=== PATIENT | male | born 1955 | race Caucasian/White ===

== ENCOUNTER 2022-10-07 06:34 | Outpatient (OUT) | payer OTHER, SELFPAY ==
[2022-10-07 07:24] LABS: Alanine Aminotransferase 19 U/L (16-63); Aspartate Amino Transferase 14 U/L (15-37); Chol HDL Ratio 6.6; Cholesterol 159 mg/dL (<=200); HDL Cholesterol 24 mg/dL (40-60); Triglycerides 136 mg/dL (<=150); VLDL CHOLESTEROL 27.2 mg/dL
== END 2022-10-07 06:35 ==
LOC: LAB 06:38
PROVIDERS: PCP Nurse Practitioner; Visit Provider Nurse Practitioner
DX: E78.5 Hyperlipidemia, unspecified (principal)
CPT/HCPCS: 36415; 80061; 84450; 84460

== ENCOUNTER 2022-12-08 09:08 | Outpatient (OUT) | payer OTHER, SELFPAY ==
[2022-12-08 09:55] LABS: Alanine Aminotransferase 11 U/L (16-63); Aspartate Amino Transferase 10 U/L (15-37); Chol HDL Ratio 3.6; Cholesterol 103 mg/dL (<=200); HDL Cholesterol 29 mg/dL (40-60); Triglycerides 65 mg/dL (<=150)
== END 2022-12-08 09:09 | disposition home or self-care (01) ==
LOC: LAB 09:10
PROVIDERS: PCP Nurse Practitioner; Visit Provider Nurse Practitioner
DX: E78.5 Hyperlipidemia, unspecified (principal)
CPT/HCPCS: 36415; 80061; 84450; 84460

== ENCOUNTER 2023-01-25 07:39 | Outpatient (OUT) | payer OTHER, SELFPAY ==
--- NOTE | 2023-01-25 08:01 | CT_ITS ---
[address] [address] Patient Name: CARLOS DUQUE MRN: [id number] date: 1955 Sex: M Assigned Patient Location: CT Current Patient Location: CT Accession/Order Number: [id number] Exam Date: 01/25/2023 07:55 Report Date: 01/25/2023 08:55 At the request of: LAURA FRANKLIN Procedure: CT lung screening low-dose EXAMINATION: CT lung screening low-dose HISTORY: History OF Tobacco Dependence Z87.891 COMPARISON: No relevant comparison available. TECHNIQUE: Axial, Coronal, and Sagittal images were created without the administration of IV contrast material. Dose reduction techniques were achieved by using automated exposure control and/or adjustment of mA and/or kV according to patient size and/or use of iterative reconstruction technique. FINDINGS: LUNGS: 4 mm pleural-based nodule within the posterior superior aspect of the left upper lobe. Trace amount of discoid atelectasis or scarring within right middle lobe. No convincing infiltrates. No significant chronic interstitial changes. PLEURA: No mass, effusion, or pneumothorax. VASCULATURE: No abnormality. ALMAZ: No mass or pathologic adenopathy. MEDIASTINUM: No mass or pathologic adenopathy. CARDIAC: No enlargement, pericardial thickening, or significant calcification. AORTA: No aneurysm or dissection. CHEST WALL: No mass or axillary adenopathy BONES: Old, incompletely ossified posterior right 11th rib fracture. LIMITED ABDOMEN: No suspicious findings. Limited images of the upper abdomen. OTHER: Negative. CT/CT lung screening low-dose IMPRESSION: 1. Lung-RADS 2- Benign Appearance or Behavior. Nodules with a very low likelihood of becoming a clinically active cancer due to size or lack of growth. Follow-up CT Chest in 1 year. Electronically authenticated by: ABRAHAM HEADLEY Date: 01/25/2023 08:55
== END 2023-01-25 07:40 | disposition home or self-care (01) ==
LOC: CT 07:39
PROVIDERS: PCP Nurse Practitioner; Visit Provider Nurse Practitioner
DX: Z87.891 Personal history of nicotine dependence (principal)
CPT/HCPCS: 71271

== ENCOUNTER 2023-02-22 12:35 | Emergency (ER) | payer OTHER, SELFPAY ==
[2023-02-22 12:40] VITALS: BP 139/74; PULSE 70; RESP 16; TEMP 36.9; O2SAT 98; BMI 37.6
[2023-02-22 12:50] LABS: Glucometer 146 mg/dL (74-106)
--- NOTE | 2023-02-22 13:40 | PC.NURSE ---
PT STATES HOT AND COLD FLASHES X 1 DAY. DENIES ANY OTHER SYMPTOMS
--- NOTE | 2023-02-22 13:50 | XR_ITS ---
The [address] [address] Patient Name: CARLOS DUQUE MRN: [id number] date: 1955 Sex: M Assigned Patient Location: ER Current Patient Location: ER Accession/Order Number: [id number] Exam Date: 02/22/2023 13:59 Report Date: 02/22/2023 14:32 At the request of: LOWELL CARTAGENA Procedure: XR chest 1V EXAMINATION: XR chest 1V HISTORY: Fever COMPARISON: No relevant comparison available. FINDINGS: LUNGS: No significant pulmonary parenchymal abnormalities. VASCULATURE: No increased pulmonary vasculature. PLEURA: No pneumothorax, effusion, or pleural thickening. CARDIAC: No cardiomegaly or cardiac silhouette abnormality. MEDIASTINUM: No visible mass or adenopathy. BONES: No fracture or visible bone lesion. OTHER: Negative. XR/XR chest 1V IMPRESSION: 1. No acute cardiopulmonary process. Electronically authenticated by: ABRAHAM HEADLEY Date: 02/22/2023 14:32
--- NOTE | 2023-02-22 13:53 | ED_ITS ---
Documented by User: DEMETRIO Lewis 02/22/23 16:08 HPI - General Adult General Chief complaint: Upper Respiratory Infection Stated complaint: HOT FLASHES/COLD CHILLS Time Seen by Provider: 02/22/23 13:38 Source: patient and family Source information: pt spouse Mode of arrival: Wheelchair Limitations: no limitations History of Present Illness HPI narrative: patient is a 67-year-old male who presents to the emergency department with his for concern of hot and cold chills that began this morning. states her primary concern is that the patient may have Covid. He has had no cough or congestion, although the states she has had a cough. Patient has had no objective fevers, vomiting or diarrhea. He denies chest pain, shortness of breath. He has no focal medical complaints although he states he has had decreased appetite for several days and has pain to the tailbone where he has a known sacral ulcer. He does not currently see wound care for this, he had an appointment with the clinical rehab specialist but missed the appointment because he did not know where to go and did not reschedule. He denies abdominal pain, urinary symptoms. No medications taken prior to arrival. patient's believes that the wound to the tailbone has been getting worse and is draining intermittently Related Data Previous Rx's Medication Instructions Recorded amoxicillin 875 mg-potassium 1 tab PO Q12H #20 tabs 02/22/23 clavulanate 125 mg tablet hydrocodone 5 mg-acetaminophen 325 1 tab PO Q6H PRN pain #12 tabs 02/22/23 mg tablet ondansetron 4 mg disintegrating 4 mg PO Q6H PRN nausea and 02/22/23 tablet vomiting #12 tabs Allergies Allergy/AdvReac Type Severity Reaction Status Date / Time No Known Drug Allergies Allergy Verified 02/22/23 12:49 Review of Systems ROS Constitutional Reports: chills; Denies: fever Ears, nose, mouth, and throat Denies: throat pain Cardiovascular Denies: chest pain Respiratory Denies: shortness of breath or cough Gastrointestinal Denies: nausea or vomiting Genitourinary Denies: painful urination Musculoskeletal Denies: back pain Integumentary/Breast Reports: skin pain; Denies: rash Neurological Denies: headache PFSH PFSH Social History Smoking status: Current every day smoker Exam Narrative Exam Narrative: Gen.: Awake, alert, in no distress Head: Normocephalic, atraumatic ENT: Moist mucous membranes Respiratory: No respiratory distress, lungs clear bilaterally Cardio: Regular rate and rhythm Gastrointestinal: Abdomen is soft, nondistended and nontender to palpation Back: 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 Mild erythema and induration noted around the edges of the wound. Extremities: Moves extremities equally Psych: Normal mood and affect Neuro: No focal neuro deficit Skin: Warm, dry, intact Constitutional Vital Signs, click to edit/add: Last Vital Signs Temp 98.5 F 02/22/23 12:40 Pulse 70 02/22/23 12:40 Resp 16 02/22/23 12:40 BP 139/74 02/22/23 12:40 Pulse Ox 98 02/22/23 12:40 O2 Del Method Room Air 02/22/23 12:40 Course Vital Signs Vital signs: Vital Signs Temperature 98.5 F 02/22/23 12:40 Pulse Rate 70 02/22/23 12:40 Respiratory Rate 16 02/22/23 12:40 Blood Pressure 139/74 02/22/23 12:40 Pulse Oximetry 98 02/22/23 12:40 Oxygen Delivery Method Room Air 02/22/23 12:40 Temperature 98.5 F 02/22/23 12:40 Pulse Rate 70 02/22/23 12:40 Respiratory Rate 16 02/22/23 12:40 Blood Pressure 139/74 02/22/23 12:40 Pulse Oximetry 98 02/22/23 12:40 Oxygen Delivery Method Room Air 02/22/23 12:40 Medical Decision Making MDM Narrative Medical decision making narrative: labs including electrolytes, kidney function, lactic acid are within normal limits. Patient has no leukocytosis or bandemia. He has normal vital signs in the emergency department with no fevers or tachycardia. He was treated with pain medication and IV fluids. Sepsis labs were ordered, blood cultures are pending. Patient with no evidence of significant sepsis or infection at this time. Urine specimen and Covid test are negative, chest x-rays unremarkable. I suspect the source of the patient's hot and cold chills may be wound infection as his sacral ulcer is worsening and draining. We will treat with Augmentin for antibiotic coverage and patient is referred to the wound care clinic. Return to the Emergency Room if symptoms change or worsen. Augmentin and pain medication given for home, follow-up with PCP. Medical Records Medical records reviewed: Yes I reviewed the patient's medical records Lab Data Lab results reviewed: Yes I reviewed the patient's lab results Labs: Lab Results 02/22/23 02/22/23 02/22/23 Range/Units 12:47 14:00 14:04 WBC 7.2 (4.0-11.0) 10^3/uL RBC 5.54 (4.70-6.10) 10^6/uL Hgb 14.4 (14.0-18.0) g/dL Hct 45.8 (42.0-54.0) % MCV 82.7 (80.0-94.0) fL MCH 26.0 (25.9-34.0) pg MCHC 31.4 (29.9-35.2) g/dL RDW 14.1 (11.0-15.0) % Plt Count 153 (150-450) 10^3/uL MPV 11.4 (9.5-13.5) fL Neut % (Auto) 78.2 H (43.0-75.0) % Lymph % (Auto) 14.9 L (20.5-60.0) % Dickinson % (Auto) 4.6 (1.7-12.0) % Eos % (Auto) 1.4 (0.9-7.0) % Baso % (Auto) 0.6 (0.2-2.0) % Neut # (Auto) 5.7 (1.4-6.5) 10^3/uL Lymph # (Auto) 1.1 L (1.2-3.8) 10^3/uL Dickinson # (Auto) 0.3 (0.3-0.8) 10^3/uL Eos # (Auto) 0.1 (0.0-0.7) 10^3/uL Baso # (Auto) 0.0 (0.0-0.1) 10^3/uL Abs Immat Gran (auto) 0.02 (0.00-0.03) 10^3/uL Imm/Tot Granulo (auto) 0.3 (0.0-0.5) % ESR (<=20) mm/hr VBG pH 7.465 H (7.330-7.430) VBG pCO2 41.2 (40.0-52.0) mmHg Sodium 139 (136-145) mmol/L Potassium 4.0 (3.5-5.1) mmol/L Chloride 103 (98-107) mmol/L Carbon Dioxide 28.4 (21.0-32.0) mmol/L Anion Gap 11.6 BUN 12.0 (7.0-18.0) mg/dL Creatinine 0.80 (0.70-1.30) mg/dL Est GFR ( Amer) >60 (>=60) Est GFR (Non-Af Amer) >60 (>=60) BUN/Creatinine Ratio 15.0 Glucose 113 H (74-106) mg/dL Lactate 0.9 (0.4-2.0) mmol/L Calcium 8.8 (8.5-10.1) mg/dL Total Bilirubin 0.4 (0.2-1.0) mg/dL AST 12 L (15-37) U/L ALT 10 L (16-63) U/L Alkaline Phosphatase 87 (46-116) U/L C-Reactive Protein 2.1 H (<=1.0) mg/dL Total Protein 7.4 (6.4-8.2) g/dL Albumin 2.9 L (3.4-5.0) g/dL Globulin 4.5 g/dL Albumin/Globulin Ratio 0.6 Urine Color (YELLOW) Urine Clarity (CLEAR) Urine pH (5.0-9.0) Ur Specific [place] (1.005-1.025) Urine Protein (NEG/TRACE) mg/dL Urine Glucose (UA) (NEGATIVE) mg/dL Urine Ketones (NEGATIVE) mg/dL Urine Occult Blood (NEGATIVE) Urine Nitrite (NEGATIVE) Urine Bilirubin (NEGATIVE) Urine Urobilinogen (0.2-1.0) EU/dL Ur Leukocyte Esterase (NEGATIVE) SARS-CoV-2 (PCR) Negative (NEGATIVE) SARS-CoV-2 RNA (LEONCIO) Not detected (NOT DETECTE) POC Glucose 146 H (74-106) mg/dL 02/22/23 02/22/23 Range/Units 14:16 15:30 WBC (4.0-11.0) 10^3/uL RBC (4.70-6.10) 10^6/uL Hgb (14.0-18.0) g/dL Hct (42.0-54.0) % MCV (80.0-94.0) fL MCH (25.9-34.0) pg MCHC (29.9-35.2) g/dL RDW (11.0-15.0) % Plt Count (150-450) 10^3/uL MPV (9.5-13.5) fL Neut % (Auto) (43.0-75.0) % Lymph % (Auto) (20.5-60.0) % Dickinson % (Auto) (1.7-12.0) % Eos % (Auto) (0.9-7.0) % Baso % (Auto) (0.2-2.0) % Neut # (Auto) (1.4-6.5) 10^3/uL Lymph # (Auto) (1.2-3.8) 10^3/uL Dickinson # (Auto) (0.3-0.8) 10^3/uL Eos # (Auto) (0.0-0.7) 10^3/uL Baso # (Auto) (0.0-0.1) 10^3/uL Abs Immat Gran (auto) (0.00-0.03) 10^3/uL Imm/Tot Granulo (auto) (0.0-0.5) % ESR 80 H (<=20) mm/hr VBG pH (7.330-7.430) VBG pCO2 (40.0-52.0) mmHg Sodium (136-145) mmol/L Potassium (3.5-5.1) mmol/L Chloride (98-107) mmol/L Carbon Dioxide (21.0-32.0) mmol/L Anion Gap BUN (7.0-18.0) mg/dL Creatinine (0.70-1.30) mg/dL Est GFR ( Amer) (>=60) Est GFR (Non-Af Amer) (>=60) BUN/Creatinine Ratio Glucose (74-106) mg/dL Lactate (0.4-2.0) mmol/L Calcium (8.5-10.1) mg/dL Total Bilirubin (0.2-1.0) mg/dL AST (15-37) U/L ALT (16-63) U/L Alkaline Phosphatase (46-116) U/L C-Reactive Protein (<=1.0) mg/dL Total Protein (6.4-8.2) g/dL Albumin (3.4-5.0) g/dL Globulin g/dL Albumin/Globulin Ratio Urine Color Yellow (YELLOW) Urine Clarity Clear (CLEAR) Urine pH 7.0 (5.0-9.0) Ur Specific [place] 1.010 (1.005-1.025) Urine Protein Trace (NEG/TRACE) mg/dL Urine Glucose (UA) Negative (NEGATIVE) mg/dL Urine Ketones Trace A (NEGATIVE) mg/dL Urine Occult Blood Negative (NEGATIVE) Urine Nitrite Negative (NEGATIVE) Urine Bilirubin Negative (NEGATIVE) Urine Urobilinogen 4.0 A (0.2-1.0) EU/dL Ur Leukocyte Esterase Negative (NEGATIVE) SARS-CoV-2 (PCR) (NEGATIVE) SARS-CoV-2 RNA (LEONCIO) (NOT DETECTE) POC Glucose (74-106) mg/dL Imaging Data Chest x-ray: Attestation: I have reviewed the pertinent imaging results. Radiologist's impression: Procedure: XR chest 1V EXAMINATION: XR chest 1V HISTORY: Fever COMPARISON: No relevant comparison available. FINDINGS: LUNGS: No significant pulmonary parenchymal abnormalities. VASCULATURE: No increased pulmonary vasculature. PLEURA: No pneumothorax, effusion, or pleural thickening. CARDIAC: No cardiomegaly or cardiac silhouette abnormality. MEDIASTINUM: No visible mass or adenopathy. BONES: No fracture or visible bone lesion. OTHER: Negative. IMPRESSION: 1. No acute cardiopulmonary process. Electronically authenticated by: ABRAHAM HEADLEY Date: 02/22/2023 14:32 Discharge Plan Discharge Chief Complaint: Upper Respiratory Infection Clinical Impression: Wound infection Patient Disposition: Home, Self-Care Time of Disposition Decision: 16:04 Condition: Good Mode of Transportation: Private Vehicle Prescriptions / Home Meds: New hydrocodone-acetaminophen 5-325 mg tablet 1 tab PO Q6H PRN (Reason: pain) Qty: 12 0RF Rx Instructions: DX: L08.9 amoxicillin-pot clavulanate 875-125 mg tablet 1 tab PO Q12H Qty: 20 0RF ondansetron 4 mg tablet,disintegrating 4 mg PO Q6H PRN (Reason: nausea and vomiting) Qty: 12 0RF Instructions: Wound Infection (ED), How to Prevent Pressure Injuries (ED), Acute Wounds (ED) Additional Instructions: Please follow up with Dr. Siegel at the [facility] [phone] Stand Alone Forms: Portal Instructions Referrals: Irina Mcleod NP [Primary Care Provider] - 1 week Discharge Date/Time: 02/22/23 16:14 Documented by User: Sang Hart MD 02/22/23 16:25 HPI - General Adult General Chief complaint: Upper Respiratory Infection Stated complaint: HOT FLASHES/COLD CHILLS Time Seen by Provider: 02/22/23 13:38 Related Data Previous Rx's Medication Instructions Recorded amoxicillin 875 mg-potassium 1 tab PO Q12H #20 tabs 02/22/23 clavulanate 125 mg tablet hydrocodone 5 mg-acetaminophen 325 1 tab PO Q6H PRN pain #12 tabs 02/22/23 mg tablet ondansetron 4 mg disintegrating 4 mg PO Q6H PRN nausea and 02/22/23 tablet vomiting #12 tabs Allergies Allergy/AdvReac Type Severity Reaction Status Date / Time No Known Drug Allergies Allergy Verified 02/22/23 12:49 PFSH PFSH Social History Smoking status: Current every day smoker Exam Narrative Exam Narrative: Gen.: Awake, alert, in no distress; Patient smells of tobacco/cigarette products, poor hygiene Head: Normocephalic, atraumatic ENT: Moist mucous membranes Respiratory: No respiratory distress, lungs clear bilaterally Cardio: Regular rate and rhythm Gastrointestinal: Abdomen is soft, nondistended and nontender to palpation Back: 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 Mild erythema and induration noted around the edges of the wound. Patient has 2 separate openings of the skin at the top of patient's buttocks, they appear to be possibly tracking together. No active drainage, no active bleeding. No palpable abscess or pilonidal cyst. No other involvement of patient's buttocks, anus. This was examined by Diane ATKINSON and DR HART. Dr Hart and Veronica RN at bedside during the entire repeat evaluation and examination of the patient's buttocks. Extremities: Moves extremities equally. Psych: Normal mood and affect Neuro: No focal neuro deficit Skin: Warm, dry, intact Constitutional Vital Signs, click to edit/add: Last Vital Signs Temp 98.5 F 02/22/23 12:40 Pulse 70 02/22/23 12:40 Resp 16 02/22/23 12:40 BP 139/74 02/22/23 12:40 Pulse Ox 98 02/22/23 12:40 O2 Del Method Room Air 02/22/23 12:40 Course Vital Signs Vital signs: Vital Signs Temperature 98.5 F 02/22/23 12:40 Pulse Rate 70 02/22/23 12:40 Respiratory Rate 16 02/22/23 12:40 Blood Pressure 139/74 02/22/23 12:40 Pulse Oximetry 98 02/22/23 12:40 Oxygen Delivery Method Room Air 02/22/23 12:40 Temperature 98.5 F 02/22/23 12:40 Pulse Rate 70 02/22/23 12:40 Respiratory Rate 16 02/22/23 12:40 Blood Pressure 139/74 02/22/23 12:40 Pulse Oximetry 98 02/22/23 12:40 Oxygen Delivery Method Room Air 02/22/23 12:40 Medical Decision Making MDM Narrative Medical decision making narrative: labs including electrolytes, kidney function, lactic acid are within normal limits. Patient has no leukocytosis or bandemia. He has normal vital signs in the emergency department with no fevers or tachycardia. He was treated with pain medication and IV fluids. Sepsis labs were ordered, blood cultures are pending. Patient with no evidence of significant sepsis or infection at this time. Urine specimen and Covid test are negative, chest x-rays unremarkable. I suspect the source of the patient's hot and cold chills may be wound infection as his sacral ulcer is worsening and draining. We will treat with Augmentin for antibiotic coverage and patient is referred to the wound care clinic. Return to the Emergency Room if symptoms change or worsen. Augmentin and pain medication given for home, follow-up with PCP. I, Dr Hart, have reviewed the above progress note and course of action in the ER; agree with the above. I have personally seen and evaluated this patient, gone over history and physical, and discussed disposition and treatment plan with the patient. Lab Data Lab results reviewed: Yes I reviewed the patient's lab results Labs: Lab Results 02/22/23 02/22/23 02/22/23 Range/Units 12:47 14:00 14:04 WBC 7.2 (4.0-11.0) 10^3/uL RBC 5.54 (4.70-6.10) 10^6/uL Hgb 14.4 (14.0-18.0) g/dL Hct 45.8 (42.0-54.0) % MCV 82.7 (80.0-94.0) fL MCH 26.0 (25.9-34.0) pg MCHC 31.4 (29.9-35.2) g/dL RDW 14.1 (11.0-15.0) % Plt Count 153 (150-450) 10^3/uL MPV 11.4 (9.5-13.5) fL Neut % (Auto) 78.2 H (43.0-75.0) % Lymph % (Auto) 14.9 L (20.5-60.0) % Dickinson % (Auto) 4.6 (1.7-12.0) % Eos % (Auto) 1.4 (0.9-7.0) % Baso % (Auto) 0.6 (0.2-2.0) % Neut # (Auto) 5.7 (1.4-6.5) 10^3/uL Lymph # (Auto) 1.1 L (1.2-3.8) 10^3/uL Dickinson # (Auto) 0.3 (0.3-0.8) 10^3/uL Eos # (Auto) 0.1 (0.0-0.7) 10^3/uL Baso # (Auto) 0.0 (0.0-0.1) 10^3/uL Abs Immat Gran (auto) 0.02 (0.00-0.03) 10^3/uL Imm/Tot Granulo (auto) 0.3 (0.0-0.5) % ESR (<=20) mm/hr VBG pH 7.465 H (7.330-7.430) VBG pCO2 41.2 (40.0-52.0) mmHg Sodium 139 (136-145) mmol/L Potassium 4.0 (3.5-5.1) mmol/L Chloride 103 (98-107) mmol/L Carbon Dioxide 28.4 (21.0-32.0) mmol/L Anion Gap 11.6 BUN 12.0 (7.0-18.0) mg/dL Creatinine 0.80 (0.70-1.30) mg/dL Est GFR ( Amer) >60 (>=60) Est GFR (Non-Af Amer) >60 (>=60) BUN/Creatinine Ratio 15.0 Glucose 113 H (74-106) mg/dL Lactate 0.9 (0.4-2.0) mmol/L Calcium 8.8 (8.5-10.1) mg/dL Total Bilirubin 0.4 (0.2-1.0) mg/dL AST 12 L (15-37) U/L ALT 10 L (16-63) U/L Alkaline Phosphatase 87 (46-116) U/L C-Reactive Protein 2.1 H (<=1.0) mg/dL Total Protein 7.4 (6.4-8.2) g/dL Albumin 2.9 L (3.4-5.0) g/dL Globulin 4.5 g/dL Albumin/Globulin Ratio 0.6 Urine Color (YELLOW) Urine Clarity (CLEAR) Urine pH (5.0-9.0) Ur Specific [place] (1.005-1.025) Urine Protein (NEG/TRACE) mg/dL Urine Glucose (UA) (NEGATIVE) mg/dL Urine Ketones (NEGATIVE) mg/dL Urine Occult Blood (NEGATIVE) Urine Nitrite (NEGATIVE) Urine Bilirubin (NEGATIVE) Urine Urobilinogen (0.2-1.0) EU/dL Ur Leukocyte Esterase (NEGATIVE) SARS-CoV-2 (PCR) Negative (NEGATIVE) SARS-CoV-2 RNA (LEONCIO) Not detected (NOT DETECTE) POC Glucose 146 H (74-106) mg/dL 02/22/23 02/22/23 Range/Units 14:16 15:30 WBC (4.0-11.0) 10^3/uL RBC (4.70-6.10) 10^6/uL Hgb (14.0-18.0) g/dL Hct (42.0-54.0) % MCV (80.0-94.0) fL MCH (25.9-34.0) pg MCHC (29.9-35.2) g/dL RDW (11.0-15.0) % Plt Count (150-450) 10^3/uL MPV (9.5-13.5) fL Neut % (Auto) (43.0-75.0) % Lymph % (Auto) (20.5-60.0) % Dickinson % (Auto) (1.7-12.0) % Eos % (Auto) (0.9-7.0) % Baso % (Auto) (0.2-2.0) % Neut # (Auto) (1.4-6.5) 10^3/uL Lymph # (Auto) (1.2-3.8) 10^3/uL Dickinson # (Auto) (0.3-0.8) 10^3/uL Eos # (Auto) (0.0-0.7) 10^3/uL Baso # (Auto) (0.0-0.1) 10^3/uL Abs Immat Gran (auto) (0.00-0.03) 10^3/uL Imm/Tot Granulo (auto) (0.0-0.5) % ESR 80 H (<=20) mm/hr VBG pH (7.330-7.430) VBG pCO2 (40.0-52.0) mmHg Sodium (136-145) mmol/L Potassium (3.5-5.1) mmol/L Chloride (98-107) mmol/L Carbon Dioxide (21.0-32.0) mmol/L Anion Gap BUN (7.0-18.0) mg/dL Creatinine (0.70-1.30) mg/dL Est GFR ( Amer) (>=60) Est GFR (Non-Af Amer) (>=60) BUN/Creatinine Ratio Glucose (74-106) mg/dL Lactate (0.4-2.0) mmol/L Calcium (8.5-10.1) mg/dL Total Bilirubin (0.2-1.0) mg/dL AST (15-37) U/L ALT (16-63) U/L Alkaline Phosphatase (46-116) U/L C-Reactive Protein (<=1.0) mg/dL Total Protein (6.4-8.2) g/dL Albumin (3.4-5.0) g/dL Globulin g/dL Albumin/Globulin Ratio Urine Color Yellow (YELLOW) Urine Clarity Clear (CLEAR) Urine pH 7.0 (5.0-9.0) Ur Specific [place] 1.010 (1.005-1.025) Urine Protein Trace (NEG/TRACE) mg/dL Urine Glucose (UA) Negative (NEGATIVE) mg/dL Urine Ketones Trace A (NEGATIVE) mg/dL Urine Occult Blood Negative (NEGATIVE) Urine Nitrite Negative (NEGATIVE) Urine Bilirubin Negative (NEGATIVE) Urine Urobilinogen 4.0 A (0.2-1.0) EU/dL Ur Leukocyte Esterase Negative (NEGATIVE) SARS-CoV-2 (PCR) (NEGATIVE) SARS-CoV-2 RNA (LEONCIO) (NOT DETECTE) POC Glucose (74-106) mg/dL Discharge Plan Discharge Chief Complaint: Upper Respiratory Infection Clinical Impression: Wound infection Patient Disposition: Home, Self-Care Time of Disposition Decision: 16:04 Condition: Good Mode of Transportation: Private Vehicle Prescriptions / Home Meds: New hydrocodone-acetaminophen 5-325 mg tablet 1 tab PO Q6H PRN (Reason: pain) Qty: 12 0RF Rx Instructions: DX: L08.9 amoxicillin-pot clavulanate 875-125 mg tablet 1 tab PO Q12H Qty: 20 0RF ondansetron 4 mg tablet,disintegrating 4 mg PO Q6H PRN (Reason: nausea and vomiting) Qty: 12 0RF Instructions: Wound Infection (ED), How to Prevent Pressure Injuries (ED), Acute Wounds (ED) Additional Instructions: Please follow up with Dr. Siegel at the [facility] [phone] Stand Alone Forms: Portal Instructions Referrals: Irina Mcleod NP [Primary Care Provider] - 1 week Discharge Date/Time: 02/22/23 16:14
[2023-02-22] MEDS: OXYCODONE HCL/ACETAMINOPHEN 5MG/325MG 1 TAB PO (14:27)
[2023-02-22] MEDS: 0.9 % SODIUM CHLORIDE 1,000 ML 999 ML IV (14:27)
[2023-02-22 14:28] LABS: PCO2 VBG 41.2 mmHg (40.0-52.0); pH VBG 7.465 (7.330-7.430)
[2023-02-22 14:30] LABS: Basophils Percent Auto 0.6 % (0.2-2.0); Eosinophils Absolute Auto 0.1 10^3/uL (0.0-0.7); Eosinophils Percent Auto 1.4 % (0.9-7.0); Hematocrit 45.8 % (42.0-54.0); Hemoglobin 14.4 g/dL (14.0-18.0); Immature Granulocytes Abs Auto 0.02 10^3/uL (0.00-0.03); Immature Granulocytes Pct Auto 0.3 % (0.0-0.5); Lymphocytes Absolute Auto 1.1 10^3/uL (1.2-3.8); Lymphocytes Percent Auto 14.9 % (20.5-60.0); Mean Corpuscular HGB Conc 31.4 g/dL (29.9-35.2); Mean Corpuscular Volume 82.7 fL (80.0-94.0); Mean Platelet Volume 11.4 fL (9.5-13.5); Monocytes Absolute Auto 0.3 10^3/uL (0.3-0.8); Monocytes Percent Auto 4.6 % (1.7-12.0); Neutrophils Absolute Auto 5.7 10^3/uL (1.4-6.5); Neutrophils Percent Auto 78.2 % (43.0-75.0); Platelet Count 153 10^3/uL (150-450); Red Blood Count 5.54 10^6/uL (4.70-6.10); Red Cell Distribution Width 14.1 % (11.0-15.0); White Blood Count 7.2 10^3/uL (4.0-11.0)
[2023-02-22 14:39] LABS: SARS-CoV-2 Ag NEGATIVE (NEGATIVE)
[2023-02-22 14:43] LABS: Alanine Aminotransferase 10 U/L (16-63); Albumin Globulin Ratio 0.6; Albumin Level 2.9 g/dL (3.4-5.0); Alkaline Phosphatase 87 U/L (46-116); Anion Gap 11.6; Aspartate Amino Transferase 12 U/L (15-37); Bilirubin Total 0.4 mg/dL (0.2-1.0); C Reactive Protein 2.1 mg/dL (<=1.0); Calcium 8.8 mg/dL (8.5-10.1); Carbon Dioxide 28.4 mmol/L (21.0-32.0); Chloride 103 mmol/L (98-107); Estimated GFR (African America >60 (>=60); Estimated GFR (Non-African Ame >60 (>=60); Globulin 4.5 g/dL; Glucose 113 mg/dL (74-106); Sodium 139 mmol/L (136-145); Total Protein 7.4 g/dL (6.4-8.2)
[2023-02-22 14:45] LABS: Lactate/Lactic Acid 0.9 mmol/L (0.4-2.0)
[2023-02-22 14:57] LABS: Erythrocyte Sedimentation Rate 80 mm/hr (<=20)
--- NOTE | 2023-02-22 15:37 | PC.NURSE ---
PT STATES HIS PAIN IS BETTER AT THIS TIME. FLUIDS ARE COMPLETED. URINE SAMPLE COLLECTED.
[2023-02-22 15:52] LABS: Bilirubin Urine NEGATIVE (NEGATIVE); Blood Urine NEGATIVE (NEGATIVE); Clarity Urine CLEAR (CLEAR); Color Urine YELLOW (YELLOW); Glucose Urine UA NEGATIVE (NEGATIVE); Ketones Urine TRACE mg/dL (NEGATIVE); Leukocyte Esterase Urine NEGATIVE (NEGATIVE); Nitrite Urine NEGATIVE (NEGATIVE); Protein Urine TRACE mg/dL (NEG/TRACE)
[2023-02-22 15:53] LABS: Urine Microscopic Indicated NO
[2023-02-22 16:00] LABS: SARS-CoV-2 NAA NOT DETECTED (NOT DETECTE)
== END 2023-02-22 16:14 | disposition home or self-care (01) ==
PROVIDERS: Physician Assistant; Emergency Provider Emergency Medicine; PCP Nurse Practitioner
DX: L89.153 Pressure ulcer of sacral region, stage 3 (principal); L08.9 Local infection of the skin and subcutaneous tissue, unspecified; Z20.822 Contact with and (suspected) exposure to COVID-19; F17.210 Nicotine dependence, cigarettes, uncomplicated
CPT/HCPCS: 36415; 71045; 80053; 81003; 82800; 83605; 85025; 85652; 86140; 87040; 87635; 87811; 99285

== ENCOUNTER 2023-04-07 11:05 | Outpatient (OUT) | payer OTHER, SELFPAY ==
[2023-04-07 11:41] LABS: Estimated Average Glucose 126 mg/dL
== END 2023-04-07 11:06 | disposition home or self-care (01) ==
PROVIDERS: PCP Nurse Practitioner; Visit Provider Nurse Practitioner
DX: E11.42 Type 2 diabetes mellitus with diabetic polyneuropathy (principal)
CPT/HCPCS: 36415; 83036

== ENCOUNTER 2023-06-02 09:55 | Inpatient (IN) | payer OTHER, SELFPAY ==
[2023-06-02] VITALS (43 sets, daily range): BP systolic 65–108; BP diastolic 43–71; PULSE 82–117; RESP 7–27; TEMP 36.2–36.8; O2SAT 90–98; BMI 29.9; BMI 41.3
--- NOTE | 2023-06-02 10:19 | ECG_ITS ---
[facility] Test Date: 2023-06-02 Pat Name: CARLOS DUQUE Department: Room: - Gender: Male [place]: : 1955 Requested By: LAURA FRANKLIN Order Number: [id number] Reading MD: STACEY CHU Measurements Intervals [place] Rate: 105 P: 250 TX: 230 QRS: -68 QRSD: 132 T: 91 QT: 370 QTc: 431 Interpretive Statements Sinus tachycardia 2231 First degree AV block 2450 Right bundle branch block 3631 Inferior myocardial infarction, possibly acute 4564 Twave abnormality, possible lateral ischemia 9150 abnormal ECG Electronically Signed On 06-03-2023 6:42:33 EST by STACEY CHU
[2023-06-02] MEDS: 0.9 % SODIUM CHLORIDE 1,000 ML 999 ML IV (10:30)
--- OUTSIDE RECORDS SUMMARY | 2023-06-02 10:36 | XMS_ITS | CCD ---
Author Name Unknown Address [id number] [place] [address] Organization [facility] Care Team Providers Care Weave Room Supervisor Name Role Phone RIGOBERTO, METAL SPRAY OPERATOR IRINA Admitting Unavailable AICHHOLZ, METAL SPRAY OPERATOR IRINA Primary Care Unavailable AICHHOLZ, METAL SPRAY OPERATOR IRINA Consulting Unavailable AICHHOLZ, METAL SPRAY OPERATOR IRINA Attending Unavailable AICHHOLZ, METAL SPRAY OPERATOR IRINA Admitting Unavailable AICHHOLZ, METAL SPRAY OPERATOR IRINA Primary Care Unavailable AICHHOLZ, METAL SPRAY OPERATOR IRINA Consulting Unavailable AICHHOLZ, METAL SPRAY OPERATOR IRINA Attending Unavailable AICHHOLZ, METAL SPRAY OPERATOR IRINA Admitting Unavailable AICHHOLZ, METAL SPRAY OPERATOR IRINA Primary Care Unavailable AICHHOLZ, METAL SPRAY OPERATOR IRINA Consulting Unavailable AICHHOLZ, METAL SPRAY OPERATOR IRINA Attending Unavailable JOSE ELIAS DAI Admitting Unavailable JOSE ELIAS DAI Consulting Unavailable JOSE ELIAS DAI Attending Unavailable AICHHOLZ, METAL SPRAY OPERATOR IRINA Primary Care Unavailable Arlen Garcia PA-C Attending Brad delvalle Aichholz FULL STACK JAVA DEVELOPER-METAL SPRAY OPERATORIrina Referring Kristineva Too Manriquez MD Attending Unavaila JAYLIN Flynn Attending Unavailable Aichholz FULL STACK JAVA DEVELOPER-METAL SPRAY OPERATORIrina Primary Care Provider AMBER VALDOVINOS Attending Unavailable IRINA MCLEOD Referring Unavailable VINODHHOLDary, IRINA J Primary Care Unavailable VINODHBESS, IRINA Attending Unavailable VINODHBESS, IRINA Attending Unavailable SYBIL TOBIN Attending Unavailable IRINA MCLEOD Referring Unavailable AICADOLPH, IRINA Campa Primary Care Unavailable IRINA MCLEOD Referring Unavailable VINODHBESS, IRINA Campa Primary Care Unavailable AMBER VALDOVINOS Admitting Unavailable AMBER VALDOVINOS Attending Unavailable IRINA MCLEOD Primary Care Unavailable FRANKIE BISHOP Attending Unavailable IRINA MCLEOD Primary Care Unavailable Allergies Allergy Classification Reported Allergen(s) Allergy Type Date of Onset Reaction(s) Facility (1 source) Cephalexin Drug Allergy [facility] Repository (1 source) Clindamycin Drug Allergy [facility] (1 source) levoFLOXacin Drug Allergy [facility]ository (3 sources) Cephalosporins (Antibiotic); Translations: [CEPHALOSPORINS] Propensity to adverse reactions to drug (disorder) 3 Rash [facility] Repository (3 sources) Clindamycin; Translations: [CLINDAMYCIN] Drug Allergy 3 Rash [facility] Repository (3 sources) levoFLOXacin; Translations: [LEVOFLOXACIN] Drug Allergy 3 Rash [facility] Repository Medications Current Medications Medication Drug Class(es) Dates Sig (Normalized) Sig (Original) albuterol 0.83 mg/ml inhalation solution (1 source) beta2-Adrenergic Agonist take 2.5 mg by inhalation every six hours as needed albuterol (PROVENTIL,VENTOL IN) 2.5 mg /3 mL (0.083 %) nebulizer solution Inhale 3 mL (2.5 mg total) by nebulization every 6 (six) hours as needed. 0 Active aspirin 81 mg delayed release oral tablet (2 sources) Platelet Aggregation Inhibitor, Nonsteroidal Anti-inflammatory Drug take 1 tablet by mouth in the morning aspirin 81 mg Take 1 tablet (81 mg total) by mouth in the morning. 0 Active carvedilol 3.125 mg oral tablet (2 sources) alpha-Adrenergic Maria Esther, beta-Adrenergic Maria Esther take 1 tablet by mouth in the morning, then take 1 tablet by mouth at mealtime carvediloL (COREG) 3.125 mg tablet Take 1 tablet (3.125 mg total) by mouth in the morning and 1 tablet (3.125 mg total) in the evening. Take with meals. 0 Active DULoxetine 30 mg delayed release oral capsule (2 sources) Serotonin and Norepinephrine Reuptake Inhibitor take 1 capsule by mouth in the morning DULoxetine (CYMBALTA) 30 mg capsule Take 1 capsule (30 mg total) by mouth in the morning. 0 Active furosemide 20 mg oral tablet (2 sources) Loop Diuretic take 1 tablet by mouth three times daily furosemide (LASIX) 20 mg tablet Take 1 tablet (20 mg total) by mouth 3 (three) times a day. 0 Active gabapentin 300 mg oral capsule (2 sources) Anti-epileptic Agent gabapentin (NEURONTIN) 300 mg capsule 1 capsule (300 mg total) in the morning and 1 capsule (300 mg total) at noon and 1 capsule (300 mg total) in the evening and 1 capsule (300 mg total) before bedtime. 0 Active lisinopril 10 mg oral tablet (2 sources) Angiotensin Converting Enzyme Inhibitor Start: 03-08-2023 take 1 tablet by mouth in the morning lisinopriL (PRINIVIL,ZESTRIL ) 10 mg tablet Take 1 tablet (10 mg total) by mouth in the morning. 0 03/08/2023 Active metFORMIN hydrochloride 500 mg oral tablet (2 sources) Biguanide take 1 tablet by mouth in the morning, then take 1 tablet by mouth at mealtime metFORMIN (GLUCOPHAGE) 500 mg tablet Take 1 tablet (500 mg total) by mouth in the morning and 1 tablet (500 mg total) in the evening. Take with meals. 0 Active omeprazole 20 mg delayed release oral capsule (2 sources) Proton Pump Inhibitor Start: 03-08-2023 take 1 capsule by mouth once daily before breakfast omeprazole (PriLOSEC) 20 mg capsule Take 1 capsule (20 mg total) by mouth every morning before breakfast. 0 03/08/2023 Active rOPINIRole 2 mg oral tablet (4 sources) Nonergot Dopamine Agonist Start: 03-08-2023 take 1 tablet by mouth once daily rOPINIRole (REQUIP) 2 mg tablet Take 1 tablet (2 mg total) by mouth nightly. 0 03/08/2023 Active take 2 tablets by mouth once anthony ly rOPINIRole (REQUIP) 1 mg tablet Take 2 tablets (2 mg total) by mouth nightly. 0 Active rosuvastatin calcium 20 mg oral tablet (2 sources) HMG-CoA Reductase Inhibitor Start: 03-08-2023 take 1 tablet by mouth in the morning rosuvastatin (CRESTOR) 20 mg tablet Take 1 tablet (20 mg total) by mouth in the morning. 0 03/08/2023 Active tamsulosin hydrochloride 0.4 mg oral capsule (2 sources) alpha-Adrenergic Maria Esther take 1 capsule by mouth once daily, then take 2 capsules by mouth once daily tamsulosin (FLOMAX) 0.4 mg capsule Take 1 capsule (0.4 mg total) by mouth nightly. 2 tabs daily 0 Active Problems Problem Classification Problem Date Documented Date Episodic/Chronic Chronic obstructive pulmonary disease and bronchiectasis (1 source) Chronic obstructive pulmonary disease, unspecified; Translations: [COPD UNSPECIFIED] Onset: 3 Chronic Chronic ulcer of skin (2 sources) Pressure ulcer of buttock; Translations: [Pressure ulcer of unspecified buttock, unspecified stage] Onset: 3 03-12-2023 Chronic Coronary atherosclerosis and other heart disease (2 sources) Atherosclerotic heart disease of [place] coronary artery without angina pectoris; Translations: [Atherosclerotic heart disease of [place] coronary artery without angina pectoris] Onset: 3 Chronic Diabetes mellitus with complications (4 sources) Type 2 diabetes mellitus with diabetic polyneuropathy; Translations: [TYPE 2 DM W/DIABETIC POLYNEUROPATHY] Onset: 3 Chronic Disorders of lipid metabolism (3 sources) Pure hypercholesterolemia, unspecified; Translations: [Mixed hyperlipidemia] Onset: 3 Chronic Esophageal disorders (1 source) Gastro-esophageal reflux disease without esophagitis; Translations: [GERD WITHOUT ESOPHAGITIS] Onset: 3 Chronic Essential hypertension (3 sources) Essential (primary) hypertension; Translations: [ESSENTIAL PRIMARY HYPERTENSION] Onset: 3 Chronic Genitourinary symptoms and ill-defined conditions (4 sources) Unspecified abnormal findings in urine; Translations: [UNSPECIFIED ABNORMAL FINDINGS URINE] Onset: 3 Episodic Hyperplasia of prostate (1 source) Benign prostatic hyperplasia without lower urinary tract symptoms; Translations: [BENIGN PROSTATIC HYPRPLASIA WO LUTS] Onset: 3 Chronic Other aftercare (1 source) superintendent container terminal (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) use of aspirin; Translations: [BODY LINER CURRENT USE OF ASPIRIN] Onset: 3 Episodic Other aftercare (1 source) Other termite inspector (current) drug therapy; Translations: [OTH [facility] CURRENT DRUG THERAPY] Onset: 3 Episodic Other aftercare (1 source) half-way (current) use of oral hypoglycemic drugs; Translations: [[facility] USE ORAL HYPOGLYCEMIC DX] Onset: 3 Episodic Other complications of (2 sources) Obesity complicating , second trimester; Translations: [Obesity complicating , second trimester] Onset: 3 Chronic Other ear and sense organ disorders (1 source) Unspecified otitis externa, left ear; Translations: [UNS OTITIS EXTERNA LEFT EAR] Onset: 3 Chronic Other ear and sense organ disorders (3 sources) Otalgia, left ear; Translations: [OTALGIA LEFT EAR] Onset: 3 Episodic Other nutritional; endocrine; and metabolic disorders (2 sources) Morbid (severe) obesity due to excess calories; Translations: [Morbid (severe) obesity due to excess calories] Onset: 3 Chronic Other screening for suspected conditions (not mental disorders or infectious disease) (3 sources) Encounter for screening for malignant neoplasm of prostate; Translations: [Abnormal electrocardiogram [ECG] [EKG]] Onset: 3 Episodic Skin and subcutaneous tissue infections (9 sources) Pilonidal cyst without abscess; Translations: [Pilonidal cyst without mention of abscess] Onset: 3 05-05-2023 Episodic Substance-related disorders (2 sources) Tobacco dependence syndrome; Translations: [Nicotine dependence, unspecified, uncomplicated] Onset: 2 04-02-2023 Chronic Unclassified (1 source) Wound Check Onset: 4 Results Test Name Value Interpretation Reference Range Facility No Panel Informationon 05-05 Applied in clinic today MANUALLY TRANSCRIBED RESULTS No Panel InformationOrdered By: So Angela on 05-05-2023 [facility] Office Visiton 04-13-2023 Follow-up visit [id number] Carlos Persaud 1955 M Date Provider Department Center 04/13/2023 Ashia-JAYLIN CLINE [facility] No family history on file Level of Service:43816 MT OFFICE/OUTPATIENT NEW MODERATE MDM 45-59 MINUTES Normal [facility] UA RANDOM W/MICROSCOPICon BACTERIA NONE SEEN Normal NONE SEEN [facility] Comment on above: Performed By: #### U AMI #### [facility] [address] [place] [address] Dr. Gloria Ayala Bilirubin Ql (U) Negative Normal NEGATIVE [facility] Comment on above: Performed By: #### U AMIC #### [facility] [address] [address] [address] Gloria Ayala CAST NONE SEEN Normal NONE SEEN [facility] Comment on above: Performed By: #### U AMIC #### [facility] [address] [address] [address] Gloria Ayala Clarity (U) CLEAR Normal CLEAR [facility] Comment on above: Performed By: #### U AMIC #### [facility] [address] [address] [address] Gloria Ayala Color (U) YELLOW Normal YELLOW [facility] Comment on above: Performed By: #### U AMIC #### [facility] [address] [place] [address] Dr. Gloria Ayala Crystals LM Nom (Urine sed) NONE SEEN Normal NONE SEEN [facility] Comment on above: Performed By: #### U AMIC #### [facility] [address] [place] [address] Dr. Gloria Ayala Epithelial cells LM Ql (Urine sed) NONE SEEN Normal NONE SEEN /RARE [facility] Comment on above: Performed By: #### U AMIC #### [facility] [address] [place] [address] Dr. Gloria Ayala Glucose Ql (U) Negative Normal NEGATIVE [facility] Comment on above: Performed By: #### U AMIC #### [facility] [address] [address] [address] Gloria Ayala Hemoglobin Ql (U) Negative Normal NEGATIVE [facility] Comment on above: Performed By: #### U AMIC #### [facility] [address] [address] [address] Gloria Ayala Ketones Ql (U) TRACE Abnormal NEGATIVE [facility] Comment on above: Performed By: #### U AMIC #### [facility] [address] [place] [address] Dr. Gloria Ayala LEUKOCYTES Negative Normal NEGATIVE [facility] Comment on above: Performed By: #### U AMIC #### [facility] [address] [address] [address] Gloria Ayala MUCOUS NONE SEEN Normal NONE SEEN [facility] Comment on above: Performed By: #### U AMIC #### [facility] [address] [address] [address] Gloria Ayala Nitrite Ql (U) Negative Normal NEGATIVE [facility] Comment on above: Performed By: #### U AMIC #### [facility] [address] [address] [address] Gloria Ayala pH (U) 5.5 [pH] Normal 5-9 [facility] Comment on above: Performed By: #### U AMIC #### [facility] [address] [place] [address] Dr. Gloria Ayala RBC 0-2 Normal 0-2 [facility] Comment on above: Performed By: #### U AMIC #### [facility] [address] [place] [address] Dr. Gloria Ayala SPEC GRAVITY 1.020 Normal 1.005-<=1.025 [facility] Comment on above: Performed By: #### U AMIC #### [facility] [address] [place] [address] Dr. Gloria Ayala UA PROTEIN Negative Normal NEGATIVE/ TRACE [facility] Comment on above: Performed By: #### U AMIC #### [facility] [address] [place] [address] Dr. Gloria Ayala Urobilinogen Qn (U) 2.0 {Jonathan'U}/dL Abnormal 0.2 - 1. 0 [facility] Comment on above: Performed By: #### U AMIC #### [facility] [address] [place] [address] Dr. Gloria Ayala WBC NONE SEEN Normal NONE SEEN [facility] Comment on above: Performed By: #### U AMIC #### [facility] [address] [place] [address] Dr. Gloria Ayala CBC AUTO DIFFon 07-09-2022 BASO # 0.1 103/ul Normal 0.0-0.1 [facility] Comment on above: Performed By: #### C BC #### [facility] [address] [address] [address] Gloria Ayala Basophils/100 WBC (Bld) 0.6 % Normal 0.2-2.0 [facility] Comment on above: Performed By: #### C BC #### [facility] [address] [address] [address] Gloria Ayala EO # 0.1 103/ul Normal 0.0-0.7 [facility] Comment on above: Performed By: #### C BC #### [facility] [address] [address] [address] Gloria Ayala Eosinophils/100 WBC (Bld) 1.6 % Normal 0.9-7.0 [facility] Comment on above: Performed By: #### C BC #### [facility] [address] [address] [address] Gloria Ayala Erythrocyte distribution width (RBC) [Ratio] 13.6 % Normal 11.0-15.0 [facility] Comment on above: Performed By: #### C BC #### [facility] [address] [address] [address] Gloria Ayala Hematocrit (Bld) [Volume fraction] 49.8 % Normal 42.0-54.0 [facility] Comment on above: Performed By: #### C BC #### [facility] [address] [address] [address] Gloria Ayala Hemoglobin (Bld) [Mass/Vol] 15.7 g/dL Normal 14.0-18.0 [facility] Comment on above: Performed By: #### C BC #### [facility] [address] [address] [address] Gloria Ayala IG # 0.04 10e3/ul Critically high 0.00-0.[address] [facility] Comment on above: Performed By: #### C BC #### [facility] [address] [address] [address] Gloria Ayala IG % 0.5 % Normal 0.0-0.5 [facility] Comment on above: Performed By: #### C BC #### [facility] [address] [address] [address] Gloria Ayala LYMPH # 1.1 103/ul Critically low 1.2-3.8 [facility] Comment on above: Performed By: #### C BC #### [facility] [address] [place] [address] Dr. Gloria Ayala Lymphocytes/100 WBC (Bld) 13.8 % Critically low 20.5-60.0 [facility] Comment on above: Performed By: #### C BC #### [facility] [address] [place] [address] Dr. Gloria Ayala MANUAL DIFF REQ NO Normal [facility] Comment on above: Performed By: #### C BC #### [facility] [address] [place] [address] Dr. Gloria Ayala MCH (RBC) [Entitic mass] 26.6 pg Normal 25.9-34.0 [facility] Comment on above: Performed By: #### C BC #### [facility] [address] [place] [address] Dr. Gloria Ayala MCHC (RBC) [Mass/Vol] 31.5 g/dL Normal 29.9-35.2 [facility] Comment on above: Performed By: #### C BC #### [facility] [address] [place] [address] Dr. Gloira Ayala MCV (RBC) [Entitic vol] 84.4 fL Normal 80.0-94.0 [facility] Comment on above: Performed By: #### C BC #### [facility] [address] [place] [address] Dr. Gloria Ayala MONO # 0.4 103/ul Normal 0.3-0.8 [facility] Comment on above: Performed By: #### C BC #### [facility] [address] [place] [address] Dr. Gloria Ayala Monocytes/100 WBC (Bld) 5.0 % Normal 1.7-12.0 [facility] Comment on above: Performed By: #### C BC #### [facility] [address] [place] [address] Dr. Gloria Ayala NEUT # 6.3 103/ul Normal 1.4-6.5 [facility] Comment on above: Performed By: #### C BC #### [facility] [address] [place] [address] Dr. Gloria Ayala Neutrophils/100 WBC (Bld) 78.5 % Critically high 43.0-75.0 [facility] Comment on above: Performed By: #### C BC #### [facility] [address] [place] [address] Dr. Gloria Ayala Platelet mean volume (Bld) [Entitic vol] 10.5 fL Normal 9.5-13.5 [facility] Comment on above: Performed By: #### C BC #### [facility] [address] [place] [address] Dr. Gloria Ayala PLT 151 103/ul Normal 150-450 [facility] Comment on above: Performed By: #### C BC #### [facility] [address] [place] [address] Dr. Gloria Ayala RBC 5.90 106/ul Normal 4.70-6.10 [facility] Comment on above: Performed By: #### C BC #### [facility] [address] [place] [address] Dr. Gloria Ayala WBC 8.0 103/ul Normal 4.0-11.0 [facility] Comment on above: Performed By: #### C BC #### [facility] [address] [place] [address] Dr. Gloria Ayala GLYCOHEMOGLOBIN A1Con 2022 ADA RECOMMENDATION SEE BELOW Normal [facility] Comment on above: Result Comment: ADA RECOMMENDED LIMIT 4.0 - 6.0 ADA THERAPEUTIC TARGET < 7.0 ACTION SUGGESTED > 7.0 Performed By: #### A 1C #### [facility] [address] [place] [address] Dr. Gloria Ayala Glucose [Mass/Vol] 123 mg/dL Normal [facility] Comment on above: Performed By: #### A 1C #### [facility] [address] [address] [address] Gloria Ayala HbA1c (Bld) [Mass fraction] 5.9 % Normal 4.5-6.2 [facility] Comment on above: Performed By: #### A 1C #### [facility] [address] [address] [address] Gloria Ayala LIPID PROFILEon 07-09-2022 CHOL-HDL RATIO NORM SEE BELOW Normal [facility] Comment on above: Result Comment: 3.3 - 4.4 LOW RISK 4.4 - 7.1 AVERAGE RISK 7.1 - 11.0 MODERATE RISK >11.0 HIGH RISK Performed By: #### L IPID, CMP #### [facility] [address] [place] [address] Dr. Gloria Ayala Cholesterol [Mass/Vol] 182 mg/dL Normal <=200 [facility] Comment on above: Performed By: #### L IPID, CMP #### [facility] [address] [place] [address] Dr. Gloria Ayala Cholesterol in HDL [Mass/Vol] 29 mg/dL Critically low 40-60 [facility] Comment on above: Performed By: #### L IPID, CMP #### [facility] [address] [place] [address] Dr. Gloria Ayala Cholesterol in LDL [Mass/Vol] 136.6 mg/dL Normal [facility] Comment on above: Performed By: #### L IPID, CMP #### [facility] [address] [address] [address] Gloria Ayala Cholesterol.total/[place] sterol in HDL [Mass ratio] 6.3 {ratio} Normal [facility] Comment on above: Performed By: #### L IPID, CMP #### [facility] [address] [place] [address] Dr. Gloria Ayala HDL NORMAL > or = 60 mg/dl - LOW CARDIOVASCULAR RISK <40 mg/dl - HIGH CARDIOVASCULAR RISK Normal [facility] Comment on above: Performed By: #### L IPID, CMP #### [facility] [address] [place] [address] Dr. Gloria Ayala LDL CALC NORMAL SEE BELOW Normal [facility] Comment on above: Result Comment: <100 mg/dl OPTIMAL 100 - 129 mg/dl NEAR OR ABOVE OPTIMAL 130 - 159 mg/dl BORDERLINE HIGH 160 - 189 mg/dl HIGH >190 mg/dl VERY HIGH Performed By: #### L IPID, CMP #### [facility] [address] [place] [address] Dr. Gloria Ayala Triglyceride [Mass/Vol] 82 mg/dL Normal <=150 [facility] Comment on above: Performed By: #### L IPID, CMP #### [facility] [address] [place] [address] Dr. Gloria Ayala VLDL CALC 16.4 mg/dL Normal [facility] Comment on above: Performed By: #### L IPID, CMP #### [facility] [address] [place] [address] Dr. Gloria Ayala MICROALBUMIN, RAND URon 03-0 mALB 1.9 mg/L Normal <=30.0 [facility] Comment on above: Performed By: #### M ALBR #### [facility] [address] [place] [address] Dr. Gloria Ayala PROF 14(COMP METB)on 023 Albumin [Mass/Vol] 3.2 g/dL Critically low 3.4-5.0 [facility] Comment on above: Performed By: #### L IPID, CMP #### [facility] [address] [place] [address] Dr. Gloria Ayala Albumin/Globulin [Mass ratio] 0.8 {ratio} Normal [facility] Comment on above: Performed By: #### L IPID, CMP #### [facility] [address] [place] [address] Dr. Gloria Ayala ALP [Catalytic activity/Vol] 85 U/L Normal 46-116 [facility] Comment on above: Performed By: #### L IPID, CMP #### [facility] [address] [place] [address] Dr. Gloria Ayala ALT [Catalytic activity/Vol] 15 U/L Critically low 16-63 [facility] Comment on above: Performed By: #### L IPID, CMP #### [facility] [address] [place] [address] Dr. Gloria Ayala Anion gap [Moles/Vol] 9.5 mmol/L Normal [facility] Comment on above: Performed By: #### L IPID, CMP #### [facility] [address] [place] [address] Dr. Gloria Ayala AST [Catalytic activity/Vol] 13 U/L Critically low 15-37 [facility] Comment on above: Performed By: #### L IPID, CMP #### [facility] [address] [place] [address] Dr. Gloria Ayala Bilirubin [Mass/Vol] 0.6 mg/dL Normal 0.2-1.0 [facility] Comment on above: Performed By: #### L IPID, CMP #### [facility] [address] [place] [address] Dr. Gloria Ayala Calcium [Mass/Vol] 8.4 mg/dL Critically low 8.5-10.1 [facility] Comment on above: Performed By: #### L IPID, CMP #### [facility] [address] [place] [address] Dr. Gloria Ayala Chloride [Moles/Vol] 102 mmol/L Normal 98-107 [facility] Comment on above: Performed By: #### L IPID, CMP #### [facility] [address] [place] [address] Dr. Gloria Ayala CO2 [Moles/Vol] 34.6 mmol/L Critically high 21.0-32.0 [facility] Comment on above: Performed By: #### L IPID, CMP #### [facility] [address] [place] [address] Dr. Gloria Ayala Creatinine [Mass/Vol] 0.97 mg/dL Normal 0.70-1.30 [facility] Comment on above: Performed By: #### L IPID, CMP #### [facility] [address] [address] [address] Gloria Ayala EGFR-AF BURMESE >60 Normal >=60 [facility] Comment on above: Performed By: #### L IPID, CMP #### [facility] [address] [address] [address] Gloria Ayala EGFR-NON AF BURMESE >60 Normal >=60 [facility] Comment on above: Performed By: #### L IPID, CMP #### [facility] [address] [address] [address] Gloria Ayala Globulin (S) [Mass/Vol] 4.1 g/dL Normal [facility] Comment on above: Performed By: #### L IPID, CMP #### [facility] [address] [place] [address] Dr. Gloria Ayala Glucose [Mass/Vol] 154 mg/dL Critically high 74-106 [facility] Comment on above: Performed By: #### L IPID, CMP #### [facility] [address] [address] [address] Gloria Ayala Potassium [Moles/Vol] 4.1 mmol/L Normal 3.5-5.1 [facility] Comment on above: Performed By: #### L IPID, CMP #### [facility] [address] [place] [address] Dr. Gloria Ayala Protein [Mass/Vol] 7.3 g/dL Normal 6.4-8.2 [facility] Comment on above: Performed By: #### L IPID, CMP #### [facility] [address] [place] [address] Dr. Gloria Ayala Sodium [Moles/Vol] 142 mmol/L Normal 136-145 [facility] Comment on above: Performed By: #### L IPID, CMP #### [facility] [address] [address] [address] Gloria Ayala Urea nitrogen [Mass/Vol] 10.0 mg/dL Normal 7.0-18.0 [facility] Comment on above: Performed By: #### L IPID, CMP #### [facility] [address] [place] [address] Dr. Gloria Ayala Urea nitrogen/Creatinine [Mass ratio] 10.3 mg/mg Normal [facility] Comment on above: Performed By: #### L IPID, CMP #### [facility] [address] [place] [address] Dr. Gloria Ayala UA RANDOM W/MICROSCOPICon BACTERIA NONE SEEN Normal NONE SEEN [facility] Comment on above: Performed By: #### U AMIC #### [facility] [address] [place] [address] Dr. Gloria Ayala Bilirubin Ql (U) Negative Normal NEGATIVE [facility] Comment on above: Performed By: #### U AMIC #### [facility] [address] [place] [address] Dr. Gloria Ayala CAST SEEN Abnormal NONE SEEN [facility] Comment on above: Performed By: #### U AMIC #### [facility] [address] [place] [address] Dr. Gloria Ayala Clarity (U) CLEAR Normal CLEAR [facility] Comment on above: Performed By: #### U AMIC #### [facility] [address] [place] [address] Dr. Gloria Ayala Color (U) YELLOW Normal YELLOW [facility] Comment on above: Performed By: #### U AMIC #### [facility] [address] [place] [address] Dr. Gloria Ayala Crystals LM Nom (Urine sed) NONE SEEN Normal NONE SEEN [facility] Comment on above: Performed By: #### U AMIC #### [facility] [address] [place] [address] Dr. Gloria Ayala Epithelial cells LM Ql (Urine sed) RARE Normal NONE SEEN /RARE [facility] Comment on above: Performed By: #### U AMIC #### [facility] [address] [place] [address] Dr. Gloria Ayala Glucose Ql (U) Negative Normal NEGATIVE [facility] Comment on above: Performed By: #### U AMIC #### [facility] [address] [place] [address] Dr. Gloria Ayala Hemoglobin Ql (U) Negative Normal NEGATIVE [facility] Comment on above: Performed By: #### U AMIC #### [facility] [address] [address] [address] Gloria Ayala HYALINE CAST RARE Normal [facility] Comment on above: Performed By: #### U AMIC #### [facility] [address] [address] [address] Gloria Ayala Ketones Ql (U) Negative Normal NEGATIVE [facility] Comment on above: Performed By: #### U AMIC #### [facility] [address] [address] [address] Gloria Ayala LEUKOCYTES Negative Normal NEGATIVE [facility] Comment on above: Performed By: #### U AMIC #### [facility] [address] [address] [address] Gloria Ayala MUCOUS NONE SEEN Normal NONE SEEN [facility] Comment on above: Performed By: #### U AMIC #### [facility] [address] [address] [address] Gloria Ayala Nitrite Ql (U) Negative Normal NEGATIVE [facility] Comment on above: Performed By: #### U AMIC #### [facility] [address] [address] [address] Gloria Ayala pH (U) 7.0 [pH] Normal 5-9 [facility] Comment on above: Performed By: #### U AMIC #### [facility] [address] [address] [address] Gloria Ayala RBC NONE SEEN Abnormal 0-2 [facility] Comment on above: Performed By: #### U AMIC #### [facility] [address] [address] [address] Gloria Ayala SPEC GRAVITY 1.015 Normal 1.005-<=1.025 [facility] Comment on above: Performed By: #### U AMIC #### [facility] [address] [address] [address] Gloria Ayala UA PROTEIN Negative Normal NEGATIVE/ TRACE [facility] Comment on above: Performed By: #### U AMIC #### [facility] [address] [address] [address] Gloria Ayala Urobilinogen Qn (U) 8 {Jonathan'U}/dL Abnormal 0.2 - 1.0 [facility] Comment on above: Performed By: #### U AMIC #### [facility] [address] [address] [address] Gloria Ayala WBC NONE SEEN Normal NONE SEEN [facility] Comment on above: Performed By: #### U AMIC #### [facility] [address] [address] [address] Gloria Ayala Physician Referralon 022 Physician Referral [phone] [id number]:[id number] [facility] GLYCOHEMOGLOBIN A1Con 2021 ADA RECOMMENDATION SEE BELOW Normal [facility] Comment on above: Result Comment: ADA RECOMMENDED LIMIT 4.0 - 6.0 ADA THERAPEUTIC TARGET < 7.0 ACTION SUGGESTED > 7.0 Performed By: #### A 1C #### [facility] [address] [place] [address] Dr. Gloria Ayala Glucose [Mass/Vol] 128 mg/dL Normal [facility] Comment on above: Performed By: #### A 1C #### [facility] [address] [address] [address] Gloria Ayala HbA1c (Bld) [Mass fraction] 6.1 % Normal 4.5-6.2 [facility] Comment on above: Performed By: #### A 1C #### [facility] [address] [address] [address] Gloria Ayala PROF CHEM 8 (BAS METB)on Anion gap [Moles/Vol] 8.5 mmol/L Normal [facility] Comment on above: Performed By: #### B MP #### [facility] [address] [address] [address] Gloria Ayala Calcium [Mass/Vol] 8.5 mg/dL Normal 8.5-10.1 [facility] Comment on above: Performed By: #### B MP #### [facility] [address] [address] [address] Gloria Ayala Chloride [Moles/Vol] 99 mmol/L Normal 98-107 [facility] Comment on above: Performed By: #### B MP #### [facility] [address] [address] [address] Gloria Ayala CO2 [Moles/Vol] 34.5 mmol/L Critically high 21.0-32.0 [facility] Comment on above: Performed By: #### B MP #### [facility] [address] [address] [address] Gloria Ayala Creatinine [Mass/Vol] 1.02 mg/dL Normal 0.70-1.30 [facility] Comment on above: Performed By: #### B MP #### [facility] [address] [address] [address] Gloria Ayala EGFR-AF BURMESE >60 Normal >=60 [facility] Comment on above: Performed By: #### B MP #### [facility] [address] [address] [address] Gloria Ayala EGFR-NON AF BURMESE >60 Normal >=60 [facility] Comment on above: Performed By: #### B MP #### [facility] [address] [address] [address] Gloria Ayala Glucose [Mass/Vol] 116 mg/dL Critically high 74-106 [facility] Comment on above: Performed By: #### B MP #### [facility] [address] [address] [address] Gloria Ayala Potassium [Moles/Vol] 4.0 mmol/L Normal 3.5-5.1 [facility] Comment on above: Performed By: #### B MP #### [facility] [address] [place] [address] Dr. Gloria Ayala Sodium [Moles/Vol] 138 mmol/L Normal 136-145 [facility] Comment on above: Performed By: #### B MP #### [facility] [address] [address] [address] Gloria Ayala Urea nitrogen [Mass/Vol] 11.0 mg/dL Normal 7.0-18.0 [facility] Comment on above: Performed By: #### B MP #### [facility] [address] [address] [address] Gloria Ayala Urea nitrogen/Creatinine [Mass ratio] 10.8 mg/mg Normal [facility] Comment on above: Performed By: #### B MP #### [facility] [address] [address] [address] Gloria Ayala Vital Signs Date Time Vital Sign Value Performing Clinician Faci lity 05-27-2023 13:23-0500 Body height 176.5 cm Pm 1 [facility] 05-27-2023 13:23-0500 Body mass index (BMI) [Ratio] 45.12 kg/m2 Pm 1 [facility] 05-27-2023 13:23-0500 Body weight 140.[address] 05-05-2023 10:43-0500 Body temperature 97 [degF] Sybil Prabhjot FULL STACK JAVA DEVELOPER-METAL SPRAY OPERATOR Work Phone: [facility] 05-05-2023 10:43-0500 Diastolic blood pressure 66 mm[Hg] Sybil Prabhjot FULL STACK JAVA DEVELOPER-METAL SPRAY OPERATOR Work Phone: [facility] 05-05-2023 10:43-0500 Heart rate 80 /min Sybil Prabhjot COATES-METAL SPRAY OPERATOR Work Phone: [facility] 05-05-2023 10:43-0500 Respiratory rate 16 /min Sybil Prabhjot FULL STACK JAVA DEVELOPER-METAL SPRAY OPERATOR Work Phone: [facility] 05-05-2023 10:43-0500 Systolic blood pressure 116 mm[Hg] Sybil Prabhjot FULL STACK JAVA DEVELOPER-METAL SPRAY OPERATOR Work Phone: [facility] Encounters Encounter Date Encounter Type Care Provider Facility Start: 05-31-2023 End: 05-31-2023 Evaluation and management of inpatient FRANKIE Mark [facility] Start: 05-27-2023 End: 05-27-2023 ambulatory IRINA MCLEOD [facility] Start: 05-27-2023 End: 05-27-2023 ambulatory [facility] Pat Phone Call Provider 1 [facility] Start: 05-19-2023 End: 05-19-2023 ambulatory IRINA RIGOBERTO Not Available Start: 05-11-2023 End: 05-11-2023 ambulatory AMBER Diop JOELLE [facility] Start: 05-05-2023 End: 05-05-2023 ambulatory SYBIL TOBIN [facility] Start: 05-05-2023 End: 05-05-2023 Office outpatient visit 10 minutes Sybil Tobin F[employer] STACK JAVA DEVELOPER-METAL SPRAY OPERATOR Work Phone: [facility] Comment on above: Chronic recurrent pi lonidal cyst (Primary Dx); Abscess of multiple sites of buttock Start: 04-13-2023 End: 04-13-2023 ambulatory [facility] Start: 04-13-2023 End: 04-13-2023 Encounter for preprocedural cardiovascular examination [facility] Start: 04-07-2023 End: 04-07-2023 ambulatory IRINA RIGOBERTO Not Available Start: 10-26-2022 ambulatory Arlen castillo PA-C Facility[facility] Start: 09-21-2022 End: 09-22-2022 ambulatory Irina Mcleod F[employer] ST[employer] JAVA DEVELOPER-METAL SPRAY OPERATOR Facility[facility] Start: 08-04-2022 End: 08-04-2022 ambulatory JOSE ELIAS DAI Facility:[facility] Start: 07-23-2022 End: 07-24-2022 ambulatory METAL SPRAY OPERATOR IRINA AICHHOLZ Facility:[facility] Start: 07-09-2022 End: 07-10-2022 ambulatory METAL SPRAY OPERATOR IRINA AICHHOLZ Facility:[facility] Start: 09-15-2021 End: 09-16-2021 ambulatory METAL SPRAY OPERATOR IRINA AICHHOLZ Facility:[facility] Procedures Date Procedure Procedure Detail Performing Clinician Start: 05-05-2023 NURSING COMMUNICATION M iman Tobin FULL STACK JAVA DEVELOPER-METAL SPRAY OPERATOR Work Phone: Start: 07-09-2022 PSA screening METAL SPRAY OPERATOR IRINA MCLEOD Comment on above: Performed By: #### P [facility] #### [facility] [address] [place] [address] Dr. Gloria Ayala Plan of Treatment Date Care Activity Detail Author Start: 05-28-2024 Tobacco Screening Tobacco Screening [facility] Start: 05-27-2024 Adult BMI Screening Adult BMI Screen ing [facility] Start: 04-19-2024 Adult BMI Screening Adult BMI Screen ing [facility] Start: 04-05-2024 Tobacco Screening Tobacco Screening [facility] Start: 06-15-2023 End: 06-15-2023 Patient encounter procedure 06/15/2023 3:30 PM EST Office Visit [facility] Surgery [address] [place] [phone] Arlen Estrada, FULL STACK JAVA DEVELOPER-[facility] [address] [place], [place] [id number] [facility] Surgery Start: 05-31-2023 End: 05-31-2023 Admission to same day surgery center 05/31/2023 12:15 PM EST - 05/31/2023 1:15 PM EST Surgery [facility] [address] [place] [phone] Amber Valdovinos MD [address] [place] [phone] EXCISION CYST PILONIDAL [70349 (CPT )] [facility] Comment on above: EXCISION CYST PILONI SHAYAN [04929 (CPT )] Start: 05-31-2023 End: 05-31-2023 Anesthesia consultation 05/31/2023 12:15 PM EST Anesthesia Event [facility] [address] [place] [phone] Frankie Bishop MD [address] [place], [place] [id number] [facility] Start: 05-31-2023 End: 05-31-2023 Excision pilonidal cyst/sinus simple EXCISION CYST PILONIDAL pilonidal cyst 05/31/2023 12:15 PM EST [facility] Start: 05-31-2023 Subsequent hospital visit by physician 05/31/2023 12:15 PM EST Hospital Encounter [facility] [address] [place] [phone] Amber Valdovinos MD [address] [place] [phone] [facility] Start: 05-21-2023 End: 05-21-2023 Patient encounter procedure 05/21/2023 11:00 AM EST Office Visit [facility] [address] [place] [phone] Sybil Tobin, FULL STACK JAVA DEVELOPER-METAL SPRAY OPERATOR [address] [place] [address] [facility] Start: 05-11-2023 End: 05-11-2023 Patient encounter procedure 05/11/2023 2:00 PM EST Office Visit [facility] General Surgery [address] [place] [phone] Amber Valdovinos MD [address] [place] [address] [facility] Start: 01-01-2023 COVID-19 Vaccine ( season) COVID-19 Vaccine ( season) [facility] Start: 01-01-2023 Influenza vaccination Influenza Vacc ine [facility] Start: 2022 Fall Risk Screening Fall Risk Screen ing [facility] Start: 2007 Administration of varicella zoster vaccine Zoster (Shingles) Vaccine (1 of 2) [facility] Start: 1976 DTaP,Tdap and Td Vac cines (1 - Tdap) DTaP,Tdap and Td Vaccines (1 - Tdap) [facility] Start: 1975 Adult BMI Follow Up Plan Adult BMI Follow Up Plan [facility] Start: 1969 Depression Screening Depression Scre ening [facility] Start: 1957 Medicare Annual Well ness Visit Medicare Annual Wellness Visit [facility] [employer] Payers Date Payer Category Payer Self-pay 2003 Medicaid [employer] [employer] [id number] 2003-Present [phone] [address] [place] [address] [id number] 1959 Unknown [id number] 1957 Unknown [id number] [id number] 1957 Unknown [id number] [id number] 1957 Unknown [id number] [id number] 1957 Unknown [id number] [id number] 1957 Unknown [id number] [id number] 1957 Unknown [id number] [id number] 1957 Unknown [id number] [id number] 1957 Unknown [id number] [id number] 1957 Unknown [id number] [id number] 1957 Unknown [id number] [id number] 1957 Unknown [id number] [id number] 1957 Unknown [id number] [id number] 1957 Unknown [id number] Social History Date Type Detail Facility Start: 03-30-2023 End: 05-11-2023 Tobacco smoking status NHIS Ex-smoker [facility] End: 05-03-2023 History of tobacco use Current smoker [facility] End: 05-03-2023 History of tobacco use Cigarette Smoker [facility] Start: 05-05-2023 Alcohol intake Lifetime non-d benigno (finding) [facility] Start: 06-13-2020 End: 05-05-2023 History of Social function [facility] Start: 06-13-2020 End: 05-05-2023 Tobacco use panel [facility] Housing Instability Unknown [facility] Start: 1955 Sex Assigned At Not on file P [facility] Start: 05-11-2023 Alcohol intake Ex-drinker (finding) [facility] Note 05-27-2023 Perioperative Nursing Note - Sonia Dowell RN - 05/27/2023 2:10 PM EST Note Date & Type Note Facility 05-27-2023 Miscellaneous Notes Preoperative Education Checklist- General Surgery date: 05/31/23 Surgery time: 1215 Arrival time: 1015 1. Bring a photo ID and your insurance card with you the day of surgery. You will check in at the main lobby of the [facility]- registration desk is straight ahead as soon as you walk in. Tell them you are here for surgery. 2. If you have a Living Will/Durable Power of Licensed Staff Mft for Health Care that is not on file here, please bring a copy the day of surgery. 3. Please shower/bathe the night before surgery with the provided soap or wipes. Do not shower the morning of surgery- you will do use wipes when you arrive here at the hospital before getting into your surgical gown. Do not shave the area of your procedure for 2 days prior to your surgery. 4. NO powder, lotion, perfume/cologne, aftershave, make-up, deodorant, or hair products after you have bathed. 5. NO nail senegalese/acrylic on at least one finger. If you are having a hand, wrist or foot surgery then all nail senegalese and artificial/acrylic nails must be removed from that hand or foot. 6. Avoid ALL Aspirin and non-steroidal anti-inflammatory drugs and certain vitamins (Ibuprofen, Advil, Aleve, Excedrin, Meloxicam, Celebrex, fish/krill oil, etc.) for 7 days prior to surgery as instructed by your surgeon and/or your prescribing doctor. Tylenol IS ALLOWED. If you are on Ticlid, Xarelto, Eliquis, Pradaxa, Plavix or Coumadin, please check with your prescribing doctor for instructions for when to stop them. 7. If you use an inhaler, continue to use it routinely. 8. Nothing to eat or drink (not even water, gum, mints, or hard candy!) AFTER midnight prior to your surgery. 9. Take only medications that you are instructed to on the morning of surgery with a TINY SIP OF WATER. 10. Choose a responsible adult that will be able to drive you home when you are discharged from your hospital stay for your surgery and can stay with you in your home for 24 hours after your procedure. You must NOT drive any vehicle or operate any machinery for 24 hours after surgery. 11. When you dress for your appointment, please wear loose fitting clothing that is appropriate to accommodate your surgical area procedure. BRING WITH YOU ANY DEVICES YOU MAY NEED: MIGUE hose, ice machine, sling/swath, brace or special shoe, oversized zip-up or button up shirt, CPAP machine if staying overnight. 12. Do NOT wear jewelry, watches, or any piercings or metal for surgery- leave these valuables and money at home. 13. Do NOT wear contact lenses for surgery- glasses are okay if needed. 14. The anesthesiologist will talk with you the day of surgery and will ask you to sign a Consent Form. 15. Refrain from smoking or any type of tobacco use for at least 8 hours and marijuana for 24 hours prior to arrival for your surgery. 16. If a GREEN BLOOD band is given to you, please bring it with you for the day of surgery. 17. Notify your surgeon if you develop any illness before your surgery. 18. If you are staying overnight, please DO NOT BRING your home medications with you. 19. If you have any questions prior to surgery, please call the Preadmission Testing office at [phone], Mon.-Fri. 7 a.m.-3 p.m. Leave a voicemail if needed. Pre-Surgery Instructions: Medication Instructions albuterol (PROVENTIL,VENTOLIN) 2.5 mg /3 mL (0.083 %) nebulizer solution Stop taking 0 days prior to procedure aspirin 81 mg Stop taking 1 week prior to procedure carvediloL (COREG) 3.125 mg tablet Take morning of procedure DULoxetine (CYMBALTA) 30 mg capsule Stop taking 0 days prior to procedure furosemide (LASIX) 20 mg tablet Stop taking 0 days prior to procedure gabapentin (NEURONTIN) 300 mg capsule Stop taking 0 days prior to procedure lisinopriL (PRINIVIL,ZESTRIL) 10 mg tablet Take morning of procedure metFORMIN (GLUCOPHAGE) 500 mg tablet Stop taking 0 days prior to procedure omeprazole (PriLOSEC) 20 mg capsule Take morning of procedure rOPINIRole (REQUIP) 1 mg tablet Stop taking 0 days prior to procedure rOPINIRole (REQUIP) 2 mg tablet Stop taking 0 days prior to procedure rosuvastatin (CRESTOR) 20 mg tablet Stop taking 0 days prior to procedure tamsulosin (FLOMAX) 0.4 mg capsule Stop taking 0 days prior to procedure documented in this encounter [facility] Nurse Note 05-27-2023 Perioperative Nursing Note - Sonia Dowell RN - 05/27/2023 2:10 PM EST Note Date & Type Note Facility 05-27-2023 Nurse Note Preoperative Education Checklist- General Surgery date: 05/31/23 Surgery time: 1215 Arrival time: 1015 1. Bring a photo ID and your insurance card with you the day of surgery. You will check in at the main lobby of the [facility]- registration desk is straight ahead as soon as you walk in. Tell them you are here for surgery. 2. If you have a Living Will/Durable Power of Licensed Staff Mft for Health Care that is not on file here, please bring a copy the day of surgery. 3. Please shower/bathe the night before surgery with the provided soap or wipes. Do not shower the morning of surgery- you will do use wipes when you arrive here at the hospital before getting into your surgical gown. Do not shave the area of your procedure for 2 days prior to your surgery. 4. NO powder, lotion, perfume/cologne, aftershave, make-up, deodorant, or hair products after you have bathed. 5. NO nail senegalese/acrylic on at least one finger. If you are having a hand, wrist or foot surgery then all nail senegalese and artificial/acrylic nails must be removed from that hand or foot. 6. Avoid ALL Aspirin and non-steroidal anti-inflammatory drugs and certain vitamins (Ibuprofen, Advil, Aleve, Excedrin, Meloxicam, Celebrex, fish/krill oil, etc.) for 7 days prior to surgery as instructed by your surgeon and/or your prescribing doctor. Tylenol IS ALLOWED. If you are on Ticlid, Xarelto, Eliquis, Pradaxa, Plavix or Coumadin, please check with your prescribing doctor for instructions for when to stop them. 7. If you use an inhaler, continue to use it routinely. 8. Nothing to eat or drink (not even water, gum, mints, or hard candy!) AFTER midnight prior to your surgery. 9. Take only medications that you are instructed to on the morning of surgery with a TINY SIP OF WATER. 10. Choose a responsible adult that will be able to drive you home when you are discharged from your hospital stay for your surgery and can stay with you in your home for 24 hours after your procedure. You must NOT drive any vehicle or operate any machinery for 24 hours after surgery. 11. When you dress for your appointment, please wear loose fitting clothing that is appropriate to accommodate your surgical area procedure. BRING WITH YOU ANY DEVICES YOU MAY NEED: MIGUE hose, ice machine, sling/swath, brace or special shoe, oversized zip-up or button up shirt, CPAP machine if staying overnight. 12. Do NOT wear jewelry, watches, or any piercings or metal for surgery- leave these valuables and money at home. 13. Do NOT wear contact lenses for surgery- glasses are okay if needed. 14. The anesthesiologist will talk with you the day of surgery and will ask you to sign a Consent Form. 15. Refrain from smoking or any type of tobacco use for at least 8 hours and marijuana for 24 hours prior to arrival for your surgery. 16. If a GREEN BLOOD band is given to you, please bring it with you for the day of surgery. 17. Notify your surgeon if you develop any illness before your surgery. 18. If you are staying overnight, please DO NOT BRING your home medications with you. 19. If you have any questions prior to surgery, please call the Preadmission Testing office at [phone], Mon.-Fri. 7 a.m.-3 p.m. Leave a voicemail if needed. Pre-Surgery Instructions: Medication Instructions albuterol (PROVENTIL,VENTOLIN) 2.5 mg /3 mL (0.083 %) nebulizer solution Stop taking 0 days prior to procedure aspirin 81 mg Stop taking 1 week prior to procedure carvediloL (COREG) 3.125 mg tablet Take morning of procedure DULoxetine (CYMBALTA) 30 mg capsule Stop taking 0 days prior to procedure furosemide (LASIX) 20 mg tablet Stop taking 0 days prior to procedure gabapentin (NEURONTIN) 300 mg capsule Stop taking 0 days prior to procedure lisinopriL (PRINIVIL,ZESTRIL) 10 mg tablet Take morning of procedure metFORMIN (GLUCOPHAGE) 500 mg tablet Stop taking 0 days prior to procedure omeprazole (PriLOSEC) 20 mg capsule Take morning of procedure rOPINIRole (REQUIP) 1 mg tablet Stop taking 0 days prior to procedure rOPINIRole (REQUIP) 2 mg tablet Stop taking 0 days prior to procedure rosuvastatin (CRESTOR) 20 mg tablet Stop taking 0 days prior to procedure tamsulosin (FLOMAX) 0.4 mg capsule Stop taking 0 days prior to procedure [facility] History of Present illness Narrative 05-05-2023 Sybil Tobin, FULL STACK JAVA DEVELOPER-METAL SPRAY OPERATOR - 05/05/2023 11:00 AM EST Note Date & Type Note Facility 05-05-2023 History of Present illness Narrative Images from the original note were not included. Wound Care Progress Note Patient: Carlos Persaud Date of : 1955 Chief Compliant: Buttock wounds, pilonidal cyst disease SUBJECTIVE/HPI: Carlos is a 68 y.o. male who presents to [facility] for evaluation of 2 tunneling ulcer(s) on the gluteal folds. The wound was first assessed in wound clinic on 03/12/2023. Current daily wound care includes: pad and protect with ABD. pads. Spouse reports a large amount of drainage requiring frequent dressing changes. Surgery scheduled for 04/19/2023 was canceled. Spouse reports surgery was canceled because of the patient's fear and anxiety in the pre-op holding area. Follow up with Dr. Valdovinos 05/11/2023. Patient states wound has been present for many years . Reports pilonidal cyst surgery many years ago. States surgical wound never completely resolved. States surgery was done outside of [place], unable to recall name of surgeon. Measurable wound changes: increase wound measurements Patient accompanied by: Spouse, patient arrives in wheelchair Nutritional screen shows patient does take in three servings of protein per day. Patient does deny fever, chills, sweats, or other signs of infection. Prescribed antibiotics: none Today's reported Blood Sugar: Does not routinely check blood sugar Tobacco use: cigarette smoking 6 cigarettes per day Contributing comorbid conditions: History of pilonidal cyst, unknown age, type 2 diabetes, hypertension Patient Active Problem List Diagnosis Pressure injury of skin of buttock Abscess of multiple sites of buttock Tobacco dependence syndrome Current Outpatient Medications Medication Sig Dispense Refill aspirin 81 mg Take 1 tablet (81 mg total) by mouth in the morning. carvediloL (COREG) 3.125 mg tablet Take 1 tablet (3.125 mg total) by mouth in the morning and 1 tablet (3.125 mg total) in the evening. Take with meals. DULoxetine (CYMBALTA) 30 mg capsule Take 1 capsule (30 mg total) by mouth in the morning. furosemide (LASIX) 20 mg tablet Take 1 tablet (20 mg total) by mouth 3 (three) times a day. gabapentin (NEURONTIN) 300 mg capsule 1 capsule (300 mg total) in the morning and 1 capsule (300 mg total) at noon and 1 capsule (300 mg total) in the evening and 1 capsule (300 mg total) before bedtime. lisinopriL (PRINIVIL,ZESTRIL) 10 mg tablet Take 1 tablet (10 mg total) by mouth in the morning. metFORMIN (GLUCOPHAGE) 500 mg tablet Take 1 tablet (500 mg total) by mouth in the morning and 1 tablet (500 mg total) in the evening. Take with meals. omeprazole (PriLOSEC) 20 mg capsule Take 1 capsule (20 mg total) by mouth every morning before breakfast. rOPINIRole (REQUIP) 1 mg tablet Take 2 tablets (2 mg total) by mouth nightly. rOPINIRole (REQUIP) 2 mg tablet Take 1 tablet (2 mg total) by mouth nightly. rosuvastatin (CRESTOR) 20 mg tablet Take 1 tablet (20 mg total) by mouth in the morning. tamsulosin (FLOMAX) 0.4 mg capsule Take 1 capsule (0.4 mg total) by mouth nightly. 2 tabs daily No current facility-administered medications for this visit. No Known Allergies The following portions of the patient's history were reviewed and updated as appropriate: allergies, current medications, past family history, past medical history, past social history, past surgical history, problem list, and medication reconciliation was completed including current medication and post discharge medication. Pain Scale: Pain Scale 0/10: 0 Review of Systems Constitutional: Negative. Negative for activity change, appetite change and fever. HENT: Negative. Negative for trouble swallowing. Respiratory: Positive for apnea (INEZ) and shortness of breath. Negative for cough and wheezing. Cardiovascular: Negative. Negative for chest pain, palpitations and leg swelling. Gastrointestinal: Negative. Negative for abdominal distention, nausea and vomiting. Genitourinary: Negative. Negative for dysuria, frequency and urgency. Musculoskeletal: Positive for back pain. Negative for neck stiffness. Skin: Positive for color change and wound. Neurological: Negative. Negative for dizziness, numbness and headaches. Psychiatric/Behavioral: The patient is nervous/anxious. Objective: Vitals: 05/05/23 1043 BP: 116/66 Pulse: 80 Resp: 16 Temp: 36.1 C (97 F) Physical Exam Vitals and nursing note reviewed. Constitutional: Appearance: He is well-developed. HENT: Head: Normocephalic and atraumatic. Cardiovascular: Rate and Rhythm: Normal rate and regular rhythm. Heart sounds: Normal heart sounds. No murmur heard. No gallop. Pulmonary: Effort: Pulmonary effort is normal. Breath sounds: Wheezing present. No rales. Musculoskeletal: General: Normal range of motion. Cervical back: Normal range of motion. Skin: General: Skin is warm and dry. Neurological: Mental Status: He is alert and oriented to person, place, and time. Wound Assessment Wound 03/12/23 1 Coccyx Superior (Active) Wound Image 05/05/23 1044 Site Assessment Red;Delton 05/05/23 1044 Juliet-wound Assessment Blanchable erythema;Delton 05/05/23 1044 Wound Length (cm) 1 cm 05/05/23 1044 Wound Width (cm) 0.5 cm 05/05/23 1044 Wound Surface Area (cm^2) 0.5 cm^2 05/05/23 1044 Wound Depth (cm) 0.4 cm 05/05/23 1044 Wound Volume (cm^3) 0.2 cm^3 05/05/23 1044 Change in Wound Size % -38.89 05/05/23 1044 Drainage Description Serosanguineous;Yellow;Phan;Odor Foul 05/05/23 1044 Drainage Amount Large Copious 05/05/23 1044 Treatments Cleansed with;Wound cleanser 05/05/23 1044 Debridement Performed? N 05/05/23 1044 Wound Bed Granulation (%) 100% 05/05/23 1044 Wound 03/12/23 2 Coccyx Inferior (Active) Site Assessment Red 05/05/23 1044 Juliet-wound Assessment Blanchable erythema;Delton 05/05/23 1044 Wound Length (cm) 1.5 cm 05/05/23 1044 Wound Width (cm) 1 cm 05/05/23 1044 Wound Surface Area (cm^2) 1.5 cm^2 05/05/23 1044 Wound Depth (cm) 0.5 cm 05/05/23 1044 Wound Volume (cm^3) 0.75 cm^3 05/05/23 1044 Change in Wound Size % -167.86 05/05/23 1044 Drainage Description Serosanguineous;Phan;Yellow;Odor Foul 05/05/231043 Drainage Amount Large Copious 05/05/234 Treatments Cleansed with;Wound cleanser;Moisturizing cream 05/05/23 1044 Debridement Performed? N 05/05/234 Wound Bed Granulation (%) 100% 05/05/234 Assessment/Plan/Education: 1. Chronic recurrent pilonidal cyst Instructed patient to keep area clean Patient is to shower after every bowel movement Cover with alginate AG , absorb drainage Cover with ABD, change when soiled TRIAD to juliet wound dermatitis Change dressings daily and PRN 2. Abscess of multiple sites of buttock nstructed patient to keep area clean Patient is to shower after every bowel movement Cover with alginate AG Cover with ABD, change when soiled TRIAD to juliet wound dermatitis Patient instructed in Other: Pilonidal cyst care to coccyx. Short term goal: medical compliance superintendent container terminal goal: wound closure Patient verbalize understanding of treatment regimen and the importance of adherence. Follow up in wound clinic in 2 weeks Instructed to contact wound clinic, PCP or ER should symptoms worsen. The patient was taught to watch for S/S of infection (redness, pus, pain, increased swelling, chills or fever) and to call the PCP or wound care clinic if such occurs. The patient was educated on offloading the area by avoiding direct pressure to the wound bed. Education as well as the pathophysiology of the disease process was provided on infection, edema, necrotic tissue and its relationship to nonhealing wounds. Education was also provided on treatment plan. Patient verbalized understanding. Total time spent was 19 minutes: Preparing to see the patient (e.g., review of tests) Obtaining and/or reviewing separately obtained history Performing a medically appropriate examination and/or evaluation Counseling and educating the patient/family/caregiver Ordering medications, tests, or procedures Referring and communicating with other health transitional care liaison (not separately reported) Documenting clinical information in the electronic or other health record Sybil Tobin APRN, JUDY, CWS, RUFINA [facility]: [phone] KANG Whiting 05/05/23 1133 documented in this encounter [facility] [employer] Instructions 05-05-2023 Patient Instructions Note Date & Type Note Facility 05-05-2023 Instructions So Angela RN - 05/05/2023 11:00 AM EST Wound Management Treatment Plan Wound Location(s): coccyx HOW TO CARE FOR YOUR WOUND The following should be performed Daily and as needed. STEP 1: Cleanse wound with Soap and water, rinse well, and pat dry. STEP 2: Apply Silver alginate to wound bed STEP 3: Apply triad cream to reddened area around wound bed STEP 4: Secure with ABD pad ACTIVITY: Avoid direct pressure to wound(s) at all times NUTRITION: High protein diet SKIN CARE: SWELLING CONTROL: ITEMS TO FOLLOW UP ON: follow up with Dr. Valdovinos as directed for surgery. Follow up here as directed after surgery. Length Width Depth Wound 03/12/23 1 Coccyx Superior-Wound Length (cm): 1 cm Wound 03/12/23 2 Coccyx Inferior-Wound Length (cm): 1.5 cm Wound 03/12/23 1 Coccyx Superior-Wound Width (cm): 0.5 cm Wound 03/12/23 2 Coccyx Inferior-Wound Width (cm): 1 cm Wound 03/12/23 1 Coccyx Superior-Wound Depth (cm): 0.4 cm Wound 03/12/23 2 Coccyx Inferior-Wound Depth (cm): 0.5 cm Wound drainage Type Description large serosang Phan, yellow [facility] 04-13-2023 Note Date & Type Note Facility 04-13-2023 Note [facility] Subjective Carlos Persaud is a 68 y.o. year old male patient being seen to re-establish care. He was last seen in 2019. Ref from Irina Aichholz, METAL SPRAY OPERATOR for abnormal ECG prior to procedure scheduled for 04/19. He denies cardiac symptoms such as chest pain, SOB, palpitations, and lightheadedness. 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 DDD (degenerative disc disease), lumbar Dyslipidemia Extreme obesity with alveolar hypoventilation (CMS/HCC) Edema of extremities GERD without esophagitis Head mass Hyperlipidemia Hypocalcemia Neoplasm of uncertain behavior of skin Morbid obesity with BMI of 45.0-49.9, adult (CMS/HCC) INEZ (obstructive sleep apnea) Other emphysema (CMS/HCC) Palpitations Pilonidal cyst Thrombocytopenia (CMS/HCC) Stasis edema of both lower extremities Rising PSA level Restless legs Primary osteoarthritis of both knees Pressure injury of skin of buttock Pre-operative clearance Tobacco dependence syndrome Tobacco user Type 2 diabetes mellitus without complication, without long-term current use of insulin ([facility]) No family history on file. Social History Tobacco Use Smoking status: Every Day Packs/day: .5 Types: Cigarettes Smokeless tobacco: Never Substance Use Topics Alcohol use: Not Currently HPI Carlos is seen as a new patient. He used to see us in the past last time in 2019. he is planned to undergo pilonidal cyst surgery He is a 68-year-old man with prior medical history of morbid obesity, hypertension, hyperlipidemia, minimal coronary artery disease by cardiac catheterization in 2009 performed in the setting of chest discomfort and abnormal stress test. He is currently maintained on aspirin, statin therapy, carvedilol and lisinopril. In addition he takes furosemide 20 mg 3 times daily. He recently was evaluated in his primary care for provider's office and his ECG was abnormal and he was referred to us for further evaluation. Currently he says that he is doing reasonably well. he denies chest pain, shortness of breath, palpitations, dizziness, syncope. He has mild leg edema. Review of Systems Cardiovascular: Positive for leg swelling. Negative for chest pain, dyspnea on exertion, irregular heartbeat, orthopnea, palpitations and syncope. Respiratory: Negative for cough and shortness of breath. Musculoskeletal: Negative for arthritis, falls and neck pain. Gastrointestinal: Negative for diarrhea and dysphagia. Neurological: Negative for light-headedness and loss of balance. Objective Visit Vitals BP 110/62 (BP Location: Left wrist, Patient Position: Sitting) Pulse 81 Ht 1.778 m (5' 10 ) Wt (!) 137 kg (301 lb) SpO2 96% BMI 43.19 kg/m??? Smoking Status Every Day BSA 2.6 m??? Physical Exam Constitutional: Appearance: He is well-developed. He is obese. He is not ill-appearing. HENT: Head: Normocephalic and atraumatic. Nose: Nose normal. Eyes: General: No scleral icterus. Pupils: Pupils are equal, round, and reactive to light. Neck: Thyroid: No thyromegaly. Vascular: No JVD. Cardiovascular: Rate and Rhythm: Normal rate and regular rhythm. Pulses: Radial pulses are 2+ on the right side and 2+ on the left side. Heart sounds: Normal heart sounds. No murmur heard. No friction rub. No gallop. Pulmonary: Effort: Pulmonary effort is normal. No respiratory distress. Breath sounds: Normal breath sounds. No wheezing or rales. Chest: Chest wall: No tenderness. Abdominal: General: Bowel sounds are normal. There is no distension. Palpations: Abdomen is soft. Tenderness: There is no abdominal tenderness. Musculoskeletal: General: No swelling. Cervical back: Neck supple. Comments: in wheelchair Skin: General: Skin is warm and dry. Neurological: General: No focal deficit present. Mental Status: He is alert and oriented to person, place, and time. Psychiatric: Mood and Affect: Mood normal. Behavior: Behavior is cooperative. Judgment: Judgment normal. Allergies No Known Allergies Medications Current Outpatient Medications: albuterol 90 mcg/actuation inhaler, Inhale 2 puffs every 4 (four) hours if needed., Disp: , Rfl: aspirin 81 mg EC tablet, Take 1 tablet by mouth in the morning., Disp: , Rfl: budesonide-formoteroL (Symbicort) 160-4.5 mcg/actuation inhaler, , Disp: , Rfl: carvedilol (Coreg) 3.125 mg tablet, Take 3.125 mg by mouth in the morning and at bedtime., Disp: , Rfl: DULoxetine (Cymbalta) [address] capsule, Take by mouth in the morning., Disp: , Rfl: furosemide (Lasix) 20 mg tablet, Take 20 mg by mout (more content not included)... [facility] Evaluation note Note Date & Type Note Facility Evaluation note Diagnosis Chronic recurrent pilonidal cyst- Primary Abscess of multiple sites of buttock documented in this encounter [facility] Instructions Note Date & Type Note Facility Instructions Not on filedocumented in this en counter [facility] Summary Purpose Family History No Family History Records FoundNo Family History Records FoundNo Family History Records FoundNo Family History Records FoundNo Family History Records FoundNo Family History Records FoundNo Family History Records Found Advance Directives No Advanced Directives Records FoundNo Advanced Directives Records FoundNo Advanced Directives Records FoundNo Advanced Directives Records FoundNo Advanced Directives Records FoundNo Advanced Directives Records FoundNo Advanced Directives Records Found Reason for Referral Specialty Diagnoses / Procedures Referred By Sushma feliz Referred To Contact Diagnoses Abscess of multiple sites of buttock Procedures Triad Sybil Tobin, FULL STACK JAVA DEVELOPER-METAL SPRAY OPERATOR [address] [place] [address] Referral ID Status Reason Start Date Expiration Date V isits Requested Visits Authorized [id number] Pending Review 05/05/2023 05/04/2024 1 1 Specialty Diagnoses / Procedures Referred By Contac t Referred To Contact Diagnoses Abscess of multiple sites of buttock Procedures Opticell Alginate AG Sybil Tobin, FULL STACK JAVA DEVELOPER-METAL SPRAY OPERATOR [address] [place] [address] Referral ID Status Reason Start Date Expiration Date V isits Requested Visits Authorized [id number] Pending Review 05/05/2023 05/04/2024 1 1 Additional Source Comments (unrecognized sect ion and content) No Status Records FoundNo Status Records FoundNo Status Records FoundNo Status Records FoundNo Status Records FoundNo Status Records FoundNo Status Records Found INFORMATION SOURCE (unrecogn ized section and content) DATE CREATED AUTHOR 12/03/2021 [facility] DATE CREATED AUTHOR AUTHOR'S ORGANIZ ATION 08/07/2022 [facility] DATE CREATED AUTHOR AUTHOR'S ORGANIZ ATION 10/24/2022 [facility] DATE CREATED AUTHOR AUTHOR'S ORGANIZ ATION 04/15/2023 [facility] DATE CREATED AUTHOR AUTHOR'S ORGANIZ ATION 05/16/2023 [facility] DATE CREATED AUTHOR AUTHOR'S ORGANIZ ATION 05/20/2023 [facility] EPIC DATE CREATED AUTHOR AUTHOR'S ORGANIZ ATION 06/02/2023 [facility] Reason for Visit (unrecogniz ed section and content) Reason Comments Wound Check Care Teams (unrecognized sec tion and content) Weave Room Supervisor Relationship Specialty Start Date End Date Irina Mcleod APRN-METAL SPRAY OPERATOR [address] [place] [id number] PCP - General Nurse Practitioner 09/24/16 Weave Room Supervisor Relationship Specialty Start Date End Date Irina Mcleod APRN-METAL SPRAY OPERATOR [address] [place] [phone] PCP - General Nurse Practitioner 09/24/16 FOR RECORDS PERTAINING TO PATIENTS WHO ARE OR HAVE BEEN ENROLLED IN A CHEMICAL DEPENDENCY/SUBSTANCEABUSE PROGRAM, SOME INFORMATION MAY BE OMITTED. This clinical summary was aggregated from multiple sources. Caution should be exercised in using it in the provision of clinical care. This summary normalizes information from multiple sources, and as a consequence, information in this document may materially change the coding, format and clinical context of patient data. In addition, data may be omitted in some cases. CLINICAL DECISIONS SHOULD BE BASED ON THE PRIMARY CLINICAL RECORDS. [facility]. provides no warranty or guarantee of the accuracy or completeness of information in this document.
[2023-06-02 10:39] LABS: Basophils Percent Auto 0.3 % (0.2-2.0); Eosinophils Percent Auto 0.2 % (0.9-7.0); Hematocrit 47.1 % (42.0-54.0); Hemoglobin 15.4 g/dL (14.0-18.0); Immature Granulocytes Abs Auto 0.07 10^3/uL (0.00-0.03); Immature Granulocytes Pct Auto 0.5 % (0.0-0.5); Mean Corpuscular HGB Conc 32.7 g/dL (29.9-35.2); Mean Corpuscular Hemoglobin 26.5 pg (25.9-34.0); Mean Corpuscular Volume 80.9 fL (80.0-94.0); Mean Platelet Volume 12.6 fL (9.5-13.5); Monocytes Percent Auto 6.8 % (1.7-12.0); Neutrophils Absolute Auto 12.2 10^3/uL (1.4-6.5); Neutrophils Percent Auto 85.2 % (43.0-75.0); Platelet Count 149 10^3/uL (150-450); Red Blood Count 5.82 10^6/uL (4.70-6.10); Red Cell Distribution Width 13.9 % (11.0-15.0); White Blood Count 14.4 10^3/uL (4.0-11.0)
[2023-06-02 10:51] LABS: Lactate/Lactic Acid 1.3 mmol/L (0.4-2.0)
[2023-06-02 10:53] LABS: Alanine Aminotransferase 12 U/L (16-63); Albumin Globulin Ratio 0.6; Albumin Level 2.7 g/dL (3.4-5.0); Alkaline Phosphatase 73 U/L (46-116); Anion Gap 15.4; Aspartate Amino Transferase 15 U/L (15-37); Bilirubin Total 1.2 mg/dL (0.2-1.0); Calcium 8.6 mg/dL (8.5-10.1); Carbon Dioxide 27.6 mmol/L (21.0-32.0); Chloride 95 mmol/L (98-107); Estimated GFR (African America 14 (>=60); Estimated GFR (Non-African Ame 11 (>=60); Globulin 4.9 g/dL; Glucose 94 mg/dL (74-106); Sodium 134 mmol/L (136-145); Total Protein 7.6 g/dL (6.4-8.2)
[2023-06-02 10:59] LABS: SARS-CoV-2 Ag NEGATIVE (NEGATIVE)
--- NOTE | 2023-06-02 11:06 | XR_ITS ---
The [address] [address] Patient Name: CARLOS DUQUE MRN: [id number] date: 1955 Sex: M Assigned Patient Location: ER Current Patient Location: ER Accession/Order Number: [id number] Exam Date: 06/02/2023 11:10 Report Date: 06/02/2023 11:28 At the request of: AUDRA BAXTER Procedure: XR chest 1V EXAM: Portable chest REASON FOR EXAM: Weakness with elevated WBC. TECHNIQUE: 2 portable frontal views of the chest was were obtained. COMPARISON: 02/22/2023. FINDINGS: The lungs are well-inflated and clear. The heart and mediastinum are normal. There is no mass or pathologic adenopathy. Osseous structures are normal. XR/XR chest 1V IMPRESSION: No acute cardiopulmonary process. Electronically authenticated by: BAKARI SHEPPARD Date: 06/02/2023 11:28
[2023-06-02] MEDS: 0.9 % SODIUM CHLORIDE 1,000 ML 1000 ML IV (11:31)
[2023-06-02 11:35] LABS: Adenovirus NOT DETECTED (NOT DETECTE); Bordetella parapertussis NOT DETECTED (NOT DETECTE); Coronavirus 229E NOT DETECTED (NOT DETECTE); Coronavirus HKU1 NOT DETECTED (NOT DETECTE); Coronavirus NL63 NOT DETECTED (NOT DETECTE); Coronavirus OC43 NOT DETECTED (NOT DETECTE); Human Metapneumovirus NOT DETECTED (NOT DETECTE); Human Rhinovirus/Enterovirus NOT DETECTED (NOT DETECTE); Influenza A NOT DETECTED (NOT DETECTE); Influenza B NOT DETECTED (NOT DETECTE); Mycoplasma pneumoniae NOT DETECTED (NOT DETECTE); Parainfluenza Virus 1 NOT DETECTED (NOT DETECTE); Parainfluenza Virus 2 NOT DETECTED (NOT DETECTE); Parainfluenza Virus 3 NOT DETECTED (NOT DETECTE); Parainfluenza Virus 4 NOT DETECTED (NOT DETECTE); Respiratory Syncytial Virus NOT DETECTED (NOT DETECTE)
--- NOTE | 2023-06-02 11:44 | ED.GENADUL1 ---
HPI - General Adult General Chief complaint: Weakness Stated complaint: GENERAL WEAKNESS Time Seen by Provider: 06/02/23 10:00 Source: patient Mode of arrival: ambulance Limitations: no limitations History of Present Illness HPI narrative: Patient is weak, not eating or drinking for the last 7 days. His had Covid and she thought he might also have it. He complains of generalized weakness, loss of appetite, nausea without vomiting and occasional cough. No abdominal pain, flank pain, chest pain or shortness of breath. No urinary symptoms. He said food and fluids tastes bad, so he has not been taking anything by mouth. The told me that the patient has a sacral/coccyx abscess that has been monitored by a surgeon in [place]. he was supposed to get surgery on 05/31/23. But when he got to the hospital in [place], his blood pressure was only 60/32 so they cancelled the surgery and told him to go home and drink more. She said he did not get directed to the ED. Related Data Home Medications Medication Instructions Recorded Confirmed aspirin 81 mg tablet,delayed 81 mg PO DAILY 06/02/23 06/02/23 release carvedilol 3.125 mg tablet 3.125 mg PO Q12H 06/02/23 06/02/23 duloxetine 30 mg capsule,delayed 30 mg PO DAILY 06/02/23 06/02/23 release furosemide 20 mg tablet 40 mg PO .COMPLEX 06/02/23 06/02/23 gabapentin 300 mg capsule 300 mg PO .COMPLEX 06/02/23 06/02/23 lisinopril 10 mg tablet 10 mg PO DAILY 06/02/23 06/02/23 metformin 500 mg tablet 500 mg PO BID 06/02/23 06/02/23 omeprazole 20 mg capsule,delayed 20 mg PO DAILY 06/02/23 06/02/23 release ropinirole 2 mg tablet 2 mg PO .qhs 06/02/23 06/02/23 rosuvastatin 20 mg tablet 20 mg PO QDAY 06/02/23 06/02/23 tamsulosin 0.4 mg capsule 0.8 mg PO Q24H 06/02/23 06/02/23 Allergies Allergy/AdvReac Type Severity Reaction Status Date / Time No Known Drug Allergies Allergy Verified 02/22/23 12:49 PFSH PFSH Social History Smoking status: Current every day smoker Exam Narrative Exam Narrative: Nurses notes and vital signs reviewed and patient is not hypoxic. afebrile General: Well-appearing and in no apparent distress. Skin: Warm, dry, no pallor noted. Head: Normocephalic, atraumatic. Neck: Supple, non-tender. No meningismus Eye: Pupils are equal, round and EOMI. No scleral icterus. Ears, Nose, Mouth, and Throat: Oral mucosa is dry. Cardiovascular: Regular Rate and Rhythm without murmur, gallop or rub. Respiratory: No accessory muscle use or respiratory distress. Lungs are clear to auscultation, no wheezing, rales or rhonchi Back: No midline thoracic or lumbar vertebral tenderness. Sacral/coccyx erythema with a marsupialized pouch from prior abscess I&D. No palpable mass or abscess. No purulent drainage. Musculoskeletal: normal ROM, no calf or popliteal tenderness, no lower extremity edema/swelling GI: Abdomen is soft, non-distended. Normal bowel sounds. No masses appreciated. No tenderness to palpation. No rebound, guarding, or rigidity noted. Neurological: A&O x4. No cranial nerve dysfunction observed. No truncal ataxia. Moves all extremities. Sensation intact. Psychiatric: Cooperative and interactive. Normal mood and affect. Constitutional Vital Signs, click to edit/add: Last Vital Signs Temp 98.2 F 06/02/23 09:57 Pulse 99 H 06/02/23 11:45 Resp 16 06/02/23 11:45 BP 105/62 06/02/23 11:45 Pulse Ox 95 06/02/23 11:45 O2 Del Method Room Air 06/02/23 09:57 Course Vital Signs Vital signs: Vital Signs Temperature 98.2 F 06/02/23 09:57 Pulse Rate 104 H 06/02/23 09:57 Respiratory Rate 18 06/02/23 09:57 Blood Pressure 104/71 06/02/23 09:57 Pulse Oximetry 96 06/02/23 09:57 Oxygen Delivery Method Room Air 06/02/23 09:57 Temperature 98.2 F 06/02/23 09:57 Pulse Rate 99 H 06/02/23 11:45 Respiratory Rate 16 06/02/23 11:45 Blood Pressure 105/62 06/02/23 11:45 Pulse Oximetry 95 06/02/23 11:45 Oxygen Delivery Method Room Air 06/02/23 09:57 Medical Decision Making MDM Narrative Medical decision making narrative: Patient was placed on monitoring analyst and EKG obtained. Blood drawn and sent for evaluation, including blood cultures, lactate and procalcitonin per sepsis protocol. WBC 14.4 with left shift. Lactate normal at 1.3. CMP notable for markedly elevated BUN at 51 and Cr at 5.08. Covid negative. respiratory panel pending. He was given IV Clindamycin to cover his sacral cellulitis. He received 2 liters NS IVF. Call placed to Dr Infante to discuss admission on behalf of the patient's PCP, Irina Mcleod. We discussed the case and the patient will be admitteed, inpatient, [facility]. Lab Data Lab results reviewed: Yes I reviewed the patient's lab results Labs: Lab Results 06/02/23 Range/Units 10:10 WBC 14.4 H (4.0-11.0) 10^3/uL RBC 5.82 (4.70-6.10) 10^6/uL Hgb 15.4 (14.0-18.0) g/dL Hct 47.1 (42.0-54.0) % MCV 80.9 (80.0-94.0) fL MCH 26.5 (25.9-34.0) pg MCHC 32.7 (29.9-35.2) g/dL RDW 13.9 (11.0-15.0) % Plt Count 149 L (150-450) 10^3/uL MPV 12.6 (9.5-13.5) fL Neut % (Auto) 85.2 H (43.0-75.0) % Lymph % (Auto) 7.0 L (20.5-60.0) % [place] % (Auto) 6.8 (1.7-12.0) % Eos % (Auto) 0.2 L (0.9-7.0) % Baso % (Auto) 0.3 (0.2-2.0) % Neut # (Auto) 12.2 H (1.4-6.5) 10^3/uL Lymph # (Auto) 1.0 L (1.2-3.8) 10^3/uL [place] # (Auto) 1.0 H (0.3-0.8) 10^3/uL Eos # (Auto) 0.0 (0.0-0.7) 10^3/uL Baso # (Auto) 0.0 (0.0-0.1) 10^3/uL Abs Immat Gran (auto) 0.07 H (0.00-0.03) 10^3/uL Imm/Tot Granulo (auto) 0.5 (0.0-0.5) % Sodium 134 L (136-145) mmol/L Potassium 4.0 (3.5-5.1) mmol/L Chloride 95 L (98-107) mmol/L Carbon Dioxide 27.6 (21.0-32.0) mmol/L Anion Gap 15.4 BUN 51.0 H (7.0-18.0) mg/dL Creatinine 5.08 H* (0.70-1.30) mg/dL Est GFR ( Amer) 14 L (>=60) Est GFR (Non-Af Amer) 11 L (>=60) BUN/Creatinine Ratio 10.0 Glucose 94 (74-106) mg/dL Lactate 1.3 (0.4-2.0) mmol/L Calcium 8.6 (8.5-10.1) mg/dL Total Bilirubin 1.2 H (0.2-1.0) mg/dL AST 15 (15-37) U/L ALT 12 L (16-63) U/L Alkaline Phosphatase 73 (46-116) U/L Total Protein 7.6 (6.4-8.2) g/dL Albumin 2.7 L (3.4-5.0) g/dL Globulin 4.9 g/dL Albumin/Globulin Ratio 0.6 Procalcitonin 0.22 (0.00-0.50) ng/mL SARS-CoV-2 Ag (CV2AG) Negative (NEGATIVE) ECG Data Attestation: I personally reviewed and interpreted this ECG as follows: Interpretation: EKG interpretation: Emergency Department physician interpretation. Sinus tachycardia at 105bpm. First-degree AV block, right bundle branch block, inferior, lateral and septal T wave inversion. Discharge Plan Discharge Chief Complaint: Weakness Clinical Impression: Cellulitis of sacral region, Acute kidney failure, Acute viral syndrome, Dehydration Patient Disposition: Admitted As Inpatient Time of Disposition Decision: 12:01
[2023-06-02 11:45] LABS: PROCALCITONIN 0.22 ng/mL (0.00-0.50)
[2023-06-02] MEDS: CLINDAMYCIN PHOSPHATE/D5W 600 MG/50 ML PIGGYBACK 100 MG IV (11:55)
[2023-06-02 12:19] LABS: Bilirubin Direct 0.5 mg/dL (0.0-0.2)
[2023-06-02] MEDS: HYDROMORPHONE HCL 0.5 MG/0.5 ML SYRINGE IV (12:57)
[2023-06-02 13:19] LABS: SARS-CoV-2 DETECTED (NOT DETECTE)
--- OUTSIDE RECORDS SUMMARY | 2023-06-02 13:38 | XMS_ITS | CCD ---
Author Name Unknown Address [address] [place] [address] Organization [facility] Care Team Providers Care Chaperone Name Role Phone RIGOBERTO, ORE CRUSHER IRINA Admitting Unavailable AICHHOLZ, ORE CRUSHER IRINA Primary Care Unavailable AICHHOLZ, ORE CRUSHER IRINA Consulting Unavailable AICHHOLZ, ORE CRUSHER IRINA Attending Unavailable AICHHOLZ, ORE CRUSHER IRINA Admitting Unavailable AICHHOLZ, ORE CRUSHER IRINA Primary Care Unavailable AICHHOLZ, ORE CRUSHER IRINA Consulting Unavailable AICHHOLZ, ORE CRUSHER IRINA Attending Unavailable AICHHOLZ, ORE CRUSHER IRINA Admitting Unavailable AICHHOLZ, ORE CRUSHER IRINA Primary Care Unavailable AICHHOLZ, ORE CRUSHER IRINA Consulting Unavailable AICHHOLZ, ORE CRUSHER IRINA Attending Unavailable JOSE ELIAS DAI Admitting Unavailable JOSE ELIAS DAI Consulting Unavailable JOSE ELIAS DAI Attending Unavailable AICHHOLZ, ORE CRUSHER IRINA Primary Care Unavailable Arlen Garcia PA-C Attending Brad delvalle Aichholz SLASHER TENDER-ORE CRUSHERIrina Referring Kristineva Too Manriquez MD Attending Unavaila JAYLIN Flynn Attending Unavailable Aichholz SLASHER TENDER-ORE CRUSHERIrina Primary Care Provider AMBER VALDOVINOS Attending Unavailable IRINA MCLEOD Referring Unavailable VINODHHOLDary, IRINA J Primary Care Unavailable VINODHBESS, IRINA Attending Unavailable VINODHBESS, IRINA Attending Unavailable SYBIL TOBIN Attending Unavailable IRINA MCLEOD Referring Unavailable AICADOLPH, IRINA Campa Primary Care Unavailable IRINA MCLEOD Referring Unavailable VINODHBESS, IIRNA Campa Primary Care Unavailable AMBER VALDOVINOS Admitting Unavailable AMBER VALDOVINOS Attending Unavailable IRINA MCLEOD Primary Care Unavailable FRANKIE BISHOP Attending Unavailable IRINA MCLEOD Primary Care Unavailable Allergies Allergy Classification Reported Allergen(s) Allergy Type Date of Onset Reaction(s) Facility (1 source) Cephalexin Drug Allergy [facility] Repository (1 source) Clindamycin Drug Allergy [facility] (1 source) levoFLOXacin Drug Allergy [facility] Repository (3 sources) Cephalosporins (Antibiotic); Translations: [...] disease (2 sources) Atherosclerotic heart disease of [place] coronary artery without angina pectoris; Translations: [Atherosclerotic heart disease of [place] coronary artery without angina pectoris] Onset: 3 [...] Onset: 3 Chronic Other aftercare (1 source) intermission coordinator (current) use of aspirin; Translations: [USER SUPPORT ANALYST CURRENT USE OF ASPIRIN] Onset: 3 Episodic Other aftercare (1 source) Other long term care pharmacist (current) drug therapy; Translations: [OTH RETIREMENT CURRENT DRUG THERAPY] Onset: 3 Episodic Other aftercare (1 source) senior living (current) use of oral hypoglycemic drugs; Translations: [RETIREMENT USE ORAL HYPOGLYCEMIC DX] Onset: 3 Episodic [...] InformationOrdered By: So Angela on 05-05-2023 [facility] Office Visiton 04-13-2023 Follow-up visit [id number] Carlos Persaud 1955 M Date Provider Department Center 04/13/2023 Ashia-JAYLIN CLINE [facility] No family history on file Level of Service:62593 [place] OFFICE/OUTPATIENT NEW MODERATE MDM 45-59 MINUTES Normal [facility] UA RANDOM W/MICROSCOPICon BACTERIA NONE SEEN Normal NONE SEEN [facility] Comment on above: Performed By: #### U AMI #### [facility] [address] [place] [address] Dr. Gloria Ayala Bilirubin Ql (U) Negative Normal NEGATIVE [facility] Comment on above: Performed By: #### U AMIC #### [facility] [address] [address] [address] Gloria Ayala CAST NONE SEEN Normal NONE SEEN [facility] Comment on above: Performed By: #### U AMIC #### [facility] [address] [address] [address] Gloria Ayala Clarity (U) CLEAR Normal CLEAR [facility] Comment on above: Performed By: #### U AMIC #### [facility] [address] [address] [address] Gloria Ayala Color (U) YELLOW Normal YELLOW [facility] Comment on above: Performed By: #### U AMIC #### [facility] [address] [place] [address] Dr. Gloria Ayala Crystals LM Nom (Urine sed) NONE SEEN Normal NONE SEEN [facility] Comment on above: Performed By: #### U AMIC #### [facility] [address] [place] [address] Dr. Gloria Ayala Epithelial cells LM Ql (Urine sed) NONE SEEN Normal NONE SEEN /RARE [facility] Comment on above: Performed By: #### U AMIC #### [facility] [address] [place] [address] Dr. Gloria Ayala Glucose Ql (U) Negative Normal NEGATIVE [facility] Comment on above: Performed By: #### U AMIC #### [facility] [address] [address] [address] Gloria Ayala Hemoglobin Ql (U) Negative Normal NEGATIVE [facility] Comment on above: Performed By: #### U AMIC #### [facility] [address] [address] [address] Gloria Ayala Ketones Ql (U) TRACE Abnormal NEGATIVE [facility] Comment on above: Performed By: #### U AMIC #### [facility] [address] [place] [address] Dr. Gloria Ayala LEUKOCYTES Negative Normal NEGATIVE [facility] Comment on above: Performed By: #### U AMIC #### [facility] [address] [address] [address] Gloria Ayala MUCOUS NONE SEEN Normal NONE SEEN [facility] Comment on above: Performed By: #### U AMIC #### [facility] [address] [address] [address] Gloria Ayala Nitrite Ql (U) Negative Normal NEGATIVE [facility] Comment on above: Performed By: #### U AMIC #### [facility] [address] [address] [address] Gloria Ayala pH (U) 5.5 [pH] Normal 5-9 [facility] Comment on above: Performed By: #### U AMIC #### [facility] [address] [place] [address] Dr. Gloria Ayala RBC 0-2 Normal 0-2 [facility] Comment on above: Performed By: #### U AMIC #### [facility] [address] [place] [address] Dr. Gloria Ayala SPEC GRAVITY 1.020 Normal 1.005-<=1.025 [facility] Comment on above: Performed By: #### U AMIC #### [facility] [address] [place] [address] Dr. Gloria Ayala UA PROTEIN Negative Normal NEGATIVE/ TRACE [facility] Comment on above: Performed By: #### U AMIC #### [facility] [address] [place] [address] Dr. Gloria Ayala Urobilinogen Qn (U) 2.0 {Jonathan'U}/dL Abnormal 0.2 - 1. 0 [facility] Comment on above: Performed By: #### U AMIC #### [facility] [address] [place] [address] Dr. Gloria Ayala WBC NONE SEEN Normal NONE SEEN [facility] Comment on above: Performed By: #### U AMIC #### [facility] [address] [place] [address] Dr. Gloria Ayala CBC AUTO DIFFon 07-09-2022 BASO # 0.1 103/ul Normal 0.0-0.1 [facility] Comment on above: Performed By: #### C BC #### [facility] [address] [address] [address] Gloria Ayala Basophils/100 WBC (Bld) 0.6 % Normal 0.2-2.0 [facility] Comment on above: Performed By: #### C BC #### [facility] [address] [address] [address] Gloria Ayala EO # 0.1 103/ul Normal 0.0-0.7 [facility] Comment on above: Performed By: #### C BC #### [facility] [address] [address] [address] Gloria Ayala Eosinophils/100 WBC (Bld) 1.6 % Normal 0.9-7.0 [facility] Comment on above: Performed By: #### C BC #### [facility] [address] [address] [address] Gloria Ayala Erythrocyte distribution width (RBC) [Ratio] 13.6 % Normal 11.0-15.0 [facility] Comment on above: Performed By: #### C BC #### [facility] [address] [address] [address] Gloria Ayala Hematocrit (Bld) [Volume fraction] 49.8 % Normal 42.0-54.0 [facility] Comment on above: Performed By: #### C BC #### [facility] [address] [address] [address] Gloria Ayala Hemoglobin (Bld) [Mass/Vol] 15.7 g/dL Normal 14.0-18.0 [facility] Comment on above: Performed By: #### C BC #### [facility] [address] [address] [address] Gloria Ayala IG # 0.04 10e3/ul Critically high 0.00-0.03 [facility] Comment on above: Performed By: #### C BC #### [facility] [address] [address] [address] Gloria Ayala IG % 0.5 % Normal 0.0-0.5 [facility] Comment on above: Performed By: #### C BC #### [facility] [address] [address] [address] Gloria Ayala LYMPH # 1.1 103/ul Critically low 1.2-3.8 [facility] Comment on above: Performed By: #### C BC #### [facility] [address] [place] [address] Dr. Gloria Ayala Lymphocytes/100 WBC (Bld) 13.8 % Critically low 20.5-60.0 [facility] Comment on above: Performed By: #### C BC #### [facility] [address] [place] [address] Dr. Gloria Ayala MANUAL DIFF REQ NO Normal [facility] Comment on above: Performed By: #### C BC #### [facility] [address] [place] [address] Dr. Gloria Ayala MCH (RBC) [Entitic mass] 26.6 pg Normal 25.9-34.0 [facility] Comment on above: Performed By: #### C BC #### [facility] [address] [place] [address] Dr. Gloria Ayala MCHC (RBC) [Mass/Vol] 31.5 g/dL Normal 29.9-35.2 [facility] Comment on above: Performed By: #### C BC #### [facility] [address] [place] [address] Dr. Gloria Ayala MCV (RBC) [Entitic vol] 84.4 fL Normal 80.0-94.0 [facility] Comment on above: Performed By: #### C BC #### [facility] [address] [place] [address] Dr. Gloria Ayala MONO # 0.4 103/ul Normal 0.3-0.8 [facility] Comment on above: Performed By: #### C BC #### [facility] [address] [place] [address] Dr. Gloria Ayala Monocytes/100 WBC (Bld) 5.0 % Normal 1.7-12.0 [facility] Comment on above: Performed By: #### C BC #### [facility] [address] [place] [address] Dr. Gloria Ayala NEUT # 6.3 103/ul Normal 1.4-6.5 [facility] Comment on above: Performed By: #### C BC #### [facility] [address] [place] [address] Dr. Gloria Ayala Neutrophils/100 WBC (Bld) 78.5 % Critically high 43.0-75.0 [facility] Comment on above: Performed By: #### C BC #### [facility] [address] [place] [address] Dr. Gloria Ayala Platelet mean volume (Bld) [Entitic vol] 10.5 fL Normal 9.5-13.5 [facility] Comment on above: Performed By: #### C BC #### [facility] [address] [place] [address] Dr. Gloria Ayala PLT 151 103/ul Normal 150-450 [facility] Comment on above: Performed By: #### C BC #### [facility] [address] [place] [address] Dr. Gloria Ayala RBC 5.90 106/ul Normal 4.70-6.10 [facility] Comment on above: Performed By: #### C BC #### [facility] [address] [place] [address] Dr. Gloria Ayala WBC 8.0 103/ul Normal 4.0-11.0 [facility] Comment on above: Performed By: #### C BC #### [facility] [address] [place] [address] Dr. Gloria Ayala GLYCOHEMOGLOBIN A1Con 2022 ADA RECOMMENDATION SEE BELOW Normal [facility] Comment on above: Result Comment: ADA RECOMMENDED LIMIT 4.0 - 6.0 ADA THERAPEUTIC TARGET < 7.0 ACTION SUGGESTED > 7.0 Performed By: #### A 1C #### [facility] [address] [place] [address] Dr. Gloria Ayala Glucose [Mass/Vol] 123 mg/dL Normal [facility] Comment on above: Performed By: #### A 1C #### [facility] [address] [address] [address] Gloria Ayala HbA1c (Bld) [Mass fraction] 5.9 % Normal 4.5-6.2 [facility] Comment on above: Performed By: #### A 1C #### [facility] [address] [address] [address] Gloria Ayala LIPID PROFILEon 07-09-2022 CHOL-HDL RATIO NORM SEE BELOW Normal [facility] Comment on above: Result Comment: 3.3 - 4.4 LOW RISK 4.4 - 7.1 AVERAGE RISK 7.1 - 11.0 MODERATE RISK >11.0 HIGH RISK Performed By: #### L IPID, CMP #### [facility] [address] [place] [address] Dr. Gloria Ayala Cholesterol [Mass/Vol] 182 mg/dL Normal <=200 [facility] Comment on above: Performed By: #### L IPID, CMP #### [facility] [address] [place] [address] Dr. Gloria Ayala Cholesterol in HDL [Mass/Vol] 29 mg/dL Critically low 40-60 [facility] Comment on above: Performed By: #### L IPID, CMP #### [facility] [address] [place] [address] Dr. Gloria Ayala Cholesterol in LDL [Mass/Vol] 136.6 mg/dL Normal [facility] Comment on above: Performed By: #### L IPID, CMP #### [facility] [address] [address] [address] Gloria Ayala Cholesterol.total/Mamta sterol in HDL [Mass ratio] 6.3 {ratio} Normal [facility] Comment on above: Performed By: #### L IPID, CMP #### [facility] [address] [place] [address] Dr. Gloria Ayala HDL NORMAL > or = 60 mg/dl - LOW CARDIOVASCULAR RISK <40 mg/dl - HIGH CARDIOVASCULAR RISK Normal [facility] Comment on above: Performed By: #### L IPID, CMP #### [facility] [address] [place] [address] Dr. Gloria Ayala LDL CALC NORMAL SEE BELOW Normal [facility] Comment on above: Result Comment: <100 mg/dl OPTIMAL 100 - 129 mg/dl NEAR OR ABOVE OPTIMAL 130 - 159 mg/dl BORDERLINE HIGH 160 - 189 mg/dl HIGH >190 mg/dl VERY HIGH Performed By: #### L IPID, CMP #### [facility] [address] [place] [address] Dr. Gloria Ayala Triglyceride [Mass/Vol] 82 mg/dL Normal <=150 [facility] Comment on above: Performed By: #### L IPID, CMP #### [facility] [address] [place] [address] Dr. Gloria Ayala VLDL CALC 16.4 mg/dL Normal [facility] Comment on above: Performed By: #### L IPID, CMP #### [facility] [address] [place] [address] Dr. Gloria Ayala MICROALBUMIN, RAND URon 03-0 mALB 1.9 mg/L Normal <=30.0 [facility] Comment on above: Performed By: #### M ALBR #### [facility] [address] [place] [address] Dr. Gloria Ayala PROF 14(COMP METB)on 023 Albumin [Mass/Vol] 3.2 g/dL Critically low 3.4-5.0 [facility] Comment on above: Performed By: #### L IPID, CMP #### [facility] [address] [place] [address] Dr. Gloria Ayala Albumin/Globulin [Mass ratio] 0.8 {ratio} Normal [facility] Comment on above: Performed By: #### L IPID, CMP #### [facility] [address] [place] [address] Dr. Gloria Ayala ALP [Catalytic activity/Vol] 85 U/L Normal 46-116 [facility] Comment on above: Performed By: #### L IPID, CMP #### [facility] [address] [place] [address] Dr. Gloria Ayala ALT [Catalytic activity/Vol] 15 U/L Critically low 16-63 [facility] Comment on above: Performed By: #### L IPID, CMP #### [facility] [address] [place] [address] Dr. Gloria Ayala Anion gap [Moles/Vol] 9.5 mmol/L Normal [facility] Comment on above: Performed By: #### L IPID, CMP #### [facility] [address] [place] [address] Dr. Gloria Ayala AST [Catalytic activity/Vol] 13 U/L Critically low 15-37 [facility] Comment on above: Performed By: #### L IPID, CMP #### [facility] [address] [place] [address] Dr. Gloria Ayala Bilirubin [Mass/Vol] 0.6 mg/dL Normal 0.2-1.0 [facility] Comment on above: Performed By: #### L IPID, CMP #### [facility] [address] [place] [address] Dr. Gloria Ayala Calcium [Mass/Vol] 8.4 mg/dL Critically low 8.5-10.1 Th e [facility] Comment on above: Performed By: #### L IPID, CMP #### [facility] [address] [place] [address] Dr. Gloria Ayala Chloride [Moles/Vol] 102 mmol/L Normal 98-107 [facility] Comment on above: Performed By: #### L IPID, CMP #### [facility] [address] [place] [address] Dr. Gloria Ayala CO2 [Moles/Vol] 34.6 mmol/L Critically high 21.0-32.0 [facility] Comment on above: Performed By: #### L IPID, CMP #### [facility] [address] [place] [address] Dr. Gloria Ayala Creatinine [Mass/Vol] 0.97 mg/dL Normal 0.70-1.30 [facility] Comment on above: Performed By: #### L IPID, CMP #### [facility] [address] [address] [address] Gloria Ayala EGFR-AF IRAQI >60 Normal >=60 [facility] Comment on above: Performed By: #### L IPID, CMP #### [facility] [address] [address] [address] Gloria Ayala EGFR-NON AF IRAQI >60 Normal >=60 [facility] Comment on above: Performed By: #### L IPID, CMP #### [facility] [address] [address] [address] Gloria Ayala Globulin (S) [Mass/Vol] 4.1 g/dL Normal [facility] Comment on above: Performed By: #### L IPID, CMP #### [facility] [address] [place] [address] Dr. Gloria Ayala Glucose [Mass/Vol] 154 mg/dL Critically high 74-106 [facility] Comment on above: Performed By: #### L IPID, CMP #### [facility] [address] [address] [address] Gloria Ayala Potassium [Moles/Vol] 4.1 mmol/L Normal 3.5-5.1 [facility] Comment on above: Performed By: #### L IPID, CMP #### [facility] [address] [place] [address] Dr. Gloria Ayala Protein [Mass/Vol] 7.3 g/dL Normal 6.4-8.2 [facility] Comment on above: Performed By: #### L IPID, CMP #### [facility] [address] [place] [address] Dr. Gloria Ayala Sodium [Moles/Vol] 142 mmol/L Normal 136-145 [facility] Comment on above: Performed By: #### L IPID, CMP #### [facility] [address] [address] [address] Gloria Ayala Urea nitrogen [Mass/Vol] 10.0 mg/dL Normal 7.0-18.0 [facility] Comment on above: Performed By: #### L IPID, CMP #### [facility] [address] [place] [address] Dr. Gloria Ayala Urea nitrogen/Creatinine [Mass ratio] 10.3 mg/mg Normal [facility] Comment on above: Performed By: #### L IPID, CMP #### [facility] [address] [place] [address] Dr. Gloria Ayala UA RANDOM W/MICROSCOPICon BACTERIA NONE SEEN Normal NONE SEEN [facility] Comment on above: Performed By: #### U AMIC #### [facility] [address] [place] [address] Dr. Gloria Ayala Bilirubin Ql (U) Negative Normal NEGATIVE [facility] Comment on above: Performed By: #### U AMIC #### [facility] [address] [place] [address] Dr. Gloria Ayala CAST SEEN Abnormal NONE SEEN [facility] Comment on above: Performed By: #### U AMIC #### [facility] [address] [place] [address] Dr. Gloria Ayala Clarity (U) CLEAR Normal CLEAR [facility] Comment on above: Performed By: #### U AMIC #### [facility] [address] [place] [address] Dr. Gloria Ayala Color (U) YELLOW Normal YELLOW [facility] Comment on above: Performed By: #### U AMIC #### [facility] [address] [place] [address] Dr. Gloria Ayala Crystals LM Nom (Urine sed) NONE SEEN Normal NONE SEEN [facility] Comment on above: Performed By: #### U AMIC #### [facility] [address] [place] [address] Dr. Gloria Ayala Epithelial cells LM Ql (Urine sed) RARE Normal NONE SEEN /RARE [facility] Comment on above: Performed By: #### U AMIC #### [facility] [address] [place] [address] Dr. Gloria Ayala Glucose Ql (U) Negative Normal NEGATIVE [facility] Comment on above: Performed By: #### U AMIC #### [facility] [address] [place] [address] Dr. Gloria Ayala Hemoglobin Ql (U) Negative Normal NEGATIVE [facility] Comment on above: Performed By: #### U AMIC #### [facility] [address] [address] [address] Gloria Ayala HYALINE CAST RARE Normal [facility] Comment on above: Performed By: #### U AMIC #### [facility] [address] [address] [address] Gloria Ayala Ketones Ql (U) Negative Normal NEGATIVE [facility] Comment on above: Performed By: #### U AMIC #### [facility] [address] [address] [address] Gloria Ayala LEUKOCYTES Negative Normal NEGATIVE [facility] Comment on above: Performed By: #### U AMIC #### [facility] [address] [address] [address] Golria Ayala MUCOUS NONE SEEN Normal NONE SEEN [facility] Comment on above: Performed By: #### U AMIC #### [facility] [address] [address] [address] Gloria Ayala Nitrite Ql (U) Negative Normal NEGATIVE [facility] Comment on above: Performed By: #### U AMIC #### [facility] [address] [address] [address] Gloria Ayala pH (U) 7.0 [pH] Normal 5-9 [facility] Comment on above: Performed By: #### U AMIC #### [facility] [address] [address] [address] Gloria Ayala RBC NONE SEEN Abnormal 0-2 [facility] Comment on above: Performed By: #### U AMIC #### [facility] [address] [address] [address] Gloria Ayala SPEC GRAVITY 1.015 Normal 1.005-<=1.025 [facility] Comment on above: Performed By: #### U AMIC #### [facility] [address] [address] [address] Gloria Ayala UA PROTEIN Negative Normal NEGATIVE/ TRACE [facility] Comment on above: Performed By: #### U AMIC #### [facility] [address] [address] [address] Gloria Ayala Urobilinogen Qn (U) 8 {Jonathan'U}/dL Abnormal 0.2 - 1.0 [facility] Comment on above: Performed By: #### U AMIC #### [facility] [address] [address] [address] Gloria Ayala WBC NONE SEEN Normal NONE SEEN [facility] Comment on above: Performed By: #### U AMIC #### [facility] [address] [address] [address] Gloria Ayala Physician Referralon 022 Physician Referral [phone] [id number]:[id number] Normal [facility] GLYCOHEMOGLOBIN A1Con 2021 ADA RECOMMENDATION SEE BELOW Normal [facility] Comment on above: Result Comment: ADA RECOMMENDED LIMIT 4.0 - 6.0 ADA THERAPEUTIC TARGET < 7.0 ACTION SUGGESTED > 7.0 Performed By: #### A 1C #### [facility] [address] [place] [address] Dr. Gloria Ayala Glucose [Mass/Vol] 128 mg/dL Normal [facility] Comment on above: Performed By: #### A 1C #### [facility] [address] [address] [address] Gloria Ayala HbA1c (Bld) [Mass fraction] 6.1 % Normal 4.5-6.2 [facility] Comment on above: Performed By: #### A 1C #### [facility] [address] [address] [address] Gloria Ayala PROF CHEM 8 (BAS METB)on Anion gap [Moles/Vol] 8.5 mmol/L Normal [facility] Comment on above: Performed By: #### B MP #### [facility] [address] [address] [address] Gloria Ayala Calcium [Mass/Vol] 8.5 mg/dL Normal 8.5-10.1 [facility] Comment on above: Performed By: #### B MP #### [facility] [address] [address] [address] Gloria Ayala Chloride [Moles/Vol] 99 mmol/L Normal 98-107 [facility] Comment on above: Performed By: #### B MP #### [facility] [address] [address] [address] Gloria Ayala CO2 [Moles/Vol] 34.5 mmol/L Critically high 21.0-32.0 [facility] Comment on above: Performed By: #### B MP #### [facility] [address] [address] [address] Gloria Ayala Creatinine [Mass/Vol] 1.02 mg/dL Normal 0.70-1.30 [facility] Comment on above: Performed By: #### B MP #### [facility] [address] [address] [address] Gloria Ayala EGFR-AF IRAQI >60 Normal >=60 [facility] Comment on above: Performed By: #### B MP #### [facility] [address] [address] [address] Gloria Ayala EGFR-NON AF IRAQI >60 Normal >=60 [facility] Comment on above: Performed By: #### B MP #### [facility] [address] [address] [address] Gloria Ayala Glucose [Mass/Vol] 116 mg/dL Critically high 74-106 [facility] Comment on above: Performed By: #### B MP #### [facility] [address] [address] [address] Gloria Ayala Potassium [Moles/Vol] 4.0 mmol/L Normal 3.5-5.1 [facility] Comment on above: Performed By: #### B MP #### [facility] [address] [place] [address] Dr. Gloria Ayala Sodium [Moles/Vol] 138 mmol/L Normal 136-145 [facility] Comment on above: Performed By: #### B MP #### [facility] [address] [address] [address] Gloria Ayala Urea nitrogen [Mass/Vol] 11.0 mg/dL Normal 7.0-18.0 [facility] Comment on above: Performed By: #### B MP #### [facility] [address] [address] [address] Gloria Ayala Urea nitrogen/Creatinine [Mass ratio] 10.8 mg/mg Normal [facility] Comment on above: Performed By: #### B MP #### [facility] [address] [address] [address] Gloria Ayala Vital Signs Date Time Vital Sign Value Performing Clinician Faci lity 05-27-2023 13:23-0500 Body height 176.5 cm Pm [address] [facility] 05-27-2023 13:23-0500 Body mass index (BMI) [Ratio] 45.12 kg/m2 Pm [address] [facility] 05-27-2023 13:23-0500 Body weight 140.[address] 05-05-2023 10:43-0500 Body temperature 97 [degF] Sybil Prabhjot SLASHER TENDER-ORE CRUSHER Work Phone: [facility] 05-05-2023 10:43-0500 Diastolic blood pressure 66 mm[Hg] Sybil Prabhjot SLASHER TENDER-ORE CRUSHER Work Phone: [facility] 05-05-2023 10:43-0500 Heart rate 80 /min Sybil Prabhjot COATES-ORE CRUSHER Work Phone: [facility] 05-05-2023 10:43-0500 Respiratory rate 16 /min Sybil Prabhjot SLASHER TENDER-ORE CRUSHER Work Phone: [facility] 05-05-2023 10:43-0500 Systolic blood pressure 116 mm[Hg] Sybil Prabhjot SLASHER TENDER-ORE CRUSHER Work Phone: [facility] Encounters Encounter Date Encounter Type Care Provider Facility Start: 05-31-2023 End: 05-31-2023 Evaluation and management of inpatient FRANKIE Mark [facility] Start: 05-27-2023 End: 05-27-2023 ambulatory IRINA MCLEOD [facility] Start: 05-27-2023 End: 05-27-2023 ambulatory [facility] Pat Phone Call Provider 1 [facility] - Pre Admit Start: 05-19-2023 End: 05-19-2023 ambulatory IRINA RIGOBERTO Not Available Start: 05-11-2023 End: 05-11-2023 ambulatory AMBER Diop JOELLE [facility] Start: 05-05-2023 End: 05-05-2023 ambulatory SYBIL TOBIN [facility] Start: 05-05-2023 End: 05-05-2023 Office outpatient visit 10 minutes Sybil Tobin SLASHER TENDER-ORE CRUSHER Work Phone: [facility] Comment on above: Chronic recurrent pi lonidal cyst (Primary Dx); Abscess of multiple sites of buttock Start: 04-13-2023 End: 04-13-2023 ambulatory [facility] Start: 04-13-2023 End: 04-13-2023 Encounter for preprocedural cardiovascular examination [facility] Start: 04-07-2023 End: 04-07-2023 ambulatory IRINA RIGOBERTO Not Available Start: 10-26-2022 ambulatory Arlen castillo PA-C Facility[facility] Start: 09-21-2022 End: 09-22-2022 ambulatory Irina Mcleod SLASHER TENDER-ORE CRUSHER Facility:[facility] Start: 08-04-2022 End: 08-04-2022 ambulatory JOSE ELIAS DAI Facility:[facility] Start: 07-23-2022 End: 07-24-2022 ambulatory ORE CRUSHER IRINA AICHHOLZ Facility:[facility] Start: 07-09-2022 End: 07-10-2022 ambulatory ORE CRUSHER IRINA AICHHOLZ Facility:[facility] Start: 09-15-2021 End: 09-16-2021 ambulatory ORE CRUSHER IRINA AICHHOLZ Facility:[facility] Procedures Date Procedure Procedure Detail Performing Clinician Start: 05-05-2023 NURSING COMMUNICATION M iman Tobin SLASHER TENDER-ORE CRUSHER Work Phone: Start: 07-09-2022 PSA screening ORE CRUSHER IRINA MCLEOD Comment on above: Performed By: #### P [facility] #### [facility] [address] [place] [address] Dr. Gloria Ayala Plan of Treatment Date Care Activity Detail Author Start: 05-28-2024 Tobacco Screening Tobacco Screening [facility] Start: 05-27-2024 Adult BMI Screening Adult BMI Screen ing [facility] Start: 04-19-2024 Adult BMI Screening Adult BMI Screen ing [facility] Start: 04-05-2024 Tobacco Screening Tobacco Screening [facility] Start: 06-15-2023 End: 06-15-2023 Patient encounter procedure 06/15/2023 3:30 PM EST Office Visit [facility] [address] [place] [phone] Arlen Estrada, SLASHER TENDER-[facility] [address] [place], [place] [id number] [facility] Start: 05-31-2023 End: 05-31-2023 Admission to same day surgery center 05/31/2023 12:15 PM EST - 05/31/2023 1:15 PM EST Surgery [facility] [address] [place] [phone] Amber Valdovinos MD [address] [place] [phone] EXCISION CYST PILONIDAL [08983 (CPT )] [facility] Comment on above: EXCISION CYST PILONI SHAYAN [42377 (CPT )] Start: 05-31-2023 End: 05-31-2023 Anesthesia consultation 05/31/2023 12:15 PM EST Anesthesia Event [facility] [address] [place] [phone] Frankie Bishop MD [address] [place], [place] [id number] [facility] Start: 05-31-2023 End: 05-31-2023 Excision pilonidal cyst/sinus simple EXCISION CYST PILONIDAL pilonidal cyst 05/31/2023 12:15 PM EST [facility] Start: 05-31-2023 Subsequent hospital visit by physician 05/31/2023 12:15 PM EST Hospital Encounter [facility] [address] [place] [address] Amber Valdovinos MD [address] [place] [phone] [facility] Start: 05-21-2023 End: 05-21-2023 Patient encounter procedure 05/21/2023 11:00 AM EST Office Visit [facility] [address] [place] [phone] Sybil Tobin, SLASHER TENDER-ORE CRUSHER [address] [place] [address] [facility] Start: 05-11-2023 End: 05-11-2023 Patient encounter procedure 05/11/2023 2:00 PM EST Office Visit [facility] [address] [place] [address] Amber Valdovinos MD [address] [place] [address] [facility] Start: 01-01-2023 COVID-19 Vaccine ( season) COVID-19 Vaccine ( season) [facility] Start: 01-01-2023 Influenza vaccination Influenza Vacc ine [facility] Start: 2022 Fall Risk Screening Fall Risk Screen ing [facility] Start: 2007 Administration of varicella zoster vaccine Zoster (Shingles) Vaccine (1 of 2) [facility] Start: 1976 DTaP,Tdap and Td Vac cines (1 - Tdap) DTaP,Tdap and Td Vaccines (1 - Tdap) [facility] Start: 1975 Adult BMI Follow Up Plan Adult BMI Follow Up Plan [facility] Start: 1969 Depression Screening Depression Scre ening [facility] Start: 1957 Medicare Annual Well ness Visit Medicare Annual Wellness Visit [facility] Payers Date Payer Category Payer Self-pay 2003 Medicaid [place] [employer] [place] [employer] [id number] 2003-Present [phone] [address] [place] [address] [id number] 1959 Unknown [id number] 1957 Unknown [id number] [id number] 1957 Unknown [id number] [id number] 1957 Unknown [id number] 2.16.840.1.100513.3.579.2.593 1957 Unknown [id number] 2.16.840.1.770127.3.579.2.593 1957 Unknown [id number] 2.16.840.1.135219.3.579.2.196 1957 Unknown [id number] 2.16.840.1.343767.3.579.2.1286 1957 Unknown [id number] 2.16.840.1.458297.3.579.2.1259 1957 Unknown [id number] 2.16.840.1.639257.3.579.2.1259 1957 Unknown [id number] 2.16.840.1.243553.3.579.2.1286 1957 Unknown [id number] 2.16.840.1.625055.3.579.2.1286 1957 Unknown [id number] 2.16.840.1.395104.3.579.2.1286 1957 Unknown [id number] 2.16.840.1.172932.3.579.2.1286 1957 Unknown [id number] [id number] Social History Date Type Detail Facility Start: 03-30-2023 End: 05-11-2023 Tobacco smoking status NHIS Ex-smoker [facility] End: 05-03-2023 History of tobacco use Current smoker [facility] End: 05-03-2023 History of tobacco use Cigarette Smoker [facility] Start: 05-05-2023 Alcohol intake Lifetime non-d benigno (finding) [facility] Start: 06-13-2020 End: 05-05-2023 History of Social function [facility] Start: 06-13-2020 End: 05-05-2023 Tobacco use panel [facility] Housing Instability Unknown [facility] Start: 1955 Sex Assigned At Not on file [facility] Start: 05-11-2023 Alcohol intake Ex-drinker (finding) [facility] Note 05-27-2023 Perioperative Nursing Note - Sonia Dowell RN - 05/27/2023 2:10 PM EST Note Date & Type Note Facility 05-27-2023 Miscellaneous Notes Preoperative Education Checklist- General Surgery date: 05/31/23 Surgery time: 1215 Arrival time: 1015 1. Bring a photo ID and your insurance card with you the day of surgery. You will check in at the main lobby of the [facility]- registration desk is straight ahead as soon as you walk in. Tell them you are here for surgery. 2. If you have a Living Will/Durable Power of Dietary Internship for Health Care that is not on [...] after you have bathed. 5. NO nail costa rican/acrylic on at least one finger. If you are having a hand, wrist or foot surgery then all nail costa rican and artificial/acrylic nails must be removed from [...] please call the Preadmission Testing office at [phone], Mon.-Fri. 7 a.m.-3 p.m. Leave a voicemail [...] prior to procedure documented in this encounter [facility] Nurse Note 05-27-2023 Perioperative Nursing Note - Sonia Dowell RN - 05/27/2023 2:10 PM EST Note Date & Type Note Facility 05-27-2023 Nurse Note Preoperative Education Checklist- General Surgery date: 05/31/23 Surgery time: 1215 Arrival time: 1015 1. Bring a photo ID and your insurance card with you the day of surgery. You will check in at the main lobby of the [facility]- registration desk is straight ahead as soon as you walk in. Tell them you are here for surgery. 2. If you have a Living Will/Durable Power of Dietary Internship for Health Care that is not on [...] after you have bathed. 5. NO nail costa rican/acrylic on at least one finger. If you are having a hand, wrist or foot surgery then all nail costa rican and artificial/acrylic nails must be removed from [...] please call the Preadmission Testing office at [phone], Mon.-Fri. 7 a.m.-3 p.m. Leave a voicemail [...] taking 0 days prior to procedure [facility] History of Present illness Narrative 05-05-2023 Sybil Tobin, SLASHER TENDER-ORE CRUSHER - 05/05/2023 11:00 AM EST Note Date & Type Note Facility 05-05-2023 History of Present illness Narrative Images from the original note were not included. Wound Care Progress Note Patient: Carlos Persaud Date of : 1955 Chief Compliant: Buttock wounds, pilonidal cyst disease SUBJECTIVE/HPI: Carlos is a 68 y.o. male who presents to [facility] for evaluation of 2 tunneling [...] resolved. States surgery was done outside of [place], unable to recall name of surgeon. Measurable [...] (Active) Wound Image 05/05/23 1044 Site Assessment Red;[place] 05/05/23 1044 [place]-wound Assessment Blanchable erythema;[place] 05/05/23 1044 Wound Length (cm) 1 cm [...] Assessment Red 05/05/23 1044 [place]-wound Assessment Blanchable erythema;[place] 05/05/23 1044 Wound Length (cm) 1.5 cm [...] to coccyx. Short term goal: medical compliance intermission coordinator goal: wound closure Patient verbalize understanding of [...] procedures Referring and communicating with other health skin care therapist (not separately reported) Documenting clinical information in the electronic or other health record Sybil Tobin APRN, JUDY, CWS, RUFINA [facility]: [phone] KANG Whiting 05/05/23 1133 documented in this encounter [facility] Instructions 05-05-2023 Patient Instructions Note Date [...] serosang Phan, yellow [facility] 04-13-2023 Note Date & Type Note Facility 04-13-2023 Note [facility] Subjective Carlos Persaud is a 68 y.o. year old male patient being seen to re-establish care. He was last seen in 2019. Ref from Irina Aichholz, ORE CRUSHER for abnormal ECG prior to procedure scheduled [...] complication, without long-term current use of insulin ([facility]) No family history on file. Social History [...] mg by mout (more content not included)... [facility] Evaluation note Note Date & Type Note [...] sites of buttock Procedures [facility] Sybil Tobin, SLASHER TENDER-ORE CRUSHER [address] [place] [address] Referral ID Status Reason Start Date Expiration Date V isits Requested Visits Authorized [id number] Pending Review 05/05/2023 05/04/2024 1 1 Specialty Diagnoses / Procedures Referred By Contac t Referred To Contact Diagnoses Abscess of multiple sites of buttock Procedures [facility] [facility] Sybil Tobin, SLASHER TENDER-ORE CRUSHER [address] [place] [address] Referral ID Status Reason Start Date Expiration Date V isits Requested Visits Authorized [id number] Pending Review 05/05/2023 05/04/2024 1 1 Additional Source Comments (unrecognized sect ion and content) No Status Records FoundNo Status Records FoundNo Status Records FoundNo Status Records FoundNo Status Records FoundNo Status Records FoundNo Status Records Found INFORMATION SOURCE (unrecogn ized section and content) DATE CREATED AUTHOR 12/03/2021 [facility] DATE CREATED AUTHOR AUTHOR'S ORGANIZ ATION 08/07/2022 [facility] DATE CREATED AUTHOR AUTHOR'S ORGANIZ ATION 10/24/2022 [facility] DATE CREATED AUTHOR AUTHOR'S ORGANIZ ATION 04/15/2023 [facility] DATE CREATED AUTHOR AUTHOR'S ORGANIZ ATION 05/16/2023 [facility] DATE CREATED AUTHOR AUTHOR'S ORGANIZ ATION 05/20/2023 [facility] EPIC DATE CREATED AUTHOR AUTHOR'S ORGANIZ ATION 06/02/2023 [facility] Reason for Visit (unrecogniz ed section and content) Reason Comments Wound Check Care Teams (unrecognized sec tion and content) Chaperone Relationship Specialty Start Date End Date Irina Mcleod APRN-ORE CRUSHER [address] [place] [phone] PCP - General Nurse Practitioner 09/24/16 Chaperone Relationship Specialty Start Date End Date Irina Mcleod APRN-ORE CRUSHER [address] [place] [phone] PCP - General Nurse Practitioner 09/24/16 FOR [...] BE BASED ON THE PRIMARY CLINICAL RECORDS. [facility] [employer] [facility]. provides no warranty or guarantee of the accuracy or completeness of information in this document.
[2023-06-02 13:51] LABS: Phosphorus 5.3 mg/dL (2.6-4.7)
--- NOTE | 2023-06-02 14:28 | PM.HP ---
H&P: HPI History of Present Illness Chief complaint: GENERAL WEAKNESS Narrative: patient is a 68-year-old male with past medical history of hypertension, type 2 diabetes [id number], peripheral neuropathy, hyperlipidemia Who over the last few months has been battling a sacral abscess/pilonidal cyst. He was supposed to have surgery as past Wednesday at [facility], surgery was canceled due to patient's hypotension. recently had COVID and was hospitalized. He has not had an appetite for 1-2 weeks, but this worsened on Wednesday. He continues to take his medications and was unaware of his blood pressure being low. He denies any elevated blood sugars and still has been taking his metformin. He also has been taking his daily Lasix. Patient had normal kidney function back in the summer and he had labs drawn here. In the emergency department patient was found to be positive for COVID. He has been having cough, dry, no shortness of breath or chest pain, but lack of appetite and just feels weak and tired. He denies any nausea vomiting or diarrhea. Also his creatinine was elevated at 5.08 creatinine and BUN 51. Cr. Was 0.8 a few months ago. Lactate normal. Procalcitonin normal. Low albumin 2.7. Patient was admitted for weakness/dehydration/ and acute renal failure. Review of Systems ROS Narrative ROS: a complete review of systems were reviewed with patient and are positive as below or listed in History of Chief Complaint. General: no fever, chills, night sweats Head: no headache, trauma, visual changes, nausea or vomiting Skin: sacral abscess Eyes: no blurriness of vision Ears: no reported hearing loss, vertigo, earache, or tinnitus Throat: no sore throat, hoarseness, swelling of neck, or tongue pain Heart: no chest pain Lungs: no shortness of breath, slight cough GI: no diarrhea or vomiting/nausea Urinary: no urinary urgency, frequency or pain Neuro: no numbness or tingling HEM: no bleeding issues or bruising ENDO: no thyroid problems Psych: no anxiety or depression [facility] Medical History (Updated 06/02/23 @ 16:34 by Arlen Infante DO) Diabetic neuropathy ?E11.40 - Type 2 diabetes mellitus with diabetic neuropathy, unspecified (ICD-10) Dyslipidemia ?E78.5 - Hyperlipidemia, unspecified (ICD-10) Non-insulin dependent diabetes mellitus Hypertension ?I10 - Essential (primary) hypertension (ICD-10) Family History Sister Family history of diabetes mellitus Social History Within the past year, how often did you have a drink containing alcohol: never Score interpretation: A score less than 4 is consistent with normal alcohol consumption. Smoking status: Former smoker Non-prescribed substance use: denies use Highest level of school completed/degree received: high school graduate Gender Identity: male Meds Home Medications and Allergies Home Medications Medication Instructions Recorded Confirmed Type aspirin 81 mg tablet,delayed 81 mg PO DAILY 06/02/23 06/02/23 History release carvedilol 3.125 mg tablet 3.125 mg PO Q12H 06/02/23 06/02/23 History duloxetine 30 mg capsule,delayed 30 mg PO DAILY 06/02/23 06/02/23 History release furosemide 20 mg tablet (Lasix) 60 mg PO DAILY 06/02/23 06/02/23 History gabapentin 300 mg capsule 300 mg PO .COMPLEX 06/02/23 06/02/23 History lisinopril 10 mg tablet 10 mg PO DAILY 06/02/23 06/02/23 History metformin 500 mg tablet 500 mg PO BID 06/02/23 06/02/23 History omeprazole 20 mg capsule,delayed 20 mg PO DAILY 06/02/23 06/02/23 History release ropinirole 2 mg tablet 2 mg PO .qhs 06/02/23 06/02/23 History rosuvastatin 20 mg tablet 20 mg PO QDAY 06/02/23 06/02/23 History tamsulosin 0.4 mg capsule 0.8 mg PO Q24H 06/02/23 06/02/23 History Allergies Allergy/AdvReac Type Severity Reaction Status Date / Time No Known Drug Allergies Allergy Verified 02/22/23 12:49 Exam Narrative Exam Narrative: General: Patient is alert, and oriented to person, place and time with normal affect, pallor and mild cachexia; uncomfortable sitting on his bottom Skin: large, coin shaped abscess at the rectal apex, draining with excoriation Head: atraumatic, acephalic Eyes: PERRLA, no nystagmus present, conjunctiva clear, no scleral icterus Ears: normal gross auditory acuity Heart: Normal rate and rhythm, no murmurs/rubs/gallops Lungs: no audible wheezes, crackles and normal breath sounds all lung tsang Abdomen: Normal audible bowel sounds, no distension, No palpable masses, no organomegaly, no rebound/guarding/ or rigidity Musculoskeletal: no swelling bilateral lower extremities Neuro: CN II-X grossly intact Constitutional Vital Signs, click to edit/add: Last Vital Signs Temp 98.2 F 06/02/23 09:57 Pulse 91 H 06/02/23 14:00 Resp 19 06/02/23 14:00 BP 96/55 06/02/23 12:45 Pulse Ox 95 06/02/23 13:10 O2 Del Method Room Air 06/02/23 13:10 Results Labs Labs: Short CBC 06/02/23 Range/Units 10:10 WBC 14.4 H (4.0-11.0) 10^3/uL Hgb 15.4 (14.0-18.0) g/dL Hct 47.1 (42.0-54.0) % Plt Count 149 L (150-450) 10^3/uL BMP 06/02/23 10:10 Sodium 134 L Potassium 4.0 Chloride 95 L Carbon Dioxide 27.6 BUN 51.0 H Creatinine 5.08 H* Glucose 94 Calcium 8.6 Liver Function 06/02/23 Range/Units 10:10 Total Bilirubin 1.2 H (0.2-1.0) mg/dL Direct Bilirubin 0.5 H (0.0-0.2) mg/dL AST 15 (15-37) U/L ALT 12 L (16-63) U/L Alkaline Phosphatase 73 (46-116) U/L Albumin 2.7 L (3.4-5.0) g/dL Assessment and Plan Assessment and Plan (1) Acute kidney failure: Assessment and Plan: creatinine was 5.08, BUNs fifty-one, magnesium level normal with elevated phosphorus, will continue gentle fluid hydration but received quite a bit of fluid in the emergency department and trying not to fluid overload patient. Will also check a renal ultrasound/bladder ultrasound given the elevation of both. Check urine osmolarity, urine sodium and urine creatinine. Will place a Aguilera to monitor Urine output. UA was negative in ER for acute infection. likely pre-renal from acute dehydration and poor intake. Will also consult nephrology when available. If Creatinine does not improve, recommend transfer to higher level facility that has in house nephrology and dialysis capabilities. Qualifiers: Acute renal failure type: unspecified Qualified Code(s): N17.9 - Acute kidney failure, unspecified (2) Dehydration: Assessment and Plan: continue with IVF with LR @ 50cc/hr, hold diuretics (3) Acute viral syndrome: Assessment and Plan: on telemetry, monitor respiratory status, not requiring oxygen therapy. (4) COVID-19: Assessment and Plan: placed on Remdesivir 200mg once, then 100mg daily x 4 days (5) Abscess of sacrum: Assessment and Plan: wound nurse consult, this seems like ongoing issue and is draining, appreciate input from wound; normal wbc's and lactate; I don't think need for antibiotics now. (6) Hypertension: Assessment and Plan: hold Gary for renal function, continue coreg Qualifiers: Hypertension type: secondary to endocrine disorders Qualified Code(s): I15.2 - Hypertension secondary to endocrine disorders (7) Non-insulin dependent diabetes mellitus: Assessment and Plan: hold metformin due to renal function, SSI (8) Dyslipidemia: Assessment and Plan: hold statin (9) Diabetic neuropathy: Assessment and Plan: continue gabapentin and cymbalta Qualifiers: Diabetes mellitus type: type 2 Diabetes mellitus complication detail: diabetic polyneuropathy Qualified Code(s): E11.42 - Type 2 diabetes mellitus with diabetic polyneuropathy Plan patient is a full code Heparin for DVT prophylaxis Patient is inpatient status and is expected to cross 2 midnights for hospital treatment required and acuity
[2023-06-02] MEDS: LACTATED RINGER'S SOLUTION 1,000 ML 125 ML IV (14:45)
--- NOTE | 2023-06-02 15:37 | W.PM.WC_ITS ---
Wound Consult Note Assessment and Plan (1) Cellulitis of sacral region: Reason for Consult: Sacral ulcer Assessment and Plan: Consult received for evaluation and treatment of sacral ulcer. Per bedside RN, patient was to have surgical debridement at [facility]. Surgery got canceled due to patient's low BP. Patient was able to turn independently on his left side for assessment of sacral ulcer. Patient with red, inflammed, swollen tissue to his coccyx/sacral area, buttocks, and inner thighs/scrotal area. His skin has noticeable pitting with drainage. This is a very classic sign of hidradenitis suppurativa (HS). Patient and state they have never heard that term before, but they describe symptoms of HS including locations on the buttocks, groin, scrotum, axilla, and thighs. Patient reports areas become inflammed and begin to drain and they are painful and also state that they were told that the wounds were tunnels . These all describe HS symptoms. states patient has been to a subway conductor in the past but stopped going due to the office no longer accepting their insurance. Patient's bilateral upper anterior thighs have scarred skin. Abdominal fold with pitting areas and drainage noted. Posterior thighs also with scarred tissue as well as some draining areas. Patient's sacral area has the largest open area noted currently. Edges and wound bed does have yellow slough noted. Periwound whitlock s erythema and is inflammed, and weepy. Patient does state it is tender to touch. Open area measures 5.5cmx1.5cmx0.9cm. This area is positional due to being in skin fold. Photos taken by bedside RN. Patient's groin currently dusted with body powder. Patient also has redness to his face which could be related to his HS symptom flare up. Patient does not complain of itching to face at this time. does mention that patient itches at his groin alot. Reminded patient to try to refrain from itching as this can spread infection. Plan Due to slough in wound bed and edges of sacral ulcer and periwound erythema and inflammation, I would recommend santyl ointment be used to this area and covered daily. Triad wound paste, thin layer, to surrounding periwound/weeping skin as needed Continue powder and pillowcases/soft cloth to skin folds/groin, change as needed Seat cushion mattress overlay Please call [phone] with any questions or concerns.
[2023-06-02] MEDS: ACETAMINOPHEN 325 MG TABLET 650 MG PO (16:24)
[2023-06-02 16:38] LABS: Glucometer 92 mg/dL (74-106)
--- NOTE | 2023-06-02 16:38 | US_ITS ---
[address] [address] Patient Name: CARLOS DUQUE MRN: [id number] date: 1955 Sex: M Assigned Patient Location: [place] Current Patient Location: [place] Accession/Order Number: [id number] Exam Date: 06/02/2023 16:40 Report Date: 06/02/2023 18:09 At the request of: GIOVANNI RUELAS Procedure: US renal BI EXAM: US renal BI; [id number] HISTORY: acute renal failure. TECHNIQUE: Real-time sonography through the kidneys and bladder was performed. Color and spectral Doppler images of the kidneys were obtained. COMPARISON: None. FINDINGS: RIGHT KIDNEY: Size: 12.2 x 7.1 x 7.5 cm. Volume 341 cc. Normal in size and echogenicity. No collecting system dilatation. No echogenic calculi. No solid mass on provided views. Doppler signal is within normal limits. LEFT KIDNEY: Size: 13.8 x 6.3 x 6.4 cm. Volume 294 cc. Normal in size and echogenicity. No collecting system dilatation. No echogenic calculi. No solid mass on provided views. Doppler signal is within normal limits. BLADDER: Completely decompressed with a Aguilera catheter. US/US renal BI IMPRESSION: Negative exam. No structural etiology for acute renal failure demonstrated. Electronically authenticated by: KRISH BERUMEN Date: 06/02/2023 18:09
[2023-06-02] MEDS: REMDESIVIR 200 MG in 0.9 % SODIUM CHLORIDE 250 ML 250 MG IV (17:36)
[2023-06-02] MEDS: HEPARIN SODIUM (PORCINE) 5,000 UNIT/ML VIAL 5000 UNIT SUBQ (17:36)
[2023-06-02] MEDS: ONDANSETRON PF 4 MG/2 ML VIAL IV (18:36)
--- NOTE | 2023-06-02 19:59 | RESP.RT ---
No PRN breathing tx given. Pt denies need. No respiratory distress noted.
[2023-06-02] MEDS: GABAPENTIN 300 MG CAPSULE 600 MG PO (21:23)
[2023-06-02] MEDS: HYDROCODONE/ACET 5-325 MG TABLET 1 TAB PO (21:24)
[2023-06-02 21:31] LABS: Bilirubin Urine SMALL (NEGATIVE); Blood Urine SMALL (NEGATIVE); Clarity Urine CLEAR (CLEAR); Color Urine DK. YELLOW (YELLOW); Glucose Urine UA NEGATIVE (NEGATIVE); Ketones Urine NEGATIVE (NEGATIVE); Leukocyte Esterase Urine NEGATIVE (NEGATIVE); Nitrite Urine NEGATIVE (NEGATIVE); Protein Urine 30 mg/dL (NEG/TRACE); Specific Gravity Urine >=1.030 (1.005-1.025)
[2023-06-02 21:34] LABS: Urine Microscopic Indicated YES
[2023-06-02 21:45] LABS: Creatinine Urine Random 184.26 mg/dL (20.00-300.00); Sodium Urine Random 26 mmol/L (30-90)
[2023-06-02 21:46] LABS: Bacteria Urine MODERATE #/HPF (NONE SEEN); Crystals Seen? Seen #/HPF (None Seen); Mucus Urine LARGE (NONE SEEN); RBC Urine 0-2 #/HPF (0-2); Squamous Epithelial Cell Urine FEW #/LPF (NONE/RARE)
[2023-06-02 21:47] LABS: Amorphous Sediment Urine MODERATE; Cast Seen? SEEN #/LPF (NONE SEEN); Coarse Granular Casts Urine MANY; Hyaline Casts Urine MANY
[2023-06-02 21:48] LABS: Urine Culture Indicated YES
[2023-06-03] VITALS (16 sets, daily range): BP systolic 87–104; BP diastolic 53–58; PULSE 53–98; RESP 12–18; TEMP 36.4–36.6; O2SAT 95–99
[2023-06-03] MEDS: LACTATED RINGER'S SOLUTION 1,000 ML 75 ML IV (04:56)
[2023-06-03] MEDS: HEPARIN SODIUM (PORCINE) 5,000 UNIT/ML VIAL 5000 UNIT SUBQ ×2 (04:56→16:40)
[2023-06-03 05:45] LABS: Basophils Percent Auto 0.4 % (0.2-2.0); Eosinophils Absolute Auto 0.1 10^3/uL (0.0-0.7); Eosinophils Percent Auto 0.5 % (0.9-7.0); Hematocrit 44.3 % (42.0-54.0); Hemoglobin 14.1 g/dL (14.0-18.0); Immature Granulocytes Abs Auto 0.04 10^3/uL (0.00-0.03); Immature Granulocytes Pct Auto 0.4 % (0.0-0.5); Lymphocytes Absolute Auto 1.2 10^3/uL (1.2-3.8); Lymphocytes Percent Auto 12.5 % (20.5-60.0); Mean Corpuscular HGB Conc 31.8 g/dL (29.9-35.2); Mean Corpuscular Hemoglobin 26.2 pg (25.9-34.0); Mean Corpuscular Volume 82.3 fL (80.0-94.0); Monocytes Absolute Auto 0.7 10^3/uL (0.3-0.8); Monocytes Percent Auto 7.8 % (1.7-12.0); Neutrophils Absolute Auto 7.3 10^3/uL (1.4-6.5); Neutrophils Percent Auto 78.4 % (43.0-75.0); Platelet Count 124 10^3/uL (150-450); Red Blood Count 5.38 10^6/uL (4.70-6.10); Red Cell Distribution Width 13.9 % (11.0-15.0); White Blood Count 9.3 10^3/uL (4.0-11.0)
[2023-06-03 06:06] LABS: Estimated Average Glucose 117 mg/dL; Glycohemoglobin A1C 5.7 % (4.5-6.2)
[2023-06-03 06:12] LABS: Alanine Aminotransferase 8 U/L (16-63); Albumin Globulin Ratio 0.5; Albumin Level 2.2 g/dL (3.4-5.0); Alkaline Phosphatase 63 U/L (46-116); Anion Gap 12.2; Aspartate Amino Transferase 13 U/L (15-37); BUN Creatinine Ratio 12.2; Bilirubin Total 0.8 mg/dL (0.2-1.0); Calcium 8.1 mg/dL (8.5-10.1); Carbon Dioxide 27.1 mmol/L (21.0-32.0); Chloride 98 mmol/L (98-107); Estimated GFR (African America 18 (>=60); Estimated GFR (Non-African Ame 15 (>=60); Globulin 4.3 g/dL; Glucose 91 mg/dL (74-106); Magnesium 1.8 mg/dL (1.8-2.4); Phosphorus 4.9 mg/dL (2.6-4.7); Potassium 3.3 mmol/L (3.5-5.1); Sodium 134 mmol/L (136-145); Total Protein 6.5 g/dL (6.4-8.2)
[2023-06-03] MEDS: OMEPRAZOLE 20 MG CAPSULE.DR PO (06:22)
--- NOTE | 2023-06-03 09:20 | P.PN_ITS ---
Progress Note: Subjective Subjective Interval history: patient alert this morning, sitting in recliner. Pain is controlled. Urine out in rasmussen bag. No fevers overnight, appetite still poor. Will get nutrition consult. Did have nephrology consult today. No other concerns or issues. Exam Narrative Exam Narrative: General: Patient is alert, and oriented to person, place and time with normal affect, pallor and mild cachexia Head: atraumatic, acephalic Eyes: PERRLA, no nystagmus present, conjunctiva clear, no scleral icterus Ears: normal gross auditory acuity Heart: Normal rate and rhythm, no murmurs/rubs/gallops Lungs: no audible wheezes, crackles and normal breath sounds all lung tsang Abdomen: Normal audible bowel sounds, no distension, No palpable masses, no organomegaly, no rebound/guarding/ or rigidity Musculoskeletal: no swelling bilateral lower extremities Neuro: CN II-X grossly intact Constitutional Vital Signs, click to edit/add: Last Vital Signs Temp 97.8 F 06/03/23 04:57 Pulse 73 06/03/23 07:57 Resp 18 06/03/23 04:57 BP 96/58 06/03/23 04:57 Pulse Ox 98 06/03/23 04:57 O2 Del Method Room Air 06/03/23 04:57 Progress Note: Objective Labs Labs: Short CBC 06/02/23 06/03/23 Range/Units 10:10 05:28 WBC 14.4 H 9.3 (4.0-11.0) 10^3/uL Hgb 15.4 14.1 (14.0-18.0) g/dL Hct 47.1 44.3 (42.0-54.0) % Plt Count 149 L 124 L (150-450) 10^3/uL BMP 06/02/23 06/03/23 10:10 05:28 Sodium 134 L 134 L Potassium 4.0 3.3 L Chloride 95 L 98 Carbon Dioxide 27.6 27.1 BUN 51.0 H 50.0 H Creatinine 5.08 H* 4.11 H Glucose 94 91 Calcium 8.6 8.1 L Liver Function 06/02/23 06/03/23 Range/Units 10:10 05:28 Total Bilirubin 1.2 H 0.8 (0.2-1.0) mg/dL Direct Bilirubin 0.5 H (0.0-0.2) mg/dL AST 15 13 L (15-37) U/L ALT 12 L 8 L (16-63) U/L Alkaline Phosphatase 73 63 (46-116) U/L Albumin 2.7 L 2.2 L (3.4-5.0) g/dL Urine 06/02/23 Range/Units 20:45 Urine Color Dk. yellow (YELLOW) Urine Clarity Clear (CLEAR) Urine pH 5.0 (5.0-9.0) Ur Specific [place] >=1.030 A (1.005-1.025) Urine Protein 30 A (NEG/TRACE) mg/dL Urine Glucose (UA) Negative (NEGATIVE) mg/dL Progress Note: A&P Assessment and Plan (1) Acute kidney failure: Assessment and Plan: creatinine was 5.08 down to 4.11, BUNs fifty-one now 50, magnesium level normal with elevated phosphorus, all improving with gentle fluid hydration. renal ultrasound/bladder ultrasound normal, no obstructive uropathy. Check urine osmolarity, urine sodium and urine creatinine FENA 0.7% pre-renal . Continue Rasmussen to monitor Urine output. UA was negative in ER for acute infection, recheck showed otherwise, started Rocephin. likely pre-renal from acute dehydration and poor intake, CHF/diuretics. Reviewed nephrology consult appreciate input. Qualifiers: Acute renal failure type: unspecified Qualified Code(s): N17.9 - Acute kidney failure, unspecified (2) Dehydration: Assessment and Plan: continue with IVF with LR @ 100cc/hr, hold diuretics (3) Acute viral syndrome: Assessment and Plan: on telemetry, monitor respiratory status, not requiring oxygen therapy. secondary to COVID (4) COVID-19: Assessment and Plan: laced on Remdesivir 200mg once, then 100mg daily x 4 days (5) Abscess of sacrum: Assessment and Plan: wound nurse consult, this seems like ongoing issue and is draining, appreciate input from wound; normal wbc's and lactate; I don't think need for antibiotics now. (6) Hypertension: Assessment and Plan: hold Gary for renal function, hold coreg Qualifiers: Hypertension type: secondary to endocrine disorders Qualified Code(s): I15.2 - Hypertension secondary to endocrine disorders (7) Non-insulin dependent diabetes mellitus: Assessment and Plan: hold metformin due to renal function, SSI (8) Dyslipidemia: Assessment and Plan: hold statin (9) Diabetic neuropathy: Assessment and Plan: continue gabapentin and cymbalta Qualifiers: Diabetes mellitus complication detail: diabetic polyneuropathy Diabetes mellitus type: type 2 Qualified Code(s): E11.42 - Type 2 diabetes mellitus with diabetic polyneuropathy Plan patient is a full code Heparin for DVT prophylaxis Urinary Catheter Management Urinary Catheter Management Urethral: Cath placed during this visit: yes Urethral indwelling: Yes Reason for continuing: acute urinary retention Insertion date: 06/02/23 Insertion time: 15:00
--- NOTE | 2023-06-03 09:28 | W.PM.WC ---
Wound Consult Note Assessment and Plan (1) Acute kidney failure: Qualifiers: Acute renal failure type: unspecified Qualified Code(s): N17.9 - Acute kidney failure, unspecified (2) Dehydration: (3) Acute viral syndrome: (4) COVID-19: (5) Abscess of sacrum: (6) Hypertension: Qualifiers: Hypertension type: secondary to endocrine disorders Qualified Code(s): I15.2 - Hypertension secondary to endocrine disorders (7) Non-insulin dependent diabetes mellitus: (8) Dyslipidemia: (9) Diabetic neuropathy: Qualifiers: Diabetes mellitus type: type 2 Diabetes mellitus complication detail: diabetic polyneuropathy Qualified Code(s): E11.42 - Type 2 diabetes mellitus with diabetic polyneuropathy Plan Spoke with Dr. Infante regarding treatments. She is agreeable to adding nystop powder to skin folds and sacral periwound to assist with red/inflammed and moist skin topically twice daily. Order placed in chart.
[2023-06-03] MEDS: CEFTRIAXONE 1,000 MG in 0.9 % SODIUM CHLORIDE 50 ML 100 MG IV (09:31)
[2023-06-03] MEDS: DULOXETINE HCL 30 MG CAPSULE.DR PO (09:32)
[2023-06-03] MEDS: ASPIRIN 81 MG TABLET.DR PO (09:32)
[2023-06-03] MEDS: COLLAGENASE CLOSTRIDIUM HIST. 250 UNITS/GM 30 GRAM TUBE 1 APPLIC TOPICAL (09:42)
--- NOTE | 2023-06-03 10:52 | PM.NEPCN ---
History of Present Illness Reason for Consult Consult date: 06/03/23 Reason for consult: acute renal failure Requesting physician: Arlen Infante Chief Complaint Chief complaint: GENERAL WEAKNESS History of Present Illness Narrative: 68 year old man with history of DM, HTN, BPH, HLD, presented to the hospital with weakness. He has a pilonidal sinus/sacral abscess and was planned for surgery at [facility] on 05/31/2023 but was sent home after initial assessment there for low BP at 60/32 mm Hg. His , Michela at bedside reports that he has been sick for over a week and has had very poor appetite and oral intake. No fever, chills, no nausea, vomiting, diarrhea, no chest pain or palpitations. Urination has been low with dark urine. Rasmussen placed on arrival at [place] showed cola coloured urine. Pt rarely takes ibuprofen for pain, and took 2 OTC ibuprofen on 05/30/2023. Has baseline normal Cr is 0.8 mg/dl on labs available in the chart on 02/22/2023. Renal US nl with normal appearing kidneys around 12-13 cm with normal echogenicity, rasmussen in bladder. No hydronephrosis. Review of Systems ROS Narrative all other systems reviewed and negative, except as mentioned in HPI. PFSH [facility] Medical History (Updated 06/02/23 @ 18:16 by Manjula Hernandez RN) Restless leg syndrome ?G25.81 - Restless legs syndrome (ICD-10) Diabetic neuropathy ?E11.40 - Type 2 diabetes mellitus with diabetic neuropathy, unspecified (ICD-10) Dyslipidemia ?E78.5 - Hyperlipidemia, unspecified (ICD-10) Non-insulin dependent diabetes mellitus Hypertension ?I10 - Essential (primary) hypertension (ICD-10) Family History Sister Family history of diabetes mellitus Social History Within the past year, how often did you have a drink containing alcohol: never Score interpretation: A score less than 4 is consistent with normal alcohol consumption. Smoking status: Former smoker Non-prescribed substance use: denies use Highest level of school completed/degree received: high school graduate Gender Identity: male Meds Home Medications and Allergies Home Medications Medication Instructions Recorded Confirmed Type aspirin 81 mg tablet,delayed 81 mg PO DAILY 06/02/23 06/02/23 History release carvedilol 3.125 mg tablet 3.125 mg PO Q12H 06/02/23 06/02/23 History duloxetine 30 mg capsule,delayed 30 mg PO DAILY 06/02/23 06/02/23 History release furosemide 20 mg tablet (Lasix) 60 mg PO DAILY 06/02/23 06/02/23 History gabapentin 300 mg capsule 300 mg PO .COMPLEX 06/02/23 06/02/23 History lisinopril 10 mg tablet 10 mg PO DAILY 06/02/23 06/02/23 History metformin 500 mg tablet 500 mg PO BID 06/02/23 06/02/23 History omeprazole 20 mg capsule,delayed 20 mg PO DAILY 06/02/23 06/02/23 History release ropinirole 2 mg tablet 2 mg PO .qhs 06/02/23 06/02/23 History rosuvastatin 20 mg tablet 20 mg PO QDAY 06/02/23 06/02/23 History tamsulosin 0.4 mg capsule 0.8 mg PO Q24H 06/02/23 06/02/23 History Allergies Allergy/AdvReac Type Severity Reaction Status Date / Time No Known Drug Allergies Allergy Verified 02/22/23 12:49 Exam Narrative: Exam Narrative: General appearance: appears stated age, Not in distress HEENT: head atraumatic and normocephalic, no icterus, pallor Chest:Air entry equal, no rales/wheezing Heart: S1S2 nl, no murmurs, normal rate, regular Extremities: no edema Abd: soft, non distended Neuro: AAO X 3 no focal deficits Skin: no visible rash, abscess in lower back Constitutional: Vital Signs, click to edit/add: Last Vital Signs Temp 97.8 F 06/03/23 04:57 Pulse 86 06/03/23 10:00 Resp 18 06/03/23 04:57 BP 96/58 06/03/23 04:57 Pulse Ox 98 06/03/23 04:57 O2 Del Method Room Air 06/03/23 04:57 Results Lab Results Lab results: Most recent lab results Calcium 8.1 mg/dL (8.5-10.1) L 06/03/23 05:28 Phosphorus 4.9 mg/dL (2.6-4.7) H 06/03/23 05:28 Magnesium 1.8 mg/dL (1.8-2.4) 06/03/23 05:28 Assessment and Plan Assessment and Plan (1) Acute kidney failure: Qualifiers: Acute renal failure type: unspecified Qualified Code(s): N17.9 - Acute kidney failure, unspecified (2) Dehydration: (3) Acute viral syndrome: (4) COVID-19: (5) Abscess of sacrum: (6) Hypertension: Qualifiers: Hypertension type: secondary to endocrine disorders Qualified Code(s): I15.2 - Hypertension secondary to endocrine disorders (7) Non-insulin dependent diabetes mellitus: (8) Dyslipidemia: (9) Diabetic neuropathy: Qualifiers: Diabetes mellitus type: type 2 Diabetes mellitus complication detail: diabetic polyneuropathy Qualified Code(s): E11.42 - Type 2 diabetes mellitus with diabetic polyneuropathy Plan ROSSY likely severe prerenal ROSSY with progression to ATN. Less likely infection related GN Renal US nl U/a with 0/2- RBC and 30 protein, SG >1.030 Covid 19, pilonidal sinus, hypotension associated with meds and infection Hyperphoshatemia related to ROSSY -Agree with current plan of care, continue RL @ 100 ml/hr -Continue to hold amlodipine, lisinopril, coreg, flomax, lasix -ok to resume RDV given improving renal function -Will check urine microalbumin-cr ratio to quantify proteinuria. -Phos improving with improving ROSSY -Avoid NSAIDS and metformin for now, pt rarely takes ibuprofen, says he took 2 on 05/30 and nothing before or after -on rocephin. Televisit done after pt consent and with assistance of RNHelen. Pt located at [place], [place] and provider at [place], [place]. Total time 25 minutes, 12 minutes on the video.
--- NOTE | 2023-06-03 12:10 | CM.NOTE ---
Rounds made with Dr. Infante, nephrology also consulted on pt this AM. Dr. Infante will follow for recommendations. No discharge today.
[2023-06-03 14:31] LABS: Creatinine Urine Random 139.89 mg/dL (20.00-300.00); Microalbum Creatinine Ratio Ur 32.1 mg/g (0.0-29.9); Microalbumin Urine Random 4.5 mg/dL (<=30.0)
--- NOTE | 2023-06-03 14:48 | SWNOTE1 ---
SW to assess pt, as of now SNF recommended, unless pt improves.
--- NOTE | 2023-06-03 15:14 | SWNOTE1 ---
SW spoke with pt and in room. SW let pt and know that therapy recommended skilled rehab at facility. Pt does use a wheelchair at home to get to the bathroom and then he pushes the wheelchair and uses as a walker as well. Pt was falling asleep as SW talking. Pt's answered questions. At this time pt's feels she will take pt home as he will do better at home. At this time they are refusing SNF. Pt's stated they used to have [facility] coming in and she would like to use them again. She voiced she really liked there services. SW to send referral which includes physician notes and therapy notes. SW to re-assess tomorrow.
[2023-06-03] MEDS: LACTATED RINGER'S SOLUTION 1,000 ML 100 ML IV (16:41)
[2023-06-03] MEDS: REMDESIVIR 100 MG in 0.9 % SODIUM CHLORIDE 100 ML 200 MG IV (16:41)
[2023-06-03] MEDS: GABAPENTIN 300 MG CAPSULE 600 MG PO (22:15)
[2023-06-03] MEDS: NYSTATIN 15 GM POWDER 1 APPLIC TOPICAL (22:26)
[2023-06-04] VITALS (18 sets, daily range): BP systolic 88–109; BP diastolic 60–61; PULSE 74–95; RESP 12–18; TEMP 36.2–36.5; O2SAT 94–96; BMI 41.3
[2023-06-04] MEDS: LACTATED RINGER'S SOLUTION 1,000 ML 100 ML IV ×3 (02:38→23:16)
[2023-06-04] MEDS: HEPARIN SODIUM (PORCINE) 5,000 UNIT/ML VIAL 5000 UNIT SUBQ ×2 (05:14→16:38)
[2023-06-04 05:24] LABS: Basophils Percent Auto 0.4 % (0.2-2.0); Eosinophils Absolute Auto 0.1 10^3/uL (0.0-0.7); Eosinophils Percent Auto 0.7 % (0.9-7.0); Hematocrit 39.9 % (42.0-54.0); Hemoglobin 12.8 g/dL (14.0-18.0); Immature Granulocytes Abs Auto 0.03 10^3/uL (0.00-0.03); Immature Granulocytes Pct Auto 0.4 % (0.0-0.5); Lymphocytes Percent Auto 11.3 % (20.5-60.0); Mean Corpuscular HGB Conc 32.1 g/dL (29.9-35.2); Mean Corpuscular Volume 81.1 fL (80.0-94.0); Mean Platelet Volume 11.2 fL (9.5-13.5); Monocytes Absolute Auto 0.7 10^3/uL (0.3-0.8); Monocytes Percent Auto 7.7 % (1.7-12.0); Neutrophils Absolute Auto 6.7 10^3/uL (1.4-6.5); Neutrophils Percent Auto 79.5 % (43.0-75.0); Platelet Count 118 10^3/uL (150-450); Red Blood Count 4.92 10^6/uL (4.70-6.10); Red Cell Distribution Width 13.8 % (11.0-15.0); White Blood Count 8.4 10^3/uL (4.0-11.0)
[2023-06-04] MEDS: OMEPRAZOLE 20 MG CAPSULE.DR PO (05:39)
[2023-06-04 05:41] LABS: Alanine Aminotransferase 8 U/L (16-63); Albumin Globulin Ratio 0.5; Albumin Level 1.8 g/dL (3.4-5.0); Alkaline Phosphatase 50 U/L (46-116); Anion Gap 8.7; Aspartate Amino Transferase 17 U/L (15-37); BUN Creatinine Ratio 16.4; Bilirubin Total 0.4 mg/dL (0.2-1.0); Calcium 7.8 mg/dL (8.5-10.1); Carbon Dioxide 28.6 mmol/L (21.0-32.0); Chloride 102 mmol/L (98-107); Estimated GFR (African America 29 (>=60); Estimated GFR (Non-African Ame 24 (>=60); Globulin 3.6 g/dL; Glucose 94 mg/dL (74-106); Magnesium 1.6 mg/dL (1.8-2.4); Phosphorus 3.5 mg/dL (2.6-4.7); Potassium 3.3 mmol/L (3.5-5.1); Sodium 136 mmol/L (136-145); Total Protein 5.4 g/dL (6.4-8.2)
--- NOTE | 2023-06-04 07:30 | P.NEPPN_ITS ---
Progress Note: A&P Assessment and Plan (1) Acute kidney failure: Assessment and Plan: -improving Creat > 2.68 -IVF LR -protein to diet goal Albumin >/= 3.7 -strict I n O -avoid nephrotoxic drugs -renal dose meds Qualifiers: Acute renal failure type: unspecified Qualified Code(s): N17.9 - Acute kidney failure, unspecified (2) Dehydration: Assessment and Plan: IVF as above for I =O + balance (3) Acute viral syndrome: Assessment and Plan: per PCP (4) COVID-19: Assessment and Plan: per PCP (5) Abscess of sacrum: (6) Hypertension: Assessment and Plan: goa BP </= 130/80 mmHg Qualifiers: Hypertension type: secondary to endocrine disorders Qualified Code(s): I15.2 - Hypertension secondary to endocrine disorders (7) Non-insulin dependent diabetes mellitus: Assessment and Plan: regular ADA meals, managemwent per PCP (8) Dyslipidemia: (9) Diabetic neuropathy: Qualifiers: Diabetes mellitus complication detail: diabetic polyneuropathy Diabetes mellitus type: type 2 Qualified Code(s): E11.42 - Type 2 diabetes mellitus with diabetic polyneuropathy Plan Hypopkalemia -supplement K-dur 40 mEq po x two doses 4 hours apart Hypomagnesemia -one gram Magsulfate added to one liter IVF -goal Mag >/= 2 Telemedicine note including IA AVTC ~ 30 minutes Subjective Subjective Principal diagnosis: ROSSY Interval history: Telemedicine Nephrology follow up note patient without objection nurse on bedside, patient alert this morning, sitting in recliner. Pain is controlled. Urine out in rasmussen bag. No fevers overnight, appetite still poor. Will get nutrition consult. No other concerns or issues. Pateint had a good night, no Cp no SOB, however has a poor appetite as food is bland, will change diet to regular for now as well as Boost or Ensure wiht protein Exam 2 Narrative: Exam Narrative: Limited as seen via AVTC, no labored breathing, alert awake and oriented, no asterixis no tremors. no distress, comfortable, obese Constitutional: Vital Signs, click to edit/add: Last Vital Signs Temp 97.1 F L 06/04/23 05:27 Pulse 83 06/04/23 06:00 Resp 12 06/04/23 05:27 BP 88/61 L 06/04/23 05:27 Pulse Ox 95 06/04/23 05:27 O2 Del Method Room Air 06/04/23 05:27 Urinary Catheter Management Urinary Catheter Management Urethral: Cath placed during this visit: yes Urethral indwelling: Yes Reason for continuing: other continuation reason Insertion date: 06/02/23 Insertion time: 15:00
--- NOTE | 2023-06-04 09:16 | P.PN_ITS ---
Progress Note: Subjective Subjective Interval history: Patient is doing well today, pain controlled, good urine output. Slight cough still and feels difficult to get mucus out. No fevers, appetite improving, no n/v/d. No other issues or concerns. Exam Narrative Exam Narrative: General: Patient is alert, and oriented to person, place and time with normal affect, pallor and mild cachexia Head: atraumatic, acephalic Eyes: PERRLA, no nystagmus present, conjunctiva clear, no scleral icterus Ears: normal gross auditory acuity Heart: Normal rate and rhythm, no murmurs/rubs/gallops Lungs: no audible wheezes, crackles and normal breath sounds all lung tsang Abdomen: Normal audible bowel sounds, no distension, No palpable masses, no organomegaly, no rebound/guarding/ or rigidity Musculoskeletal: no swelling bilateral lower extremities Neuro: CN II-X grossly intact Constitutional Vital Signs, click to edit/add: Last Vital Signs Temp 97.1 F L 06/04/23 05:27 Pulse 95 H 06/04/23 08:11 Resp 12 06/04/23 05:27 BP 88/61 L 06/04/23 05:27 Pulse Ox 95 06/04/23 05:27 O2 Del Method Room Air 06/04/23 05:27 Progress Note: Objective Labs Labs: Short CBC 06/04/23 Range/Units 05:08 WBC 8.4 (4.0-11.0) 10^3/uL Hgb 12.8 L (14.0-18.0) g/dL Hct 39.9 L (42.0-54.0) % Plt Count 118 L (150-450) 10^3/uL BMP 06/04/23 05:08 Sodium 136 Potassium 3.3 L Chloride 102 Carbon Dioxide 28.6 BUN 44.0 H Creatinine 2.68 H Glucose 94 Calcium 7.8 L Liver Function 06/04/23 Range/Units 05:08 Total Bilirubin 0.4 (0.2-1.0) mg/dL AST 17 (15-37) U/L ALT 8 L (16-63) U/L Alkaline Phosphatase 50 (46-116) U/L Albumin 1.8 L (3.4-5.0) g/dL Progress Note: A&P Assessment and Plan (1) Acute kidney failure: Assessment and Plan: creatinine was 5.08 down to 2.68, BUNs 44, magnesium low today, plan to replace with 2grams IV, normal phosphorus, all improving with gentle fluid hydration. renal ultrasound/bladder ultrasound normal, no obstructive uropathy. FENA 0.7% pre-renal . Continue Aguilera catheter to monitor Urine output. UA was negative in ER for acute infection, recheck showed otherwise, started Rocephin. likely pre- renal from acute dehydration and poor intake, CHF/diuretics. Reviewed nephrology consult appreciate input. replacing electrolytes today. Qualifiers: Acute renal failure type: unspecified Qualified Code(s): N17.9 - Acute kidney failure, unspecified (2) Dehydration: Assessment and Plan: continue with IVF with LR @ 100cc/hr, hold diuretics (3) Acute viral syndrome: Assessment and Plan: on telemetry, monitor respiratory status, not requiring oxygen therapy. secondary to COVID (4) COVID-19: Assessment and Plan: Remdesivir 200mg once, then 100mg daily x 4 days (5) Hypokalemia: Assessment and Plan: check daily, Klorcon 40meq BID today recheck tomorrow (6) Hypomagnesemia: Assessment and Plan: replace with 2gram IV x 1 (7) Abscess of sacrum: Assessment and Plan: wound nurse consult, this seems like ongoing issue and is draining, appreciate input from wound; normal wbc's and lactate; I don't think need for antibiotics now. Added Ensure shakes for additional protein (8) Hypertension: Assessment and Plan: hold Gary for renal function, hold coreg Qualifiers: Hypertension type: secondary to endocrine disorders Qualified Code(s): I15.2 - Hypertension secondary to endocrine disorders (9) Non-insulin dependent diabetes mellitus: Assessment and Plan: hold metformin due to renal function, SSI (10) Dyslipidemia: Assessment and Plan: hold statin (11) Diabetic neuropathy: Assessment and Plan: continue gabapentin and cymbalta Qualifiers: Diabetes mellitus complication detail: diabetic polyneuropathy Diabetes mellitus type: type 2 Qualified Code(s): E11.42 - Type 2 diabetes mellitus with diabetic polyneuropathy Plan patient is a full code Heparin for DVT prophylaxis Urinary Catheter Management Urinary Catheter Management Urethral: Cath placed during this visit: yes Urethral indwelling: Yes Reason for continuing: measure accurate output Insertion date: 06/02/23 Insertion time: 15:00
[2023-06-04] MEDS: DULOXETINE HCL 30 MG CAPSULE.DR PO (09:19)
[2023-06-04] MEDS: ENSURE HP 237 ML LIQUID PO ×3 (09:19→16:40)
[2023-06-04] MEDS: ASPIRIN 81 MG TABLET.DR PO (09:19)
[2023-06-04] MEDS: CEFTRIAXONE 1,000 MG in 0.9 % SODIUM CHLORIDE 50 ML 100 MG IV (09:19)
[2023-06-04] MEDS: COLLAGENASE CLOSTRIDIUM HIST. 250 UNITS/GM 30 GRAM TUBE 1 APPLIC TOPICAL (09:20)
[2023-06-04] MEDS: NYSTATIN 15 GM POWDER 1 APPLIC TOPICAL ×2 (09:20→21:55)
--- NOTE | 2023-06-04 09:27 | SWNOTE1 ---
SW called [facility] and left message, waiting to see if they can accept.
[2023-06-04] MEDS: POTASSIUM CHLORIDE 10 MEQ ER TABLET 40 MEQ PO (10:21)
[2023-06-04] MEDS: MAGNESIUM SULFATE IN WATER 2 GM/50 ML PREMIX IV (10:21)
--- NOTE | 2023-06-04 10:27 | SWNOTE1 ---
[facility] is not able to accept due to meeting there quota for this insurance. SW called [facility], [facility] so far and none of those companies accept his insurance.
--- NOTE | 2023-06-04 10:35 | SWNOTE1 ---
[facility], and [facility] can not accept. SW spoke to [facility] and they do accept insurance, need to review referral. SW sent over physician notes and therapy notes.
--- NOTE | 2023-06-04 11:57 | CM.NOTE ---
Rounds made with Dr. Infante. States his appetite has improved. Dr. Infante reviewed labs with Cori and verbalizes understanding.
--- NOTE | 2023-06-04 13:49 | SWNOTE1 ---
SW called [facility] and they are trying to get staffing in this area for start of care possibly Wednesday or Wednesday, if they can't, they can't accept. They will call back BY 4:30
--- NOTE | 2023-06-04 14:37 | SWNOTE1 ---
SW spoke with pt and in room. Pt was awake and alert. SW explained to pt and that SW is having trouble finding HH due to insurance. SW waiting for call back from one HH company. SW again offered option of going to rehab at shelter facility, as SW is unsure if HH is an option. Pt and both refused at this time, they would prefer to take him home/go home. SW advised pt to ask therapy for any exercises he can do at home next time they are in to work with him. Pt and both voiced understanding. Pt did voice he is feeling better. Pt's again explained he uses a wheelchair at home and has walker. SW continuing to work on home health.
--- NOTE | 2023-06-04 14:48 | PT.DAILY ---
Physical Therapy Daily Note PT Daily Note/Assess Start: 06/04/23 14:33 Freq: Status: Active Protocol: Document 06/04/23 14:34 [id number] (Rec: 06/04/23 14:46 [id number]) Physical Therapy Daily Note/Assessment Time In/Time Out Time In 13:45 Time Out 14:00 Pain In Pain Level 0 Pain Out Pain Level 0 Subjective Subjective Patient reports he is doing okay. present during treatment. Is hoping to possibly go home tomorrow. Therapeutic Exercise Time Therapeutic Exercise Minutes (minutes) 6 Therapeutic Exercise Units 1 Therapeutic Exercise Treatment Therapeutic Exercise Treatment Patient performed supine bed ther ex to MIGUEL ÁNGEL LE for AROM to increase strength. Therapeutic Activity Time Therapeutic Activity Minutes (minutes) 9 Therapeutic Activity Units 1 Therapeutic Activity Treatment Bed Mobility Ability Moderate Assist,1 Person Assist Therapeutic Activity Comments Patient performed bed mobility with log rolling to R with Mod A +1 for LE management. Verbal cues to use L UE to reach for bed rail to assist. Patient is able to sit EOB with SBA +1. 1 time verbal cues to lean forward secondary to posterior lean. Sit to stand transfer to RW MOD A +1 with verbal cues to engage muscles at knees for safety and stability. Patient stood while nursing applied drsg to buttock region. Patient was able to side step x 6 small steps to R towards HOB with RW . Patient is able to control stand to sit on EOB. Patient transferred from sit to supine with MIN A of LE onto bed. Call marino placed beside patient. Total Physical Therapy Time Total Therapy Minutes 15 Total Physical Therapy Units 2 Summary Daily Note Summary Patient with functional weakness. Improved LE management when returning to supine position in bed. Patient fatigued after treatment. Patient hoping to return home with tomorrow .
--- NOTE | 2023-06-04 16:21 | SWNOTE1 ---
CESILIA called [facility] and had to [facility]. At this time pt will be discharged without HH due to his insurance. CESILIA to let pt and nursing know.
--- NOTE | 2023-06-04 16:30 | SWNOTE1 ---
CESILIA recevied a call before leaving and [facility] can accept. CESILIA updated nursing and pt. CESILIA left dc information on floor.
[2023-06-04] MEDS: REMDESIVIR 100 MG in 0.9 % SODIUM CHLORIDE 100 ML 200 MG IV (16:41)
[2023-06-04] MEDS: GABAPENTIN 300 MG CAPSULE 600 MG PO (21:55)
[2023-06-05] VITALS (8 sets, daily range): BP systolic 94; BP diastolic 58; PULSE 69–83; RESP 18; TEMP 36.9; O2SAT 95
[2023-06-05] MEDS: HEPARIN SODIUM (PORCINE) 5,000 UNIT/ML VIAL 5000 UNIT SUBQ (04:21)
[2023-06-05] MEDS: OMEPRAZOLE 20 MG CAPSULE.DR PO (05:43)
[2023-06-05 06:06] LABS: Basophils Percent Auto 0.5 % (0.2-2.0); Eosinophils Absolute Auto 0.1 10^3/uL (0.0-0.7); Eosinophils Percent Auto 1.4 % (0.9-7.0); Hematocrit 38.3 % (42.0-54.0); Hemoglobin 12.3 g/dL (14.0-18.0); Immature Granulocytes Abs Auto 0.04 10^3/uL (0.00-0.03); Immature Granulocytes Pct Auto 0.5 % (0.0-0.5); Lymphocytes Absolute Auto 1.1 10^3/uL (1.2-3.8); Lymphocytes Percent Auto 15.3 % (20.5-60.0); Mean Corpuscular HGB Conc 32.1 g/dL (29.9-35.2); Mean Corpuscular Hemoglobin 26.1 pg (25.9-34.0); Mean Corpuscular Volume 81.1 fL (80.0-94.0); Mean Platelet Volume 11.8 fL (9.5-13.5); Monocytes Absolute Auto 0.5 10^3/uL (0.3-0.8); Monocytes Percent Auto 7.4 % (1.7-12.0); Neutrophils Absolute Auto 5.5 10^3/uL (1.4-6.5); Neutrophils Percent Auto 74.9 % (43.0-75.0); Platelet Count 119 10^3/uL (150-450); Red Blood Count 4.72 10^6/uL (4.70-6.10); Red Cell Distribution Width 13.6 % (11.0-15.0); White Blood Count 7.3 10^3/uL (4.0-11.0)
[2023-06-05 06:12] LABS: Osmolality, Urine 340 mOsmol/kg (.)
[2023-06-05 06:27] LABS: Alanine Aminotransferase 12 U/L (16-63); Albumin Globulin Ratio 0.5; Albumin Level 1.7 g/dL (3.4-5.0); Alkaline Phosphatase 45 U/L (46-116); Aspartate Amino Transferase 15 U/L (15-37); BUN Creatinine Ratio 18.4; Bilirubin Total 0.3 mg/dL (0.2-1.0); Calcium 7.8 mg/dL (8.5-10.1); Carbon Dioxide 28.8 mmol/L (21.0-32.0); Chloride 105 mmol/L (98-107); Estimated GFR (African America 45 (>=60); Estimated GFR (Non-African Ame 37 (>=60); Globulin 3.6 g/dL; Glucose 85 mg/dL (74-106); Magnesium 1.9 mg/dL (1.8-2.4); Phosphorus 2.9 mg/dL (2.6-4.7); Potassium 3.8 mmol/L (3.5-5.1); Sodium 138 mmol/L (136-145); Total Protein 5.3 g/dL (6.4-8.2)
[2023-06-05] MEDS: COLLAGENASE CLOSTRIDIUM HIST. 250 UNITS/GM 30 GRAM TUBE 1 APPLIC TOPICAL (09:14)
[2023-06-05] MEDS: NYSTATIN 15 GM POWDER 1 APPLIC TOPICAL (09:15)
[2023-06-05] MEDS: ASPIRIN 81 MG TABLET.DR PO (09:18)
[2023-06-05] MEDS: ENSURE HP 237 ML LIQUID PO (09:18)
[2023-06-05] MEDS: DULOXETINE HCL 30 MG CAPSULE.DR PO (09:18)
--- NOTE | 2023-06-05 09:32 | P.DS_ITS ---
DS: Providers Provider Date of admission: 06/02/23 13:20 Primary care physician: Irina Mcleod NP Consults: 06/02/23 13:12 Occupational Therapy Eval and Treat Routine Reason for consultation: weakness Has provider been notified: No Physical Therapy Eval and Treat Routine Reason for consultation: weakness Has provider been notified: No 06/02/23 13:16 Consult to Telenephrology Routine Reason for consultation: acute renal failure Has provider been notified: No 06/02/23 13:17 Consult to Wound Care Routine Consulting Provider: Kieran Marquez Reason for consultation: sacral wound Has provider been notified: No 06/03/23 04:05 Consult to Dietitian Routine Reason For Exam: poor oral intake; ROSSY Reason for consultation: poor oral intake w/elevated Cr Has provider been notified: No DS: Diagnosis Discharge Diagnosis (1) Acute kidney failure: Qualifiers: Acute renal failure type: unspecified Qualified Code(s): N17.9 - Acute kidney failure, unspecified (2) Dehydration: (3) Acute viral syndrome: (4) COVID-19: (5) Hypokalemia: (6) Hypomagnesemia: (7) Abscess of sacrum: (8) Hypertension: Qualifiers: Hypertension type: secondary to endocrine disorders Qualified Code(s): I15.2 - Hypertension secondary to endocrine disorders (9) Non-insulin dependent diabetes mellitus: (10) Dyslipidemia: (11) Diabetic neuropathy: Qualifiers: Diabetes mellitus complication detail: diabetic polyneuropathy Diabetes mellitus type: type 2 Qualified Code(s): E11.42 - Type 2 diabetes mellitus with diabetic polyneuropathy DS: Summary Hospital Course Hospital Course: Patient presented to the emergency room with increasing weakness.. Found to have acute renal failure. Creatinine over 2 times baseline. Was given gentle hydration and adjustment in medications. His creatinine is improved but not back to baseline yet. Also significant hypothyroidism and thrombocytopenia. This can be followed up as an outpatient. Patient feels much improved. Encouraged patient needs to eat and drink. Medications were adjusted. At this point family would try to try at home and promises to return if the weakness persist and is unable to tolerate eating. The patient will be discharged home in improving condition. Medications see list. Follow-up with PCP next week. Time Spent with Patient Time attestation: Total time spent providing and/or coordinating discharge services: Exam Narrative Exam Narrative: General: Patient is alert, and oriented to person, place and time with normal affect, pallor and mild cachexia Head: atraumatic, acephalic Eyes: PERRLA, no nystagmus present, conjunctiva clear, no scleral icterus Ears: normal gross auditory acuity Heart: Normal rate and rhythm, no murmurs/rubs/gallops Lungs: no audible wheezes, crackles and normal breath sounds all lung tsang Abdomen: Normal audible bowel sounds, no distension, No palpable masses, no organomegaly, no rebound/guarding/ or rigidity Musculoskeletal: no swelling bilateral lower extremities Neuro: CN II-X grossly intact Constitutional Vital Signs, click to edit/add: Last Vital Signs Temp 98.5 F 06/05/23 04:38 Pulse 70 06/05/23 08:00 Resp 18 06/05/23 07:51 BP 94/58 06/05/23 04:38 Pulse Ox 95 06/05/23 04:38 O2 Del Method Room Air 06/05/23 04:38 DS: Data Data Completed and Pending Labs on day of discharge: Labs from last 24 hours 06/05/23 06/02/23 05:09 20:45 WBC 7.3 RBC 4.72 Hgb 12.3 L Hct 38.3 L MCV 81.1 MCH 26.1 MCHC 32.1 RDW 13.6 Plt Count 119 L MPV 11.8 Neut % (Auto) 74.9 Lymph % (Auto) 15.3 L Crowley % (Auto) 7.4 Eos % (Auto) 1.4 Baso % (Auto) 0.5 Neut # (Auto) 5.5 Lymph # (Auto) 1.1 L Crowley # (Auto) 0.5 Eos # (Auto) 0.1 Baso # (Auto) 0.0 Abs Immat Gran (auto) 0.04 H Imm/Tot Granulo (auto) 0.5 Sodium 138 Potassium 3.8 Chloride 105 Carbon Dioxide 28.8 Anion Gap 8.0 BUN 34.0 H Creatinine 1.85 H Est GFR ( Amer) 45 L Est GFR (Non-Af Amer) 37 L BUN/Creatinine Ratio 18.4 Glucose 85 Calcium 7.8 L Phosphorus 2.9 Magnesium 1.9 Total Bilirubin 0.3 AST 15 ALT 12 L Alkaline Phosphatase 45 L Total Protein 5.3 L Albumin 1.7 L Globulin 3.6 Albumin/Globulin Ratio 0.5 Urine Osmolality 340 Preliminary micro results at discharge 06/02/23 10:58 - Preliminary Blood NO GROWTH AT 36-48 HOURS. FINAL TO FOLLOW. 06/02/23 10:53 Blood Culture Result 1 - Preliminary Blood NO GROWTH AT 36-48 HOURS. FINAL TO FOLLOW. Discharge Plan Discharge Disposition: Home, Self-Care Discharge Medications: New benzonatate 100 mg Capsule 200 mg PO Q8H PRN (Reason: Cough) Qty: 20 0RF azithromycin 500 mg tablet 500 mg PO DAILY 3 Days Qty: 3 0RF prednisone 10 mg tablet 40 mg PO DAILY Qty: 32 0RF Rx Instructions: 4/day for 3 days, 3/day for 3 days, 2/day for 3 days, 1/day for 3 days, 1/2 /day for 4 days Continued aspirin 81 mg tablet,delayed release (DR/EC) 81 mg PO DAILY carvedilol 3.125 mg tablet 3.125 mg PO Q12H duloxetine 30 mg capsule,delayed release(DR/EC) 30 mg PO DAILY gabapentin 300 mg capsule 300 mg PO .COMPLEX Rx Instructions: 300 mg orally 1 tablet in the morning and 2 tablets before bed; lisinopril 10 mg tablet 10 mg PO DAILY metformin 500 mg tablet 500 mg PO BID omeprazole 20 mg capsule,delayed release(DR/EC) 20 mg PO DAILY ropinirole 2 mg tablet 2 mg PO .qhs rosuvastatin 20 mg tablet 20 mg PO QDAY tamsulosin 0.4 mg capsule 0.8 mg PO Q24H Discontinued furosemide [Lasix] 20 mg tablet 60 mg PO DAILY Activity: increase activity as tolerated Diet: advance to your usual diet Patient Instructions: Benzonatate (By mouth), Prednisone (By mouth), Acute Wounds (ED) 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 Follow up with PCP within 7 days Forms: Portal Instructions Discharge Date/Time: 06/05/23 10:12
--- NOTE | 2023-06-05 10:11 | PT.DAILY ---
Physical Therapy Daily Note PT Daily Note/Assess Start: 06/04/23 14:33 Freq: Status: Active Protocol: Document 06/05/23 09:56 [id number] (Rec: 06/05/23 10:11 [id number]) Physical Therapy Daily Note/Assessment Time In/Time Out Time In 08:50 Time Out 09:14 Pain In Pain Level 0 Pain Out Pain Level 0 Subjective Subjective Patient states he is going home today with HH. present during treatment. Bed alarm engaged, disengaged for treatment. Therapeutic Exercise Time Therapeutic Exercise Minutes (minutes) 10 Therapeutic Exercise Units 1 Therapeutic Exercise Treatment Therapeutic Exercise Treatment Patient performed supine and seated ther ex for MIGUEL ÁNGEL LE AROM and isometrics x 10 reps to increase functional mobility. Patient verbalizes MIGUEL ÁNGEL knee discomfort with quad sets and LAQ's. Therapeutic Activity Time Therapeutic Activity Minutes (minutes) 14 Therapeutic Activity Units 1 Therapeutic Activity Treatment Bed Mobility Ability Minimum Assist,Moderate Assist Chair Transfer Ability Minimum Assist Therapeutic Activity Comments Patient sit to stand to RW MIN A +1 with verbal cues to engage MIGUEL ÁNGEL quads for safety and stability and to stand upright vs anterior leaning over RW. Patient able to self right into upright posture with use of MIGUEL ÁNGEL hands on RW to push up. Patient ambulated ~3 feet to chair at bedside, verbal cues to use MIGUEL ÁNGEL UE to control descent to chair for safety. Patient required therapeutic rest break and then transferred into standing with MIGUEL ÁNGEL UE pushing up on arm rests to RW. Patient ambulated ~3 feet to bed, L turn/pivot with RW and completed side stepping for ~5 small steps. Verbal cueing to use MIGUEL ÁNGEL UE to reach for bed to control descent to bed for safety. Patient positioned on L side lying in bed, does require MOD A +1 to help lift MIGUEL ÁNGEL LE up into the bed. Bed alarm engaged. Total Physical Therapy Time Total Therapy Minutes 24 Total Physical Therapy Units 2 Summary Daily Note Summary Patient demonstrates improved bed mobility with decreased assistance required this date. Patient requires verbal cues for safe hand placement during transfers. Improved ambulation distance this date. However, patient tends to posture in flexed posture at knees and hips with anterior trunk flexed. Per patient he is going home today with HH. Patient would benefit from HHPT to regain functional strength and mobility.
--- NOTE | 2023-06-14 16:01 | CM.DCFOLLOWU ---
1st attempt discharge follow up call made on 06/14/23, no answer
== END 2023-06-05 10:12 | disposition home or self-care (01) | DRG 469 ==
LOC: ER 12:02 → MS 13:26
PROVIDERS: Family Medicine; Admitting Provider Family Medicine; Emergency Provider Emergency Medicine; PCP Nurse Practitioner; Visit Provider Family Medicine
DX: N17.9 Acute kidney failure, unspecified (principal); U07.1 COVID-19; M46.28 Osteomyelitis of vertebra, sacral and sacrococcygeal region; E86.0 Dehydration; I15.2 Hypertension secondary to endocrine disorders; E78.5 Hyperlipidemia, unspecified; E11.42 Type 2 diabetes mellitus with diabetic polyneuropathy; E87.6 Hypokalemia; E83.42 Hypomagnesemia; E03.9 Hypothyroidism, unspecified; D69.6 Thrombocytopenia, unspecified; Z87.891 Personal history of nicotine dependence; Z79.84 Long term (current) use of oral hypoglycemic drugs; Z79.82 Long term (current) use of aspirin; Z79.899 Other long term (current) drug therapy; Z83.3 Family history of diabetes mellitus
CPT/HCPCS: 0202U; 36415; 51702; 51798; 71045; 76775; 80053; 81001; 82043; 82248; 82570; 82948; 83036; 83605; 83735; 83935; 84100; 84145; 84300; 85025; 87040; 87086; 87811; 93005; 94761; 96361; 96366; 96367; 96368; 96372; 96375; 97110; 97161; 97165; 97530; 97535; 99285; J0248; J0696; J1170; J2405; J3475; Q3014

== ENCOUNTER 2023-07-05 08:33 | Outpatient (OUT) | payer OTHER, SELFPAY ==
--- OUTSIDE RECORDS SUMMARY | 2023-07-05 08:38 | XMS_ITS | CCD ---
Author Name Unknown Address [address] [place] [address] Organization [facility] Care Team Providers Care Manager Operating Name Role Phone VINODHLANI, REGULATOR OPERATOR IRINA Admitting Unavailable AICHHOLZ, REGULATOR OPERATOR IRINA Primary Care Unavailable AICHHOLZ, REGULATOR OPERATOR IRINA Consulting Unavailable AICHHOLZ, REGULATOR OPERATOR IRINA Attending Unavailable AICHHOLZ, REGULATOR OPERATOR IRINA Admitting Unavailable AICHHOLZ, REGULATOR OPERATOR IRINA Primary Care Unavailable AICHHOLZ, REGULATOR OPERATOR IRINA Consulting Unavailable AICHHOLZ, REGULATOR OPERATOR IRINA Attending Unavailable AICHHOLZ, REGULATOR OPERATOR IRINA Admitting Unavailable AICHHOLZ, REGULATOR OPERATOR IRINA Primary Care Unavailable AICHHOLZ, REGULATOR OPERATOR IRINA Consulting Unavailable AICHHOLZ, REGULATOR OPERATOR IRINA Attending Unavailable JOSE ELIAS DAI Admitting Unavailable JOSE ELIAS DAI Consulting Unavailable JOSE ELIAS DAI Attending Unavailable AICHHOLZ, REGULATOR OPERATOR IRINA Primary Care Unavailable Arlen Garcia PA-C Attending Unavageorgia hooksle Aichholz REFUSE COLLECTOR-REGULATOR OPERATOR, Irina Zulay Referring Unava Too Manriquez MD Attending Unavaila JAYLIN Flynn Attending Unavailable Aichholz REFUSE COLLECTOR-REGULATOR OPERATOR, Irina J Primary Care Provider AMBER VALDOVINOS Attending Unavailable AICHHOLIRINA Foote J Referring Unavailable AICHHOLZ, IRINA J Primary Care Unavailable Aichholz BAD WORK GATHERER, Irina Unavailable Zachary Melton MD Primary Care Provider SYBIL TOBIN Attending Unavailable AICHHOLZ IRINA J Referring Unavailable AICHHOLZ, IRINA J Primary Care Unavailable AICHHOLZ, IRINA J Referring Unavailable AICHHOLZ, IRINA J Primary Care Unavailable AMBER VALDOVINOS Admitting Unavailable AMBER VALDOVINOS Attending Unavailable IRINA MCLEOD Primary Care Unavailable FRANKIE BISHOP Attending Unavailable IRINA MCLEOD Primary Care Unavailable SYBIL TOBIN Attending Unavailable IRINA MCLEOD Referring Unavailable IRINA MCLEOD Primary Care Unavailable Zachary Melton MD Primary Care Provider IRINA MCLEOD Attending Unavailable IRINA MCLEOD Attending Unavailable IRINA MCLEOD Attending Unavailable Allergies Allergy Classification Reported Allergen(s) Allergy Type Date of Onset Reaction(s) Facility (1 source) Cephalexin Drug Allergy [facility] (1 source) Clindamycin Drug Allergy [facility] (1 source) levoFLOXacin Drug Allergy [facility] (10 sources) Cephalosporins (Antibiotic); Translations: [CEPHALOSPORINS] Propensity to adverse reactions to drug (disorder) 04-06-20 Rash, Unknown [facility] Repository (10 sources) Clindamycin; Translations: [CLINDAMYCIN] Drug Allergy 04-06-20 Rash, Unknown [facility] (10 sources) levoFLOXacin; Translations: [LEVOFLOXACIN] Drug Allergy 04-06-20 Rash, Unknown [facility] Repository Medications Current Medications Medication Drug Class(es) Dates Sig (Normalized) Sig (Original) [id number] 200 actuat albuterol 0.09 mg/actuat metered dose inhaler (14 sources) beta2-Adrenergic Agonist Start: 05-11-2023 End: 06-10-2023 take 2 puff(s) by inhalation every six hours for wheezing albuterol HFA 90 mcg/act inhaler Indications: Other emphysema ([facility]) Inhale 2 puffs every 6 (six) hours if needed for wheezing 18 g 1 05/11/2023 Active take 2.5 mg by inhal ation every six hours as needed albuterol (PROVENTIL,VENTOLIN) 2.5 mg /3 mL (0.083 %) nebulizer solution Inhale 3 mL (2.5 mg total) by nebulization every 6 (six) hours as needed. 0 Active allopurinol 100 mg oral tablet (6 sources) Xanthine Oxidase Inhibitor take 1 tablet by mouth in the morning allopurinol (Zyloprim) 100 MG tablet Take 1 tablet by mouth in the morning. 0 Active aspirin 81 mg delayed release oral tablet (9 sources) Platelet Aggregation Inhibitor, Nonsteroidal Anti-inflammatory Drug take 1 tablet by mouth in the morning aspirin 81 mg Take 1 tablet (81 mg total) by mouth in the morning. 0 Active carvedilol 3.125 mg oral tablet (9 sources) alpha-Adrenergic Maria Esther, beta-Adrenergic Maria Esther take 1 tablet by mouth in the morning, then take 1 tablet by mouth at mealtime carvediloL (COREG) 3.125 mg tablet Take 1 tablet (3.125 mg total) by mouth in the morning and 1 tablet (3.125 mg total) in the evening. Take with meals. 0 Active DULoxetine 30 mg delayed release oral capsule (9 sources) Serotonin and Norepinephrine Reuptake Inhibitor take 1 capsule by mouth in the morning DULoxetine (CYMBALTA) 30 mg capsule Take 1 capsule (30 mg total) by mouth in the morning. 0 Active 30 actuat fluticasone furoate 0.1 mg/actuat / umeclidinium 0.0625 mg/actuat / vilanterol 0.025 mg/actuat dry powder inhaler (6 sources) Anticholinergic, Corticosteroid, beta2-Adrenergic Agonist Start: 06-10-19 take 1 dose by mouth in the morning Fluticasone-Umeclid in-Vilant (Trelegy Ellipta) 100-62.5-25 MCG/ACT aerosol powder Inhale 1 Dose in the morning. Rinse mouth after use.. 0 06/10/2022 Active furosemide 20 mg oral tablet (9 sources) Loop Diuretic take 1 tablet by mouth three times daily furosemide (LASIX) 20 mg tablet Take 1 tablet (20 mg total) by mouth 3 (three) times a day. 0 Active take 3 tablets by mouth in the m orning furosemide (Lasix) 20 MG tablet Take 3 tablets by mouth in the morning. 0 Active gabapentin 300 mg oral capsu le (9 sources) Anti-epileptic Agent gabapentin (NEURONTIN) 300 mg capsule 1 capsule (300 mg total) in the morning and 1 capsule (300 mg total) at noon and 1 capsule (300 mg total) in the evening and 1 capsule (300 mg total) before bedtime. 0 Active take 2 capsules by mouth at bedt kenneth gabapentin (Neurontin) 300 MG capsule Take 300 mg by mouth in the morning and 300 mg before bedtime. 1 in AM 2 @ HS. 0 Active lisinopril 10 mg oral tablet (9 sources) Angiotensin Converting Enzyme Inhibitor Start: 03-08-2023 End: 06-10-2023 take 1 tablet by mouth in the morning lisinopriL (PRINIVIL,ZESTRIL) 10 mg tablet Take 1 tablet (10 mg total) by mouth in the morning. 0 03/08/2023 Active metFORMIN hydrochloride 500 mg oral tablet (9 sources) Biguanide take 1 tablet by mouth in the morning, then take 1 tablet by mouth at mealtime metFORMIN (GLUCOPHAGE) 500 mg tablet Take 1 tablet (500 mg total) by mouth in the morning and 1 tablet (500 mg total) in the evening. Take with meals. 0 Active nystatin [id number] unt/ml topical cream (6 sources) Polyene Antifungal nystatin (Mycostatin ) cream Apply 1 application topically if needed 0 Active omeprazole 20 mg delayed release oral capsule (9 sources) Proton Pump Inhibitor Start: 03-08-2023 take 1 capsule by mouth once daily before breakfast omeprazole (PriLOSEC) 20 mg capsule Take 1 capsule (20 mg total) by mouth every morning before breakfast. 0 03/08/2023 Active rOPINIRole 2 mg oral tablet (13 sources) Nonergot Dopamine Agonist Start: 03-08-2023 End: 07-09-2023 take 1 tablet by mouth once daily rOPINIRole (REQUIP) 2 mg tablet Take 1 tablet (2 mg total) by mouth nightly. 0 03/08/2023 Active take 2 tablets by mouth once anthony ly rOPINIRole (REQUIP) 1 mg tablet Take 2 tablets (2 mg total) by mouth nightly. 0 Active rosuvastatin calcium 20 mg oral tablet (10 sources) HMG-CoA Reductase Inhibitor Start: 03-08-2023 End: 07-10-2023 take 1 tablet by mouth in the morning rosuvastatin (CRESTOR) 20 mg tablet Take 1 tablet (20 mg total) by mouth in the morning. 0 03/08/2023 Active tamsulosin hydrochloride 0.4 mg oral capsule (9 sources) alpha-Adrenergic Maria Esther take 1 capsule by mouth once daily, then take 2 capsules by mouth once daily tamsulosin (FLOMAX) 0.4 mg capsule Take 1 capsule (0.4 mg total) by mouth nightly. 2 tabs daily 0 Active take 1 capsule by mo uth every twenty-four hours in the morning tamsulosin (Flomax) 0.4 MG 24 hr capsule Take 1 capsule by mouth in the morning. 0 Active Problems Active Problems Problem Classification Problem Date Documented Date Episodic/Chronic Acute and unspecified renal failure (4 sources) Acute injury of kidney; Translations: [Acute kidney failure, unspecified] Onset: 4 06-14-2023 Episodic Chronic obstructive pulmonary disease and bronchiectasis (11 sources) Chronic obstructive pulmonary disease, unspecified; Translations: [Pulmonary emphysema] Onset: 3 Resolved: 3 04-07-2023 Chronic Chronic ulcer of skin (3 sources) Pressure ulcer of buttock; Translations: [Pressure ulcer of unspecified buttock, unspecified stage] Onset: 3 03-12-2023 Chronic Coagulation and hemorrhagic disorders (6 sources) Thrombocytopenic disorder; Translations: [Thrombocytopenia, unspecified] Onset: 3 04-07-2023 Chronic Coronary atherosclerosis and other heart disease (2 sources) Atherosclerotic heart disease of [place] coronary artery without angina pectoris; Translations: [Atherosclerotic heart disease of [place] coronary artery without angina pectoris] Onset: 3 Chronic Diabetes mellitus with complications (4 sources) Type 2 diabetes mellitus with diabetic polyneuropathy; Translations: [TYPE 2 DM W/DIABETIC POLYNEUROPATHY] Onset: 3 Chronic Diabetes mellitus without complication (6 sources) Type 2 diabetes mellitus; Translations: [Type 2 diabetes mellitus without complications] Onset: 3 04-13-2023 Chronic Disorders of lipid metabolism (10 sources) Pure hypercholesterolemia, unspecified; Translations: [Mixed hyperlipidemia] Onset: 3 Chronic Esophageal disorders (7 sources) Gastro-esophageal reflux disease without esophagitis; Translations: [Gastroesophageal reflux disease without esophagitis] Onset: 3 04-07-2023 Chronic Essential hypertension (11 sources) Essential (primary) hypertension; Translations: [Benign essential hypertension] Onset: 3 Chronic Genitourinary symptoms and ill-defined conditions (8 sources) Unspecified abnormal findings in urine; Translations: [Abnormal urinalysis] Onset: 3 Episodic Hyperplasia of prostate (7 sources) Benign prostatic hyperplasia without lower urinary tract symptoms; Translations: [Nocturia due to benign prostatic hypertrophy] Onset: 3 04-07-2023 Chronic Neoplasms of unspecified nature or uncertain behavior (6 sources) Neoplasm of uncertain behavior of skin; Translations: [Neoplasm of uncertain behavior of skin] Onset: 3 04-07-2023 Episodic Osteoarthritis (8 sources) Primary gonarthrosis, bilateral; Translations: [Bilateral primary osteoarthritis of knee] Onset: 3 04-07-2023 Chronic Other aftercare (1 source) detention (current) use of aspirin; Translations: [PULPER TENDER CURRENT USE OF ASPIRIN] Onset: 3 Episodic Other aftercare (1 source) Other intermediate teacher (current) drug therapy; Translations: [OTH SNF CURRENT DRUG THERAPY] Onset: 3 Episodic Other aftercare (1 source) 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 hypoglycemic drugs; Translations: [PULPER TENDER USE ORAL HYPOGLYCEMIC DX] Onset: 3 Episodic Other complications of (2 sources) Obesity complicating , second trimester; Translations: [Obesity complicating , second trimester] Onset: 3 Chronic Other connective tissue disease (6 sources) Chronic musculoskeletal pain; Translations: [Myalgia, other site] Onset: 3 04-07-2023 Episodic Other diseases of veins and lymphatics (6 sources) Bilateral lower limb edema; Translations: [Chronic venous hypertension (idiopathic) without complications of bilateral lower extremity] Onset: 3 04-07-2023 Chronic Other diseases of veins and lymphatics (6 sources) Stasis dermatitis; Translations: [Venous insufficiency (chronic) (peripheral)] Onset: 3 04-07-2023 Episodic Other ear and sense organ disorders (1 source) Unspecified otitis externa, left ear; Translations: [UNS OTITIS EXTERNA LEFT EAR] Onset: 3 Chronic Other ear and sense organ disorders (3 sources) Otalgia, left ear; Translations: [OTALGIA LEFT EAR] Onset: 3 Episodic Other hereditary and degenerative nervous system conditions (7 sources) Restless legs; Translations: [Restless legs syndrome] Onset: 3 04-07-2023 Chronic Other injuries and conditions due to external causes (6 sources) At high risk for fall; Translations: [History of falling] Onset: 3 04-07-2023 Episodic Other nutritional; endocrine; and metabolic disorders (2 sources) Morbid (severe) obesity due to excess calories; Translations: [Morbid (severe) obesity due to excess calories] Onset: 3 Chronic Other nutritional; endocrine; and metabolic disorders (6 sources) Hypocalcemia; Translations: [Hypocalcemia] Onset: 3 04-07-2023 Chronic Other nutritional; endocrine; and metabolic disorders (6 sources) Body mass index 40+ - severely obese; Translations: [Morbid (severe) obesity due to excess calories] Onset: 3 04-07-2023 Chronic Other screening for suspected conditions (not mental disorders or infectious disease) (15 sources) Encounter for screening for malignant neoplasm of prostate; Translations: [Abnormal electrocardiogram [ECG] [EKG]] Onset: 3 Episodic Other skin disorders (6 sources) Mass of head; Translations: [Localized swelling, mass and lump, head] Onset: 3 04-07-2023 Episodic Residual codes; unclassified (6 sources) Obstructive sleep apnea syndrome; Translations: [Obstructive sleep apnea (adult) (pediatric)] Onset: 3 04-07-2023 Chronic Residual codes; unclassified (8 sources) Edema of extremity; Translations: [Localized edema] Onset: 3 04-07-2023 Episodic Residual codes; unclassified (6 sources) Insomnia; Translations: [Insomnia, unspecified] Onset: 3 04-07-2023 Episodic Residual codes; unclassified (6 sources) Tobacco user; Translations: [Tobacco use] Onset: 3 04-07-2023 Episodic Skin and subcutaneous tissue infections (20 sources) Pilonidal cyst without abscess; Translations: [Pilonidal cyst without mention of abscess] Onset: 3 05-05-2023 Episodic Spondylosis; intervertebral disc disorders; other back problems (6 sources) Degeneration of lumbar intervertebral disc; Translations: [Other intervertebral disc degeneration, lumbar region] Onset: 3 04-07-2023 Chronic Spondylosis; intervertebral disc disorders; other back problems (6 sources) Chronic low back pain; Translations: [Lumbago with sciatica, unspecified side] Onset: 3 04-07-2023 Episodic Substance-related disorders (3 sources) Tobacco dependence syndrome; Translations: [Nicotine dependence, unspecified, uncomplicated] Onset: 2 04-02-2023 Chronic Unclassified (1 source) Wound Check Onset: 4 Viral infection (4 sources) Disease caused by 2019-nCoV; Translations: [COVID-19] Onset: 4 06-14-2023 Episodic Past or Other Problems Problem Classification Problem Date Documented Da te Episodic/Chronic Other ear and sense organ disorders (6 sources) Otitis externa of left ear; Translations: [Unspecified otitis externa, left ear] Onset: 04-07-2023 Resolved: 04-07-2023 04-07-2023 Chronic Results Test Name Value Interpretation Reference Range Facility No Panel Informationon 05-05 Applied in clinic today MANUALLY TRANSCRIBED RESULTS No Panel InformationOrdered By: So Angela on 05-05-2023 [facility] Office Visiton 04-13-2023 Follow-up visit [id number] Carlos Persaud Louise 1955 M Date Provider Department Center 04/13/2023 JAYLIN HUGHES [facility] No family history on file Level of Service:41259 [place] OFFICE/OUTPATIENT NEW MODERATE MDM 45-59 MINUTES Normal [facility] UA RANDOM W/MICROSCOPICon BACTERIA NONE SEEN Normal NONE SEEN [facility] Comment on above: Performed By: #### U AMIC #### [facility] [address] [place] [address] Dr. Gloria Ayala Bilirubin Ql (U) Negative Normal NEGATIVE [facility] Comment on above: Performed By: #### U AMIC #### [facility] [address] [id number] Gloria Ayala CAST NONE SEEN Normal NONE SEEN [facility] Comment on above: Performed By: #### U AMIC #### [facility] [address] [address] [address] Gloria Ayala Clarity (U) CLEAR Normal CLEAR [facility] Comment on above: Performed By: #### U AMIC #### [facility] [address] [address] [address] Gloria Ayala Color (U) YELLOW Normal YELLOW [facility] Comment on above: Performed By: #### U AMIC #### [facility] [address] [address] [address] Gloria Ayala Crystals LM Nom (Urine sed) NONE SEEN Normal NONE SEEN [facility] Comment on above: Performed By: #### U AMIC #### [facility] [address] [place] [address] Dr. Gloria Ayala Epithelial cells LM Ql (Urine sed) NONE SEEN Normal NONE SEEN /RARE [facility] Comment on above: Performed By: #### U AMIC #### [facility] [address] [address] [address] Gloria Ayala Glucose Ql (U) Negative Normal NEGATIVE [facility] Comment on above: Performed By: #### U AMIC #### [facility] [address] [address] [address] Gloria Ayala Hemoglobin Ql (U) Negative Normal NEGATIVE [facility] Comment on above: Performed By: #### U AMIC #### [facility] [address] [address] [address] Gloria Ayala Ketones Ql (U) TRACE Abnormal NEGATIVE [facility] Comment on above: Performed By: #### U AMIC #### [facility] [address] [address] [address] Gloria Ayala LEUKOCYTES Negative Normal NEGATIVE [facility] Comment on above: Performed By: #### U AMIC #### [facility] [address] [place] [address] Dr. Gloria Ayala MUCOUS NONE SEEN Normal NONE SEEN [facility] Comment on above: Performed By: #### U AMIC #### [facility] [address] [place] [address] Dr. Gloria Ayala Nitrite Ql (U) Negative Normal NEGATIVE [facility] Comment on above: Performed By: #### U AMIC #### [facility] [address] [place] [address] Dr. Gloria Ayala pH (U) 5.5 [pH] Normal 5-9 [facility] Comment on above: Performed By: #### U AMIC #### [facility] [address] [place] [address] Dr. Gloria Ayala RBC 0-2 Normal 0-2 [facility] Comment on above: Performed By: #### U AMIC #### [facility] [address] [place] [address] Dr. Gloria Ayala SPEC GRAVITY 1.020 Normal 1.005-<=1.025 [facility] Comment on above: Performed By: #### U AMIC #### [facility] [address] [place] [address] Dr. Gloria Ayala UA PROTEIN Negative Normal NEGATIVE/ TRACE [facility] Comment on above: Performed By: #### U AMIC #### [facility] [address] [place] [address] Dr. Gloria Ayala Urobilinogen Qn (U) 2.0 {Jonathan'U}/dL Abnormal 0.2 - 1. 0 [facility] Comment on above: Performed By: #### U AMIC #### [facility] [address] [place] [address] Dr. Gloria Ayala WBC NONE SEEN Normal NONE SEEN [facility] Comment on above: Performed By: #### U AMIC #### [facility] [address] [place] [address] Dr. Gloria Ayala CBC AUTO DIFFon 07-09-2022 BASO # 0.1 103/ul Normal 0.0-0.1 [facility] Comment on above: Performed By: #### C BC #### [facility] [address] [place] [address] Dr. Gloria Ayala Basophils/100 WBC (Bld) 0.6 % Normal 0.2-2.0 [facility] Comment on above: Performed By: #### C BC #### [facility] [address] [address] [address] Gloria Ayala EO # 0.1 103/ul Normal 0.0-0.7 [facility] Comment on above: Performed By: #### C BC #### [facility] [address] [address] [address] Gloria Ayala Eosinophils/100 WBC (Bld) 1.6 % Normal 0.9-7.0 [facility] Comment on above: Performed By: #### C BC #### [facility] [address] [address] [address] Gloria Ayala Erythrocyte distribution width (RBC) [Ratio] 13.6 % Normal 11.0-15.0 [facility] Comment on above: Performed By: #### C BC #### [facility] [address] [place] [address] Dr. Gloria Ayala Hematocrit (Bld) [Volume fraction] 49.8 % Normal 42.0-54.0 [facility] Comment on above: Performed By: #### C BC #### [facility] [address] [place] [address] Dr. Gloria Ayala Hemoglobin (Bld) [Mass/Vol] 15.7 g/dL Normal 14.0-18.0 [facility] Comment on above: Performed By: #### C BC #### [facility] [address] [place] [address] Dr. Gloria Ayala IG # 0.04 10e3/ul Critically high 0.00-0.03 [facility] Comment on above: Performed By: #### C BC #### [facility] [address] [address] [address] Gloria Ayala IG % 0.5 % Normal 0.0-0.5 [facility] Comment on above: Performed By: #### C BC #### [facility] [address] [place] [address] Dr. Gloria Ayala LYMPH # 1.1 103/ul Critically low 1.2-3.8 [facility] Comment on above: Performed By: #### C BC #### [facility] [address] [address] [address] Gloria Ayala Lymphocytes/100 WBC (Bld) 13.8 % Critically low 20.5-60.0 [facility] Comment on above: Performed By: #### C BC #### [facility] [address] [place] [address] Dr. Gloria Ayala MANUAL DIFF REQ NO Normal [facility] Comment on above: Performed By: #### C BC #### [facility] [address] [address] [address] Gloria Ayala MCH (RBC) [Entitic mass] 26.6 pg Normal 25.9-34.0 [facility] Comment on above: Performed By: #### C BC #### [facility] [address] [place] [address] Dr. Gloria Ayala MCHC (RBC) [Mass/Vol] 31.5 g/dL Normal 29.9-35.2 [facility] Comment on above: Performed By: #### C BC #### [facility] [address] [place] [address] Dr. Gloria Ayala MCV (RBC) [Entitic vol] 84.4 fL Normal 80.0-94.0 [facility] Comment on above: Performed By: #### C BC #### [facility] [address] [place] [address] Dr. Gloria Ayala MONO # 0.4 103/ul Normal 0.3-0.8 [facility] Comment on above: Performed By: #### C BC #### [facility] [address] [place] [address] Dr. Gloria Ayala Monocytes/100 WBC (Bld) 5.0 % Normal 1.7-12.0 [facility] Comment on above: Performed By: #### C BC #### [facility] [address] [place] [address] Dr. Gloria Ayala NEUT # 6.3 103/ul Normal 1.4-6.5 [facility] Comment on above: Performed By: #### C BC #### [facility] [address] [address] [address] Gloria Ayala Neutrophils/100 WBC (Bld) 78.5 % Critically high 43.0-75.0 [facility] Comment on above: Performed By: #### C BC #### [facility] [address] [address] [address] Gloria Ayala Platelet mean volume (Bld) [Entitic vol] 10.5 fL Normal 9.5-13.5 [facility] Comment on above: Performed By: #### C BC #### [facility] [address] [address] [address] Gloria Ayala PLT 151 103/ul Normal 150-450 [facility] Comment on above: Performed By: #### C BC #### [facility] [address] [place] [address] Dr. Gloria Ayala RBC 5.90 106/ul Normal 4.70-6.10 [facility] Comment on above: Performed By: #### C BC #### [facility] [address] [place] [address] Dr. Gloria Aayla WBC 8.0 103/ul Normal 4.0-11.0 [facility] Comment on above: Performed By: #### C BC #### [facility] [address] [place] [address] Dr. Gloria Ayala GLYCOHEMOGLOBIN A1Con 2022 ADA RECOMMENDATION SEE BELOW Normal [place] [facility] Comment on above: Result Comment: ADA RECOMMENDED LIMIT 4.0 - 6.0 ADA THERAPEUTIC TARGET < 7.0 ACTION SUGGESTED > 7.0 Performed By: #### A 1C #### [facility] [address] [place] [address] Dr. Gloria Ayala Glucose [Mass/Vol] 123 mg/dL Normal [facility] Comment on above: Performed By: #### A 1C #### [facility] [address] [place] [address] Dr. Gloria Ayala HbA1c (Bld) [Mass fraction] 5.9 % Normal 4.5-6.2 [facility] Comment on above: Performed By: #### A 1C #### [facility] [address] [address] [address] Gloria Ayala LIPID PROFILEon 07-09-2022 CHOL-HDL RATIO NORM SEE BELOW Normal [facility] Comment on above: Result Comment: 3.3 - 4.4 LOW RISK 4.4 - 7.1 AVERAGE RISK 7.1 - 11.0 MODERATE RISK >11.0 HIGH RISK Performed By: #### L IPID, CMP #### [facility] [address] [address] [address] Gloria Ayala Cholesterol [Mass/Vol] 182 mg/dL Normal <=200 [facility] Comment on above: Performed By: #### L IPID, CMP #### [facility] [address] [address] [address] Gloria Ayala Cholesterol in HDL [Mass/Vol] 29 mg/dL Critically low 40-60 [facility] Comment on above: Performed By: #### L IPID, CMP #### [facility] [address] [address] [address] Gloria Ayala Cholesterol in LDL [Mass/Vol] 136.6 mg/dL Normal [facility] Comment on above: Performed By: #### L IPID, CMP #### [facility] [address] [address] [address] Gloria Ayala Cholesterol.total/Mamta sterol in HDL [Mass ratio] 6.3 {ratio} Normal [facility] Comment on above: Performed By: #### L IPID, CMP #### [facility] [address] [address] [address] Gloria Ayala HDL NORMAL > or = 60 mg/dl - LOW CARDIOVASCULAR RISK <40 mg/dl - HIGH CARDIOVASCULAR RISK Normal [facility] Comment on above: Performed By: #### L IPID, CMP #### [facility] [address] [address] [address] Gloria Ayala LDL CALC NORMAL SEE BELOW Normal [facility] Comment on above: Result Comment: <100 mg/dl OPTIMAL 100 - 129 mg/dl NEAR OR ABOVE OPTIMAL 130 - 159 mg/dl BORDERLINE HIGH 160 - 189 mg/dl HIGH >190 mg/dl VERY HIGH Performed By: #### L IPID, CMP #### [facility] [address] [place] [address] Dr. Gloria Ayala Triglyceride [Mass/Vol] 82 mg/dL Normal <=150 T [facility] Comment on above: Performed By: #### L IPID, CMP #### [facility] [address] [place] [address] Dr. Gloria Ayala VLDL CALC 16.4 mg/dL Normal [facility] Comment on above: Performed By: #### L IPID, CMP #### [facility] [address] [place] [address] Dr. Gloria Ayala MICROALBUMIN, RAND URon mALB 1.9 mg/L Normal <=30.0 [facility] Comment on above: Performed By: #### M ALBR #### [facility] [address] [place] [address] Dr. Gloria Ayala PROF 14(COMP METB)on 023 Albumin [Mass/Vol] 3.2 g/dL Critically low 3.4-5.0 [facility] Comment on above: Performed By: #### L IPID, CMP #### [facility] [address] [place] [address] Dr. Gloria Ayala Albumin/Globulin [Mass ratio] 0.8 {ratio} Normal [facility] Comment on above: Performed By: #### L IPID, CMP #### [facility] [address] [place] [address] Dr. Gloria Ayala ALP [Catalytic activity/Vol] 85 U/L Normal 46-116 [facility] Comment on above: Performed By: #### L IPID, CMP #### [facility] [address] [place] [address] Dr. Gloria Ayala ALT [Catalytic activity/Vol] 15 U/L Critically low 16-63 [facility] Comment on above: Performed By: #### L IPID, CMP #### [facility] [address] [place] [address] Dr. Gloria Ayala Anion gap [Moles/Vol] 9.5 mmol/L Normal [facility] Comment on above: Performed By: #### L IPID, CMP #### [facility] [address] [place] [address] Dr. Gloria Ayala AST [Catalytic activity/Vol] 13 U/L Critically low 15-37 [facility] Comment on above: Performed By: #### L IPID, CMP #### [facility] [address] [place] [address] Dr. Gloria Ayala Bilirubin [Mass/Vol] 0.6 mg/dL Normal 0.2-1.0 [facility] Comment on above: Performed By: #### L IPID, CMP #### [facility] [address] [place] [address] Dr. Gloria Ayala Calcium [Mass/Vol] 8.4 mg/dL Critically low 8.5-10.1 [facility] Comment on above: Performed By: #### L IPID, CMP #### [facility] [address] [place] [address] Dr. Gloria Ayala Chloride [Moles/Vol] 102 mmol/L Normal 98-107 [facility] Comment on above: Performed By: #### L IPID, CMP #### [facility] [address] [place] [address] Dr. Gloria Ayala CO2 [Moles/Vol] 34.6 mmol/L Critically high 21.0-32.0 [facility] Comment on above: Performed By: #### L IPID, CMP #### [facility] [address] [place] [address] Dr. Gloria Ayala Creatinine [Mass/Vol] 0.97 mg/dL Normal 0.70-1.30 [facility] Comment on above: Performed By: #### L IPID, CMP #### [facility] [address] [place] [address] Dr. Gloria Ayala EGFR-AF MALAYSIAN >60 Normal >=60 [facility] Comment on above: Performed By: #### L IPID, CMP #### [facility] [address] [place] [address] Dr. Gloria Ayala EGFR-NON AF MALAYSIAN >60 Normal >=60 [facility] Comment on above: Performed By: #### L IPID, CMP #### [facility] [address] [address] [address] Gloria Ayala Globulin (S) [Mass/Vol] 4.1 g/dL Normal [facility] Comment on above: Performed By: #### L IPID, CMP #### [facility] [address] [address] [address] Gloria Ayala Glucose [Mass/Vol] 154 mg/dL Critically high 74-106 [facility] Comment on above: Performed By: #### L IPID, CMP #### [facility] [address] [place] [address] Dr. Gloria Ayala Potassium [Moles/Vol] 4.1 mmol/L Normal 3.5-5.1 [facility] Comment on above: Performed By: #### L IPID, CMP #### [facility] [address] [place] [address] Dr. Gloria Ayala Protein [Mass/Vol] 7.3 g/dL Normal 6.4-8.2 [facility] Comment on above: Performed By: #### L IPID, CMP #### [facility] [address] [place] [address] Dr. Gloria Ayala Sodium [Moles/Vol] 142 mmol/L Normal 136-145 [facility] Comment on above: Performed By: #### L IPID, CMP #### [facility] [address] [place] [address] Dr. Gloria Ayala Urea nitrogen [Mass/Vol] 10.0 mg/dL Normal 7.0-18.0 [facility] Comment on above: Performed By: #### L IPID, CMP #### [facility] [address] [place] [address] Dr. Gloria Ayala Urea nitrogen/Creatinine [Mass ratio] 10.3 mg/mg Normal [facility] Comment on above: Performed By: #### L IPID, CMP #### [facility] [address] [address] [address] Gloria Ayala UA RANDOM W/MICROSCOPICon BACTERIA NONE SEEN Normal NONE SEEN [facility] Comment on above: Performed By: #### U AMIC #### [facility] [address] [place] [address] Dr. Gloria Ayala Bilirubin Ql (U) Negative Normal NEGATIVE The [facility] Comment on above: Performed By: #### U AMIC #### [facility] [address] [address] [address] Gloria Ayala CAST SEEN Abnormal NONE SEEN [facility] Comment on above: Performed By: #### U AMIC #### [facility] [address] [place] [address] Dr. Gloria Ayala Clarity (U) CLEAR Normal CLEAR [facility] Comment on above: Performed By: #### U AMIC #### [facility] [address] [place] [address] Dr. Gloria Ayala Color (U) YELLOW Normal YELLOW [facility] Comment on above: Performed By: #### U AMIC #### [facility] [address] [place] [address] Dr. Gloria Ayala Crystals LM Nom (Urine sed) NONE SEEN Normal NONE SEEN [facility] Comment on above: Performed By: #### U AMIC #### [facility] [address] [place] [address] Dr. Gloria Ayala Epithelial cells LM Ql (Urine sed) RARE Normal NONE SEEN /RARE [facility] Comment on above: Performed By: #### U AMIC #### [facility] [address] [place] [address] Dr. Gloria Ayala Glucose Ql (U) Negative Normal NEGATIVE [facility] Comment on above: Performed By: #### U AMIC #### [facility] [address] [place] [address] Dr. Gloria Ayala Hemoglobin Ql (U) Negative Normal NEGATIVE [facility] Comment on above: Performed By: #### U AMIC #### [facility] [address] [place] [address] Dr. Gloria Ayala HYALINE CAST RARE Normal [facility] Comment on above: Performed By: #### U AMIC #### [facility] [address] [address] [address] Gloria Ayala Ketones Ql (U) Negative Normal NEGATIVE [facility] Comment on above: Performed By: #### U AMIC #### [facility] [address] [address] [address] Gloria Ayala LEUKOCYTES Negative Normal NEGATIVE [facility] Comment on above: Performed By: #### U AMIC #### [facility] [address] [address] [address] Gloria Ayala MUCOUS NONE SEEN Normal NONE SEEN [facility] Comment on above: Performed By: #### U AMIC #### [facility] [address] [address] [address] Gloria Ayala Nitrite Ql (U) Negative Normal NEGATIVE [facility] Comment on above: Performed By: #### U AMIC #### [facility] [address] [address] [address] Gloria Ayala pH (U) 7.0 [pH] Normal 5-9 [facility] Comment on above: Performed By: #### U AMIC #### [facility] [address] [address] [address] Gloria Ayala RBC NONE SEEN Abnormal 0-2 [facility] Comment on above: Performed By: #### U AMIC #### [facility] [address] [address] [address] Gloria Ayala SPEC GRAVITY 1.015 Normal 1.005-<=1.025 [facility] Comment on above: Performed By: #### U AMIC #### [facility] [address] [address] [address] Gloria Ayala UA PROTEIN Negative Normal NEGATIVE/ TRACE [facility] Comment on above: Performed By: #### U AMIC #### [facility] [address] [address] [address] Gloria Ayala Urobilinogen Qn (U) 8 {Jonathan'U}/dL Abnormal 0.2 - 1.0 [facility] Comment on above: Performed By: #### U AMIC #### [facility] [address] [address] [address] Gloria Ayala WBC NONE SEEN Normal NONE SEEN [facility] Comment on above: Performed By: #### U AMIC #### [facility] [address] [address] [address] Gloria Ayala Physician Referralon 022 Physician Referral [phone] [id number]:[id number] Normal [facility] GLYCOHEMOGLOBIN A1Con 2021 ADA RECOMMENDATION SEE BELOW Normal [facility] Comment on above: Result Comment: ADA RECOMMENDED LIMIT 4.0 - 6.0 ADA THERAPEUTIC TARGET < 7.0 ACTION SUGGESTED > 7.0 Performed By: #### A 1C #### [facility] [address] [place] [address] Dr. Gloria Ayala Glucose [Mass/Vol] 128 mg/dL Normal [facility] Comment on above: Performed By: #### A 1C #### [facility] [address] [place] [address] Dr. Gloria Ayala HbA1c (Bld) [Mass fraction] 6.1 % Normal 4.5-6.2 [facility] Comment on above: Performed By: #### A 1C #### [facility] [address] [place] [address] Dr. Gloria Ayala PROF CHEM 8 (BAS METB)on Anion gap [Moles/Vol] 8.5 mmol/L Normal [facility] Comment on above: Performed By: #### B MP #### [facility] [address] [address] [address] Gloria Ayala Calcium [Mass/Vol] 8.5 mg/dL Normal 8.5-10.1 [facility] Comment on above: Performed By: #### B MP #### [facility] [address] [place] [address] Dr. Gloria Ayala Chloride [Moles/Vol] 99 mmol/L Normal 98-107 [facility] Comment on above: Performed By: #### B MP #### [facility] [address] [address] [address] Gloria Ayala CO2 [Moles/Vol] 34.5 mmol/L Critically high 21.0-32.0 [facility] Comment on above: Performed By: #### B MP #### [facility] [address] [address] [address] Gloria Ayala Creatinine [Mass/Vol] 1.02 mg/dL Normal 0.70-1.30 [facility] Comment on above: Performed By: #### B MP #### [facility] [address] [address] [address] Gloria Ayala EGFR-AF MALAYSIAN >60 Normal >=60 [facility] Comment on above: Performed By: #### B MP #### [facility] [address] [place] [address] Dr. Gloria Ayala EGFR-NON AF MALAYSIAN >60 Normal >=60 [facility] Comment on above: Performed By: #### B MP #### [facility] [address] [address] [address] Gloria Ayala Glucose [Mass/Vol] 116 mg/dL Critically high 74-106 [facility] Comment on above: Performed By: #### B MP #### [facility] [address] [address] [address] Gloria Ayala Potassium [Moles/Vol] 4.0 mmol/L Normal 3.5-5.1 [facility] Comment on above: Performed By: #### B MP #### [facility] [address] [address] [address] Gloria Ayala Sodium [Moles/Vol] 138 mmol/L Normal 136-145 [facility] Comment on above: Performed By: #### B MP #### [facility] [address] [address] [address] Gloria Ayala Urea nitrogen [Mass/Vol] 11.0 mg/dL Normal 7.0-18.0 [facility] Comment on above: Performed By: #### B MP #### [facility] [address] [address] [address] Gloria Ayala Urea nitrogen/Creatinine [Mass ratio] 10.8 mg/mg Normal [facility] Comment on above: Performed By: #### B MP #### [facility] [address] [address] [address] Gloria Ayala Vital Signs Date Time Vital Sign Value Performing Clinician Facility 06-14-2023 17:39-0500 Body height 175.3 cm Irina Mcleod BAD WORK GATHERER Work Phone: [facility] 06-14-2023 17:39-0500 Body mass index (BMI) [Ratio] 40.61 kg/m2 Irinalouise Mcleod BAD WORK GATHERER Work Phone: [facility] 06-14-2023 17:39-0500 Body temperature 97.5 [degF] Irina Mcleod BAD WORK GATHERER Work Phone: [facility] 06-14-2023 17:39-0500 Body weight 124.74 kg Irina Shani BAD WORK GATHERER Work Phone: [facility] Comment on above: hospital bed weighed him at the hospital 06-14-2023 17:39-0500 Diastolic blood pressure 58 mm[Hg] Irina Shani BAD WORK GATHERER Work Phone: [facility] 06-14-2023 17:39-0500 Heart rate 84 /min Irina Shani BAD WORK GATHERER Work Phone: [facility] 06-14-2023 17:39-0500 Respiratory rate 19 /min Irina Shani BAD WORK GATHERER Work Phone: [facility] 06-14-2023 17:39-0500 SaO2% (BldA) [Mass fraction] 99 % Irinalouise Mcleod BAD WORK GATHERER Work Phone: [facility] 06-14-2023 17:39-0500 Systolic blood pressure 110 mm[Hg] Irina Mcleod BAD WORK GATHERER Work Phone: [facility] 05-27-2023 13:23-0500 Body height 176.[address] [facility] [address] [place] [address] 05-27-2023 13:23-0500 Body mass index (BMI) [Ratio] 45.12 kg/m2 Pm 1 [facility] 05-27-2023 13:23-0500 Body weight 140.62 kg Pm 1 [facility] 05-05-2023 10:43-0500 Body temperature 97 [degF] Sybil Tobin REFUSE COLLECTOR-REGULATOR OPERATOR Work Phone: [facility] 05-05-2023 10:43-0500 Diastolic blood pressure 66 mm[Hg] Sybil Tobin REFUSE COLLECTOR-REGULATOR OPERATOR Work Phone: [facility] 05-05-2023 10:43-0500 Heart rate 80 /min Sybil Tobin REFUSE COLLECTOR-REGULATOR OPERATOR Work Phone: [facility] 05-05-2023 10:43-0500 Respiratory rate 16 /min Sybil Tobin REFUSE COLLECTOR-REGULATOR OPERATOR Work Phone: [facility] 05-05-2023 10:43-0500 Systolic blood pressure 116 mm[Hg] Sybil Tobin REFUSE COLLECTOR-REGULATOR OPERATOR Work Phone: [facility] Encounters Encounter Date Encounter Type Care Provider Facility Start: 06-14-2023 End: 06-14-2023 ambulatory IRINA MCLEOD Not Available Start: 06-14-2023 End: 06-14-2023 Office outpatient visit 25 minutes Irina Mcleod BAD WORK GATHERER Work Phone: [facility] Comment on above: ROSSY (acute kidney in jury) (CMS/HCC) (Primary Dx); Pilonidal cyst; Edema of extremities; Primary osteoarthritis of both knees; Benign essential hypertension (CMS/HCC); COVID Start: 06-14-2023 Bamboo flowsheet Irina Mcleod BAD WORK GATHERER Work Phone: [facility] Start: 06-14-2023 Bamboo flowsheet Irina Mcleod BAD WORK GATHERER Work Phone: [facility] Start: 06-14-2023 Telephone encounter [facility]ie [facility]el[facility] Start: 06-09-2023 Refill Irina Shani BAD WORK GATHERER Work Phone: [facility] Comment on above: Dyslipidemia (CMS/HC C) (Primary Dx) Start: 06-08-2023 Refill Irina Osbornelani BAD WORK GATHERER Work Phone: [facility] Comment on above: Restless legs (Prima ry Dx) Start: 06-02-2023 Clinisync Result Encounter Generic External Data Provider [facility] Unsolicited Start: 06-02-2023 Clinisync Result Encounter Generic External Data Provider [facility] Unsolicited Start: 05-31-2023 End: 05-31-2023 Evaluation and management of inpatient FRANKIE Flores BISHOP [facility] Start: 05-27-2023 End: 05-27-2023 [facility] Start: 05-27-2023 End: 05-27-2023 ambulatory [facility] Pat Phone Call Provider 1 [facility] - Pre Admit Start: 05-21-2023 End: 06-03-2023 ambulatory SYBIL Amador MAHAD [facility] Start: 05-19-2023 End: 05-19-2023 ambulatory IRINA VINODEneidaKEONDary Not Available Start: 05-11-2023 End: 05-11-2023 ambulatory [facility] Start: 05-05-2023 End: 05-05-2023 ambulatory SYBIL English MAHAD [facility] Start: 05-05-2023 End: 05-05-2023 Office outpatient visit 10 minutes Sybil Tobin REFUSE COLLECTOR-REGULATOR OPERATOR Work Phone: [facility] Comment on above: Chronic recurrent pi lonidal cyst (Primary Dx); Abscess of multiple sites of buttock Start: 04-13-2023 End: 04-13-2023 ambulatory [facility] Start: 04-13-2023 End: 04-13-2023 Encounter for preprocedural cardiovascular examination [facility] Start: 04-07-2023 Preoperative state Generic Provider [facility] Start: 04-07-2023 End: 04-07-2023 ambulatory IRINA MCLEOD Not Available Start: 10-26-2022 ambulatory Arlen castillo PA-C Facility[facility] Start: 09-21-2022 End: 09-22-2022 ambulatory Irina Mcleod REFUSE COLLECTOR-REGULATOR OPERATOR Facility:[facility] Start: 08-04-2022 End: 08-04-2022 ambulatory JOSE ELIASMIK DAI Facility:[facility] Start: 07-23-2022 End: 07-24-2022 ambulatory JUDY MCLEOD Facility:[facility] Start: 07-09-2022 End: 07-10-2022 ambulatory REGULATOR OPERATOR IRINA MCLEOD Facility:[facility] Start: 09-15-2021 End: 09-16-2021 ambulatory REGULATOR OPERATOR IRINA MCLEOD Facility:[facility] Procedures Date Procedure Procedure Detail Performing Clinician Start: 06-02-2023 BLOOD CULTURE 2 Generic External Data Provider Start: 06-02-2023 BLOOD CULTURE 1 Generic External Data Provider Start: 05-05-2023 NURSING COMMUNICATION M iman Tobin REFUSE COLLECTOR-[facility] Work Phone: Start: 07-09-2022 PSA screening REGULATOR OPERATOR IRINA MCLEOD Comment on above: Performed By: #### P [facility] #### [facility] [address] [place] [address] Dr. Gloria Ayala Plan of Treatment Date Care Activity Detail Author Start: 04-07-2025 Glaucoma screening Diabetes: R etinopathy Screening [facility] Start: 05-31-2024 Adult BMI Screening Adult BMI Screen ing [facility] Start: 05-31-2024 Tobacco Screening Tobacco Screening [facility] Start: 05-28-2024 Tobacco Screening Tobacco Screening [facility] Start: 05-27-2024 Adult BMI Screening Adult BMI Screen ing [facility] Start: 04-19-2024 Adult BMI Screening Adult BMI Screen ing [facility] Start: 04-07-2024 Pneumococcal Vaccine : 65+ Years (1 - PCV) Pneumococcal Vaccine: 65+ Years (1 - PCV) [facility] Comment on above: Postponed from 03/25 (Patient Refused) Start: 04-05-2024 Tobacco Screening Tobacco Screening [facility] Start: 10-31-2023 Influenza vaccination Influenza Vacc ine (#1) [facility] Comment on above: Postponed from 01/01 (Patient Refused) Start: 09-06-2023 Screening for malign ant neoplasm of colon [facility] Start: 08-18-2023 End: 08-18-2023 Patient encounter procedure 08/18/2023 9:40 AM EDT Office Visit [facility] [address] [place] [address] Irina Mcleod, BAD WORK GATHERER [address] [place] [address] [facility] Start: 07-10-2023 Urine screening for protein Diabetes: Urine Protein Screening [facility] Start: 07-06-2023 End: 07-06-2023 Patient encounter procedure 07/06/2023 11:00 AM EST Office Visit [facility] [address] [place] [address] Irina Mcleod, BAD WORK GATHERER [address] [place] [id number] [facility] Start: 06-15-2023 End: 06-15-2023 Patient encounter procedure 06/15/2023 3:30 PM EST Office Visit [facility] [address] [place] [address] Arlen Estrada, [facility] [address] [place] [address] [facility] Start: 06-14-2023 End: 06-14-2023 Patient encounter procedure [facility] Comment on above: Arrived Start: 06-14-2023 End: 06-14-2024 Basic metabolic 1998 panel - Serum or Plasma Basic metabolic panel Lab Routine ROSSY (acute kidney injury) (CMS/HCC) Expected: 06/14/2023 (Approximate), Expires: 06/14/2024 [facility] Work Phone: Comment on above: Expected: 06/14/2023 (Approximate), Expires: 06/14/2024 Start: 05-31-2023 End: 05-31-2023 Admission to same day surgery center 05/31/2023 12:15 PM EST - 05/31/2023 1:15 PM EST Surgery [facility] [address] [place] [id number] Amber Valdovinos MD [address] [place] [address] EXCISION CYST PILONIDAL [19456 (CPT )] [facility] Comment on above: EXCISION CYST PILONI SHAYAN [95121 (CPT )] Start: 05-31-2023 End: 05-31-2023 Anesthesia consultation 05/31/2023 12:15 PM EST Anesthesia Event [facility] [address] [place] [phone] Frankie Bishop MD [address] [place] [address] [facility] Start: 05-31-2023 End: 05-31-2023 Excision pilonidal cyst/sinus simple EXCISION CYST PILONIDAL pilonidal cyst 05/31/2023 12:15 PM EST [facility] Start: 05-31-2023 Subsequent hospital visit by physician 05/31/2023 12:15 PM EST Hospital Encounter [facility] [address] [place] [phone] Amber Valdovinos MD [address] [place] [address] [facility] Start: 05-21-2023 End: 05-21-2023 Patient encounter procedure 05/21/2023 11:00 AM EST Office Visit [facility] [address] [facility] [place] [address] Sybil Tobin, REFUSE COLLECTOR-REGULATOR OPERATOR [address] [place] [address] [facility] Start: 05-11-2023 End: 05-11-2023 Patient encounter procedure 05/11/2023 2:00 PM EST Office Visit [facility] [address] [place] [address] Amber Valdovinos MD [address] [place] [address] [facility] Start: 01-01-2023 COVID-19 Vaccine ( season) COVID-19 Vaccine ( season) [facility] Start: 01-01-2023 Influenza vaccination Influenza Vacc ine [facility] Start: 10-09-2022 Hemoglobin A1c measurement Diabetes: Hemoglobin A1C [facility] Start: 2022 Fall Risk Screening Fall Risk Screen ing [facility] Start: 2007 Administration of varicella zoster vaccine Zoster (Shingles) Vaccine (1 of 2) [facility] Start: 1976 DTaP,Tdap and Td Vac cines (1 - Tdap) DTaP,Tdap and Td Vaccines (1 - Tdap) [facility] Start: 1975 Adult BMI Follow Up Plan Adult BMI Follow Up Plan [facility] Start: 1969 Depression Screening Depression Scre ening [facility] Start: 1957 Medicare Annual Well ness Visit Medicare Annual Wellness Visit [facility] Start: 1955 Screening for malign ant neoplasm of colon [facility] BLOOD CULTURE 1 BLOOD CULTURE 1 Lab Routine 06/02/2023 10:53 AM EST [facility] BLOOD CULTURE 2 BLOOD CULTURE 2 Lab Routine 06/02/2023 10:58 AM EST [facility] Immunizations Immunization Date Immunization Notes Care Provider Satish maguire 08-02-2020 Pfizer Purple Cap SARS-CoV-2 Vaccination Irina Mcleod BAD WORK GATHERER Work Phone: [facility] Payers Date Payer Category Payer Self-pay 2003 Medicaid [id number] 1959 Unknown [id number] 1957 Unknown [id number] 2.16.84 [id number] 1957 Unknown [id number] 2.16.84 0.1.382794.3.579.2.593 1957 Unknown [id number] 2.16.84 0.1.280382.3.579.2.593 1957 Unknown [id number] 2.16.84 0.1.114368.3.579.2.593 1957 Unknown [id number] 2.16. 840.1.373886.3.579.2.196 1957 Unknown [id number] 2.16.84 0.1.806094.3.579.2.1286 1957 Unknown [id number] 2.16.8 40.1.438476.3.579.2.1286 1957 Unknown [id number] 2.16.8 40.1.972170.3.579.2.1286 1957 Unknown [id number] 2.16.8 40.1.386554.3.579.2.1286 1957 Unknown [id number] 2.16.8 40.1.141043.3.579.2.1286 1957 Unknown [id number] 2.16.8 40.1.017771.3.579.2.1286 1957 Unknown [id number] 2.16.84 0.1.417091.3.579.2.1286 1957 Unknown [id number] 2.16.84 0.1.456032.3.579.2.1259 1957 Unknown [id number] 2.16.84 0.1.975371.3.579.2.1259 1957 Unknown [id number] 2.16.840 .1.125908.3.579.2.1259 Social History Date Type Detail Facility Start: 03-30-2023 End: 05-31-2023 Tobacco smoking status NHIS Ex-smoker [facility] End: 05-03-2023 History of tobacco use Current smoker [facility] End: 05-03-2023 History of tobacco use Cigarette Smoker [facility] Start: 05-05-2023 End: 06-14-2023 Alcohol intake Lifetime non-drinker (finding) [facility] Start: 06-13-2020 End: 05-05-2023 History of Social function [facility] Start: 06-13-2020 End: 05-05-2023 Tobacco use panel [facility] Housing Instability Unknown [facility] Start: 1955 Sex Assigned At Not on file P [facility] Start: 05-11-2023 End: 05-31-2023 Alcohol intake Ex-drinker (finding) [facility] Start: 04-10-2023 End: 05-31-2023 Tobacco use and exposure Smokeless tobacco non-user [facility] Start: 04-10-2023 Tobacco Comment 1-9 cigarettes/day [facility] Clinical Notes 04-13-2023 to 06-14-2023 Irina Mcleod, BAD WORK GATHERER - 06/14/2023 7:39 PM ESTIrina Mcleod, BAD WORK GATHERER - 06/14/2023 7:39 PM ESTIrina Mcleod, BAD WORK GATHERER - 06/14/2023 7:39 PM ESTIrina Mcleod, BAD WORK GATHERER - 06/14/2023 7:38 PM ESTPatient Instructions Note Date & Type Note Facility 06-14-2023 History of Present illness Narrative Associated Problem(s): COVID Returning to baseline Associated Problem(s): Benign essential hypertension (CMS/HCC) Stable at this time Associated Problem(s): Primary osteoarthritis of both knees Would like referral to ortho in [place] Associated Problem(s): Edema of extremities stable Associated Problem(s): ROSSY (acute kidney injury) (CMS/HCC) Will reassess kidney function Therapy seen him today talked to him about seeing a surgeons in [place] [employer] to fix up his knees. Fell 3 times being home Feet are swollen Pt is asking for a powered wheelchair and hospital bed Images from the original note were not included. Carlos Persaud is a 68 y.o. male presents with chief complaint of No chief complaint on file. HPI: Here for a hospital fu: covid and ROSSY, See [facility] ER notes for HPI, I have reviewed labs and notes from hospitalization He is feeling better, no chest pain/pressure or shortness of breath. Does note LE edema worse in feet bilat, no calf pain Has home PT , had evaluation today, it was noted by the therapist that this pt suffered from DJD bilat knees, his recommendation to the patient was that he have an ortho evaulation with possibility of bilat knee replacements. This patient primarily uses a wheel chair to get around the house, and has sigificant LE generalized weakness. And does report knee pain. He would like a referral to see an ortho to discuss his options for helping with knee pain. is also asking about hospital bed, as pt has difficulty getting in and out of bed, also trouble with bathing self He still is in need of having surgery for pionidal cyst. Denies any fever or chills SUBJECTIVE: MEDICATIONS: Current Outpatient Medications Medication Instructions albuterol (2.5 MG/3ML) 0.083% nebulizer solution 3 mL, Nebulization, Every 6 hours PRN albuterol HFA 90 mcg/act inhaler 2 puffs, Inhalation, Every 6 hours PRN allopurinol (Zyloprim) 100 MG tablet 1 tablet, Oral, Daily aspirin 81 MG EC tablet 1 tablet, Oral, Daily carvedilol (Coreg) 3.125 MG tablet 1 tablet, Oral, 2 times daily with meals DULoxetine (Cymbalta) [address] capsule 1 capsule, Oral, Daily, Do not crush or chew. Nmdpnokcsyv-Khvzbgmbb-Hrfrxo (Trelegy Ellipta) 100-62.5-25 MCG/ACT aerosol powder 1 Dose, Inhalation, Daily, Rinse mouth after use. furosemide (Lasix) 20 MG tablet 3 tablets, Oral, Daily gabapentin (NEURONTIN) 300 mg, Oral, 2 times daily, 1 in AM 2 @ HS lisinopril 10 mg, Oral, Daily metFORMIN (Glucophage) 500 MG tablet 1 tablet, Oral, 2 times daily with meals nystatin (Mycostatin) cream 1 application , Topical, As needed omeprazole (PriLOSEC) [address] capsule 1 capsule, Oral, Daily before breakfast, Do not crush or chew. rOPINIRole (REQUIP) 2 mg, Oral, Nightly rosuvastatin (CRESTOR) 20 mg, Oral, Daily tamsulosin (Flomax) 0.4 MG 24 hr capsule 1 capsule, Oral, Daily ALLERGIES: Allergies Allergen Reactions Cephalosporins Unknown Cleocin [Clindamycin] Unknown Levaquin [Levofloxacin] Unknown REVIEW OF SYMPTOMS: Review of Systems Constitutional: Positive for fatigue. Negative for activity change, appetite change and unexpected weight change. HENT: Negative for ear pain, nosebleeds, sneezing, trouble swallowing and voice change. Eyes: Negative for pain, discharge and visual disturbance. Respiratory: Positive for cough and wheezing. Negative for apnea and chest tightness. Cardiovascular: Positive for leg swelling. Gastrointestinal: Negative for abdominal distention, blood in stool, constipation and diarrhea. Genitourinary: Negative for decreased urine volume, difficulty urinating, dysuria and hematuria. Musculoskeletal: Positive for arthralgias. Skin: Positive for wound. Negative for color change. Neurological: Negative for dizziness, tremors and seizures. Psychiatric/Behavioral: Negative for agitation, decreased concentration, hallucinations, self-injury and suicidal ideas. The patient is not nervous/anxious. Hematological: Negative for adenopathy. Does not bruise/bleed easily. Endocrine: Negative for cold intolerance, heat intolerance, polydipsia and polyuria. Allergic/Immunologic: Negative for environmental allergies and food allergies. PAST MEDICAL HISTORY Past Medical History: Diagnosis Date Abnormal urinalysis At high risk for falls BPH associated with nocturia Chronic bilateral low back pain, unspecified whether sciatica present Chronic musculoskeletal pain COPD (chronic obstructive pulmonary disease) (CMS/HCC) COPD with exacerbation (CMS/HCC) DDD (degenerative disc disease), lumbar Dyslipidemia (CMS/HCC) Edema of extremities GERD without esophagitis Head mass ? Glioma Hypertension (CMS/HCC) Hypocalcemia Influenza vaccination declined Insomnia Morbid obesity with BMI of 45.0-49.9, adult ([facility]) Neoplasm of uncertain behavior of skin Non-compliant patient Nonspecific abnormal electrocardiogram (ECG) (EKG) 04/13/2023 Other emphysema ([facility]/HCC) 04/07/2023 Otitis externa, left Pain and swelling of elbow, left Pilonidal cyst Pre-operative clearance 04/07/2023 Primary osteoarthritis of both knees Restless leg Rising PSA level Screening for prostate cancer Stasis edema of both lower extremities Thrombocytopenia ([facility]/HCC) Tobacco user Type 2 diabetes mellitus with peripheral neuropathy ([facility]) Urine discoloration Past Surgical History: Procedure Laterality Date PILONIDAL CYST DRAINAGE family history includes Diabetes in his sister; Heart disease in his sister. OBJECTIVE: Visit Vitals BP 110/58 (BP Location: Left arm, Patient Position: Sitting, BP Cuff Size: Large adult long) Pulse 84 Temp 97.5 F (Temporal) Resp 19 Ht 5' 9 Wt 275 lb Comment: hospital bed weighed him at the hospital SpO2 99% BMI 40.61 kg/m Smoking Status Former BSA 2.47 m Physical Exam Vitals reviewed. Constitutional: Appearance: Normal appearance. HENT: Head: Normocephalic. Right Ear: External ear normal. Left Ear: External ear normal. Nose: Nose normal. Mouth/Throat: Mouth: Mucous membranes are moist. Pharynx: Oropharynx is clear. Eyes: Extraocular Movements: Extraocular movements intact. Conjunctiva/sclera: Conjunctivae normal. Cardiovascular: Rate and Rhythm: Normal rate and regular rhythm. Pulses: Normal pulses. Heart sounds: Normal heart sounds. Pulmonary: Effort: Pulmonary effort is normal. Breath sounds: Wheezing present. Abdominal: General: Bowel sounds are normal. There is no distension. Palpations: Abdomen is soft. There is no mass. Hernia: No hernia is present. Musculoskeletal: Cervical back: Neck supple. Right lower leg: Edema (1+ pedal, trace pre tibial) present. Left lower leg: Edema (1+ pedal, trace pre tibial) present. Skin: General: Skin is warm and dry. Capillary Refill: Capillary refill takes 2 to 3 seconds. Neurological: General: No focal deficit present. Mental Status: He is alert. Psychiatric: Mood and Affect: Mood normal. Behavior: Behavior normal. Thought Content: Thought content normal. Judgment: Judgment normal. ASSESSMENT AND PLAN: No follow-ups on file. Problem List Items Addressed This Visit Benign essential hypertension (CMS/HCC) Stable at this time Edema of extremities stable Pilonidal cyst - Primary Primary osteoarthritis of both knees Would like referral to ortho in [place] ROSSY (acute kidney injury) (CMS/HCC) Will reassess kidney function Relevant Orders Basic metabolic panel COVID Returning to baseline documented in this encounter [facility] 06-14-2023 Miscellaneous Notes The patient is still having very low blood pressure & his spouse called to let us know that he doesn't need a post op because he never had the excision of Pilonidal cyst, by Dr Valdovinos, because the Surgery Dept. Sent him home before he had the surgery, due to his low blood pressure. She'll call the office to re-schedule once they get that under control. documented in this encounter [facility] 06-14-2023 Telephone encounter Note The patient is still having very low blood pressure & his spouse called to let us know that he doesn't need a post op because he never had the excision of Pilonidal cyst, by Dr Valdovinos, because the Surgery Dept. Sent him home before he had the surgery, due to his low blood pressure. She'll call the office to re-schedule once they get that under control. 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 05-27-2023 Miscellaneous Notes Preoperative Education Checklist- General Surgery date: 05/31/23 Surgery time: 1215 Arrival time: 1015 1. Bring a photo ID and your insurance card with you the day of surgery. You will check in at the main lobby of the [facility]- registration desk is straight ahead as soon as you walk in. Tell them you are here for surgery. 2. If you have a Living Will/Durable Power of Associate Sales Representative for Health Care that is not on [...] after you have bathed. 5. NO nail turkmen/acrylic on at least one finger. If you are having a hand, wrist or foot surgery then all nail turkmen and artificial/acrylic nails must be removed from [...] please call the Preadmission Testing office at [phone], Mon.-Fri. 7 a.m.-3 p.m. Leave a voicemail [...] prior to procedure [facility] Nurse Note Preoperative Education Checklist- General Surgery date: 05/31/23 Surgery time: 1215 Arrival time: 1015 1. Bring a photo ID and your insurance card with you the day of surgery. You will check in at the main lobby of the [facility]- registration desk is straight ahead as soon as you walk in. Tell them you are here for surgery. 2. If you have a Living Will/Durable Power of Associate Sales Representative for Health Care that is not on [...] after you have bathed. 5. NO nail turkmen/acrylic on at least one finger. If you are having a hand, wrist or foot surgery then all nail turkmen and artificial/acrylic nails must be removed from [...] please call the Preadmission Testing office at [phone], Mon.-Fri. 7 a.m.-3 p.m. Leave a voicemail [...] Stop taking 0 days prior to procedure [facility] 05-05-2023 History of Present illness Narrative Images from the original note were not included. Wound Care Progress Note Patient: Carlos Persaud Date of : 1955 Chief Compliant: Buttock wounds, pilonidal cyst disease SUBJECTIVE/HPI: Carlos is a 68 y.o. male who presents to [facility] for evaluation of 2 [...] resolved. States surgery was done outside of [place], unable to recall name of surgeon. Measurable [...] (Active) Wound Image 05/05/23 1044 Site Assessment Red;[place] 05/05/23 1044 Juliet-wound Assessment Blanchable erythema;[place] 05/05/23 1044 Wound Length (cm) 1 cm [...] Coccyx Inferior (Active) Site Assessment Red 05/05/23 104 Juliet-wound Assessment Blanchable erythema;[place] 05/05/23 1044 Wound Length (cm) 1.5 cm 05/05/23 1044 Wound Width (cm) 1 cm 05/05/23 1044 Wound Surface Area (cm^2) 1.5 cm^2 05/05/23 1044 Wound Depth (cm) 0.5 cm 05/05/231043 Wound Volume (cm^3) 0.75 cm^3 05/05/23 1044 Change in Wound Size % -167.86 05/05/23 1044 Drainage Description Serosanguineous;Phan;Yellow;Odor Foul 05/05/23 1044 Drainage Amount Large Copious 05/05/23 1044 Treatments Cleansed with;Wound cleanser;Moisturizing cream 05/05/23 1044 Debridement Performed? N 05/05/23 104 Wound Bed Granulation (%) 100% 05/05/231043 Assessment/Plan/Education: 1. Chronic recurrent pilonidal cyst Instructed [...] to coccyx. 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: wound closure Patient verbalize understanding of [...] procedures Referring and communicating with other health hearing care practitioner (not separately reported) Documenting clinical information in the electronic or other health record Sybil Tobin APRN, JUDY, CWS, RUFINA [facility]: [phone] KANG Whiting 05/05/23 1133 documented in this encounter [facility] 05-05-2023 Instructions So Angela RN - 05/05/2023 [...] serosang Phan, yellow [facility] Note [place] [facility] - [facility] Subjective Carlos Persaud is a 68 y.o. year old male patient being seen to re-establish care. He was last seen in 2019. Ref from Irina Mcleod CNP for abnormal ECG prior to procedure scheduled [...] complication, without long-term current use of insulin (CMS/HCC) No family history on file. Social History [...] mg by mout (more content not included)... [facility] Evaluation note Diagnosis Chronic recurrent pilonidal cyst- Primary Abscess of multiple sites of buttock documented in this encounter [facility] Diagnosis Restless legs- Primary Restless legs syndrome (RLS) documented in this encounter [facility]* Diagnosis Dyslipidemia ([facility])- Primary Other and unspecified hyperlipidemia documented in this encounter [facility]* Diagnosis ROSSY (acute kidney injury) (CMS/HCC)- Primary Pilonidal cyst Edema of extremities Edema Primary osteoarthritis of both knees Benign essential hypertension ([facility]/HCC) Essential hypertension, benign COVID documented in this encounter [facility] HealthcareInstructionsNot on filedocumented in this encounterProBellevue Hospital SystemInstructionsNot on filedocumented in this encounterProBellevue Hospital SystemReason for referral (narrative)* Consultation (Routine) - Pending Review Specialty Diagnoses / Procedures Referred By Sushma feliz Referred To Contact Orthopaedic Surgery Diagnoses Primary osteoarthritis of both knees Irina Mcleod NP [address] [place] [address] Referral ID Status Reason Start Date Expiration Date Visits Requested Visits Authorized [id number] Pending Review Specialty Services Required 06/14/2023 12/11/2023 [address] Juan Alberto Collazo [facility] Summary Purpose Family History No Family History [...] Referral Specialty Diagnoses / Procedures Referred By Contac t Referred To Contact Diagnoses Abscess of multiple sites of buttock Procedures [facility] Sybil Tobin, REFUSE COLLECTOR-REGULATOR OPERATOR [address] [place] [address] Referral ID Status Reason Start Date Expiration Date V isits Requested Visits Authorized [id number] Pending Review 05/05/2023 05/04/2024 1 1 Specialty Diagnoses / Procedures Referred By Contac t Referred To Contact Diagnoses Abscess of multiple sites of buttock Procedures [facility] [facility] Sybil Tobin, REFUSE COLLECTOR-REGULATOR OPERATOR [address] [place] [address] Referral ID Status Reason Start Date Expiration Date V isits Requested Visits Authorized [id number] Pending Review 05/05/2023 05/04/2024 1 1 Additional Source Comments (unrecognized sect ion and content) No Status Records FoundNo Status Records FoundNo Status Records FoundNo Status Records FoundNo Status Records FoundNo Status Records FoundNo Status Records Found INFORMATION SOURCE (unrecogn ized section and content) DATE CREATED AUTHOR 12/03/2021 [facility] DATE CREATED AUTHOR AUTHOR'S ORGANIZ ATION 08/07/2022 [facility] DATE CREATED AUTHOR AUTHOR'S ORGANIZ ATION 10/24/2022 [facility] DATE CREATED AUTHOR AUTHOR'S ORGANIZ ATION 04/15/2023 [facility] DATE CREATED AUTHOR AUTHOR'S ORGANIZ ATION 05/16/2023 [facility] DATE CREATED AUTHOR AUTHOR'S ORGANIZ ATION 06/06/2023 [facility] DATE CREATED AUTHOR AUTHOR'S ORGANIZ ATION 06/16/2023 [facility] dical Specialists EPIC Reason for Visit (unrecogniz ed section and content) Reason Comments Wound Check Reason Comments Med Refill Care Teams (unrecognized sec tion and content) Manager Operating Relationship Specialty Start Date End Date Irina Mcleod, REFUSE COLLECTOR-REGULATOR OPERATOR [address] [place] [address] PCP - General Nurse Practitioner 09/24/16 Manager Operating Relationship Specialty Start Date End Date Irina Mcleod, REFUSE COLLECTOR-REGULATOR OPERATOR [address] [place] [address] PCP - General Nurse Practitioner 09/24/16 Manager Operating Relationship Specialty Start Date End Date Zachary Melton MD [address] [place] [address] PCP - General Family Medicine 04/06/23 Irina Mcleod NP [address] [place] [address] Nurse Practitioner Family Medicine 05/03/22 Manager Operating Relationship Specialty Start Date End Date Zachary Melton MD [address] [place] [address] PCP - General Family Medicine 04/06/23 Irina Mcleod NP [address] [place] [address] Nurse Practitioner Family Medicine 05/03/22 Manager Operating Relationship Specialty Start Date End Date Zachary Melton MD [address] [place] [address] PCP - General Family Medicine 04/06/23 Irina Mcleod NP [address] [place] [address] Nurse Practitioner Family Medicine 05/03/22 Manager Operating Relationship Specialty Start Date End Date Zachary Melton MD [address] [place] [address] PCP - General Family Medicine 06/14/23 Irina Mcleod NP [address] [place] [address] Nurse Practitioner Family Medicine 05/03/22 Manager Operating Relationship Specialty Start Date End Date Zachary Melton MD [address] [place] [address] PCP - General Family Medicine 06/14/23 Irina Mcleod NP [address] [place] [address] Nurse Practitioner Family Medicine 05/03/22 Manager Operating Relationship Specialty Start Date End Date Irina Mcleod, REFUSE COLLECTOR-REGULATOR OPERATOR [address] [place] [address] PCP - General Nurse Practitioner 09/24/16 FOR [...] BE BASED ON THE PRIMARY CLINICAL RECORDS. [facility] [employer] [facility]. provides no warranty or guarantee of the accuracy or completeness of information in this document.
[2023-07-05 09:25] LABS: Anion Gap 8.6; BUN Creatinine Ratio 11.5; Carbon Dioxide 33.6 mmol/L (21.0-32.0); Chloride 103 mmol/L (98-107); Estimated GFR (African America >60 (>=60); Estimated GFR (Non-African Ame 55 (>=60); Glucose 86 mg/dL (74-106); Potassium 4.2 mmol/L (3.5-5.1); Sodium 141 mmol/L (136-145)
== END 2023-07-05 08:34 | disposition home or self-care (01) ==
LOC: LAB 08:34
PROVIDERS: PCP Nurse Practitioner; Visit Provider Nurse Practitioner
DX: N17.9 Acute kidney failure, unspecified (principal)
CPT/HCPCS: 36415; 80048

== ENCOUNTER 2023-07-28 11:46 | Outpatient (OUT) | payer OTHER, SELFPAY ==
--- OUTSIDE RECORDS SUMMARY | 2023-07-28 11:52 | XMS_ITS | CCD ---
Author Organization [facility] Care Team Providers Care Planer Setter Name Role Phone AICHHOLZ, BIOMETRICS HEAD IRINA Admitting Unavailable AICHHOLZ, BIOMETRICS HEAD IRINA Primary Care Unavailable AICHHOLZ, BIOMETRICS HEAD IRINA Consulting Unavailable AICHHOLZ, BIOMETRICS HEAD IRINA Attending Unavailable AICHHOLZ, BIOMETRICS HEAD IRINA Admitting Unavailable AICHHOLZ, BIOMETRICS HEAD IRINA Primary Care Unavailable AICHHOLZ, BIOMETRICS HEAD IRINA Consulting Unavailable AICHHOLZ, BIOMETRICS HEAD IRINA Attending Unavailable AICHHOLZ, BIOMETRICS HEAD IRINA Admitting Unavailable AICHHOLZ, BIOMETRICS HEAD IRINA Primary Care Unavailable AICHHOLZ, BIOMETRICS HEAD IRINA Consulting Unavailable AICHHOLZ, BIOMETRICS HEAD IRINA Attending Unavailable JOSE ELIAS DAI Admitting Unavailable JOSE ELIAS DAI Consulting Unavailable JOSE ELIAS DAI Attending Unavailable AICHHOLZ, BIOMETRICS HEAD IRINA Primary Care Unavailable Jose PARKER, Arlen Duncan Attending Unavageorgia hooksle Aichholz [employer] ARCHITECT-BIOMETRICS HEAD, Irina Jo Referring Kristineva Too Manriquez MD Attending Unavaila JAYLIN Flynn Attending Unavailable Aichholz [facility], Irina J Primary Care Provider AMBER VALDOVINOS Attending Unavailable AICHHOLZ, IRINA J Referring Unavailable AICHHOLZ, IRINA J Primary Care Unavailable Aichholz NOC ANALYST, Irina Unavailable Zachary Melton MD Primary Care Provider SYBIL TOBIN Attending Unavailable AICHHOLZ, IRINA J Referring Unavailable AICHHOLZ, [...] Facility (1 source) Cephalexin Drug Allergy [facility] Repository (1 source) Clindamycin Drug Allergy [facility] (1 source) levoFLOXacin Drug Allergy [facility] (10 sources) Cephalosporins (Antibiotic); Translations: [CEPHALOSPORINS] Propensity to adverse reactions to drug (disorder) 04-06-20 Rash, Unknown [facility] Repository (10 sources) Clindamycin; Translations: [CLINDAMYCIN] Drug Allergy 04-06-20 Rash, Unknown [facility] Repository (10 sources) levoFLOXacin; Translations: [LEVOFLOXACIN] Drug Allergy 04-06-20 Rash, Unknown [facility] Repository Medications Current Medications Medication Drug Class(es) Dates Sig (Normalized) Sig (Original) [id number] 200 actuat albuterol 0.09 mg/actuat metered dose inhaler (14 sources) beta2-Adrenergic Agonist Start: 05-11-2023 End: 06-10-2023 take 2 puff(s) by inhalation every six hours for wheezing albuterol HFA 90 mcg/act inhaler Indications: Other emphysema ([facility]) Inhale 2 puffs every 6 (six) hours [...] evening. Take with meals. 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] Onset: 3 [...] source) detention (current) use of aspirin; Translations: [RETIREMENT CURRENT USE OF ASPIRIN] Onset: 3 Episodic Other aftercare (1 source) Other parts counterman (current) drug therapy; Translations: [OTH RETIREMENT CURRENT DRUG THERAPY] Onset: 3 Episodic Other aftercare (1 source) computer terminal operator (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) use of oral hypoglycemic drugs; Translations: [TILE MOLDER HAND USE ORAL HYPOGLYCEMIC DX] Onset: 3 Episodic [...] (severe) obesity due to excess calories] Onset: Chronic Other nutritional; endocrine; and metabolic disorders [...] Panel InformationOrdered By: So [facility]23 Follow-up visit [id number] Carlos Persaud 1955 M Date Provider Department Center 04/13/2023 JAYLIN HUGHES [facility] No family history on file Level of Service:90978 [place] OFFICE/OUTPATIENT NEW MODERATE MDM 45-59 MINUTES Normal [facility] UA RANDOM W/MICROSCOPICon BACTERIA NONE SEEN Normal NONE SEEN [facility] Comment on above: Performed By: #### U AMIC #### [facility] [address] [address] [address] Gloria Ayala Bilirubin Ql (U) Negative Normal NEGATIVE [facility] Comment on above: Performed By: #### U AMIC #### [facility] [address], [place] [address] Dr. Gloria Ayala CAST NONE SEEN Normal NONE SEEN [facility] Comment on above: Performed By: #### U AMIC #### [facility] [address] [address] [address] Gloria Ayala Clarity (U) CLEAR Normal CLEAR [facility] Comment on above: Performed By: #### U AMIC #### [facility] [address] [address] [address] Gloria Ayala Color (U) YELLOW Normal YELLOW [facility] Comment on above: Performed By: #### U AMIC #### [facility] [address] [address] [address] Gloria Ayala Crystals LM Nom (Urine sed) NONE SEEN Normal NONE SEEN [facility] Comment on above: Performed By: #### U AMIC #### [facility] [address] [address] [address] Gloria Ayala Epithelial cells LM Ql (Urine sed) NONE SEEN Normal NONE SEEN /RARE [facility] Comment on above: Performed By: #### U AMIC #### [facility] [address] [place] [address] Dr. Gloria Ayala Glucose Ql (U) Negative Normal NEGATIVE [facility] Comment on above: Performed By: #### U AMIC #### [facility] [address] [place] [address] Dr. Gloria Ayala Hemoglobin Ql (U) Negative Normal NEGATIVE [facility] Comment on above: Performed By: #### U AMIC #### [facility] [address] [place] [address] Dr. Gloria Ayala Ketones Ql (U) TRACE Abnormal NEGATIVE [facility] Comment on above: Performed By: #### U AMIC #### [facility] [address] [place] [address] Dr. Gloria Ayala LEUKOCYTES Negative Normal NEGATIVE [facility] Comment on above: Performed By: #### U AMIC #### [facility] [address] [place] [address] Dr. Gloria Ayala MUCOUS NONE SEEN Normal NONE SEEN [facility] Comment on above: Performed By: #### U AMIC #### [facility] [address] [address] [address] Gloria Ayala Nitrite Ql (U) Negative Normal NEGATIVE [facility] Comment on above: Performed By: #### U AMIC #### [facility] [address] [address] [address] Gloria Ayala pH (U) 5.5 [pH] Normal 5-9 [facility] Comment on above: Performed By: #### U AMIC #### [facility] [address] [place] [address] Dr. Gloria Ayala RBC 0-2 Normal 0-2 [facility] Comment on above: Performed By: #### U AMIC #### [facility] [address] [place] [address] Dr. Gloria Ayala SPEC GRAVITY 1.020 Normal 1.005-<=1.025 [facility] Comment on above: Performed By: #### U AMIC #### [facility] [address] [place] [address] Dr. Gloria Ayala UA PROTEIN Negative Normal NEGATIVE/ TRACE [facility] Comment on above: Performed By: #### U AMIC #### [facility] [address] [place] [address] Dr. Gloria Ayala Urobilinogen Qn (U) 2.0 {Jonathan'U}/dL Abnormal 0.2 - 1. 0 [facility] Comment on above: Performed By: #### U AMIC #### [facility] [address] [place] [address] Dr. Gloria Ayala WBC NONE SEEN Normal NONE SEEN [facility] Comment on above: Performed By: #### U AMIC #### [facility] [address] [place] [address] Dr. Gloria Ayala CBC AUTO DIFFon 07-09-2022 BASO # 0.1 103/ul Normal 0.0-0.1 [facility] Comment on above: Performed By: #### C BC #### [facility] [address] [place] [address] Dr. Gloria Ayala Basophils/100 WBC (Bld) 0.6 % Normal 0.2-2.0 [facility] Comment on above: Performed By: #### C BC #### [facility] [address] [address] [address] Gloria Ayala EO # 0.1 103/ul Normal 0.0-0.7 [facility] Comment on above: Performed By: #### C BC #### [facility] [address] [place] [address] Dr. Gloria Ayala Eosinophils/100 WBC (Bld) 1.6 % Normal 0.9-7.0 [facility] Comment on above: Performed By: #### C BC #### [facility] [address] [place] [address] Dr. Gloria Ayala Erythrocyte distribution width (RBC) [Ratio] 13.6 % Normal 11.0-15.0 [facility] Comment on above: Performed By: #### C BC #### [facility] [address] [place] [address] Dr. Gloria Ayala Hematocrit (Bld) [Volume fraction] 49.8 % Normal 42.0-54.0 [facility] Comment on above: Performed By: #### C BC #### [facility] [address] [place] [address] Dr. Gloria Ayala Hemoglobin (Bld) [Mass/Vol] 15.7 g/dL Normal 14.0-18.0 [facility] Comment on above: Performed By: #### C BC #### [facility] [address] [place] [address] Dr. Gloria Ayala IG # 0.04 10e3/ul Critically high 0.00-0.03 [facility] Comment on above: Performed By: #### C BC #### [facility] [address] [place] [address] Dr. Gloria Ayala IG % 0.5 % Normal 0.0-0.5 [facility] Comment on above: Performed By: #### C BC #### [facility] [address] [place] [address] Dr. Gloria Ayala LYMPH # 1.1 103/ul Critically low 1.2-3.8 [facility] Comment on above: Performed By: #### C BC #### [facility] [address] [place] [address] Dr. Gloria Ayala Lymphocytes/100 WBC (Bld) 13.8 % Critically low 20.5-60.0 [facility] Comment on above: Performed By: #### C BC #### [facility] [address] [place] [address] Dr. Gloria Ayala MANUAL DIFF REQ NO Normal [facility] Comment on above: Performed By: #### C BC #### [facility] [address] [place] [address] Dr. Gloria Ayala MCH (RBC) [Entitic mass] 26.6 pg Normal 25.9-34.0 [facility] Comment on above: Performed By: #### C BC #### [facility] [address] [place] [address] Dr. Gloria Ayala MCHC (RBC) [Mass/Vol] 31.5 g/dL Normal 29.9-35.2 [facility] Comment on above: Performed By: #### C BC #### [facility] [address] [place] [address] Dr. Gloria Ayala MCV (RBC) [Entitic vol] 84.4 fL Normal 80.0-94.0 [facility] Comment on above: Performed By: #### C BC #### [facility] [address] [place] [address] Dr. Gloria Ayala MONO # 0.4 103/ul Normal 0.3-0.8 [facility] Comment on above: Performed By: #### C BC #### [facility] [address] [place] [address] Dr. Gloria Ayala Monocytes/100 WBC (Bld) 5.0 % Normal 1.7-12.0 [facility] Comment on above: Performed By: #### C BC #### [facility] [address] [place] [address] Dr. Gloria Ayala NEUT # 6.3 103/ul Normal 1.4-6.5 [facility] Comment on above: Performed By: #### C BC #### [facility] [address] [place] [address] Dr. Gloria Ayala Neutrophils/100 WBC (Bld) 78.5 % Critically high 43.0-75.0 [facility] Comment on above: Performed By: #### C BC #### [facility] [address] [place] [address] Dr. Gloria Ayala Platelet mean volume (Bld) [Entitic vol] 10.5 fL Normal 9.5-13.5 [facility] Comment on above: Performed By: #### C BC #### [facility] [address] [place] [address] Dr. Gloria Ayala PLT 151 103/ul Normal 150-450 [facility] Comment on above: Performed By: #### C BC #### [facility] [address] [place] [address] Dr. Gloria Ayala RBC 5.90 106/ul Normal 4.70-6.10 [facility] Comment on above: Performed By: #### C BC #### [facility] [address] [place] [address] Dr. Gloria Ayala WBC 8.0 103/ul Normal 4.0-11.0 [facility] Comment on above: Performed By: #### C BC #### [facility] [address] [place] [address] Dr. Gloria Ayala GLYCOHEMOGLOBIN A1Con 2022 ADA RECOMMENDATION SEE BELOW Normal [facility] Comment on above: Result Comment: ADA RECOMMENDED LIMIT 4.0 - 6.0 ADA THERAPEUTIC TARGET < 7.0 ACTION SUGGESTED > 7.0 Performed By: #### A 1C #### [facility] [address] [place] [address] Dr. Gloria Ayala Glucose [Mass/Vol] 123 mg/dL Normal [facility] Comment on above: Performed By: #### A 1C #### [facility] [address] [place] [address] Dr. Gloria Ayala HbA1c (Bld) [Mass fraction] 5.9 % Normal 4.5-6.2 [facility] Comment on above: Performed By: #### A 1C #### [facility] [address] [address] [address] Gloria Ayala LIPID PROFILEon 07-09-2022 CHOL-HDL RATIO NORM SEE BELOW Normal [facility] Comment on above: Result Comment: 3.3 - 4.4 LOW RISK 4.4 - 7.1 AVERAGE RISK 7.1 - 11.0 MODERATE RISK >11.0 HIGH RISK Performed By: #### L IPID, CMP #### [facility] [address] [address] [address] Gloria Ayala Cholesterol [Mass/Vol] 182 mg/dL Normal <=200 [facility] Comment on above: Performed By: #### L IPID, CMP #### [facility] [address] [address] [address] Gloria Ayala Cholesterol in HDL [Mass/Vol] 29 mg/dL Critically low 40-60 [facility] Comment on above: Performed By: #### L IPID, CMP #### [facility] [address] [address] [address] Gloria Ayala Cholesterol in LDL [Mass/Vol] 136.6 mg/dL Normal [facility] Comment on above: Performed By: #### L IPID, CMP #### [facility] [address] [address] [address] Gloria Ayala Cholesterol.total/Mamta sterol in HDL [Mass ratio] 6.3 {ratio} Normal [facility] Comment on above: Performed By: #### L IPID, CMP #### [facility] [address] [address] [address] Gloria Ayala HDL NORMAL > or = 60 mg/dl - LOW CARDIOVASCULAR RISK <40 mg/dl - HIGH CARDIOVASCULAR RISK Normal [facility] Comment on above: Performed By: #### L IPID, CMP #### [facility] [address] [address] [address] Gloria Ayala LDL CALC NORMAL SEE BELOW Normal [facility] Comment on above: Result Comment: <100 mg/dl OPTIMAL 100 - 129 mg/dl NEAR OR ABOVE OPTIMAL 130 - 159 mg/dl BORDERLINE HIGH 160 - 189 mg/dl HIGH >190 mg/dl VERY HIGH Performed By: #### L IPID, CMP #### [facility] [address] [address] [address] Gloria Ayala Triglyceride [Mass/Vol] 82 mg/dL Normal <=150 T [facility] Comment on above: Performed By: #### L IPID, CMP #### [facility] [address] [address] [address] Gloria Ayala VLDL CALC 16.4 mg/dL Normal [facility] Comment on above: Performed By: #### L IPID, CMP #### [facility] [address] [address] [address] Gloria Ayala MICROALBUMIN, RAND URon mALB 1.9 mg/L Normal <=30.0 [facility] Comment on above: Performed By: #### M ALBR #### [facility] [address] [place] [address] Dr. Gloria Ayala PROF 14(COMP METB)on 023 Albumin [Mass/Vol] 3.2 g/dL Critically low 3.4-5.0 [facility] Comment on above: Performed By: #### L IPID, CMP #### [facility] [address] [place] [address] Dr. Gloria Ayala Albumin/Globulin [Mass ratio] 0.8 {ratio} [facility] Comment on above: Performed By: #### L IPID, CMP #### [facility] [address] [place] [address] Dr. Gloria Ayala ALP [Catalytic activity/Vol] 85 U/L Normal 46-116 [facility] Comment on above: Performed By: #### L IPID, CMP #### [facility] [address] [address] [address] Gloria Ayala ALT [Catalytic activity/Vol] 15 U/L Critically low 16-63 [facility] Comment on above: Performed By: #### L IPID, CMP #### [facility] [address] [place] [address] Dr. Gloria Ayala Anion gap [Moles/Vol] 9.5 mmol/L Normal [facility] Comment on above: Performed By: #### L IPID, CMP #### [facility] [address] [address] [address] Gloria Ayala AST [Catalytic activity/Vol] 13 U/L Critically low 15-37 [facility] Comment on above: Performed By: #### L IPID, CMP #### [facility] [address] [place] [address] Dr. Gloria Ayala Bilirubin [Mass/Vol] 0.6 mg/dL Normal 0.2-1.0 [facility] Comment on above: Performed By: #### L IPID, CMP #### [facility] [address] [address] [address] Gloria Ayala Calcium [Mass/Vol] 8.4 mg/dL Critically low 8.5-10.1 [facility] Comment on above: Performed By: #### L IPID, CMP #### [facility] [address] [place] [address] Dr. Gloria Ayala Chloride [Moles/Vol] 102 mmol/L Normal 98-107 [facility] Comment on above: Performed By: #### L IPID, CMP #### [facility] [address] [place] [address] Dr. Gloria Ayala CO2 [Moles/Vol] 34.6 mmol/L Critically high 21.0-32.0 [facility] Comment on above: Performed By: #### L IPID, CMP #### [facility] [address] [place] [address] Dr. Gloria Ayala Creatinine [Mass/Vol] 0.97 mg/dL Normal 0.70-1.30 [facility] Comment on above: Performed By: #### L IPID, CMP #### [facility] [address] [place] [address] Dr. Gloria Ayala EGFR-AF JAPANESE >60 Normal >=60 [facility] Comment on above: Performed By: #### L IPID, CMP #### [facility] [address] [place] [address] Dr. Gloria Ayala EGFR-NON AF JAPANESE >60 Normal >=60 [facility] Comment on above: Performed By: #### L IPID, CMP #### [facility] [address] [address] [address] Gloria Ayala Globulin (S) [Mass/Vol] 4.1 g/dL Normal [facility] Comment on above: Performed By: #### L IPID, CMP #### [facility] [address] [address] [address] Gloria Ayala Glucose [Mass/Vol] 154 mg/dL Critically high 74-106 [facility] Comment on above: Performed By: #### L IPID, CMP #### [facility] [address] [place] [address] Dr. Gloria Ayala Potassium [Moles/Vol] 4.1 mmol/L Normal 3.5-5.1 [facility] Comment on above: Performed By: #### L IPID, CMP #### [facility] [address] [place] [address] Dr. Gloria Ayala Protein [Mass/Vol] 7.3 g/dL Normal 6.4-8.2 [facility] Comment on above: Performed By: #### L IPID, CMP #### [facility] [address] [place] [address] Dr. Gloria Ayala Sodium [Moles/Vol] 142 mmol/L Normal 136-145 [facility] Comment on above: Performed By: #### L IPID, CMP #### [facility] [address] [place] [address] Dr. Gloria Ayala Urea nitrogen [Mass/Vol] 10.0 mg/dL Normal 7.0-18.0 [facility] Comment on above: Performed By: #### L IPID, CMP #### [facility] [address] [place] [address] Dr. Gloria Ayala Urea nitrogen/Creatinine [Mass ratio] 10.3 mg/mg Normal [facility] Comment on above: Performed By: #### L IPID, CMP #### [facility] [address] [place] [address] Dr. Gloria Ayala UA RANDOM W/MICROSCOPICon BACTERIA NONE SEEN Normal NONE SEEN [facility] Comment on above: Performed By: #### U AMIC #### [facility] [address] [place] [address] Dr. Gloria Ayala Bilirubin Ql (U) Negative Normal NEGATIVE [facility] Comment on above: Performed By: #### U AMIC #### [facility] [address] [address] [address] Gloria Ayala CAST SEEN Abnormal NONE SEEN [facility] Comment on above: Performed By: #### U AMIC #### [facility] [address] [address] [address] Gloria Ayala Clarity (U) CLEAR Normal CLEAR [facility] Comment on above: Performed By: #### U AMIC #### [facility] [address] [place] [address] Dr. Gloria Ayala Color (U) YELLOW Normal YELLOW [facility] Comment on above: Performed By: #### U AMIC #### [facility] [address] [place] [address] Dr. Gloria Ayala Crystals LM Nom (Urine sed) NONE SEEN Normal NONE SEEN [facility] Comment on above: Performed By: #### U AMIC #### [facility] [address] [place] [address] Dr. Gloria Ayala Epithelial cells LM Ql (Urine sed) RARE Normal NONE SEEN /RARE [facility] Comment on above: Performed By: #### U AMIC #### [facility] [address] [address] [address] Gloria Ayala Glucose Ql (U) Negative Normal NEGATIVE [facility] Comment on above: Performed By: #### U AMIC #### [facility] [address] [address] [address] Gloria Ayala Hemoglobin Ql (U) Negative Normal NEGATIVE [facility] Comment on above: Performed By: #### U AMIC #### [facility] [address] [place] [address] Dr. Gloria Ayala HYALINE CAST RARE Normal [facility] Comment on above: Performed By: #### U AMIC #### [facility] [address] [address] [address] Gloria Ayala Ketones Ql (U) Negative Normal NEGATIVE [facility] Comment on above: Performed By: #### U AMIC #### [facility] [address] [place] [address] Dr. Gloria Ayala LEUKOCYTES Negative Normal NEGATIVE [facility] Comment on above: Performed By: #### U AMIC #### [facility] [address] [address] [address] Gloria Ayala MUCOUS NONE SEEN Normal NONE SEEN [facility] Comment on above: Performed By: #### U AMIC #### [facility] [address] [address] [address] Gloria Ayala Nitrite Ql (U) Negative Normal NEGATIVE [facility] Comment on above: Performed By: #### U AMIC #### [facility] [address] [place] [address] Dr. Gloria Ayala pH (U) 7.0 [pH] Normal 5-9 [facility] Comment on above: Performed By: #### U AMIC #### [facility] [address] [place] [address] Dr[address] Gloria Ayala RBC NONE SEEN Abnormal 0-2 [facility] Comment on above: Performed By: #### U AMIC #### [facility] [address] [place] [address] Dr. Gloria Ayala SPEC GRAVITY 1.015 Normal 1.005-<=1.025 [facility] Comment on above: Performed By: #### U AMIC #### [facility] [address] [place] [address] Dr. Gloria Ayala UA PROTEIN Negative Normal NEGATIVE/ TRACE [facility] Comment on above: Performed By: #### U AMIC #### [facility] [address] [place] [address] Dr. Gloria Ayala Urobilinogen Qn (U) 8 {Jonathan'U}/dL Abnormal 0.2 - 1.0 [facility] Comment on above: Performed By: #### U AMIC #### [facility] [address] [place] [address] Dr. Gloria Ayala WBC NONE SEEN Normal NONE SEEN [facility] Comment on above: Performed By: #### U AMI #### [facility] [address] [address] [address] Gloria Ayala Physician Referralon 022 Physician Referral [phone] [id number]:[id number] Normal [facility] GLYCOHEMOGLOBIN A1Con 2021 ADA RECOMMENDATION SEE BELOW Normal [facility] Comment on above: Result Comment: ADA RECOMMENDED LIMIT 4.0 - 6.0 ADA THERAPEUTIC TARGET < 7.0 ACTION SUGGESTED > 7.0 Performed By: #### A 1C #### [facility] [address] [place] [address] Dr. Gloria Ayala Glucose [Mass/Vol] 128 mg/dL Normal [facility] Comment on above: Performed By: #### A 1C #### [facility] [address] [place] [address] Dr. Gloria Ayala HbA1c (Bld) [Mass fraction] 6.1 % Normal 4.5-6.2 [facility] Comment on above: Performed By: #### A 1C #### [facility] [address] [place] [address] Dr. Gloria Ayala PROF CHEM 8 (BAS METB)on Anion gap [Moles/Vol] 8.5 mmol/L Normal [facility] Comment on above: Performed By: #### B MP #### [facility] [address] [place] [address] Dr. Gloria Ayala Calcium [Mass/Vol] 8.5 mg/dL Normal 8.5-10.1 [facility] Comment on above: Performed By: #### B MP #### [facility] [address] [place] [address] Dr. Gloria Ayala Chloride [Moles/Vol] 99 mmol/L Normal 98-107 [facility] Comment on above: Performed By: #### B MP #### [facility] [address] [address] [address] Gloria Ayala CO2 [Moles/Vol] 34.5 mmol/L Critically high 21.0-32.0 [facility] Comment on above: Performed By: #### B MP #### [facility] [address] [place] [address] Dr. Gloria Ayala Creatinine [Mass/Vol] 1.02 mg/dL Normal 0.70-1.30 [facility] Comment on above: Performed By: #### B MP #### [facility] [address] [place] [address] Dr. Gloria Ayala EGFR-AF JAPANESE >60 Normal >=60 [facility] Comment on above: Performed By: #### B MP #### [facility] [address] [place] [address] Dr. Gloria Ayala EGFR-NON AF JAPANESE >60 Normal >=60 [facility] Comment on above: Performed By: #### B MP #### [facility] [address] [place] [address] Dr. Gloria Ayala Glucose [Mass/Vol] 116 mg/dL Critically high 74-106 [facility] Comment on above: Performed By: #### B MP #### [facility] [address] [place] [address] Dr. Gloria Ayala Potassium [Moles/Vol] 4.0 mmol/L Normal 3.5-5.1 [facility] Comment on above: Performed By: #### B MP #### [facility] [address] [place] [address] Dr. Gloria Ayala Sodium [Moles/Vol] 138 mmol/L Normal 136-145 [facility] Comment on above: Performed By: #### B MP #### [facility] [address] [place] [address] Dr. Gloria Ayala Urea nitrogen [Mass/Vol] 11.0 mg/dL Normal 7.0-18.0 [facility] Comment on above: Performed By: #### B MP #### [facility] [address] [place] [address] Dr. Gloria Ayala Urea nitrogen/Creatinine [Mass ratio] 10.8 mg/mg Normal [facility] Comment on above: Performed By: #### B MP #### [facility] [address] [address] [address] Gloria Ayala Vital Signs Date Time Vital Sign Value Performing Clinician Facility 06-14-2023 17:39-0500 Body height 175.3 cm Irinalouise Leosteeteez NOC ANALYST Work Phone: [facility] 06-14-2023 17:39-0500 Body mass index (BMI) [Ratio] 40.61 kg/m2 Irina Aichholz NOC ANALYST Work Phone: [facility] 06-14-2023 17:39-0500 Body temperature 97.5 [degF] Irina Derichsallyz NOC ANALYST Work Phone: [facility] 06-14-2023 17:39-0500 Body weight 124.74 kg Irina Aichholz NOC ANALYST Work Phone: [facility] Comment on above: hospital bed weighed him at the hospital 06-14-2023 17:39-0500 Diastolic blood pressure 58 mm[Hg] Irina Aichholz NOC ANALYST Work Phone: [facility] 06-14-2023 17:39-0500 Heart rate 84 /min Irina Aichholz NOC ANALYST Work Phone: [facility] 06-14-2023 17:39-0500 Respiratory rate 19 /min Irina Aichholz NOC ANALYST Work Phone: [facility] 06-14-2023 17:39-0500 SaO2% (BldA) [Mass fraction] 99 % Irina Aichholz NOC ANALYST Work Phone: [facility] 06-14-2023 17:39-0500 Systolic blood pressure 110 mm[Hg] Irina Aichholz NOC ANALYST Work Phone: [facility] 05-27-2023 13:23-0500 Body height 176.5 cm Pmh 1 [facility] 05-27-2023 13:23-0500 Body mass index (BMI) [Ratio] 45.12 kg/m2 [facility] 1 [facility] 05-27-2023 13:23-0500 Body weight 140.62 kg Pmh 1 [facility] 05-05-2023 10:43-0500 Body temperature 97 [degF] Sybil Tobin APRN-BIOMETRICS HEAD Work Phone: [facility] 05-05-2023 10:43-0500 Diastolic blood pressure 66 mm[Hg] Sybil Tobin [employer] ARCHITECT-[employer] HEAD Work Phone: [facility] 05-05-2023 10:43-0500 Heart rate 80 /min Sybil Tobin [employer] ARCHIT[employer] Work Phone: [facility] 05-05-2023 10:43-0500 Respiratory rate 16 /min Sybil Tobin [employer] ARCHITECT-[employer] Work Phone: [facility] 05-05-2023 10:43-0500 Systolic blood pressure 116 mm[Hg] Sybil Tobin [employer] ARCHITECT-[employer]ETR[employer] HEAD Work Phone: [facility] Encounters Encounter Date Encounter Type Care Provider Facility Start: 06-14-2023 End: 06-14-2023 ambulatory IRINA MCLEOD Not Available Start: 06-14-2023 End: 06-14-2023 Office outpatient visit 25 minutes Irina Mcleod NOC ANALYST Work Phone: [facility] Comment on above: ROSSY (acute kidney in jury) (CMS/HCC) (Primary Dx); Pilonidal cyst; Edema of extremities; Primary osteoarthritis of both knees; Benign essential hypertension (CMS/HCC); COVID Start: 06-14-2023 Bamboo flowsheet Irina Mcleod NOC ANALYST Work Phone: [facility] Start: 06-14-2023 Bamboo flowsheet Irina Mcleod NOC ANALYST Work Phone: [facility] Start: 06-14-2023 Telephone encounter [facility] Start: 06-09-2023 Refill Irina Mcleod NOC ANALYST Work Phone: [facility] Comment on above: Dyslipidemia (CMS/HC C) (Primary Dx) Start: 06-08-2023 Refill Irina Mcleod NOC ANALYST Work Phone: [facility] Comment on above: Restless legs (Prima ry Dx) Start: 06-02-2023 Clinisync Result Encounter Generic External Data Provider [facility] Unsolicited Start: 06-02-2023 Clinisync Result Encounter Generic External Data Provider [facility] Unsolicited Start: 05-31-2023 End: 05-31-2023 Evaluation and management of inpatient FRANKIE BISHOP [facility] Start: 05-27-2023 End: 05-27-2023 ambulatory IRINA MCLEOD [facility] Start: 05-27-2023 End: 05-27-2023 ambulatory [facility] Pat Phone Call Provider 1 [facility] - Pre Admit Start: 05-21-2023 End: 06-03-2023 ambulatory SYBIL English MAHAD [facility] Start: 05-19-2023 End: 05-19-2023 ambulatory IRINA MCLEOD Not Available Start: 05-11-2023 End: 05-11-2023 ambulatory [facility] Start: 05-05-2023 End: 05-05-[address] [facility] Start: 05-05-2023 End: 05-05-2023 Office outpatient visit 10 minutes Sybil Tobin [employer] ARCHITECT-[employer] HEAD Work Phone: [facility] Comment on above: Chronic recurrent pi lonidal cyst (Primary Dx); Abscess of multiple sites of buttock Start: 04-13-2023 End: 04-13-2023 ambulatory [facility] Start: 04-13-2023 End: 04-13-2023 Encounter for preprocedural cardiovascular examination [facility] Start: 04-07-2023 Preoperative state Generic Provider [facility] Start: 04-07-2023 End: 12-06-2023 ambulatory IRINA MCLEOD Not Available Start: 10-26-2022 ambulatory Arlen Dakota castillo PA-C Facility[facility] Start: 09-21-2022 End: 09-22-2022 ambulatory Irina Mcleod [employer] Facility:[facility] Start: 08-04-2022 End: 08-04-2022 ambulatory JOSE ELIAS DAI Facility:[facility] Start: 07-23-2022 End: 07-24-2022 ambulatory JUDY MCLEOD Facility:[facility] Start: 07-09-2022 End: 07-10-2022 ambulatory JUDY MCLEOD Facility:[facility] Start: 09-15-2021 End: 09-16-2021 ambulatory JUDY MCLEOD Facility:[facility] Procedures Date Procedure Procedure Detail Performing Clinician Start: 06-02-2023 BLOOD CULTURE 2 Generic External Data Provider Start: 06-02-2023 BLOOD CULTURE 1 Generic External Data Provider Start: 05-05-2023 NURSING COMMUNICATION M iman Tobin [employer] Work Phone: Start: 07-09-2022 PSA screening BIOMETRICS HEAD IRINA MCLEOD Comment on above: Performed By: #### P [facility] #### [facility] [address] [place] [address] Dr. Gloria Ayala Plan of Treatment Date Care Activity Detail Author Start: 04-07-2025 Glaucoma screening Diabetes: R etinopathy Screening [facility] Start: 05-31-2024 Adult BMI Screening Adult BMI Screen ing [facility] Start: 05-31-2024 Tobacco Screening Tobacco Screening [facility] Start: 05-28-2024 Tobacco Screening Tobacco Screening [facility] Start: 05-27-2024 Adult BMI Screening Adult BMI Screen ing [facility] Start: 04-19-2024 Adult BMI Screening Adult BMI Screen ing [facility] Start: 04-07-2024 Pneumococcal Vaccine : 65+ Years (1 - PCV) Pneumococcal Vaccine: 65+ Years (1 - PCV) [facility] Comment on above: Postponed from 03/25 (Patient Refused) Start: 04-05-2024 Tobacco Screening Tobacco Screening [facility] Start: 10-31-2023 Influenza vaccination Influenza Vacc ine (#1) [facility] Comment on above: Postponed from 01/01 (Patient Refused) Start: 09-06-2023 Screening for malign ant neoplasm of colon [facility] Start: 08-18-2023 End: 08-18-2023 Patient encounter procedure 08/18/2023 9:40 AM EDT Office Visit [facility] [address] [place] [address] Irina Mcleod NP [address] [place] [address] [facility] Start: 07-10-2023 Urine screening for protein Diabetes: Urine Protein Screening [facility] Start: 07-06-2023 End: 07-06-2023 Patient encounter procedure 07/06/2023 11:00 AM EST Office Visit [facility] [address] [place] [address] Irina Mcleod, KARI [address] [place] [id number] [facility] Start: 06-15-2023 End: 06-15-2023 Patient encounter procedure 06/15/2023 3:30 PM EST Office Visit [facility] [address] [place] [address] Arlen Estrada, [employer] [address] [place] [address] [facility] Start: 06-14-2023 End: 06-14-2023 Patient encounter procedure [facility] Comment on above: Arrived Start: 06-14-2023 End: 06-14-2024 Basic metabolic 1998 panel - Serum or Plasma Basic metabolic panel Lab Routine ROSSY (acute kidney injury) (CMS/HCC) Expected: 06/14/2023 (Approximate), Expires: 06/14/2024 [facility] Work Phone: Comment on above: Expected: 06/14/2023 (Approximate), Expires: 06/14/2024 Start: 05-31-2023 End: 05-31-2023 Admission to same day surgery center 05/31/2023 12:15 PM EST - 05/31/2023 1:[address] [facility] [address] [place] [address] Amber Valdovinos MD [address] [place] [phone] EXCISION CYST PILONIDAL [87612 (CPT )] [facility] Comment on above: EXCISION CYST PILONI SHAYAN [83135 (CPT )] Start: 05-31-2023 End: 05-31-2023 Anesthesia consultation 05/31/2023 12:15 PM EST Anesthesia Event [facility] [address] [place] [address] Frankie Bishop MD [address] [place] [address] [facility] Start: 05-31-2023 End: 05-31-2023 Excision pilonidal cyst/sinus simple EXCISION CYST PILONIDAL pilonidal cyst 05/31/2023 12:[facility] Start: 05-31-2023 Subsequent hospital visit by physician 05/31/2023 12:15 PM EST Hospital Encounter [facility] [address] [place] [address] Amber Valdovinos MD [address] [place] [phone] [facility] Start: 05-21-2023 End: 05-21-2023 Patient encounter procedure 05/21/2023 11:00 AM EST Office Visit [facility] [address] [place] [phone] Sybil Tobin, [employer] ARCHITECT[facility] [address] [place] [address] [facility] Start: 05-11-2023 End: 05-11-2023 Patient encounter procedure 05/11/2023 2:00 PM EST Office Visit [facility] [address] [facility] [place] [phone] Amber Valdovinos MD [address] [place] [address] [facility] Start: 01-01-2023 COVID-19 Vaccine ( season) COVID-19 Vaccine ( season) [facility] Start: 01-01-2023 Influenza vaccination Influenza Vacc ine [facility] Start: 10-09-2022 Hemoglobin A1c measurement Diabetes: Hemoglobin A1C [facility] Start: 2022 Fall Risk Screening Fall Risk Screen ing [facility] Start: 2007 Administration of varicella zoster vaccine Zoster (Shingles) Vaccine (1 of 2) [facility] Start: 1976 DTaP,Tdap and Td Vac cines (1 - Tdap) DTaP,Tdap and Td Vaccines (1 - Tdap) [facility] Start: 1975 Adult BMI Follow Up Plan Adult BMI Follow Up Plan [facility] Start: 1969 Depression Screening Depression Scre ening [facility] Start: 1955 Medicare Annual Well ness Visit Medicare Annual Wellness Visit [facility] Start: 1955 Screening for malign ant neoplasm of colon [facility] BLOOD CULTURE 1 BLOOD CULTURE 1 Lab Routine 06/02/2023 10:53 AM EST [facility] BLOOD CULTURE 2 BLOOD CULTURE 2 Lab Routine 06/02/2023 10:58 AM EST [facility] Immunizations Immunization Date Immunization Notes Care Provider Fa ciliefrem 08-02-2020 Pfizer Purple Cap SARS-CoV-2 Vaccination Irina Mcleod NOC ANALYST Work Phone: [facility] Payers Date Payer Category Payer Self-pay 2003 Medicaid [id number] 1959 Unknown [id number] 1957 Unknown [id number] 2.16.84 [id number] 1957 Unknown [id number] 2.16.84 [id number] 1957 Unknown [id number] 2.16.84 [id number] 1957 Unknown [id number] 2.16.84 [id number] 1957 Unknown [id number] 2.16. [id number] 1957 Unknown [id number] 2.16.84 0.1.009054.3.579.2.1286 1957 Unknown [id number] 2.16.8 40.1.821900.3.579.2.1286 1957 Unknown [id number] 2.16.8 40.1.177649.3.579.2.1286 1957 Unknown [id number] 2.16.8 [id number] 1957 Unknown [id number] 2.16.8 [id number] 1957 Unknown [id number] 2.16.8 [id number] 1957 Unknown [id number] 2.16.84 [id number] 1957 Unknown [id number] 2.16.84 [id number] 1957 Unknown [id number] 2.16.84 [id number] 1957 Unknown [id number] 2.16.840 .[id number] Social History Date Type Detail Facility Start: 03-30-2023 End: 05-31-2023 Tobacco smoking status NHIS Ex-smoker [facility] End: 05-03-2023 History of tobacco use Current smoker [facility] End: 05-03-2023 History of tobacco use Cigarette Smoker [facility] Start: 05-05-2023 End: 06-14-2023 Alcohol intake Lifetime non-drinker (finding) [facility] Start: 06-13-2020 End: 05-05-2023 History of Social function [facility] Start: 06-13-2020 End: 05-05-2023 Tobacco use panel [facility] Housing Instability Unknown [facility] Start: 1955 Sex Assigned At Not on file P [facility] Start: 05-11-2023 End: 05-31-2023 Alcohol intake Ex-drinker (finding) [facility] Start: 04-10-2023 End: 05-31-2023 Tobacco use and exposure Smokeless tobacco non-user [facility] Start: 04-10-2023 Tobacco Comment 1-9 cigarettes/day [facility] Clinical Notes 04-13-2023 to 06-14-2023 Irina Mcleod NP - 06/14/2023 7:39 PM Sreedhar Mcleod NP - 06/14/2023 7:39 PM Sreedhar Mcleod NP - 06/14/2023 7:39 PM Sreedhar Mcleod NP - 06/14/2023 7:38 PM ESTPatient Instructions Note Date & Type Note Facility 06-14-2023 History of Present illness Narrative Associated Problem(s): COVID Returning to baseline Associated Problem(s): Benign essential hypertension (CMS/HCC) Stable at this time Associated Problem(s): Primary osteoarthritis of both knees Would like referral to ortho in [place] Associated Problem(s): Edema of extremities stable Associated Problem(s): ROSSY (acute kidney injury) (CMS/HCC) Will reassess kidney function Therapy seen him today talked to him about seeing a surgeons in [place] to fix up his knees. Fell 3 times being home Feet are swollen Pt is asking for a powered wheelchair and hospital bed Images from the original note were not included. Carlos Persaud is a 68 y.o. male presents with chief complaint of No chief complaint on file. HPI: Here for a hospital fu: covid and ROSSY, See [facility] ER notes for HPI, I have [...] Oral, Daily, Do not crush or chew. Vtuhxdlqgrq-Qhpbwspfw-Uxxuty (Trelegy Ellipta) 100-62.5-25 MCG/ACT aerosol powder 1 [...] obstructive pulmonary disease) (CMS/HCC) COPD with exacerbation ([facility]) DDD (degenerative disc disease), lumbar Dyslipidemia ([facility]/HCC) Edema of extremities GERD without esophagitis Head mass ? Glioma Hypertension (CMS/[facility]) Hypocalcemia Influenza vaccination declined Insomnia Morbid obesity with BMI of 45.0-49.9, adult ([facility]) Neoplasm of uncertain behavior of skin Non-compliant patient Nonspecific abnormal electrocardiogram (ECG) (EKG) 04/13/2023 Other emphysema ([facility]) 04/07/2023 Otitis externa, left Pain and swelling of elbow, left Pilonidal cyst Pre-operative clearance 04/07/2023 Primary osteoarthritis of both knees Restless leg Rising PSA level Screening for prostate cancer Stasis edema of both lower extremities Thrombocytopenia ([facility]) Tobacco user Type 2 diabetes mellitus with peripheral neuropathy ([facility]) Urine discoloration Past Surgical History: Procedure Laterality [...] knees Would like referral to ortho in [place] ROSSY (acute kidney injury) (CMS/HCC) Will reassess kidney function Relevant Orders Basic metabolic panel COVID Returning to baseline documented in this encounter [facility] 06-14-2023 Miscellaneous Notes The patient is still [...] that under control. documented in this encounter [facility] 06-14-2023 Telephone encounter Note The patient is [...] re-schedule once they get that under control. [facility] 05-27-2023 Miscellaneous Notes Preoperative Education Checklist- General Surgery date: 05/31/23 Surgery time: 1215 Arrival time: 1015 1. Bring a photo ID and your insurance card with you the day of surgery. You will check in at the main lobby of the [facility]- registration desk is straight ahead as soon as you walk in. Tell them you are here for surgery. 2. If you have a Living Will/Durable Power of [employer]url[employer] for Health Care that is not on [...] after you have bathed. 5. NO nail ecuadorean/acrylic on at least one finger. If you are having a hand, wrist or foot surgery then all nail ecuadorean and artificial/acrylic nails must be removed from [...] please call the Preadmission Testing office at [phone], Mon.-Fri. 7 a.m.-3 p.m. Leave a voicemail [...] prior to procedure documented in this encounter [facility] 05-27-2023 Nurse Note Preoperative Education Checklist- General Surgery date: 05/31/23 Surgery time: 1215 Arrival time: 1015 1. Bring a photo ID and your insurance card with you the day of surgery. You will check in at the main lobby of the [facility]- registration desk is straight ahead as soon as you walk in. Tell them you are here for surgery. 2. If you have a Living Will/Durable Power of Burl[employer]er for Health Care that is not on [...] after you have bathed. 5. NO nail ecuadorean/acrylic on at least one finger. If you are having a hand, wrist or foot surgery then all nail ecuadorean and artificial/acrylic nails must be removed from [...] please call the Preadmission Testing office at [phone], Mon.-Fri. 7 a.m.-3 p.m. Leave a voicemail [...] Stop taking 0 days prior to procedure [facility] 05-05-2023 History of Present illness Narrative Images from the original note were not included. Wound Care Progress Note Patient: Carlos Persaud Date of : 1955 Chief Compliant: Buttock wounds, pilonidal cyst disease SUBJECTIVE/HPI: Carlos is a 68 y.o. male who presents to [facility] for evaluation of 2 tunneling [...] (Active) Wound Image 05/05/23 1044 Site Assessment Red;[place] 05/05/23 1044 [place]-wound Assessment Blanchable erythema;[place] 05/05/23 1044 Wound Length (cm) 1 cm [...] cleanser 05/05/23 1044 Debridement Performed? N 05/05/23 104 Wound Bed Granulation (%) 100% 05/05/23 1044 Wound 03/12/23 2 Coccyx Inferior (Active) Site Assessment Red 05/05/23 104 [place]-wound Assessment Blanchable erythema;[place] 05/05/234 Wound Length (cm) 1.5 cm 05/05/23 1044 Wound Width (cm) 1 cm 05/05/23 1044 Wound Surface Area (cm^2) 1.5 cm^2 05/05/23 1044 Wound Depth (cm) 0.5 cm 05/05/234 Wound Volume (cm^3) 0.75 cm^3 05/05/231043 Change in Wound Size % -167.86 05/05/23 104 Drainage Description Serosanguineous;Phan;Yellow;Odor Foul 05/05/234 Drainage Amount Large Copious 05/05/23 1044 Treatments Cleansed with;Wound cleanser;Moisturizing cream 05/05/23 1044 Debridement Performed? N 05/05/23 1044 Wound Bed Granulation (%) 100% 05/05/231043 Assessment/Plan/Education: [...] to coccyx. Short term goal: medical compliance detention goal: wound closure Patient verbalize understanding of [...] procedures Referring and communicating with other health urgent care physician (not separately reported) Documenting clinical information in the electronic or other health record Sybil Tobin APRN, JUDY, CWS, RUFINA [facility]: [phone] K[place] 05/05/23 1133 documented in this encounter [facility] 05-05-2023 Instructions So Angela RN - 05/05/2023 [...] serosang Phan, yellow [facility] [place] [facility] Subjective Carlos Persaud is a 68 [...] mout (more content not included)... [facility] Evaluation note Diagnosis Chronic recurrent pilonidal cyst- Primary Abscess of multiple sites of buttock [facility] Restless legs- Primary Restless legs syndrome (RLS) [facility] Diagnosis Dyslipidemia ([facility]/H[facility])- Primary Other and unspecified hyperlipidemia [facility]* Diagnosis ROSSY (acute kidney injury) ([facility])- Primary Pilonidal cyst Edema of extremities Edema Primary osteoarthritis of both knees Benign essential hypertension ([facility]/HCC) Essential hypertension, benign COVID documented in this encounter [facility] HealthcareInstructionsNot on filedocumented in this encounterProPark[facility] SystemInstructionsNot on filedocumented in this encounterProParkview [facility] SystemReason for referral (narrative)* Consultation (Routine) - Pending Review Specialty Diagnoses / Procedures Referred By Sushma feliz Referred To Contact Orthopaedic Surgery Diagnoses Primary osteoarthritis of both knees Irina Mcleod NP [address] [place] [address] Referral ID Status Reason Start Date Expiration Date Visits Requested Visits Authorized [id number] Pending Review Specialty Services Required 06/14/2023 12/11/2023 [address] Juan Alberto Collazo [facility] Summary Purpose Family [...] sites of buttock Procedures [facility] Sybil Tobin, [employer] [address] [place] [address] Referral ID Status Reason Start Date Expiration Date V isits Requested Visits Authorized [id number] Pending Review 05/05/2023 05/04/2024 1 1 Specialty Diagnoses / Procedures Referred By Contac t Referred To Contact Diagnoses Abscess of multiple sites of buttock Procedures [facility] Sybil Tobin, [employer] [address] [place] [address] Referral ID Status Reason Start Date Expiration Date V isits Requested Visits Authorized [id number] Pending Review 05/05/2023 05/04/2024 1 1 Additional Source Comments (unrecognized sect ion and content) No Status Records FoundNo Status Records FoundNo Status Records FoundNo Status Records FoundNo Status Records FoundNo Status Records FoundNo Status Records Found INFORMATION SOURCE (unrecogn ized section and content) DATE CREATED AUTHOR 12/03/2021 [facility] DATE CREATED AUTHOR AUTHOR'S ORGANIZ ATION 08/07/2022 [facility] DATE CREATED AUTHOR AUTHOR'S ORGANIZ ATION 10/24/[address] [facility] DATE CREATED AUTHOR AUTHOR'S ORGANIZ ATION 04/15/2023 [facility] DATE CREATED AUTHOR AUTHOR'S ORGANIZ ATION 05/16/2023 [facility] DATE CREATED AUTHOR AUTHOR'S ORGANIZ ATION 06/06/2023 [facility] DATE CREATED AUTHOR AUTHOR'S ORGANIZ ATION 06/16/2023 [facility] EPIC Reason for Visit (unrecogniz ed section and content) Reason Comments Wound Check Reason Comments Med Refill Care Teams (unrecognized sec tion and content) Planer Setter Relationship Specialty Start Date End Date Irina Mcleod, [employer] [address] [place] [phone] PCP - General Nurse Practitioner 09/24/16 Planer Setter Relationship Specialty Start Date End Date Irina Mcleod APRN-[facility] [address] [place] [phone] PCP - General Nurse Practitioner 09/24/16 Planer Setter Relationship Specialty Start Date End Date Zachary Melton MD [address] [place] [phone] PCP - General Family Medicine 04/06/23 Irina Mcleod NP [address] [place] [phone] Nurse Practitioner Family Medicine 05/03/22 Planer Setter Relationship Specialty Start Date End Date Zachary Melton MD [address] [place] [phone] PCP - General Family Medicine 04/06/23 Irina Mcleod NP [address] [place] [address] Nurse Practitioner Family Medicine 05/03/22 Planer Setter Relationship Specialty Start Date End Date Zachary Melton MD [address] [place] [phone] PCP - General Family Medicine 04/06/23 Irina Mcleod NP [address] [place] [phone] Nurse Practitioner Family Medicine 05/03/22 Planer Setter Relationship Specialty Start Date End Date Zachary Melton MD [address] [place] [phone] PCP - General Family Medicine 06/14/23 Irina Mcleod NP [address] [place] [phone] Nurse Practitioner Family Medicine 05/03/22 Planer Setter Relationship Specialty Start Date End Date Zachary Melton MD [address] [place] [phone] PCP - General Family Medicine 06/14/23 Irina Mcleod NP [address] [place] [phone] Nurse Practitioner Family Medicine 05/03/22 Planer Setter Relationship Specialty Start Date End Date Irina Mcleod, [employer] [address] [place] [phone] PCP - General Nurse Practitioner 09/24/16 FOR [...] BE BASED ON THE PRIMARY CLINICAL RECORDS. [facility] [employer] [facility]. provides no warranty or guarantee of the accuracy or completeness of information in this document.
[2023-07-28 13:40] LABS: Anion Gap 9.5; BUN Creatinine Ratio 11.7; Calcium 8.5 mg/dL (8.5-10.1); Carbon Dioxide 33.4 mmol/L (21.0-32.0); Chloride 101 mmol/L (98-107); Estimated GFR (African America 46 (>=60); Estimated GFR (Non-African Ame 38 (>=60); Glucose 95 mg/dL (74-106); Potassium 3.9 mmol/L (3.5-5.1); Sodium 140 mmol/L (136-145)
== END 2023-07-28 11:47 | disposition home or self-care (01) ==
LOC: LAB 11:48
PROVIDERS: PCP Nurse Practitioner; Visit Provider Nurse Practitioner
DX: R60.0 Localized edema (principal)
CPT/HCPCS: 36415; 80048

== ENCOUNTER 2023-07-29 15:51 | Outpatient (OUT) | payer OTHER, SELFPAY ==
--- NOTE | 2023-07-29 16:00 | US_ITS ---
The [address] [address] Patient Name: CARLOS DUQUE MRN: [id number] date: 1955 Sex: M Assigned Patient Location: US Current Patient Location: US Accession/Order Number: [id number] Exam Date: 07/29/2023 16:18 Report Date: 07/29/2023 18:37 At the request of: LAURA FRANKLIN Procedure: US venous doppler LE BI DUPLEX ULTRASOUND BILATERAL LOWER EXTREMITIES: TECHNIQUE: Fuentes-scale and Duplex ultrasound was performed of the both lower extremities. FINDINGS: There is normal fuentes scale, color, and spectral Doppler of the right and left common femoral, superficial femoral, greater saphenous, l veins with no evidence of deep venous thrombosis. Compressibility and augmentation of the Doppler waveform was observed at several levels. Compressibility was seen within the bilateral peroneal and anterior tibial veins but visualization is limited due to patient body habitus and edema. The posterior tibial veins are not visualized. Note is made of moderate subcutaneous edema in the calves bilaterally. US/US venous doppler LE BI IMPRESSION: 1. Negative for bilateral lower extremity deep venous thrombosis with limited visualization of the calf veins. 2. Subcutaneous edema in the calves bilaterally. Electronically authenticated by: ABRAHAM OSORIO Date: 07/29/2023 18:37
--- OUTSIDE RECORDS SUMMARY | 2023-07-29 17:25 | XMS_ITS | CCD ---
Author Organization [facility] Care Team Providers Care Tester [employer] Name Role Phone AICHHOLZ, DRUM ATTENDANT IRINA Admitting Unavailable AICHHOLZ, DRUM ATTENDANT IRINA Primary Care Unavailable AICHHOLZ, DRUM ATTENDANT IRINA Consulting Unavailable AICHHOLZ, DRUM ATTENDANT IRINA Attending Unavailable AICHHOLZ, DRUM ATTENDANT IRINA Admitting Unavailable AICHHOLZ, DRUM ATTENDANT IRINA Primary Care Unavailable AICHHOLZ, DRUM ATTENDANT IRINA Consulting Unavailable AICHHOLZ, DRUM ATTENDANT IRINA Attending Unavailable AICHHOLZ, DRUM ATTENDANT IRINA Admitting Unavailable AICHHOLZ, DRUM ATTENDANT IRINA Primary Care Unavailable AICHHOLZ, DRUM ATTENDANT IRINA Consulting Unavailable AICHHOLZ, DRUM ATTENDANT IRINA Attending Unavailable JOSE ELIAS DAI Admitting Unavailable JOSE ELIAS DAI Consulting Unavailable JOSE ELIAS DAI Attending Unavailable AICHHOLZ, DRUM ATTENDANT IRINA Primary Care Unavailable Jose PARKER, Arlen Duncan Attending Unavageorgia hooksle Aichholz ROUSTABOUT PUSHER-DRUM ATTENDANT, Irina Jo Referring Kristineva Too Manriquez MD Attending Unavaila JAYLIN Flynn Attending Unavailable Aichholz [facility], Irina J Primary Care Provider AMBER VALDOVINOS Attending Unavailable AICHHOLZ, IRINA J Referring Unavailable AICHHOLZ, IRINA J Primary Care Unavailable Aichholz FLATWORK PRESSER, Irina Unavailable Zachary Melton MD Primary Care Provider [phone] SYBIL TOBIN Attending Unavailable AICHHOLZ, IRINA J [...] Facility (1 source) Cephalexin Drug Allergy [facility] Repository (1 source) Clindamycin Drug Allergy [facility] Rep[facility] (1 source) levoFLOXacin Drug Allergy [facility] Repository (10 sources) Cephalosporins (Antibiotic); Translations: [CEPHALOSPORINS] Propensity to adverse reactions to drug (disorder) 04-06-20 Rash, Unknown [facility] Repository (10 sources) Clindamycin; Translations: [CLINDAMYCIN] Drug Allergy 04-06-20 Rash, Unknown [facility] Repository (10 sources) levoFLOXacin; Translations: [LEVOFLOXACIN] Drug Allergy 04-06-20 Rash, Unknown [facility] Repository Medications Current Medications Medication Drug Class(es) Dates Sig (Normalized) Sig (Original) [id number] 200 actuat albuterol 0.09 mg/actuat metered dose inhaler (14 sources) beta2-Adrenergic Agonist Start: 05-11-2023 End: 06-10-2023 take 2 puff(s) by inhalation every six hours for wheezing albuterol HFA 90 mcg/act inhaler Indications: Other emphysema ([facility]) Inhale 2 puffs every 6 (six) hours [...] evening. Take with meals. 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) drug therapy; Translations: [OTH GROUP HOME CURRENT DRUG THERAPY] Onset: 3 Episodic Other aftercare (1 source) intermodal customer service (current) use of oral hypoglycemic drugs; Translations: [RESTAURANT LINE SERVER USE ORAL HYPOGLYCEMIC DX] Onset: 3 Episodic [...] Panel InformationOrdered By: So [facility] 04-13-2023 Follow-up visit [id number] Carlos Persaud 1955 M Date Provider Department Center 04/13/2023 JAYLIN HUGHES [facility] No family history on file Level of Service:43578 NM OFFICE/OUTPATIENT NEW MODERATE MDM 45-59 MINUTES Normal [facility] UA RANDOM W/MICROSCOPICon BACTERIA NONE SEEN Normal NONE SEEN [facility] Comment on above: Performed By: #### U AMIC #### [facility] [address] [address] [address] Gloria Ayala Bilirubin Ql (U) Negative Normal NEGATIVE [facility] Comment on above: Performed By: #### U AMIC #### [facility] [address] [place], [place] [address] Dr. Gloria Ayala CAST NONE SEEN Normal NONE SEEN [facility] Comment on above: Performed By: #### U AMIC #### [facility] [address] [address] [address] Gloria Ayala Clarity (U) CLEAR Normal CLEAR [facility] Comment on above: Performed By: #### U AMIC #### [facility] [address] [address] [address] Gloria Ayala Color (U) YELLOW Normal YELLOW [facility] Comment on above: Performed By: #### U AMIC #### [facility] [address] [address] [address] Gloria Ayala Crystals LM Nom (Urine sed) NONE SEEN Normal NONE SEEN [facility] Comment on above: Performed By: #### U AMIC #### [facility] [address] [address] [address] Gloria Ayala Epithelial cells LM Ql (Urine sed) NONE SEEN Normal NONE SEEN /RARE [facility] Comment on above: Performed By: #### U AMIC #### [facility] [address] [place] [address] Dr. Gloria Ayala Glucose Ql (U) Negative Normal NEGATIVE [facility] Comment on above: Performed By: #### U AMIC #### [facility] [address] [place] [address] Dr. Gloria Ayala Hemoglobin Ql (U) Negative Normal NEGATIVE [facility] Comment on above: Performed By: #### U AMIC #### [facility] [address] [place] [address] Dr. Gloria Ayala Ketones Ql (U) TRACE Abnormal NEGATIVE [facility] Comment on above: Performed By: #### U AMIC #### [facility] [address] [place] [address] Dr. Gloria Ayala LEUKOCYTES Negative Normal NEGATIVE [facility] Comment on above: Performed By: #### U AMIC #### [facility] [address] [place] [address] Dr. Gloria Ayala MUCOUS NONE SEEN Normal NONE SEEN [facility] Comment on above: Performed By: #### U AMIC #### [facility] [address] [address] [address] Gloria Ayala Nitrite Ql (U) Negative Normal NEGATIVE [facility] Comment on above: Performed By: #### U AMIC #### [facility] [address] [address] [address] Gloria Ayala pH (U) 5.5 [pH] Normal 5-9 [facility] Comment on above: Performed By: #### U AMIC #### [facility] [address] [place] [address] Dr. Gloria Ayala RBC 0-2 Normal 0-2 [facility] Comment on above: Performed By: #### U AMIC #### [facility] [address] [place] [address] Dr. Gloria Ayala SPEC GRAVITY 1.020 Normal 1.005-<=1.025 [facility] Comment on above: Performed By: #### U AMIC #### [facility] [address] [place] [address] Dr. Gloria Ayala UA PROTEIN Negative Normal NEGATIVE/ TRACE [facility] Comment on above: Performed By: #### U AMIC #### [facility] [address] [place] [address] Dr. Gloria Ayala Urobilinogen Qn (U) 2.0 {Jonathan'U}/dL Abnormal 0.2 - 1. 0 [facility] Comment on above: Performed By: #### U AMIC #### [facility] [address] [place] [address] Dr. Gloria Ayala WBC NONE SEEN Normal NONE SEEN [facility] Comment on above: Performed By: #### U AMIC #### [facility] [address] [place] [address] Dr. Gloria Ayala CBC AUTO DIFFon 07-09-2022 BASO # 0.1 103/ul Normal 0.0-0.1 [facility] Comment on above: Performed By: #### C BC #### [facility] [address] [place] [address] Dr. Gloria Ayala Basophils/100 WBC (Bld) 0.6 % Normal 0.2-2.0 [facility] Comment on above: Performed By: #### C BC #### [facility] [address] [address] [address] Gloria Ayala EO # 0.1 103/ul Normal 0.0-0.7 [facility] Comment on above: Performed By: #### C BC #### [facility] [address] [place] [address] Dr. Gloria Ayala Eosinophils/100 WBC (Bld) 1.6 % Normal 0.9-7.0 [facility] Comment on above: Performed By: #### C BC #### [facility] [address] [place] [address] Dr. Gloria Ayala Erythrocyte distribution width (RBC) [Ratio] 13.6 % Normal 11.0-15.0 [facility] Comment on above: Performed By: #### C BC #### [facility] [address] [place] [address] Dr. Gloria Ayala Hematocrit (Bld) [Volume fraction] 49.8 % Normal 42.0-54.0 [facility] Comment on above: Performed By: #### C BC #### [facility] [address] [place] [address] Dr. Gloria Ayala Hemoglobin (Bld) [Mass/Vol] 15.7 g/dL Normal 14.0-18.0 [facility] Comment on above: Performed By: #### C BC #### [facility] [address] [place] [address] Dr. Gloria Ayala IG # 0.04 10e3/ul Critically high 0.00-0.03 [facility] Comment on above: Performed By: #### C BC #### [facility] [address] [place] [address] Dr. Gloria Ayala IG % 0.5 % Normal 0.0-0.5 [facility] Comment on above: Performed By: #### C BC #### [facility] [address] [place] [address] Dr. Gloria Ayala LYMPH # 1.1 103/ul Critically low 1.2-3.8 [facility] Comment on above: Performed By: #### C BC #### [facility] [address] [place] [address] Dr. Gloria Ayala Lymphocytes/100 WBC (Bld) 13.8 % Critically low 20.5-60.0 [facility] Comment on above: Performed By: #### C BC #### [facility] [address] [place] [address] Dr. Gloria Ayala MANUAL DIFF REQ NO Normal [facility] Comment on above: Performed By: #### C BC #### [facility] [address] [place] [address] Dr. Gloria Ayala MCH (RBC) [Entitic mass] 26.6 pg Normal 25.9-34.0 [facility] Comment on above: Performed By: #### C BC #### [facility] [address] [place] [address] Dr. Gloria Ayala MCHC (RBC) [Mass/Vol] 31.5 g/dL Normal 29.9-35.2 [facility] Comment on above: Performed By: #### C BC #### [facility] [address] [place] [address] Dr. Glroia Ayala MCV (RBC) [Entitic vol] 84.4 fL Normal 80.0-94.0 [facility] Comment on above: Performed By: #### C BC #### [facility] [address] [place] [address] Dr. Gloria Ayala MONO # 0.4 103/ul Normal 0.3-0.8 [facility] Comment on above: Performed By: #### C BC #### [facility] [address] [place] [address] Dr. Gloria Ayala Monocytes/100 WBC (Bld) 5.0 % Normal 1.7-12.0 [facility] Comment on above: Performed By: #### C BC #### [facility] [address] [place] [address] Dr. Gloria Ayala NEUT # 6.3 103/ul Normal 1.4-6.5 [facility] Comment on above: Performed By: #### C BC #### [facility] [address] [place] [address] Dr. Gloria Ayala Neutrophils/100 WBC (Bld) 78.5 % Critically high 43.0-75.0 [facility] Comment on above: Performed By: #### C BC #### [facility] [address] [place] [address] Dr. Gloria Ayala Platelet mean volume (Bld) [Entitic vol] 10.5 fL Normal 9.5-13.5 [facility] Comment on above: Performed By: #### C BC #### [facility] [address] [place] [address] Dr. Gloria Ayala PLT 151 103/ul Normal 150-450 [facility] Comment on above: Performed By: #### C BC #### [facility] [address] [place] [address] Dr. Gloria Ayala RBC 5.90 106/ul Normal 4.70-6.10 [facility] Comment on above: Performed By: #### C BC #### [facility] [address] [place] [address] Dr. Gloria Ayala WBC 8.0 103/ul Normal 4.0-11.0 [facility] Comment on above: Performed By: #### C BC #### [facility] [address] [place] [address] Dr. Gloria Ayala GLYCOHEMOGLOBIN A1Con 2022 ADA RECOMMENDATION SEE BELOW Normal [facility] Comment on above: Result Comment: ADA RECOMMENDED LIMIT 4.0 - 6.0 ADA THERAPEUTIC TARGET < 7.0 ACTION SUGGESTED > 7.0 Performed By: #### A 1C #### [facility] [address] [place] [address] Dr. Gloria Ayala Glucose [Mass/Vol] 123 mg/dL Normal [facility] Comment on above: Performed By: #### A 1C #### [facility] [address] [place] [address] Dr. Gloria Ayala HbA1c (Bld) [Mass fraction] 5.9 % Normal 4.5-6.2 [facility] Comment on above: Performed By: #### A 1C #### [facility] [address] [address] [address] Gloria Ayala LIPID PROFILEon 07-09-2022 CHOL-HDL RATIO NORM SEE BELOW Normal [facility] Comment on above: Result Comment: 3.3 - 4.4 LOW RISK 4.4 - 7.1 AVERAGE RISK 7.1 - 11.0 MODERATE RISK >11.0 HIGH RISK Performed By: #### L IPID, CMP #### [facility] [address] [address] [address] Gloria Ayala Cholesterol [Mass/Vol] 182 mg/dL Normal <=200 Th [facility] Comment on above: Performed By: #### L IPID, CMP #### [facility] [address] [address] [address] Gloria Ayala Cholesterol in HDL [Mass/Vol] 29 mg/dL Critically low 40-60 [facility] Comment on above: Performed By: #### L IPID, CMP #### [facility] [address] [address] [address] Gloria Ayala Cholesterol in LDL [Mass/Vol] 136.6 mg/dL Normal [facility] Comment on above: Performed By: #### L IPID, CMP #### [facility] [address] [address] [address] Gloria Ayala Cholesterol.total/Mamta sterol in HDL [Mass ratio] 6.3 {ratio} Normal [facility] Comment on above: Performed By: #### L IPID, CMP #### [facility] [address] [address] [address] Gloria Ayala HDL NORMAL > or = 60 mg/dl - LOW CARDIOVASCULAR RISK <40 mg/dl - HIGH CARDIOVASCULAR RISK Normal [facility] Comment on above: Performed By: #### L IPID, CMP #### [facility] [address] [address] [address] Gloria Ayala LDL CALC NORMAL SEE BELOW Normal [facility] Comment on above: Result Comment: <100 mg/dl OPTIMAL 100 - 129 mg/dl NEAR OR ABOVE OPTIMAL 130 - 159 mg/dl BORDERLINE HIGH 160 - 189 mg/dl HIGH >190 mg/dl VERY HIGH Performed By: #### L IPID, CMP #### [facility] [address] [address] [address] Gloria Ayala Triglyceride [Mass/Vol] 82 mg/dL Normal <=150 T [facility] Comment on above: Performed By: #### L IPID, CMP #### [facility] [address] [address] [address] Gloria Ayala VLDL CALC 16.4 mg/dL Normal [facility] Comment on above: Performed By: #### L IPID, CMP #### [facility] [address] [address] [address] Gloria Ayala MICROALBUMIN, RAND URon mALB 1.9 mg/L Normal <=30.0 [facility] Comment on above: Performed By: #### M ALBR #### [facility] [address] [place] [address] Dr. Gloria Ayala PROF 14(COMP METB)on 023 Albumin [Mass/Vol] 3.2 g/dL Critically low 3.4-5.0 [facility] Comment on above: Performed By: #### L IPID, CMP #### [facility] [address] [place] [address] Dr. Gloria Ayala Albumin/Globulin [Mass ratio] 0.8 {ratio} [facility] Comment on above: Performed By: #### L IPID, CMP #### [facility] [address] [place] [address] Dr. Gloria Ayala ALP [Catalytic activity/Vol] 85 U/L Normal 46-116 [facility] Comment on above: Performed By: #### L IPID, CMP #### [facility] [address] [address] [address] Gloria Ayala ALT [Catalytic activity/Vol] 15 U/L Critically low 16-63 [facility] Comment on above: Performed By: #### L IPID, CMP #### [facility] [address] [place] [address] Dr. Gloria Ayala Anion gap [Moles/Vol] 9.5 mmol/L Normal [facility] Comment on above: Performed By: #### L IPID, CMP #### [facility] [address] [address] [address] Gloria Ayala AST [Catalytic activity/Vol] 13 U/L Critically low 15-37 [facility] Comment on above: Performed By: #### L IPID, CMP #### [facility] [address] [place] [address] Dr. Gloria Ayala Bilirubin [Mass/Vol] 0.6 mg/dL Normal 0.2-1.0 [facility] Comment on above: Performed By: #### L IPID, CMP #### [facility] [address] [address] [address] Gloria Ayala Calcium [Mass/Vol] 8.4 mg/dL Critically low 8.5-10.1 Th [facility] Comment on above: Performed By: #### L IPID, CMP #### [facility] [address] [place] [address] Dr. Gloria Ayala Chloride [Moles/Vol] 102 mmol/L Normal 98-107 [facility] Comment on above: Performed By: #### L IPID, CMP #### [facility] [address] [place] [address] Dr. Gloria Ayala CO2 [Moles/Vol] 34.6 mmol/L Critically high 21.0-32.0 [facility] Comment on above: Performed By: #### L IPID, CMP #### [facility] [address] [place] [address] Dr. Gloria Ayala Creatinine [Mass/Vol] 0.97 mg/dL Normal 0.70-1.30 [facility] Comment on above: Performed By: #### L IPID, CMP #### [facility] [address] [place] [address] Dr. Gloria Ayala EGFR-AF KENYAN >60 Normal >=60 [facility] Comment on above: Performed By: #### L IPID, CMP #### [facility] [address] [place] [address] Dr. Gloria Ayala EGFR-NON AF KENYAN >60 Normal >=60 [facility] Comment on above: Performed By: #### L IPID, CMP #### [facility] [address] [address] [address] Gloria Ayala Globulin (S) [Mass/Vol] 4.1 g/dL Normal [facility] Comment on above: Performed By: #### L IPID, CMP #### [facility] [address] [address] [address] Gloria Ayala Glucose [Mass/Vol] 154 mg/dL Critically high 74-106 [facility] Comment on above: Performed By: #### L IPID, CMP #### [facility] [address] [place] [address] Dr. Gloria Ayala Potassium [Moles/Vol] 4.1 mmol/L Normal 3.5-5.1 [facility] Comment on above: Performed By: #### L IPID, CMP #### [facility] [address] [place] [address] Dr. Gloria Ayala Protein [Mass/Vol] 7.3 g/dL Normal 6.4-8.2 [facility] Comment on above: Performed By: #### L IPID, CMP #### [facility] [address] [place] [address] Dr. Gloria Ayala Sodium [Moles/Vol] 142 mmol/L Normal 136-145 [facility] Comment on above: Performed By: #### L IPID, CMP #### [facility] [address] [place] [address] Dr. Gloria Ayala Urea nitrogen [Mass/Vol] 10.0 mg/dL Normal 7.0-18.0 [facility] Comment on above: Performed By: #### L IPID, CMP #### [facility] [address] [place] [address] Dr. Gloria Ayala Urea nitrogen/Creatinine [Mass ratio] 10.3 mg/mg Normal [facility] Comment on above: Performed By: #### L IPID, CMP #### [facility] [address] [place] [address] Dr. Gloria Ayala UA RANDOM W/MICROSCOPICon BACTERIA NONE SEEN Normal NONE SEEN [facility] Comment on above: Performed By: #### U AMIC #### [facility] [address] [place] [address] Dr. Gloria Ayala Bilirubin Ql (U) Negative Normal NEGATIVE [facility] Comment on above: Performed By: #### U AMIC #### [facility] [address] [address] [address] Gloria Ayala CAST SEEN Abnormal NONE SEEN [facility] Comment on above: Performed By: #### U AMIC #### [facility] [address] [address] [address] Gloria Ayala Clarity (U) CLEAR Normal CLEAR [facility] Comment on above: Performed By: #### U AMIC #### [facility] [address] [place] [address] Dr. Gloria Ayala Color (U) YELLOW Normal YELLOW [facility] Comment on above: Performed By: #### U AMIC #### [facility] [address] [place] [address] Dr. Gloria Ayala Crystals LM Nom (Urine sed) NONE SEEN Normal NONE SEEN [facility] Comment on above: Performed By: #### U AMIC #### [facility] [address] [place] [address] Dr. Gloria Ayala Epithelial cells LM Ql (Urine sed) RARE Normal NONE SEEN /RARE [facility] Comment on above: Performed By: #### U AMIC #### [facility] [address] [address] [address] Gloria Ayala Glucose Ql (U) Negative Normal NEGATIVE [facility] Comment on above: Performed By: #### U AMIC #### [facility] [address] [address] [address] Gloria Ayala Hemoglobin Ql (U) Negative Normal NEGATIVE [facility] Comment on above: Performed By: #### U AMIC #### [facility] [facility] [address] [place] [address] Dr. Gloria Ayala HYALINE CAST RARE Normal The [facility] Comment on above: Performed By: #### U AMIC #### [facility] [address] [address] [address] Gloria Ayala Ketones Ql (U) Negative Normal NEGATIVE [facility] Comment on above: Performed By: #### U AMIC #### [facility] [address] [place] [address] Dr. Gloria Ayala LEUKOCYTES Negative Normal NEGATIVE [facility] Comment on above: Performed By: #### U AMIC #### [facility] [address] [address] [address] Gloria Ayala MUCOUS NONE SEEN Normal NONE SEEN [facility] Comment on above: Performed By: #### U AMIC #### [facility] [address] [address] [address] Gloria Ayala Nitrite Ql (U) Negative Normal NEGATIVE [facility] Comment on above: Performed By: #### U AMIC #### [facility] [address] [place] [address] Dr. Gloria Ayala pH (U) 7.0 [pH] Normal 5-9 [facility] Comment on above: Performed By: #### U AMIC #### [facility] [address] [address] [address] Gloria Ayala RBC NONE SEEN Abnormal 0-2 [facility] Comment on above: Performed By: #### U AMIC #### [facility] [address] [place] [address] Dr. Gloria Ayala SPEC GRAVITY 1.015 Normal 1.005-<=1.025 The [facility] Comment on above: Performed By: #### U AMIC #### [facility] [address] [place] [address] Dr. Gloria Ayala UA PROTEIN Negative Normal NEGATIVE/ TRACE [facility] Comment on above: Performed By: #### U AMIC #### [facility] [address] [place] [address] Dr. Gloria Ayala Urobilinogen Qn (U) 8 {Jonathan'U}/dL Abnormal 0.2 - 1.0 [facility] Comment on above: Performed By: #### U AMIC #### [facility] [address] [place] [address] Dr. Gloria Ayala WBC NONE SEEN Normal NONE SEEN [facility] Comment on above: Performed By: #### U AMI #### [facility] [address] [address] [address] Gloria Ayala Physician Referralon 022 Physician Referral [phone] [id number] Normal [facility] GLYCOHEMOGLOBIN A1Con 2021 ADA RECOMMENDATION SEE BELOW Normal The [facility] Comment on above: Result Comment: ADA RECOMMENDED LIMIT 4.0 - 6.0 ADA THERAPEUTIC TARGET < 7.0 ACTION SUGGESTED > 7.0 Performed By: #### A 1C #### [facility] [address] [place] [address] Dr. Gloria Ayala Glucose [Mass/Vol] 128 mg/dL Normal [facility] Comment on above: Performed By: #### A 1C #### [facility] [address] [place] [address] Dr. Gloria Ayala HbA1c (Bld) [Mass fraction] 6.1 % Normal 4.5-6.2 [facility] Comment on above: Performed By: #### A 1C #### [facility] [address] [place] [address] Dr. Gloria Ayala PROF CHEM 8 (BAS METB)on Anion gap [Moles/Vol] 8.5 mmol/L Normal [facility] Comment on above: Performed By: #### B MP #### [facility] [address] [place] [address] Dr. Gloria Ayala Calcium [Mass/Vol] 8.5 mg/dL Normal 8.5-10.1 [facility] Comment on above: Performed By: #### B MP #### [facility] [address] [place] [address] Dr. Gloria Ayala Chloride [Moles/Vol] 99 mmol/L Normal 98-107 [facility] Comment on above: Performed By: #### B MP #### [facility] [address] [address] [address] Gloria Ayala CO2 [Moles/Vol] 34.5 mmol/L Critically high 21.0-32.0 [facility] Comment on above: Performed By: #### B MP #### [facility] [address] [place] [address] Dr. Gloria Ayala Creatinine [Mass/Vol] 1.02 mg/dL Normal 0.70-1.30 [facility] Comment on above: Performed By: #### B MP #### [facility] [address] [place] [address] Dr. Gloria Ayala EGFR-AF KENYAN >60 Normal >=60 [facility] Comment on above: Performed By: #### B MP #### [facility] [address] [place] [address] Dr. Gloria Ayala EGFR-NON AF KENYAN >60 Normal >=60 [facility] Comment on above: Performed By: #### B MP #### [facility] [address] [place] [address] Dr. Gloria Ayala Glucose [Mass/Vol] 116 mg/dL Critically high 74-106 [facility] Comment on above: Performed By: #### B MP #### [facility] [address] [place] [address] Dr. Gloria Ayala Potassium [Moles/Vol] 4.0 mmol/L Normal 3.5-5.1 [facility] Comment on above: Performed By: #### B MP #### [facility] [address] [place] [address] Dr. Gloria Ayala Sodium [Moles/Vol] 138 mmol/L Normal 136-145 [facility] Comment on above: Performed By: #### B MP #### [facility] [address] [place] [address] Dr. Gloria Ayala Urea nitrogen [Mass/Vol] 11.0 mg/dL Normal 7.0-18.0 [facility] Comment on above: Performed By: #### B MP #### [facility] [address] [place] [address] Dr. Gloria Ayala Urea nitrogen/Creatinine [Mass ratio] 10.8 mg/mg Normal [facility] Comment on above: Performed By: #### B MP #### [facility] [address] [address] [address] Gloria Ayala Vital Signs Date Time Vital Sign Value Performing Clinician Facility 06-14-2023 17:39-0500 Body height 175.3 cm Irinalouise Leosteeteez FLATWORK PRESSER Work Phone: [facility] 06-14-2023 17:39-0500 Body mass index (BMI) [Ratio] 40.61 kg/m2 Irina Aichholz FLATWORK PRESSER Work Phone: [facility] 06-14-2023 17:39-0500 Body temperature 97.5 [degF] Irina Derichsallyz FLATWORK PRESSER Work Phone: [facility] 06-14-2023 17:39-0500 Body weight 124.74 kg Irina Aichholz FLATWORK PRESSER Work Phone: [facility] Comment on above: hospital bed weighed him at the hospital 06-14-2023 17:39-0500 Diastolic blood pressure 58 mm[Hg] Irina Aichholz FLATWORK PRESSER Work Phone: [facility] 06-14-2023 17:39-0500 Heart rate 84 /min Irina Aichholz FLATWORK PRESSER Work Phone: [facility] 06-14-2023 17:39-0500 Respiratory rate 19 /min Irina Aichholz FLATWORK PRESSER Work Phone: [facility] 06-14-2023 17:39-0500 SaO2% (BldA) [Mass fraction] 99 % Irina Aichholz FLATWORK PRESSER Work Phone: [facility] 06-14-2023 17:39-0500 Systolic blood pressure 110 mm[Hg] Irina Aichholz FLATWORK PRESSER Work Phone: [facility] 05-27-2023 13:23-0500 Body height 176.5 cm P[facility] 1 [facility] 05-27-2023 13:23-0500 Body mass index (BMI) [Ratio] 45.12 kg/m2 [facility] 05-27-2023 13:23-0500 Body weight 140.62 [facility] 05-05-2023 10:43-0500 Body temperature 97 [degF] Sybil Tobin APRN-DRUM ATTENDANT [facility] 05-05-2023 10:43-0500 Diastolic blood pressure 66 mm[Hg] Sybil Tobin ROUSTABOUT PUSHER-DRUM ATTENDANT [facility] 05-05-2023 10:43-0500 Heart rate 80 /min Sybil Tobin ROUSTABOUT PUSHER-DRUM ATTENDANT [facility] 05-05-2023 10:43-0500 Respiratory rate 16 /min Sybil Tobin ROUSTABOUT PUSHER-DRUM ATTENDANT [facility] 05-05-2023 10:43-0500 Systolic blood pressure 116 mm[Hg] Sybil Tobin ROUSTABOUT PUSHER-DRUM ATTENDANT Work Phone: [facility] [employer] [facility] Encounters Encounter Date Encounter Type Care Provider Facility Start: 06-14-2023 End: 06-14-2023 ambulatory IRINA MCLEOD Not Available Start: 06-14-2023 End: 06-14-2023 Office outpatient visit 25 minutes Irina Mcleod FLATWORK PRESSER Work Phone: [facility] Comment on above: ROSSY (acute kidney in jury) (CMS/HCC) (Primary Dx); Pilonidal cyst; Edema of extremities; Primary osteoarthritis of both knees; Benign essential hypertension (CMS/HCC); COVID Start: 06-14-2023 Bamboo flowsheet Irina Mcleod FLATWORK PRESSER Work Phone: [facility] Start: 06-14-2023 Bamboo flowsheet Irina Mcleod FLATWORK PRESSER Work Phone: [facility] Start: 06-14-2023 Telephone encounter [facility] Start: 06-09-2023 Refill Irina Mcleod FLATWORK PRESSER Work Phone: [facility] Comment on above: Dyslipidemia (CMS/HC C) (Primary Dx) Start: 06-08-2023 Refill Irina Mcleod FLATWORK PRESSER Work Phone: [facility] Comment on above: Restless legs (Prima ry Dx) Start: 06-02-2023 Clinisync Result Encounter Generic External Data Provider [facility] Unsolicited Start: 06-02-2023 Clinisync Result Encounter Generic External Data Provider [facility] Unsolicited Start: 05-31-2023 End: 05-31-2023 Evaluation and management of inpatient FRANKIE BISHOP [facility] Start: 05-27-2023 End: 05-27-2023 ambulatory IRINA MCLEOD [facility] Start: 05-27-2023 End: 05-27-2023 ambulatory [facility] Pat Phone Call Provider 1 [facility] - Pre Ad[facility] Start: 05-21-2023 End: 06-03-2023 ambulatory SYBIL English MAHAD [facility] Start: 05-19-2023 End: 05-19-2023 ambulatory IRINA MCLEOD Not Available Start: 05-11-2023 End: 05-11-2023 ambulatory [facility] Start: 05-05-2023 End: 05-05-2023 ambulatory SYBIL [facility] Start: 05-05-2023 End: 05-05-2023 Office outpatient visit 10 minutes Sybil Tobin ROUSTABOUT PUSHER-DRUM ATTENDANT Work Phone: [facility] Comment on above: Chronic recurrent pi lonidal cyst (Primary Dx); Abscess of multiple sites of buttock Start: 04-13-2023 End: 04-13-2023 ambulatory [facility] Start: 04-13-2023 End: 04-13-2023 Encounter for preprocedural cardiovascular examination [facility] Start: 04-07-2023 Preoperative state Generic Provider [facility] Start: 04-07-2023 End: 12-06-2023 ambulatory IRINA MCLEOD Not Available Start: 10-26-2022 ambulatory Arlen Dakota castillo PA-C Facility[facility] Start: 09-21-2022 End: 09-22-2022 ambulatory Irina Mcleod ROUSTABOUT PUSHER-DRUM ATTENDANT Facility[facility] Start: 08-04-2022 End: 08-04-2022 ambulatory [...] Start: 05-05-2023 NURSING COMMUNICATION M iman Tobin ROUSTABOUT [facility] Work Phone: Start: 07-09-2022 PSA screening DRUM ATTENDANT IRINA MCLEOD Comment on above: Performed By: #### P [facility] #### [facility] [address] [place] [address] Dr. Gloria Ayala Plan of Treatment Date Care Activity Detail Author Start: 04-07-2025 Glaucoma screening Diabetes: R etinopathy Screening [facility] Start: 05-31-2024 Adult BMI Screening Adult BMI Screen ing [facility] Start: 05-31-2024 Tobacco Screening Tobacco Screening [facility] Start: 05-28-2024 Tobacco Screening Tobacco Screening [facility] Start: 05-27-2024 Adult BMI Screening Adult BMI Screen ing [facility] Start: 04-19-2024 Adult BMI Screening Adult BMI Screen ing [facility] Start: 04-07-2024 Pneumococcal Vaccine : 65+ Years (1 - PCV) Pneumococcal Vaccine: 65+ Years (1 - PCV) [facility] Comment on above: Postponed from 03/25 (Patient Refused) Start: 04-05-2024 Tobacco Screening Tobacco Screening [facility] Start: 10-31-2023 Influenza vaccination Influenza Vacc ine (#1) [facility] Comment on above: Postponed from 01/01 (Patient Refused) Start: 09-06-2023 Screening for malign ant neoplasm of colon [facility] Start: 08-18-2023 End: 08-18-2023 Patient encounter procedure 08/18/2023 9:40 AM EDT Office Visit [facility] [address] [place] [address] Irina Mcleod NP [address] [place] [address] [facility] Start: 07-10-2023 Urine screening for protein Diabetes: Urine Protein Screening [facility] Start: 07-06-2023 End: 07-06-2023 Patient encounter procedure 07/06/2023 11:00 AM EST Office Visit [facility] [address] [place] [address] Irina Mcleod, KARI [address] [place] [phone] [facility] Start: 06-15-2023 End: 06-15-2023 Patient encounter procedure 06/15/2023 3:30 PM EST [facility] Visit [facility] [address] [place] [address] Arlen Estrada, ROUSTABOUT PUSHER-[facility] [address] [place] [address] [facility] Start: 06-14-2023 End: 06-14-2023 Patient encounter procedure [facility] Comment on above: Arrived Start: 06-14-2023 End: 06-14-2024 Basic metabolic 1998 panel - Serum or Plasma Basic metabolic panel Lab Routine ROSSY (acute kidney injury) (CMS/HCC) Expected: 06/14/2023 (Approximate), Expires: 06/14/2024 [facility] Work Phone: Comment on above: Expected: 06/14/2023 (Approximate), Expires: 06/14/2024 Start: 05-31-2023 End: 05-31-2023 Admission to same day surgery center 05/31/2023 12:15 PM EST - 05/31/2023 1:[address] [facility] [address] [place] [address] Amber Valdovinos MD [address] [place] [phone] EXCISION CYST PILONIDAL [83324 (CPT )] [facility] Comment on above: EXCISION CYST PILONI SHAYAN [39555 (CPT )] Start: 05-31-2023 End: 05-31-2023 Anesthesia consultation 05/31/2023 12:15 PM EST Anesthesia Event [facility] [address] [place] [address] Frankie Bishop MD [address] [place] [address] [facility] Start: 05-31-2023 End: 05-31-2023 Excision pilonidal cyst/sinus simple EXCISION CYST PILONIDAL pilonidal cyst 05/31/2023 12:15 PM [facility] Start: 05-31-2023 Subsequent hospital visit by physician 05/31/2023 12:15 PM EST Hospital Encounter [facility] [address] [place] [address] Amber Valdovinos MD [address] [place] [phone] [facility] Start: 05-21-2023 End: 05-21-2023 Patient encounter procedure 05/21/2023 11:00 AM EST Office Visit [facility] [address] [place] [phone] Sybil Tobin, ROUSTABOUT PUSHER[facility] [address] [place] [address] [facility] Start: 05-11-2023 End: 05-11-2023 Patient encounter procedure 05/11/2023 2:00 PM EST Office Visit [facility] [address] [facility] [place] [phone] Amber Valdovinos MD [address] [place] [address] [facility] Start: 01-01-2023 COVID-19 Vaccine ( season) COVID-19 Vaccine ( season) [facility] Start: 01-01-2023 Influenza vaccination Influenza Vacc ine [facility] Start: 10-09-2022 Hemoglobin A1c measurement Diabetes: Hemoglobin A1C [facility] Start: 2022 Fall Risk Screening Fall Risk Screen ing [facility] Start: 2007 Administration of varicella zoster vaccine Zoster (Shingles) Vaccine (1 of 2) [facility] Start: 1976 DTaP,Tdap and Td Vac cines (1 - Tdap) DTaP,Tdap and Td Vaccines (1 - Tdap) [facility] Start: 1975 Adult BMI Follow Up Plan Adult BMI Follow Up Plan [facility] Start: 1969 Depression Screening Depression Scre ening [facility] Start: 1957 Medicare Annual Well ness Visit Medicare Annual Wellness Visit [facility] Start: 1955 Screening for malign ant neoplasm of colon [facility] BLOOD CULTURE 1 BLOOD CULTURE 1 Lab Routine 06/02/2023 10:53 AM EST [facility] BLOOD CULTURE 2 BLOOD CULTURE 2 Lab Routine 06/02/2023 10:58 AM EST [facility] Immunizations Immunization Date Immunization Notes Care Provider Fa ciliefrem 08-02-2020 Pfizer Purple Cap SARS-CoV-2 Vaccination Irina Mcleod FLATWORK PRESSER Work Phone: [facility] Payers Date Payer Category Payer Self-pay 2003 Medicaid [id number] 1959 Unknown [id number] 1957 Unknown [id number] 2.16.84 [id number] 1957 Unknown [id number] 2.16.84 [id number] 1957 Unknown [id number] 2.16.84 [id number] 1957 Unknown [id number] 2.16.84 [id number] 1957 Unknown [id number] 2.16. [id number] 1957 Unknown [id number] 2.16.84 0.1.498680.3.579.2.1286 1957 Unknown [id number] 2.16.8 [id number] 1957 Unknown [id number] 2.16.8 [id number] 1957 Unknown [id number] 2.16.8 [id number] 1957 Unknown [id number] 2.16.8 [id number] 1957 Unknown [id number] 2.16.8 [id number] 1957 Unknown [id number] 2.16.84 [id number] 1957 Unknown [id number] 2.16.84 [id number] 1957 Unknown [id number] 2.16.84 [id number] 1957 Unknown [id number] 2.16.840 .[id number] Social History Date Type Detail Facility Start: 03-30-2023 End: 05-31-2023 Tobacco smoking status NHIS Ex-smoker [facility] End: 05-03-2023 History of tobacco use Current smoker [facility] End: 05-03-2023 History of tobacco use Cigarette Smoker [facility] Start: 05-05-2023 End: 06-14-2023 Alcohol intake Lifetime non-drinker (finding) [facility] Start: 06-13-2020 End: 05-05-2023 History of Social function [facility] Start: 06-13-2020 End: 05-05-2023 Tobacco use panel [facility] Housing Instability Unknown [facility] Start: 1955 Sex Assigned At Not on file [facility] Start: 05-11-2023 End: 05-31-2023 Alcohol intake Ex-drinker (finding) [facility] Start: 04-10-2023 End: 05-31-2023 Tobacco use and exposure Smokeless tobacco non-user [facility] Start: 04-10-2023 Tobacco Comment 1-9 cigarettes/day [facility] Clinical Notes 04-13-2023 to 06-14-2023 Irina Mcleod NP - 06/14/2023 7:39 PM Sreedhar Mcleod NP - 06/14/2023 7:39 PM Sreedhar Mcleod NP - 06/14/2023 7:39 PM Sreedhra Mcleod NP - 06/14/2023 7:38 PM ESTPatient Instructions Note Date & Type Note Facility 06-14-2023 History of Present illness Narrative Associated Problem(s): COVID Returning to baseline Associated Problem(s): Benign essential hypertension (CMS/HCC) Stable at this time Associated Problem(s): Primary osteoarthritis of both knees Would like referral to ortho in [place] Associated Problem(s): Edema of extremities stable Associated Problem(s): ROSSY (acute kidney injury) (CMS/HCC) Will reassess kidney function Therapy seen him today talked to him about seeing a surgeons in [place] to fix up his knees. Fell 3 times being home Feet are swollen Pt is asking for a powered wheelchair and hospital bed Images from the original note were not included. Carlos Persaud is a 68 y.o. male presents with chief complaint of No chief complaint on file. HPI: Here for a hospital fu: covid and ROSSY, See [facility] ER notes for HPI, I have [...] Oral, Daily, Do not crush or chew. Ualymndbzpk-Heuiwherg-Xavzcd (Trelegy Ellipta) 100-62.5-25 MCG/ACT aerosol powder 1 [...] obstructive pulmonary disease) (CMS/HCC) COPD with exacerbation ([facility]) DDD (degenerative disc disease), lumbar Dyslipidemia ([facility]/HCC) Edema of extremities GERD without esophagitis Head mass ? Glioma Hypertension (CMS/[facility]) Hypocalcemia Influenza vaccination declined Insomnia Morbid obesity with BMI of 45.0-49.9, adult ([facility]) Neoplasm of uncertain behavior of skin Non-compliant patient Nonspecific abnormal electrocardiogram (ECG) (EKG) 04/13/2023 Other emphysema ([facility]) 04/07/2023 Otitis externa, left Pain and swelling of elbow, left Pilonidal cyst Pre-operative clearance 04/07/2023 Primary osteoarthritis of both knees Restless leg Rising PSA level Screening for prostate cancer Stasis edema of both lower extremities Thrombocytopenia ([facility]) Tobacco user Type 2 diabetes mellitus with peripheral neuropathy ([facility]) Urine discoloration Past Surgical History: Procedure Laterality [...] knees Would like referral to ortho in [place] ROSSY (acute kidney injury) (CMS/HCC) Will reassess kidney function Relevant Orders Basic metabolic panel COVID Returning to baseline documented in this encounter [facility] 06-14-2023 Miscellaneous Notes The patient is still [...] that under control. documented in this encounter [facility] 06-14-2023 Telephone encounter Note The patient is [...] re-schedule once they get that under control. [facility] 05-27-2023 Miscellaneous Notes Preoperative Education Checklist- General Surgery date: 05/31/23 Surgery time: 1215 Arrival time: 1015 1. Bring a photo ID and your insurance card with you the day of surgery. You will check in at the main lobby of the [facility]- registration desk is straight ahead as soon as you walk in. Tell them you are here for surgery. 2. If you have a Living Will/Durable Power of Lift Builder Whole for Health Care that is not on [...] after you have bathed. 5. NO nail v[place] citizen/acrylic on at least one finger. If you are having a hand, wrist or foot surgery then all nail vatican citizen and artificial/acrylic nails must be removed from [...] please call the Preadmission Testing office at [phone], Mon.-Fri. 7 a.m.-3 p.m. Leave a voicemail [...] prior to procedure documented in this encounter [facility] 05-27-2023 Nurse Note Preoperative Education Checklist- General Surgery date: 05/31/23 Surgery time: 1215 Arrival time: 1015 1. Bring a photo ID and your insurance card with you the day of surgery. You will check in at the main lobby of the [facility]- registration desk is straight ahead as soon as you walk in. Tell them you are here for surgery. 2. If you have a Living Will/Durable Power of Lift Builder Whole for Health Care that is not on [...] after you have bathed. 5. NO nail vatican citizen/acrylic on at least one finger. If you are having a hand, wrist or foot surgery then all nail vatican citizen and artificial/acrylic nails must be removed from [...] please call the Preadmission Testing office at [phone], Mon.-Fri. 7 a.m.-3 p.m. Leave a voicemail [...] Stop taking 0 days prior to procedure [facility] 05-05-2023 History of Present illness Narrative Images from the original note were not included. Wound Care Progress Note Patient: Carlos Persaud Date of : 1955 Chief Compliant: Buttock wounds, pilonidal cyst disease SUBJECTIVE/HPI: Carlos is a 68 y.o. male who presents to [facility] for evaluation of [...] resolved. States surgery was done outside of [place], unable to recall name of surgeon. Measurable [...] (Active) Wound Image 05/05/23 1044 Site Assessment Red;[place] 05/05/23 1044 Juliet-wound Assessment Blanchable erythema;[place] 05/05/23 1044 Wound Length (cm) 1 cm [...] Assessment Red 05/05/23 104 Juliet-wound Assessment Blanchable erythema;[place] 05/05/234 Wound Length (cm) 1.5 cm 05/05/23 [...] to coccyx. Short term goal: medical compliance prison goal: wound closure Patient verbalize understanding of [...] procedures Referring and communicating with other health acute care surgeon (not separately reported) Documenting clinical information in the electronic or other health record Sybil Tobin APRN, JUDY, CWS, RUFINA [facility]: [phone] KANG [place] 05/05/23 1133 documented in this encounter [facility] 05-05-2023 Instructions So Angela RN - 05/05/2023 [...] serosang Phan, yellow [facility] [place] [facility] Subjective Carlos Persaud is a [...] mg by mout (more content not included)... [facility] Evaluation note Diagnosis Chronic recurrent pilonidal cyst- Primary Abscess of multiple sites of buttock documented [facility]* Diagnosis Restless legs- Primary Restless legs syndrome (RLS) [facility] Diagnosis Dyslipidemia ([facility]/HCC)- Primary Other and unspecified hyperlipidemia [facility]* Diagnosis ROSSY (acute kidney injury) (CMS/[facility])- Primary Pilonidal cyst Edema of extremities Edema Primary osteoarthritis of both knees Benign essential hypertension ([facility]/HCC) Essential hypertension, benign COVID documented in this encounter [facility] HealthcareInstructionsNot on filedocumented in this encounterProD[facility] SystemInstructionsNot on filedocumented in this encounterProDiley Ridge [facility] SystemReason for referral (narrative)* Consultation (Routine) - Pending Review Specialty Diagnoses / Procedures Referred By Sushma feliz Referred To Contact Orthopaedic Surgery Diagnoses Primary osteoarthritis of both knees Irina Mcleod NP [address] [place] [address] Referral ID Status Reason Start Date Expiration Date Visits Requested Visits Authorized [id number] Pending Review Specialty Services Required 06/14/2023 12/11/2023 [address] Juan Alberto Collazo [facility] Summary Purpose Family History No [...] sites of buttock Procedures [employer] Sybil Tobin, ROUSTABOUT PUSHER-DRUM ATTENDANT [address] [place] [address] Referral ID Status Reason Start Date Expiration Date V isits Requested Visits Authorized [id number] Pending Review 05/05/2023 05/04/2024 1 1 Specialty Diagnoses / Procedures Referred By Contac t Referred To Contact Diagnoses Abscess of multiple sites of buttock Procedures [employer] Sybil Tobin, ROUSTABOUT PUSHER-DRUM ATTENDANT [address] [place] [address] Referral ID Status Reason Start Date Expiration Date V isits Requested Visits Authorized [id number] Pending Review 05/05/2023 05/04/2024 1 1 Additional Source Comments (unrecognized sect ion and content) No Status Records FoundNo Status Records FoundNo Status Records FoundNo Status Records FoundNo Status Records FoundNo Status Records FoundNo Status Records Found INFORMATION SOURCE (unrecogn ized section and content) DATE CREATED AUTHOR 12/03/2021 [facility] DATE CREATED AUTHOR AUTHOR'S ORGANIZ ATION 08/07/2022 [facility] DATE CREATED AUTHOR AUTHOR'S ORGANIZ ATION 10/24/2022 [facility] DATE CREATED AUTHOR AUTHOR'S ORGANIZ ATION 04/15/2023 [facility] DATE CREATED AUTHOR AUTHOR'S ORGANIZ ATION 05/16/2023 [facility] DATE CREATED AUTHOR AUTHOR'S ORGANIZ ATION 06/06/2023 [place] DATE CREATED AUTHOR AUTHOR'S ORGANIZ ATION 06/16/2023 [facility] Special[facility] EPIC Reason for Visit (unrecogniz ed section and content) Reason Comments Wound Check Reason Comments Med Refill Care Teams (unrecognized sec tion and content) [employer] Relationship Specialty Start Date End Date Irina Mcleod, ROUSTABOUT PUSHER-DRUM ATTENDANT [address] [place] [phone] PCP - General Nurse Practitioner 09/24/16 [employer] Relationship Specialty Start Date End Date Irina Mcleod APRN-[facility] [address] [place] [phone] PCP - General Nurse Practitioner 09/24/16 [employer] Relationship Specialty Start Date End Date Zachary Melton MD [address] [place] [phone] PCP - General Family Medicine 04/06/23 Irina Mcleod NP [address] [place] [phone] Nurse Practitioner Family Medicine 05/03/22 [employer] Relationship Specialty Start Date End Date Zachary Melton MD [address] [place] [phone] PCP - General Family Medicine 04/06/23 Irina Mcleod NP [address] [place] [address] Nurse Practitioner Family Medicine 05/03/22 [employer] Relationship Specialty Start Date End Date Zachary Melton MD [address] [place] [phone] PCP - General Family Medicine 04/06/23 Irina Mcleod NP [address] [place] [phone] Nurse Practitioner Family Medicine 05/03/22 [employer] Relationship Specialty Start Date End Date Zachary Melton MD [address] [place] [phone] PCP - General Family Medicine 06/14/23 Irina Mcleod NP [address] [place] [phone] Nurse Practitioner Family Medicine 05/03/22 [employer] Relationship Specialty Start Date End Date Zachary Melton MD [address] [place] [phone] PCP - General Family Medicine 06/14/23 Irina Mcleod NP [address] [place] [phone] Nurse Practitioner Family Medicine 05/03/22 [employer] Relationship Specialty Start Date End Date Irina Mcleod, ROUSTABOUT PUSHER-DRUM ATTENDANT [address] [place] [phone] PCP - General Nurse Practitioner 09/24/16 FOR [...] BE BASED ON THE PRIMARY CLINICAL RECORDS. [facility]. provides no warranty or guarantee of the accuracy or completeness of information in this document.
== END 2023-07-29 15:52 | disposition home or self-care (01) ==
LOC: US 15:54
PROVIDERS: PCP Nurse Practitioner; Visit Provider Nurse Practitioner
DX: M79.604 Pain in right leg (principal); R60.0 Localized edema
CPT/HCPCS: 93970

== ENCOUNTER 2023-08-27 08:54 | Emergency (ER) | payer OTHER, SELFPAY ==
[2023-08-27 08:58] VITALS: BP 109/79; PULSE 79; TEMP 37.1; O2SAT 98; BMI 37.4
--- NOTE | 2023-08-27 08:59 | ECG_ITS ---
[facility] Test Date: 2023-08-27 Pat Name: CARLOS DUQUE Department: Room: - Gender: Male It Manager: : 1955 Requested By: 0919 Order Number: [id number] Reading MD: Measurements Intervals [place] Rate: 80 P: 40 PA: 204 QRS: -74 QRSD: 160 T: 79 QT: 428 QTc: 465 Interpretive Statements 1100 Sinus rhythm 2450 Right bundle branch block 3114 Cannot rule out anterior myocardial infarction, age undetermined 3631 Inferior myocardial infarction, possibly acute 9115 abnormal ECG No previous ECG available for comparison
--- NOTE | 2023-08-27 09:03 | ED_ITS ---
HPI HPI - General Adult General Stated complaint: URINARY RETENTION Time Seen by Provider: 08/27/23 08:58 Source: patient Mode of arrival: ambulance Limitations: no limitations History of Present Illness HPI narrative: Patient is a 68-year-old male who is presenting to the ER today with chief complaint of confusion. EMS stated that patient may have been confused for the past 2 weeks. Patient was hypotensive, no IV was established or any medication given by EMS. EMS states that patient did not allow them to put an IV in, patient wanted to wait to get to the hospital. EMS did not check sugar. Patient denies headache. Patient is alert and orient x 2, he knows his name, knows he is in the hospital, is not certain which hospital he is in, confused to time. Uncertain if this is his normal baseline or not. Patient denies chest pain or shortness of breath. Patient has tobacco stains to his mustache, and his fingers with clubbing and tobacco stains. Patient does admit to smoking cigarettes. He does not wear oxygen at home. Patient denies any abdominal pain. There was reported urinary retention from EMS staff, patient states he has no pain to his suprapubic area. Patient denies fever. All systems are negative except as noted/marked. All systems reviewed and otherwise negative. Nurses note and vital signs reviewed and patient is not hypoxic. General: The patient appears . Patient is resting comfortably on cart. Patient is not toxic, lethargic, or listless Skin: Warm, dry, no pallor noted. There is no rash noted. No petechiae, purpura. Patient is wearing his close, patient denies any type of decubitus ulcerations Head: Normocephalic, atraumatic patient has tobacco stains to his mustache,; Eye: Normal conjunctiva, no drainage, EOMI. PERRL Ears, Nose, Mouth, and Throat: oral mucosa is moist. Nares patent. Mouth without vesicles. Poor dentition, no other intraoral signs of infection. Cardiovascular: Regular Rate and Rhythm, no murmur, gallop, rub Respiratory: Patient is in no distress, no accessory muscle use, lungs are clear to auscultation, no wheezing, rales or rhonchi Back: non-tender, no CVA tenderness bilaterally to percussion. No CT LS midline pain GI: Obese, no suprapubic tenderness palpation, no significant fullness or firmness to his suprapubic area. No tenderness to palpation, no masses appreciated. No rebound, guarding, or rigidity noted. No distention Musculoskeletal: Patient has full range of motion of all of the extremities, no motor, sensory, or focal neurological deficits. patient has stains to his fingers, clubbing of his fingernails. Full range of motion of all extremities with no difficulty. Neurological: A&O x2; patient knows he is in the hospital, patient is uncertain if it is [place] or [facility]. Patient does not know month, date, president, tell me that it was fall for the season., normal speech. NIH 1, patient does not know the month. Psychiatric: Cooperative slightly agitated., Not significantly altered or confused, but agitated and wants to leave AGAINST MEDICAL ADVICE, stating his called the ambulance Related Data Home Medications ?Medication ?Instructions ?Recorded ?Confirmed aspirin 81 mg tablet,delayed 81 mg PO DAILY 06/02/23 06/02/23 release carvedilol 3.125 mg tablet 3.125 mg PO Q12H 06/02/23 06/02/23 duloxetine 30 mg capsule,delayed 30 mg PO DAILY 06/02/23 06/02/23 release gabapentin 300 mg capsule 300 mg PO .COMPLEX 06/02/23 06/02/23 lisinopril 10 mg tablet 10 mg PO DAILY 06/02/23 06/02/23 metformin 500 mg tablet 500 mg PO BID 06/02/23 06/02/23 omeprazole 20 mg capsule,delayed 20 mg PO DAILY 06/02/23 06/02/23 release ropinirole 2 mg tablet 2 mg PO .qhs 06/02/23 06/02/23 rosuvastatin 20 mg tablet 20 mg PO QDAY 06/02/23 06/02/23 tamsulosin 0.4 mg capsule 0.8 mg PO Q24H 06/02/23 06/02/23 Previous Rx's ?Medication ?Instructions ?Recorded azithromycin 500 mg tablet 500 mg PO DAILY 3 days #3 tabs 06/05/23 benzonatate 100 mg capsule 200 mg (2 x 100 mg) PO Q8H PRN 06/05/23 Cough #20 caps prednisone 10 mg tablet 40 mg (4 x 10 mg) PO DAILY #32 tabs 02/03/24 Allergies Allergy/AdvReac Type Severity Reaction Status Date / Time No Known Drug Allergies Allergy Verified 02/22/23 12:49 Opioid HPI Opioid Management Most Recent Opioid Data: Last Pain Scale 0 06/05/23 09:56 Last Pain Intensity 0 06/05/23 09:56 PFSH [facility] Medical History (Updated 08/27/23 @ 09:47 by Sang Hart MD) Hypomagnesemia ?E83.42 - Hypomagnesemia (ICD-10) Hypokalemia ?E87.6 - Hypokalemia (ICD-10) COVID-19 ?U07.1 - COVID-19 (ICD-10) Abscess of sacrum ?M46.28 - Osteomyelitis of vertebra, sacral and sacrococcygeal region (ICD- 10) Dehydration ?E86.0 - Dehydration (ICD-10) Acute viral syndrome ?B34.9 - Viral infection, unspecified (ICD-10) Acute kidney failure ?N17.9 - Acute kidney failure, unspecified (ICD-10) Cellulitis of sacral region ?L03.319 - Cellulitis of trunk, unspecified (ICD-10) Restless leg syndrome ?G25.81 - Restless legs syndrome (ICD-10) Diabetic neuropathy ?E11.40 - Type 2 diabetes mellitus with diabetic neuropathy, unspecified (ICD-10) Dyslipidemia ?E78.5 - Hyperlipidemia, unspecified (ICD-10) Non-insulin dependent diabetes mellitus Hypertension ?I10 - Essential (primary) hypertension (ICD-10) Family History Sister Family history of diabetes mellitus Social History Within the past year, how often did you have a drink containing alcohol: never Score interpretation: A score less than 4 is consistent with normal alcohol consumption. Smoking status: Former smoker Non-prescribed substance use: denies use Highest level of school completed/degree received: high school graduate Gender Identity: male Exam Constitutional Vital Signs, click to edit/add: Last Vital Signs Temp 98.7 F 08/27/23 08:58 Pulse 79 08/27/23 08:58 Resp 18 08/27/23 08:58 BP 109/79 08/27/23 08:58 Pulse Ox 98 08/27/23 08:58 O2 Del Method Room Air 08/27/23 08:58 Course Vital Signs Vital signs: Vital Signs Temperature 98.7 F 08/27/23 08:58 Pulse Rate 79 08/27/23 08:58 Respiratory Rate 18 08/27/23 08:58 Blood Pressure 109/79 08/27/23 08:58 Pulse Oximetry 98 08/27/23 08:58 Oxygen Delivery Method Room Air 08/27/23 08:58 Temperature 98.7 F 08/27/23 08:58 Pulse Rate 79 08/27/23 08:58 Respiratory Rate 18 08/27/23 08:58 Blood Pressure 109/79 08/27/23 08:58 Pulse Oximetry 98 08/27/23 08:58 Oxygen Delivery Method Room Air 08/27/23 08:58 Medical Decision Making MDM Narrative Medical decision making narrative: 919 Pt is leaving AMA. Patient is alert and orient x 2, confused to time. Patient knows his name, knows he is in the hospital, he is uncertain which hospital he is in, he mentioned clogged, [place] patient told me that the season is fall, does not know the month, year, or the president. Patient's was at bedside, she states that patient is basically at his normal confusion but may be a little worse but not significantly worse at all. Patient is agitated, refusing any type of care. We attempted to talk to the patient and together with Augusta KAUR at bedside during the whole discussion as well as a witness. Patient's states that he has not significantly altered, not significantly confused, and I do not believe that I have the rights to pinks of the patient and force testing upon him. Patient is refusing lab work, refusing Aguilera catheter, refusing any other testing. He initially did allow an IV. Patient's stated that she called EMS because he had a hard time getting out of his chair today, and was concerned. No acute falls at home Patient glucose was within normal limits, patient bladder scan was approximately 750 cc of urine. Pt bladder was approximate 750 mL of Urine. Patient was not allowing IV fluids, would not allow any IV fluids, would not allow any blood testing, patient did not not want any radiographic testing or any testing to be done. Patient did not want any radiographic testing or any testing to be done. Didn't want blood testing. Monica KAUR was a witnessed all of this as well. Patient's agreed that patient is able to go home, refuse care, refused catheter for urine drainage, refused IV fluids, lab work, radiographic testing. Patient is aware of , disability, sepsis, and unforeseen complications. Patient is aware of the amount of urine in his bladder, patient is aware that his blood pressure is low. Patient's is aware of all this as well. The patient is oriented to person, place, and time, demonstrating all ramon elements of capacity to make decisions regarding the medical care offered. The patient speaks coherently and exhibits no evidence of having an altered level of consciousness or alcohol or drug intoxication to a point that would impair ability to delineate a choice. He/she is able to ambulate without difficulty. The patient demonstrates understanding and appreciation of the relevant information of the nature their medical condition, as well as the risks, benefits, and treatment alternatives (including nontreatment), Consequences of refusing care, and can appropriately communicative rational reasoning about their choice of care options. Patient is aware of a suspected diagnosis suggested by history and exam. The risks of refusing recommended care that were disclosed and acknowledged by the patient including , unforeseen complications, neurological dysfunction, permanent mental impairment, loss of limb, loss of sexual function, loss of current lifestyle, worsening chronic condition, long-term disability were disclosed. The patient understands they are welcome to return to the hospital anytime to receive the recommended care or any other care at any time, regardless of their ability to pay for such care. Discharge instructions were provided to the patient along with necessary pr escriptions if indicated.The patient is oriented to person, place, and time, demonstrating all ramon elements of capacity to make decisions regarding the medical care offered. The patient speaks coherently and exhibits no evidence of having an altered level of consciousness or alcohol or drug intoxication to a point that would impair ability to delineate a choice. He/she is able to ambulate without difficulty. The patient demonstrates understanding and appreciation of the relevant information of the nature their medical condition, as well as the risks, benefits, and treatment alternatives (including nontreatment), Consequences of refusing care, and can appropriately communicative rational reasoning about their choice of care options. Patient is aware of a suspected diagnosis suggested by history and exam. The risks of refusing recommended care that were disclosed and acknowledged by the patient including , unforeseen complications, neurological dysfunction, permanent mental impairment, loss of limb, loss of sexual function, loss of current lifestyle, worsening chronic condition, long-term disability were disclosed. The patient understands they are welcome to return to the hospital anytime to receive the recommended care or any other care at any time, regardless of their ability to pay for such care. Discharge instructions were provided to the patient along with necessary prescriptions if indicated. Lab Data Labs: Lab Results 08/27/23 Range/Units 09:03 POC Glucose 142 H (74-106) mg/dL ECG Data Attestation: I personally reviewed and interpreted this ECG as follows: (EKG interpretation. Normal sinus rhythm at 80 bpm. Left axis deviation. Artifact noted. Right bundle branch block noted, QTc of 465.) Discharge Plan Discharge Stand Alone Forms: Portal Instructions Clinical Impression: Left against medical advice, Hypotension Patient Disposition: Left Against Medical Advice Time of Disposition Decision: 09:46 Condition: Fair Prescriptions / Home Meds: No Action aspirin 81 mg tablet,delayed release (DR/EC) 81 mg PO DAILY carvedilol 3.125 mg tablet 3.125 mg PO Q12H duloxetine 30 mg capsule,delayed release(DR/EC) 30 mg PO DAILY gabapentin 300 mg capsule 300 mg PO .COMPLEX Rx Instructions: 300 mg orally 1 tablet in the morning and 2 tablets before bed; lisinopril 10 mg tablet 10 mg PO DAILY metformin 500 mg tablet 500 mg PO BID omeprazole 20 mg capsule,delayed release(DR/EC) 20 mg PO DAILY ropinirole 2 mg tablet 2 mg PO .qhs rosuvastatin 20 mg tablet 20 mg PO QDAY tamsulosin 0.4 mg capsule 0.8 mg PO Q24H benzonatate 100 mg Capsule 200 mg PO Q8H PRN (Reason: Cough) Qty: 20 0RF azithromycin 500 mg tablet 500 mg PO DAILY 3 Days Qty: 3 0RF prednisone 10 mg tablet 40 mg PO DAILY Qty: 32 0RF Rx Instructions: 4/day for 3 days, 3/day for 3 days, 2/day for 3 days, 1/day for 3 days, 1/2 /day for 4 days Print Language: Icelandic Instructions: Hypotension (DC), Against Medical Advice (ED) Referrals: Irina Mcleod NP [Primary Care Provider] - 1 week
[2023-08-27 09:14] LABS: Glucometer 142 mg/dL (74-106)
--- OUTSIDE RECORDS SUMMARY | 2023-08-27 09:17 | XMS_ITS | CCD ---
Author Organization [facility] Care Team Providers Care Hand Iii Cutter Name Role Phone AICHHOLZ, COMMODITY MANAGEMENT SPECIALIST IRINA Admitting Unavailable AICHHOLZ, COMMODITY MANAGEMENT SPECIALIST IRINA Primary Care Unavailable AICHHOLZ, COMMODITY MANAGEMENT SPECIALIST IRINA Consulting Unavailable AICHHOLZ, COMMODITY MANAGEMENT SPECIALIST IRINA Attending Unavailable AICHHOLZ, COMMODITY MANAGEMENT SPECIALIST IRINA Admitting Unavailable AICHHOLZ, COMMODITY MANAGEMENT SPECIALIST IRINA Primary Care Unavailable AICHHOLZ, COMMODITY MANAGEMENT SPECIALIST IRINA Consulting Unavailable AICHHOLZ, COMMODITY MANAGEMENT SPECIALIST IRINA Attending Unavailable AICHHOLZ, COMMODITY MANAGEMENT SPECIALIST IRINA Admitting Unavailable AICHHOLZ, COMMODITY MANAGEMENT SPECIALIST IRINA Primary Care Unavailable AICHHOLZ, COMMODITY MANAGEMENT SPECIALIST IRINA Consulting Unavailable AICHHOLZ, COMMODITY MANAGEMENT SPECIALIST IRINA Attending Unavailable JOSE ELIAS DAI Admitting Unavailable JOSE ELIAS DAI Consulting Unavailable JOSE ELIAS DAI Attending Unavailable AICHHOLZ, COMMODITY MANAGEMENT SPECIALIST IRINA Primary Care Unavailable Jose PARKER, Arlen Duncan Attending Unavai jesseele Aichholz [employer] HAND-COMMODITY MANAGEMENT SPECIALIST, Irina Jo Referring Kristineva Too Manriquez MD Attending Unavaila JAYLIN Flynn Attending Unavailable Aichholz [facility], Irina J Primary Care Provider Aichholz MEAL GRINDER TENDER, Irina Unavailable Zachary Melton MD Primary Care Provider Zachary Melton MD Primary Care Provider AICADOLPH, IRINA Attending Unavailable AICHHOLZ, IRINA Attending Unavailable AICHHOLZ, IRINA Attending Unavailable AMBER VALDOVINOS Attending Unavailable IRINA MCLEOD Referring Unavailable AICHHOLZ, IRINA J Primary Care Unavailable AMBER VALDOVINOS Attending Unavailable AICHHOLDary, IRINA J Referring Unavailable AICHHOLZ, IRINA J Primary Care Unavailable AICHHOLZ, IRINA J Referring Unavailable AICHHOLZ, IRINA J Primary Care Unavailable AYALA YATES Referring Unavailable AICHHOLZ, IRINA J Primary Care Unavailable AYALA YATES Attending Unavailable AYALA YATES Referring Unavailable AICHHOLZ, IRINA J Primary Care Unavailable JOELLE, MENNATALLAH M Admitting Unavailable JOELLE, MENNATALLAH M Attending Unavailable AICHHOLZ, IRINA J Primary Care Unavailable AYALA YATES Attending Unavailable AICHHOLZ, IRINA J Primary Care Unavailable SYBIL TOBIN Attending Unavailable AICHHOLZ, IRINA J Referring Unavailable AICHHOLZ, IRINA J Primary Care Unavailable SYBIL TOBIN Attending Unavailable AICHHOLZ, IRINA J Referring Unavailable AICHHOLZ, IRINA J Primary Care Unavailable AICHHOLZ, IRINA J Referring Unavailable AICHHOLZ, IRINA J Primary Care Unavailable JOELLE, MENNATALLAH M Admitting Unavailable JOELLE, MENNATALLAH M Attending Unavailable AICHHOLZ, IRINA J Primary Care Unavailable FRANKIE BISHOP Attending Unavailable AICHHOLZ, IRINA J Primary Care Unavailable SYBIL TOBIN Attending Unavailable AICHHOLZ, IRINA J Referring Unavailable AICHHOLZ, IRINA J Primary Care Unavailable Allergies Allergy Classification Reported Allergen(s) Allergy Type Date of Onset Reaction(s) Facility (1 source) Cephalexin Drug Allergy [facility] (1 source) Clindamycin Drug Allergy [facility] (1 source) levoFLOXacin Drug Allergy [facility] (5 sources) Cephalosporins (Antibiotic); Translations: [CEPHALOSPORINS] Propensity to adverse reactions to drug 04-06-20 Rash [facility] (11 sources) Clindamycin; Translations: [CLINDAMYCIN] Drug Allergy 04-06-20 Rash, Unknown [facility] (11 sources) levoFLOXacin; Translations: [LEVOFLOXACIN] Drug Allergy 04-06-20 Rash, Unknown [facility] (6 sources) Cephalosporins (Antibiotic) Drug Allergy 04-06-20 Unknown [facility] Medications Current Medications Medication Drug Class(es) Dates Sig (Normalized) Sig (Original) [id number] actuat albuterol 0.09 mg/actuat metered dose inhaler (15 sources) beta2-Adrenergic Agonist Start: 05-11-2023 End: 06-10-2023 take 2 puff(s) by inhalation every six hours for wheezing albuterol HFA 90 mcg/act inhaler Indications: Other emphysema (CMS/HCC) Inhale 2 puffs every 6 (six) hours [...] aspirin 81 mg delayed release oral tablet (10 sources) Platelet Aggregation Inhibitor, Nonsteroidal Anti-inflammatory Drug take 1 tablet by mouth in the morning aspirin 81 mg Take 1 tablet (81 mg total) by mouth in the morning. 0 Active carvedilol 3.125 mg oral tablet (10 sources) alpha-Adrenergic Maria Esther, beta-Adrenergic Maria Esther take 1 tablet by mouth in the morning, then take 1 tablet by mouth at mealtime carvediloL (COREG) 3.125 mg tablet Take 1 tablet (3.125 mg total) by mouth in the morning and 1 tablet (3.125 mg total) in the evening. Take with meals. 0 Active DULoxetine 30 mg delayed release oral capsule (10 sources) Serotonin and Norepinephrine Reuptake Inhibitor take 1 capsule by mouth in the morning DULoxetine (CYMBALTA) 30 mg capsule Take 1 capsule (30 mg total) by mouth in the morning. 0 Active 30 actuat fluticasone furoate 0.1 mg/actuat / umeclidinium 0.0625 mg/actuat / vilanterol 0.025 mg/actuat dry powder inhaler (6 sources) Anticholinergic, Corticosteroid, beta2-Adrenergic Agonist Start: 06-10-19 23 take 1 dose by mouth in the morning Fluticasone-Umeclid in-Vilant (Trelegy Ellipta) 100-62.5-25 MCG/ACT aerosol powder Inhale 1 Dose in the morning. Rinse mouth after use.. 0 06/10/2022 Active furosemide 20 mg oral tablet (10 sources) Loop Diuretic take 1 tablet by mouth three times daily furosemide (LASIX) 20 mg tablet Take 1 tablet (20 mg total) by mouth 3 (three) times a day. 0 Active take 3 tablets by mouth in the m orning furosemide (Lasix) 20 MG tablet Take 3 tablets by mouth in the morning. 0 Active gabapentin 300 mg oral capsu le (10 sources) Anti-epileptic Agent gabapentin (NEURONTIN) 300 mg [...] 0 Active lisinopril 10 mg oral tablet (10 sources) Angiotensin Converting Enzyme Inhibitor Start: 03-08-2023 End: 06-10-2023 take 1 tablet by mouth in the morning lisinopriL (PRINIVIL,ZESTRIL) 10 mg tablet Take 1 tablet (10 mg total) by mouth in the morning. 0 03/08/2023 Active metFORMIN hydrochloride 500 mg oral tablet (10 sources) Biguanide take 1 tablet by mouth in the morning, then take 1 tablet by mouth at mealtime metFORMIN (GLUCOPHAGE) 500 mg tablet Take 1 tablet (500 mg total) by mouth in the morning and 1 tablet (500 mg total) in the evening. Take with meals. 0 Active nystatin [id number] unt/ml topical cream (6 sources) Polyene Antifungal nystatin (Mycostatin ) cream Apply 1 application topically if needed 0 Active omeprazole 20 mg delayed release oral capsule (10 sources) Proton Pump Inhibitor Start: 03-08-2023 take 1 capsule by mouth once daily before breakfast omeprazole (PriLOSEC) 20 mg capsule Take 1 capsule (20 mg total) by mouth every morning before breakfast. 0 03/08/2023 Active rOPINIRole 2 mg oral tablet (15 sources) Nonergot Dopamine Agonist Start: 03-08-2023 End: 07-09-2023 take 1 tablet by mouth once daily rOPINIRole (REQUIP) 2 mg tablet Take 1 tablet (2 mg total) by mouth nightly. 0 03/08/2023 Active take 2 tablets by mouth once anthony ly rOPINIRole (REQUIP) 1 mg tablet Take 2 tablets (2 mg total) by mouth nightly. 0 Active rosuvastatin calcium 20 mg oral tablet (11 sources) HMG-CoA Reductase Inhibitor Start: 03-08-2023 End: 07-10-2023 take 1 tablet by mouth in the morning rosuvastatin (CRESTOR) 20 mg tablet Take 1 tablet (20 mg total) by mouth in the morning. 0 03/08/2023 Active tamsulosin hydrochloride 0.4 mg oral capsule (10 sources) alpha-Adrenergic Maria Esther take 1 capsule [...] Episodic Chronic obstructive pulmonary disease and bronchiectasis (12 sources) Chronic obstructive pulmonary disease, unspecified; Translations: [Pulmonary emphysema] Onset: 3 Resolved: 3 04-07-2023 Chronic Chronic ulcer of skin (4 sources) Pressure ulcer of buttock; Translations: [Pressure ulcer of unspecified buttock, unspecified stage] Onset: 3 03-12-2023 Chronic Coagulation and hemorrhagic disorders (6 sources) Thrombocytopenic disorder; Translations: [Thrombocytopenia, unspecified] Onset: 3 04-07-2023 Chronic Coronary atherosclerosis and other heart disease (2 sources) Atherosclerotic heart disease of [place] coronary artery without angina pectoris; Translations: [Atherosclerotic heart disease of [place] coronary artery without angina pectoris] Onset: 3 [...] esophagitis] Onset: 3 04-07-2023 Chronic Essential hypertension (12 sources) Essential (primary) hypertension; Translations: [Benign essential [...] behavior of skin] Onset: 3 04-07-2023 Episodic Open wounds of head; neck; and trunk (1 source) Unspecified open wound of lower back and pelvis without penetration into retroperitoneum, subsequent encounter; Translations: [Unspecified open wound of lower back and pelvis without penetration into retroperitoneum, subsequent encounter] Onset: 4 Episodic Osteoarthritis (8 sources) Primary gonarthrosis, bilateral; Translations: [Bilateral primary osteoarthritis of knee] Onset: 3 04-07-2023 Chronic Other aftercare (1 source) FPC (current) use of aspirin; Translations: [SENIOR CARE CURRENT USE OF ASPIRIN] Onset: 3 Episodic Other aftercare (1 source) Other terminal superintendent (current) drug therapy; Translations: [OTH SENIOR CARE CURRENT DRUG THERAPY] Onset: 3 Episodic Other aftercare (1 source) FPC (current) use of oral hypoglycemic drugs; Translations: [CHECKING CLERK USE ORAL HYPOGLYCEMIC DX] Onset: 3 Episodic [...] side] Onset: 3 04-07-2023 Episodic Substance-related disorders (4 sources) Tobacco dependence syndrome; Translations: [Nicotine dependence, [...] Test Name Value Interpretation Reference Range Facility Surgical Pathologyon Surgical Pathology Normal [facility] Comment on above: Result Comment: [facility] [address] [place] [address] Surgical Pathology Consultation Patient Name:CARLOS PERSAUD:1955 (Age: 68)Gender:MTaken:4Reported:08/25/2023hysician(s):Luisa Valdovinos MD ([phone])Copy To: Rec. #:[id number]: #[id number] Final Pathologic Diagnosis Soft tissue, buttocks, excision: Pilonidal cyst/sinus, lined by keratinized squamous epithelium with reactive changes, and surrounded by chronic inflammatory infiltrates with dermal fibrosis. Report Electronically Signed Out /08/25/2023hermila Egan MD Interpretation performed at [place], [address] [place] [address], License number: [id number]. Clinical History Pilonidal cyst. Gross Description Received in formalin is labeled DUNIA, samiraocks is a lightly pigmented ellipse of skin with underlying subcutaneous tissue, 9 x 3.5 x 2.4 cm. The skin surface is smooth and glistening with areas of hairbearing skin. The specimen sectioned to reveal a linear cavity filled with friable material and hair. Remaining cut surfaces are lobulated and fibrous. A inside outside sales representative cross-section is submitted in a single cassette. (1, ss, [id number]) . /08/23/2023GP Specimen(s) Received Pilonidal cyst Fee Codes(s): 1; 41228 BASIC METABOLIC PANLon 07-29 Anion gap [Moles/Vol] 8 mmol/L Normal 5-15 [facility] Comment on above: Performed By: #### B MP #### [facility] ([id number]) [address] [place] [address], [address] [place] [address] Calcium [Mass/Vol] 8.6 mg/dL Normal 8.5-10.5 [facility] Comment on above: Performed By: #### B MP #### [facility] ([id number]) [address], [address] [place] [address] Chloride [Moles/Vol] 100 mmol/L Normal 98-109 [facility] Comment on above: Performed By: #### B MP #### [facility] ([id number]) [address], [address] [place] [address] CO2 [Moles/Vol] 32 mmol/L Normal 22-32 [facility] Comment on above: Performed By: #### B MP #### [facility] ([id number]) [address], [address] [place] [address] Creatinine [Mass/Vol] 1.40 mg/dL High 0.60-1.30 [facility] Comment on above: Result Comment: METH OD TRACEABLE TO IDMS STANDARD Performed By: #### B MP #### [facility] ([id number]) [address], [address] [place] [address] GFR/1.73 sq M.predicted among non-blacks MDRD (S/P/Bld) [Vol rate/Area] 55 mL/min/{1.73_m2} Low >59 [facility] Comment on above: Result Comment: Reported eGFR is based on the CKD-EPI 2020 equation that does not use a race coefficient. Performed By: #### B MP #### [facility] ([id number]) [address], [address] [place] [address] Glucose [Mass/Vol] 86 mg/dL Normal 65-99 [facility] Comment on above: Performed By: #### B MP #### [facility] ([id number]) [address], [address] [place] [address] Potassium [Moles/Vol] 3.8 mmol/L Normal 3.5-5.0 [facility] Comment on above: Performed By: #### B MP #### [facility] ([id number]) [address], [address] [place] [address] Sodium [Moles/Vol] 140 mmol/L Normal 134-146 [facility] Comment on above: Performed By: #### B MP #### [facility] ([id number]) [address], [address] [place] [address] Urea nitrogen [Mass/Vol] 16 mg/dL Normal 5-27 [facility] Comment on above: Performed By: #### B MP #### [facility] ([id number]) [address], [address] [place] [address] XR CHEST 2 VWSon 07-30-2023 XR CHEST 2 VWS XR CHEST 2 VWS PA and lateral chest: HISTORY: Preoperative exam. Anesthesia clearance. 2 views of the chest are obtained. Cardiac and mediastinal contours are within normal limits. There is no focal consolidation, effusion, or pneumothorax. Osseous structures appear intact. IMPRESSION: No acute findings. 04 Finalized by Koffi Cm MD on 07/30/2023 10:12 AM Normal [facility] No Panel Informationon 05-05 Applied in clinic today MANUALLY TRANSCRIBED RESULTS No Panel InformationOrdered By: So Angela on 05-05-2023 [facility] Office Visiton 04-13-2023 Follow-up visit [id number] Carlos Persaud Louise 1955 M Date Provider Department Center 04/13/2023 JAYLIN HUGHES [facility] No family history on file Level of Service:[id number] ID OFFICE/OUTPATIENT NEW MODERATE MDM 45-59 MINUTES Normal [facility] UA RANDOM W/MICROSCOPICon BACTERIA NONE SEEN Normal NONE SEEN [facility] Comment on above: Performed By: #### U AMIC #### [facility] [address] [place] [address] Dr. Gloria Ayala Bilirubin Ql (U) Negative Normal NEGATIVE [facility] Comment on above: Performed By: #### U AMIC #### [facility] [address] [address] [address] Gloria Ayala CAST NONE SEEN Normal NONE SEEN [facility] Comment on above: Performed By: #### U AMIC #### [facility] [address] [place] [address] Dr. Gloria Ayala Clarity (U) CLEAR Normal CLEAR [facility] Comment on above: Performed By: #### U AMIC #### [facility] [address] [place] [address] Dr. Gloria Ayala Color (U) YELLOW Normal YELLOW [facility] Comment on above: Performed By: #### U AMIC #### [facility] [address] [place] [address] Dr. Gloria Ayala Crystals LM Nom (Urine sed) NONE SEEN Normal NONE SEEN [facility] Comment on above: Performed By: #### U AMIC #### [facility] [address] [place] [address] Dr. Gloria Ayala Epithelial cells LM Ql (Urine sed) NONE SEEN Normal NONE SEEN /RARE [facility] Comment on above: Performed By: #### U AMIC #### [facility] [address] [place] [address] Dr. Gloria Ayala Glucose Ql (U) Negative Normal NEGATIVE [facility] Comment on above: Performed By: #### U AMIC #### [facility] [address] [place] [address] Dr. Gloria Ayala Hemoglobin Ql (U) Negative Normal NEGATIVE [facility] Comment on above: Performed By: #### U AMIC #### [facility] [address] [place] [address] Dr. Gloria Ayala Ketones Ql (U) TRACE Abnormal NEGATIVE [facility] Comment on above: Performed By: #### U AMIC #### [facility] [address] [place] [address] Dr. Gloria Ayala LEUKOCYTES Negative Normal NEGATIVE [facility] Comment on above: Performed By: #### U AMIC #### [facility] [address] [place] [address] Dr. Gloria Ayala MUCOUS NONE SEEN Normal NONE SEEN [facility] Comment on above: Performed By: #### U AMIC #### [facility] [address] [address] [address] Gloria Ayala Nitrite Ql (U) Negative Normal NEGATIVE [facility] Comment on above: Performed By: #### U AMIC #### [facility] [address] [place] [address] Dr. Gloria Ayala pH (U) 5.5 [pH] Normal 5-9 [facility] Comment on above: Performed By: #### U AMIC #### [facility] [address] [place] [address] Dr. Gloria Ayala RBC 0-2 Normal 0-2 [facility] Comment on above: Performed By: #### U AMIC #### [facility] [address] [place] [address] Dr. Gloria Ayala SPEC GRAVITY 1.020 Normal 1.005-<=1.025 [facility] Comment on above: Performed By: #### U AMIC #### [facility] [address] [place] [address] Dr. Gloria Ayala UA PROTEIN Negative Normal NEGATIVE/ TRACE [facility] Comment on above: Performed By: #### U AMIC #### [facility] [address] [place] [address] Dr. Gloria Ayala Urobilinogen Qn (U) 2.0 {Jonathan'U}/dL Abnormal 0.2 - 1. 0 [facility] Comment on above: Performed By: #### U AMIC #### [facility] [address] [place] [address] Dr. Gloria Ayala WBC NONE SEEN Normal NONE SEEN [facility] Comment on above: Performed By: #### U AMIC #### [facility] [address] [place] [address] Dr. Gloria Ayala CBC AUTO DIFFon 07-09-2022 BASO # 0.1 103/ul Normal 0.0-0.1 [facility] Comment on above: Performed By: #### C BC #### [facility] [address] [place] [address] Dr. Gloria Ayala Basophils/100 WBC (Bld) 0.6 % Normal 0.2-2.0 [facility] Comment on above: Performed By: #### C BC #### [facility] [address] [place] [address] Dr. Gloria Ayala EO # 0.1 103/ul Normal 0.0-0.7 [facility] Comment on above: Performed By: #### C BC #### [facility] [address] [place] [address] Dr. Gloria Ayala Eosinophils/100 WBC (Bld) 1.6 % Normal 0.9-7.0 [facility] Comment on above: Performed By: #### C BC #### [facility] [address] [place] [address] Dr. Gloria Ayala Erythrocyte distribution width (RBC) [Ratio] 13.6 % Normal 11.0-15.0 [facility] Comment on above: Performed By: #### C BC #### [facility] [address] [place] [address] Dr. Gloria Ayala Hematocrit (Bld) [Volume fraction] 49.8 % Normal 42.0-54.0 [facility] Comment on above: Performed By: #### C BC #### [facility] [address] [place] [address] Dr. Gloria Ayala Hemoglobin (Bld) [Mass/Vol] 15.7 g/dL Normal 14.0-18.0 [facility] Comment on above: Performed By: #### C BC #### [facility] [address] [place] [address] Dr. Gloria Ayala IG # 0.04 10e3/ul Critically high 0.00-0.03 [facility] Comment on above: Performed By: #### C BC #### [facility] [address] [place] [address] Dr. Gloria Ayala IG % 0.5 % Normal 0.0-0.5 [facility] Comment on above: Performed By: #### C BC #### [facility] [address] [place] [address] Dr. Gloria Ayala LYMPH # 1.1 103/ul Critically low 1.2-3.8 [facility] Comment on above: Performed By: #### C BC #### [facility] [address] [place] [address] Dr. Gloria Ayala Lymphocytes/100 WBC (Bld) 13.8 % Critically low 20.5-60.0 [facility] Comment on above: Performed By: #### C BC #### [facility] [address] [place] [address] Dr. Gloria Ayala MANUAL DIFF REQ NO Normal [facility] Comment on above: Performed By: #### C BC #### [facility] [address] [place] [address] Dr. Gloria Ayala MCH (RBC) [Entitic mass] 26.6 pg Normal 25.9-34.0 [facility] Comment on above: Performed By: #### C BC #### [facility] [address] [place] [address] Dr. Gloria Ayala MCHC (RBC) [Mass/Vol] 31.5 g/dL Normal 29.9-35.2 [facility] Comment on above: Performed By: #### C BC #### [facility] [address] [place] [address] Dr. Gloria Ayala MCV (RBC) [Entitic vol] 84.4 fL Normal 80.0-94.0 [facility] Comment on above: Performed By: #### C BC #### [facility] [address] [place] [address] Dr. Gloria Ayala MONO # 0.4 103/ul Normal 0.3-0.8 [facility] Comment on above: Performed By: #### C BC #### [facility] [address] [place] [address] Dr. Gloria Ayala Monocytes/100 WBC (Bld) 5.0 % Normal 1.7-12.0 [facility] Comment on above: Performed By: #### C BC #### [facility] [address] [place] [address] Dr. Gloria Ayala NEUT # 6.3 103/ul Normal 1.4-6.5 [facility] Comment on above: Performed By: #### C BC #### [facility] [address] [address] [address] Gloria Ayala Neutrophils/100 WBC (Bld) 78.5 % Critically high 43.0-75.0 [facility] Comment on above: Performed By: #### C BC #### [facility] [address] [place] [address] Dr. Gloria Ayala Platelet mean volume (Bld) [Entitic vol] 10.5 fL Normal 9.5-13.5 [facility] Comment on above: Performed By: #### C BC #### [facility] [address] [place] [address] Dr. Gloria Ayala PLT 151 103/ul Normal 150-450 [facility] Comment on above: Performed By: #### C BC #### [facility] [address] [place] [address] Dr. Gloria Ayala RBC 5.90 106/ul Normal 4.70-6.10 [facility] Comment on above: Performed By: #### C BC #### [facility] [address] [place] [address] Dr. Gloria Ayala WBC 8.0 103/ul Normal 4.0-11.0 [facility] Comment on above: Performed By: #### C BC #### [facility] [address] [place] [address] Dr. Gloria Ayala GLYCOHEMOGLOBIN A1Con 2022 ADA RECOMMENDATION SEE BELOW Normal [facility] Comment on above: Result Comment: ADA RECOMMENDED LIMIT 4.0 - 6.0 ADA THERAPEUTIC TARGET < 7.0 ACTION SUGGESTED > 7.0 Performed By: #### A 1C #### [facility] [address] [place] [address] Dr. Gloria Ayala Glucose [Mass/Vol] 123 mg/dL Normal [facility] Comment on above: Performed By: #### A 1C #### [facility] [address] [place] [address] Dr. Gloria Ayala HbA1c (Bld) [Mass fraction] 5.9 % Normal 4.5-6.2 [facility] Comment on above: Performed By: #### A 1C #### [facility] [address] [place], [place] [address] Dr. Gloria Ayala LIPID PROFILEon 07-09-2022 CHOL-HDL RATIO NORM SEE BELOW Normal [facility] Comment on above: Result Comment: 3.3 - 4.4 LOW RISK 4.4 - 7.1 AVERAGE RISK 7.1 - 11.0 MODERATE RISK >11.0 HIGH RISK Performed By: #### L IPID, CMP #### [facility] [address], [place] [address] Dr. Gloira Ayala Cholesterol [Mass/Vol] 182 mg/dL Normal <=200 Th [facility] Comment on above: Performed By: #### L IPID, CMP #### [facility] [address] [address] [address] Gloria Ayala Cholesterol in HDL [Mass/Vol] 29 mg/dL Critically low 40-60 [facility] Comment on above: Performed By: #### L IPID, CMP #### [facility] [address] [address] [address] Gloria Ayala Cholesterol in LDL [Mass/Vol] 136.6 mg/dL Normal [facility] Comment on above: Performed By: #### L IPID, CMP #### [facility] [address], [place] [address] Dr. Gloria Ayala Cholesterol.total/Mamta sterol in HDL [Mass ratio] 6.3 {ratio} Normal [facility] Comment on above: Performed By: #### L IPID, CMP #### [facility] [address], [place] [address] Dr. Gloria Ayala HDL NORMAL > or = 60 mg/dl - LOW CARDIOVASCULAR RISK <40 mg/dl - HIGH CARDIOVASCULAR RISK Normal [facility] Comment on above: Performed By: #### L IPID, CMP #### [facility] [address], [place] [address] Dr. Gloria Ayala LDL CALC NORMAL SEE BELOW Normal [facility] Comment on above: Result Comment: <100 mg/dl OPTIMAL 100 - 129 mg/dl NEAR OR ABOVE OPTIMAL 130 - 159 mg/dl BORDERLINE HIGH 160 - 189 mg/dl HIGH >190 mg/dl VERY HIGH Performed By: #### L IPID, CMP #### [facility] [address] [place] [address] Dr. Gloria Ayala Triglyceride [Mass/Vol] 82 mg/dL Normal <=150 T [facility] Comment on above: Performed By: #### L IPID, CMP #### [facility] [address] [address] [address] Gloria Ayala VLDL CALC 16.4 mg/dL Normal [facility] Comment on above: Performed By: #### L IPID, CMP #### [facility] [address] [place] [address] Dr. Gloria Ayala MICROALBUMIN, RAND URon 03-0 mALB 1.9 mg/L Normal <=30.0 [facility] Comment on above: Performed By: #### M ALBR #### [facility] [address] [place] [address] Dr. Gloria Ayala PROF 14(COMP METB)on 023 Albumin [Mass/Vol] 3.2 g/dL Critically low 3.4-5.0 Th [facility] Comment on above: Performed By: #### L IPID, CMP #### [facility] [address] [place] [address] Dr. Gloria Ayala Albumin/Globulin [Mass ratio] 0.8 {ratio} Normal [facility] Comment on above: Performed By: #### L IPID, CMP #### [facility] [address] [place] [address] Dr. Gloria Ayala ALP [Catalytic activity/Vol] 85 U/L Normal 46-116 [facility] Comment on above: Performed By: #### L IPID, CMP #### [facility] [address] [place] [address] Dr. Gloria Ayala ALT [Catalytic activity/Vol] 15 U/L Critically low 16-63 [facility] Comment on above: Performed By: #### L IPID, CMP #### [facility] [address] [address] [address] Gloria Ayala Anion gap [Moles/Vol] 9.5 mmol/L Normal [facility] Comment on above: Performed By: #### L IPID, CMP #### [facility] [address] [address] [address] Gloria Ayala AST [Catalytic activity/Vol] 13 U/L Critically low 15-37 [facility] Comment on above: Performed By: #### L IPID, CMP #### [facility] [address] [place] [address] Dr. Gloria Ayala Bilirubin [Mass/Vol] 0.6 mg/dL Normal 0.2-1.0 [facility] Comment on above: Performed By: #### L IPID, CMP #### [facility] [address] [place] [address] Dr. Gloria Ayala Calcium [Mass/Vol] 8.4 mg/dL Critically low 8.5-10.1 [facility] Comment on above: Performed By: #### L IPID, CMP #### [facility] [address] [address] [address] Gloria Ayala Chloride [Moles/Vol] 102 mmol/L Normal 98-107 [facility] Comment on above: Performed By: #### L IPID, CMP #### [facility] [address] [place] [address] Dr. Gloria Ayala CO2 [Moles/Vol] 34.6 mmol/L Critically high 21.0-32.0 [facility] Comment on above: Performed By: #### L IPID, CMP #### [facility] [address] [place] [address] Dr. Gloria Ayala Creatinine [Mass/Vol] 0.97 mg/dL Normal 0.70-1.30 [facility] Comment on above: Performed By: #### L IPID, CMP #### [facility] [address] [place] [address] Dr. Gloria Ayala EGFR-AF NEPALESE >60 Normal >=60 [facility] Comment on above: Performed By: #### L IPID, CMP #### [facility] [address] [address] [address] Gloria Ayala EGFR-NON AF NEPALESE >60 Normal >=60 [facility] Comment on above: Performed By: #### L IPID, CMP #### [facility] [address] [address] [address] Gloria Ayala Globulin (S) [Mass/Vol] 4.1 g/dL Normal [facility] Comment on above: Performed By: #### L IPID, CMP #### [facility] [address] [address] [address] Gloria Ayala Glucose [Mass/Vol] 154 mg/dL Critically high 74-106 [facility] Comment on above: Performed By: #### L IPID, CMP #### [facility] [address] [place] [address] Dr. Gloria Ayala Potassium [Moles/Vol] 4.1 mmol/L Normal 3.5-5.1 [facility] Comment on above: Performed By: #### L IPID, CMP #### [facility] [address] [address] [address] Gloria Ayala Protein [Mass/Vol] 7.3 g/dL Normal 6.4-8.2 [facility] Comment on above: Performed By: #### L IPID, CMP #### [facility] [address] [place] [address] Dr. Gloria Ayala Sodium [Moles/Vol] 142 mmol/L Normal 136-145 [facility] Comment on above: Performed By: #### L IPID, CMP #### [facility] [address] [address] [address] Gloria Ayala Urea nitrogen [Mass/Vol] 10.0 mg/dL Normal 7.0-18.0 [facility] Comment on above: Performed By: #### L IPID, CMP #### [facility] [address] [place] [address] Dr. Gloria Ayala Urea nitrogen/Creatinine [Mass ratio] 10.3 mg/mg Normal [facility] Comment on above: Performed By: #### L IPID, CMP #### [facility] [address] [address] [address] Gloria Ayala UA RANDOM W/MICROSCOPICon BACTERIA NONE SEEN Normal NONE SEEN [facility] Comment on above: Performed By: #### U AMIC #### [facility] [address] [address] [address] Gloria Ayala Bilirubin Ql (U) Negative Normal NEGATIVE [facility] Comment on above: Performed By: #### U AMIC #### [facility] [address] [address] [address] Gloria Ayala CAST SEEN Abnormal NONE SEEN [facility] Comment on above: Performed By: #### U AMIC #### [facility] [address] [address] [address] Gloria Ayala Clarity (U) CLEAR Normal CLEAR [facility] Comment on above: Performed By: #### U AMIC #### [facility] [address] [address] [address] Gloria Ayala Color (U) YELLOW Normal YELLOW [facility] Comment on above: Performed By: #### U AMIC #### [facility] [address] [address] [address] Gloria Ayala Crystals LM Nom (Urine sed) NONE SEEN Normal NONE SEEN [facility] Comment on above: Performed By: #### U AMIC #### [facility] [address] [address] [address] Gloria Ayala Epithelial cells LM Ql (Urine sed) RARE Normal NONE SEEN /RARE [facility] Comment on above: Performed By: #### U AMIC #### [facility] [address] [address] [address] Gloria Ayala Glucose Ql (U) Negative Normal NEGATIVE [facility] Comment on above: Performed By: #### U AMIC #### [facility] [address] [address] [address] Gloria Ayala Hemoglobin Ql (U) Negative Normal NEGATIVE [facility] Comment on above: Performed By: #### U AMIC #### [facility] [address] [address] [address] Gloria Ayala HYALINE CAST RARE Normal [facility] Comment on above: Performed By: #### U AMIC #### [facility] [address] [address] [address] Gloria Ayala Ketones Ql (U) Negative Normal NEGATIVE [facility] Comment on above: Performed By: #### U AMIC #### [facility] [address] [address] [address] Gloria Ayala LEUKOCYTES Negative Normal NEGATIVE [facility] Comment on above: Performed By: #### U AMIC #### [facility] [address] [address] [address] Gloria Ayala MUCOUS NONE SEEN Normal NONE SEEN [facility] Comment on above: Performed By: #### U AMIC #### [facility] [address] [place] [address] Dr. Gloria Ayala Nitrite Ql (U) Negative Normal NEGATIVE [facility] Comment on above: Performed By: #### U AMIC #### [facility] [address] [address] [address] Gloria Ayala pH (U) 7.0 [pH] Normal 5-9 [facility] Comment on above: Performed By: #### U AMIC #### [facility] [address] [address] [address] Gloria Ayala RBC NONE SEEN Abnormal 0-2 [facility] Comment on above: Performed By: #### U AMIC #### [facility] [address] [address] [address] Gloria Ayala SPEC GRAVITY 1.015 Normal 1.005-<=1.025 [facility] Comment on above: Performed By: #### U AMIC #### [facility] [address] [address] [address] Gloria Ayala UA PROTEIN Negative Normal NEGATIVE/ TRACE [facility] Comment on above: Performed By: #### U AMIC #### [facility] [address] [address] [address] Gloria Ayala Urobilinogen Qn (U) 8 {Jonathan'U}/dL Abnormal 0.2 - 1.0 [facility] Comment on above: Performed By: #### U AMIC #### [facility] [address] [address] [address] Gloria Ayala WBC NONE SEEN Normal NONE SEEN [facility] Comment on above: Performed By: #### U AMIC #### [facility] [address] [address] [address] Gloria Ayala Physician Referralon 022 Physician Referral [phone] [id number]:[id number] Normal [facility] GLYCOHEMOGLOBIN A1Con 2021 ADA RECOMMENDATION SEE BELOW Normal [facility] Comment on above: Result Comment: ADA RECOMMENDED LIMIT 4.0 - 6.0 ADA THERAPEUTIC TARGET < 7.0 ACTION SUGGESTED > 7.0 Performed By: #### A 1C #### [facility] [address] [place] [address] Dr. Gloria Ayala Glucose [Mass/Vol] 128 mg/dL Normal [facility] Comment on above: Performed By: #### A 1C #### [facility] [address] [place] [address] Dr. Gloria Ayala HbA1c (Bld) [Mass fraction] 6.1 % Normal 4.5-6.2 [facility] Comment on above: Performed By: #### A 1C #### [facility] [address] [place] [address] Dr. Gloria Ayala PROF CHEM 8 (BAS METB)on Anion gap [Moles/Vol] 8.5 mmol/L Normal [facility] Comment on above: Performed By: #### B MP #### [facility] [address] [place] [address] Dr. Gloria Ayala Calcium [Mass/Vol] 8.5 mg/dL Normal 8.5-10.1 [facility] Comment on above: Performed By: #### B MP #### [facility] [address] [place] [address] Dr. Gloria Ayala Chloride [Moles/Vol] 99 mmol/L Normal 98-107 [facility] Comment on above: Performed By: #### B MP #### [facility] [address] [address] [address] Gloria Ayala CO2 [Moles/Vol] 34.5 mmol/L Critically high 21.0-32.0 [facility] Comment on above: Performed By: #### B MP #### [facility] [address] [address] [address] Gloria Ayala Creatinine [Mass/Vol] 1.02 mg/dL Normal 0.70-1.30 [facility] Comment on above: Performed By: #### B MP #### [facility] [address] [place] [address] Dr. Gloria Ayala EGFR-AF NEPALESE >60 Normal >=60 [facility] Comment on above: Performed By: #### B MP #### [facility] [address] [place] [address] Dr. Gloria Ayala EGFR-NON AF NEPALESE >60 Normal >=60 [facility] Comment on above: Performed By: #### B MP #### [facility] [address] [address] [address] Gloria Ayala Glucose [Mass/Vol] 116 mg/dL Critically high 74-106 [facility] Comment on above: Performed By: #### B MP #### [facility] [address] [place] [address] Dr. Gloria Ayala Potassium [Moles/Vol] 4.0 mmol/L Normal 3.5-5.1 [facility] Comment on above: Performed By: #### B MP #### [facility] [address] [place] [address] Dr. Gloria Ayala Sodium [Moles/Vol] 138 mmol/L Normal 136-145 [facility] Comment on above: Performed By: #### B MP #### [facility] [address] [address] [address] Gloria Ayala Urea nitrogen [Mass/Vol] 11.0 mg/dL Normal 7.0-18.0 [facility] Comment on above: Performed By: #### B MP #### [facility] [address], [place] [address] Dr. Gloria Ayala Urea nitrogen/Creatinine [Mass ratio] 10.8 mg/mg Normal [facility] Comment on above: Performed By: #### B MP #### [facility] [address] [address] [address] Gloria Ayala Vital Signs Date Time Vital Sign Value Performing Clinician Facility 07-30-2023 08:37-0400 Body height 176.5 cm [facility] 1 [facility] 06-14-2023 17:39-0500 Body height 175.3 cm Irina Mcleod [employer]ER Work Phone: [facility] 06-14-2023 17:39-0500 Body mass index (BMI) [Ratio] 40.61 kg/m2 Irinalouise Mcleod [employer]AL GR[employer]ER TENDER Work Phone: [facility] 06-14-2023 17:39-0500 Body temperature 97.5 [degF] Irina Shani MEAL GR[employer]ER TENDER Work Phone: [facility] 06-14-2023 17:39-0500 Body weight 124.74 kg Irina Derichlani MEAL GR[employer]ER TENDER Work Phone: [facility] Comment on above: hospital bed weighed him at the hospital 06-14-2023 17:39-0500 Diastolic blood pressure 58 mm[Hg] Irina Shani [employer]AL GR[employer]ER TENDER Work Phone: [facility] 06-14-2023 17:39-0500 Heart rate 84 /min Irina Aichsallyz [employer]AL GR[employer]ER TENDER Work Phone: [facility] 06-14-2023 17:39-0500 Respiratory rate 19 /min Irina Shani [employer]AL GR[employer]ER TENDER Work Phone: [facility] 06-14-2023 17:39-0500 SaO2% (BldA) [Mass fraction] 99 % Irina Shani [employer]AL GR[employer]ER TENDER Work Phone: [facility] 06-14-2023 17:39-0500 Systolic blood pressure 110 mm[Hg] Irina Derichlani MEAL GR[employer]ER TENDER Work Phone: [facility] 05-27-2023 13:23-0500 Body height 176.5 cm [facility] 1 [facility] 05-27-2023 13:23-0500 Body mass index (BMI) [Ratio] 45.12 kg/m2 [facility] 1 [facility] 05-27-2023 13:23-0500 Body weight 140.62 kg [facility] 1 [facility] 05-05-2023 10:43-0500 Body temperature 97 [degF] Sybil Tobin [employer] CLEANING HAND-COMMODITY MANAGEMENT SPECIALIST Work Phone: [facility] 05-05-2023 10:43-0500 Diastolic blood pressure 66 mm[Hg] Sybil Tobin [employer] CLE[employer]ING HAND-COMMODITY MANAGEMENT SPECIALIST Work Phone: [facility] 05-05-2023 10:43-0500 Heart rate 80 /min Sybil Tobin [employer] HAND-COMMODITY MANAGEMENT SPECIALIST Work Phone: [facility] 05-05-2023 10:43-0500 Respiratory rate 16 /min Sybil Tobin [employer] CLE[employer]ING HAND-COMMODITY MANAGEMENT SPECIALIST Work Phone: [facility] 05-05-2023 10:43-0500 Systolic blood pressure 116 mm[Hg] Sybil Tobin [employer] CLE[employer] HAND-COMMODITY MANAGEMENT SPECIALIST Work Phone: [facility] Encounters Encounter Date Encounter Type Care Provider Facility Start: 08-25-2023 End: 08-25-2023 ambulatory SYBIL English [facility] Start: 08-23-2023 End: 08-23-2023 Evaluation and management of inpatient AYALA Diop [facility] Start: 08-23-2023 End: 08-23-2023 Evaluation and management of inpatient [facility] Start: 08-17-2023 End: 08-17-2023 ambulatory [facility] Start: 07-30-2023 Encounter for other preprocedural examination IRINA MCLEOD [facility] Start: 07-30-2023 End: 07-31-2023 ambulatory AYALA Jadon [facility] Start: 07-30-2023 End: 07-30-2023 Patient encounter procedure [facility] Pre-Admission Testing 1 [facility] - Pre Ad[facility] Start: 06-14-2023 End: 06-14-2023 ambulatory IRINA MCLEOD Not Available Start: 06-14-2023 End: 06-14-2023 Office outpatient visit 25 minutes Irina Mcleod [employer] Work Phone: [facility] Comment on above: ROSSY (acute kidney in jury) (CMS/HCC) (Primary Dx); Pilonidal cyst; Edema of extremities; Primary osteoarthritis of both knees; Benign essential hypertension (CMS/HCC); COVID Start: 06-14-2023 Bamboo flowsheet Irina Mcleod [employer] TENDER Work Phone: [facility] Start: 06-14-2023 Bamboo flowsheet Irina Mcleod MEAL GR[employer]ER TENDER Work Phone: [facility] Start: 06-14-2023 Telephone encounter Jessie Avila CMA P [facility] Start: 06-09-2023 Refill Irina Justinz [employer]ER Work Phone: [facility] Comment on above: Dyslipidemia (CMS/HC C) (Primary Dx) Start: 06-08-2023 Refill Irina Aichholz [employer]ER Work Phone: [facility] Comment on above: Restless legs (Prima ry Dx) Start: 06-02-2023 Clinisync Result Encounter Generic External Data Provider [facility] External Department Unsolicited Start: 06-02-2023 Clinisync Result Encounter Generic External Data Provider [facility] External [facility] Unsolicited Start: 05-31-2023 End: 05-31-2023 Evaluation and management of inpatient FRANKIE BISHOP [facility] Start: 05-27-2023 End: 05-27-2023 ambulatory IRINA MCLEOD [facility] Start: 05-27-2023 End: 05-27-2023 ambulatory [facility] Pat Phone Call Provider 1 [facility] - Pre Ad[facility] Start: 05-21-2023 End: 06-03-2023 ambulatory SYBIL TOBIN [facility] Start: 05-19-2023 End: 05-19-2023 ambulatory IRINA MCLEOD Not Available Start: 05-11-2023 End: 05-11-2023 ambulatory [facility] Jadon [facility] Start: 05-05-2023 End: 05-05-2023 ambulatory SYBIL TOBIN [facility] Start: 05-05-2023 End: 05-05-2023 Office outpatient visit 10 minutes Sybil Tobin [employer]-COMMODITY MANAGEMENT SPECIALIST Work Phone: [facility] Comment on above: Chronic recurrent pi lonidal cyst (Primary Dx); Abscess of multiple sites of buttock Start: 04-13-2023 End: 04-13-2023 ambulatory [facility] Start: 04-13-2023 End: 04-13-2023 Encounter for preprocedural cardiovascular examination [facility] Start: 04-07-2023 Preoperative state Generic Provider [facility] Start: 04-07-2023 End: 04-07-2023 ambulatory IRINA MCLEOD Not Available Start: 10-26-2022 ambulatory Arlen castillo PA-C Facility[facility] Start: 09-21-2022 End: 09-22-2022 ambulatory Irina Mcleod [employer] HAND-COMMODITY MANAGEMENT SPECIALIST Facility:[facility] Start: 08-04-2022 End: 08-04-2022 ambulatory JOSE ELIAS DAI Facility:[facility] Start: 07-23-2022 End: 07-24-2022 ambulatory COMMODITY MANAGEMENT SPECIALIST IRINA DERICHLANI Facility:[facility] Start: 07-09-2022 End: 07-10-2022 ambulatory COMMODITY MANAGEMENT SPECIALIST IRINA DERICHSALLYZ Facility:[facility] Start: 09-15-2021 End: 09-16-2021 ambulatory COMMODITY MANAGEMENT SPECIALIST IRNIA DERICHSALLYZ Facility:[facility] Procedures Date Procedure Procedure Detail Performing Clinician Start: 06-02-2023 BLOOD CULTURE 2 Generic External Data Provider Start: 06-02-2023 BLOOD CULTURE 1 Generic External Data Provider Start: 05-11-2023 Follow-up visit Follow-up CARMEN VALDOVINOS Start: 05-05-2023 NURSING COMMUNICATION Jadon Tobin APRN-COMMODITY MANAGEMENT SPECIALIST Work Phone: Start: 07-09-2022 PSA screening JUDY MCLEOD Comment on above: Performed By: #### P [facility] #### [facility] [address] [place] [address] Dr. Gloria Ayala Plan of Treatment Date Care Activity Detail Author Start: 04-07-2025 Glaucoma screening Diabetes: R etinopathy Screening [facility] Start: 05-31-2024 Adult BMI Screening Adult BMI Screen ing [facility] Start: 05-31-2024 Tobacco Screening Tobacco Screening [facility] Start: 05-28-2024 Tobacco Screening Tobacco Screening [facility] Start: 05-27-2024 Adult BMI Screening Adult BMI Screen ing [facility] Start: 04-19-2024 Adult BMI Screening Adult BMI Screen ing [facility] Start: 04-07-2024 Pneumococcal Vaccine : 65+ Years (1 - PCV) Pneumococcal Vaccine: 65+ Years (1 - PCV) [facility] Comment on above: Postponed from 03/25 (Patient Refused) Start: 04-05-2024 Tobacco Screening Tobacco Screening [facility] Start: 10-31-2023 Influenza vaccination Influenza Vacc ine (#1) [facility] Comment on above: Postponed from 01/01 (Patient Refused) Start: 09-06-2023 Screening for malign ant neoplasm of colon [facility] Start: 08-23-2023 End: 08-23-2023 Patient encounter procedure 08/23/2023 2:15 PM EDT Office Visit [facility] [address] [facility] [place] [address] Arlen Estrada APRN-COMMODITY MANAGEMENT SPECIALIST [address] [place] [address] [facility] Start: 08-18-2023 End: 08-18-2023 Patient encounter procedure 08/18/2023 9:40 AM EDT Office Visit [facility] [address] [place] [address] Irina Mcleod, KARI [address] [place] [id number] [facility] Start: 08-09-2023 End: 08-09-2023 Admission to same day surgery center 08/09/2023 1:30 PM EDT - 08/09/2023 2:45 PM EDT Surgery [facility] Surgery [address] [place] [address] Amebr Valdovinos MD [address] [place] [phone] EXCISION CYST PILONIDAL [24336 (CPT )] [facility] Comment on above: EXCISION CYST PILONI SHAYAN [71909 (CPT )] Start: 08-09-2023 End: 08-09-2023 Excision pilonidal cyst/sinus simple EXCISION CYST PILONIDAL pilonidal cyst 08/09/2023 1:30 PM EDT [facility] Start: 08-09-2023 Subsequent hospital visit by physician 08/09/2023 1:30 PM EDT Hospital Encounter [facility] [address] [place] [id number] Amber Valdovinos MD [address] [facility] [place] [id number] [facility] Start: 07-10-2023 Urine screening for protein Diabetes: Urine Protein Screening [facility] Start: 07-06-2023 End: 07-06-2023 Patient encounter procedure 07/06/2023 11:00 AM EST Office Visit [facility] [address] [place] [address] Irina Mcleod, KARI [address] [place] [address] [facility] Start: 06-15-2023 End: 06-15-2023 Patient encounter procedure 06/15/2023 3:30 PM EST Office Visit [facility] General Surgery [address] [place] [phone] Arlen Estrada, SACK CLE[employer]ING HAND-COMMODITY MANAGEMENT SPECIALIST [address] [place], [place] [id number] [facility] General Surgery Start: 06-14-2023 End: 06-14-[address] [facility] Comment on above: Arrived Start: 06-14-2023 End: 06-14-2024 Basic metabolic 1998 panel - Serum or Plasma Basic metabolic panel Lab Routine ROSSY (acute kidney injury) (CMS/HCC) Expected: 06/14/2023 (Approximate), Expires: 06/14/2024 [facility] Work Phone: Comment on above: Expected: 06/14/2023 (Approximate), Expires: 06/14/2024 Start: 05-31-2023 End: 05-31-2023 Admission to same day surgery center 05/31/2023 12:15 PM EST - 05/31/2023 1:15 PM EST Surgery [facility] - Surgery [address] [place] [phone] Amber Valdovinos MD [address] [place] [phone] EXCISION CYST PILONIDAL [67004 (CPT )] [facility] - Surgery Comment on above: EXCISION CYST PILONI SHAYAN [51680 (CPT )] Start: 05-31-2023 End: 05-31-2023 Anesthesia consultation 05/31/2023 12:15 PM EST Anesthesia Event [facility] - Surgery [address] [place] [phone] Frankie Bishop MD [address] [place] [address] [facility] Surgery Start: 05-31-2023 End: 05-31-2023 Excision pilonidal cyst/sinus simple EXCISION CYST PILONIDAL pilonidal cyst 05/31/2023 12:15 PM EST [facility] Start: 05-31-2023 Subsequent hospital visit by physician 05/31/2023 12:15 PM EST Hospital Encounter [facility] Surgery [address] [place] [phone] Amber Valdovinos MD [address] [place] [phone] [facility] Start: 05-21-2023 End: 05-21-2023 Patient encounter procedure 05/21/2023 11:00 AM EST Office Visit [facility] [address] [place] [phone] Sybil Tobin, SACK CLEANING HAND[facility] [address] [place] [address] [facility] Start: 05-11-2023 End: 05-11-2023 Patient encounter procedure 05/11/2023 2:00 PM EST Office Visit [facility] General Surgery [address] [place] [phone] Amber Valdovinos MD [address] [place] [phone] [facility] General Surgery Start: 01-01-2023 COVID-19 Vaccine ( season) COVID-19 Vaccine () [facility] Start: 01-01-2023 Influenza vaccination Influenza Vacc ine [facility] Start: 10-09-2022 Hemoglobin A1c measurement Diabetes: Hemoglobin A1C [facility] Start: 2022 Fall Risk Screening Fall Risk Screen ing [facility] Start: 2007 Administration of varicella zoster vaccine Zoster (Shingles) Vaccine (1 of 2) [facility] Start: 1976 DTaP,Tdap and Td Vac cines (1 - Tdap) DTaP,Tdap and Td Vaccines (1 - Tdap) [facility] Start: 1975 Adult BMI Follow Up Plan Adult BMI Follow Up Plan [facility] Start: 1969 Depression Screening Depression Scre ening [facility] Start: 1957 Medicare Annual Well ness Visit Medicare Annual Wellness Visit [facility] Start: 1955 Screening for malign ant neoplasm of colon [facility] BLOOD CULTURE 1 BLOOD CULTURE 1 Lab Routine 06/02/2023 10:53 AM EST [facility] Healthcare BLOOD CULTURE 2 BLOOD CULTURE 2 Lab Routine 06/02/2023 10:58 AM EST [facility] Immunizations Immunization Date Immunization Notes Care Provider Fa andrez 08-02-2020 Pfizer Purple Cap SARS-CoV-2 Vaccination Irina Mcleod MEAL GRINDER TENDER Work Phone: [facility] Healthcare Payers Date Payer Category Payer Self-pay 2003 Medicaid [id number] 1959 Unknown [id number] 1957 Unknown [id number] 2.16.84 0.1.562768.3.579.2.593 1957 Unknown [id number] 2.16.84 0.1.008691.3.579.2.593 1957 Unknown [id number] 2.16.84 0.1.327454.3.579.2.593 1957 Unknown [id number] 2.16.84 0.1.208224.3.579.2.593 1957 Unknown [id number] 2.16. 840.1.857210.3.579.2.196 1957 Unknown [id number] 2.16.84 0.1.947675.3.579.2.1259 1957 Unknown [id number] 2.16.84 0.1.224724.3.579.2.1259 1957 Unknown [id number] 2.16.840 .1.267330.3.579.2.1259 1957 Unknown [id number] 2.16.8 40.1.600936.3.579.2.1286 1957 Unknown [id number] 2.16.84 0.1.991826.3.579.2.6 1957 Unknown [id number] 2.16.8 40.1.513120.3.579.2.1285 1957 Unknown [id number] 2.16.8 40.1.015877.3.579.2.6 1957 Unknown [id number] 2.16.8 40.1.494034.3.579.2.1285 1957 Unknown [id number] 2.16.8 40.1.502185.3.579.2.6 1957 Unknown [id number] 2.16.8 40.1.722285.3.579.2.128 1957 Unknown [id number] 2.16.8 40.1.256191.3.579.2.1286 1957 Unknown [id number] 2.16.8 40.1.266185.3.579.2.1285 1957 Unknown [id number] 2.16.8 40.1.491555.3.579.2.1285 1957 Unknown [id number] 2.16.8 40.1.060738.3.579.2.1285 1957 Unknown [id number] 2.16.8 40.1.848517.3.579.2.128 1957 Unknown [id number] 2.16.8 40.1.512461.3.579.2.1286 1957 Unknown [id number] 2.16.8 40.1.459557.3.579.2.1286 1957 Unknown [id number] 2.16.84 0.1.360174.3.579.2.1286 Social History Date Type Detail Facility Start: 03-30-2023 End: 05-31-2023 Tobacco smoking status NHIS Ex-smoker [facility] End: 05-03-2023 History of tobacco use Current smoker [facility] End: 05-03-2023 History of tobacco use Cigarette Smoker [facility] Start: 05-05-2023 End: 06-14-2023 Alcohol intake Lifetime non-drinker (finding) [facility] Start: 06-13-2020 End: 05-05-2023 History of Social function [facility] Start: 06-13-2020 End: 05-05-2023 Tobacco use panel [facility] Housing Instability Unknown [facility] Start: 1955 Sex Assigned At Not on file P [facility] Start: 05-11-2023 End: 07-30-2023 Alcohol intake Ex-drinker (finding) [facility] Start: 04-10-2023 End: 05-31-2023 Tobacco use and exposure Smokeless tobacco non-user [facility] Start: 04-10-2023 Tobacco Comment 1-9 cigarettes/day [facility] Clinical Notes 04-13-2023 to 07-30-2023 Perioperative Nursing Note - Shanita Rollins RN - 07/30/2023 8:40 AM EDTPerioperative Nursing Note - Shanita Rollins RN - 07/30/2023 8:40 AM EDTPatient InstructionsPatient Instructions Note Date & Type Note Facility 07-30-2023 Miscellaneous Notes Pts states that the cyst area appears to be opening up a bit. I asked her if Dr. Valdovinos was aware and she stated yes she was. documented in this encounter [facility] 07-30-2023 Nurse Note Pts states that the cyst area appears to be opening up a bit. I asked her if Dr. Valdovinos was aware and she stated yes she was. [facility] 07-30-2023 Instructions Shanita Rollins RN - 07/30/2023 8:15 AM EDT Preoperative Education Checklist- General Surgery date: 08/09/23 Surgery time: 130p Arrival time: 1130a 1. Bring a photo ID and your insurance card with you the day of surgery. You will check in at the main lobby of the [facility]- registration desk is straight ahead as soon as you walk in. Tell them you are here for surgery. 2. If you have a Living Will/Durable Power of Marketing Executive for Health Care that is not on [...] after you have bathed. 5. NO nail namibian/acrylic on at least one finger. If you are having a hand, wrist or foot surgery then all nail namibian and artificial/acrylic nails must be removed from [...] please call the Preadmission Testing office at [phone], Mon.-Fri. 7 a.m.-3 p.m. Leave a voicemail if needed. Pre-Surgery Instructions: Medication Instructions albuterol (PROVENTIL,VENTOLIN) 2.5 mg /3 mL (0.083 %) nebulizer solution Take morning of procedure if needed aspirin 81 mg Check with prescribing doctor for instructions carvediloL (COREG) 3.125 mg tablet Take morning [...] Stop taking 0 days prior to procedure How to Avoid an Infection after Your Surgery Your doctor will give you specific instructions, but remember: -ALWAYS wash hands before caring for your incision. -No picking, scratching, or rubbing your incision. -No creams, lotion, powder, rubbing alcohol or hydrogen peroxide on the incision (can harm the tissue and slow healing). -Your doctor will give you specific instructions for what type of dressing you will need and how often it will need changed for infection purposes. -No tight clothing on incision. -Do not allow anyone to touch your incision unless they are cleaning, checking, or redressing it (be sure they wash their hands first). -No contact of your incision with pets; avoid sleeping with pets. -Take full course of antibiotic if prescribed for you after surgery- do not stop unless directed to by your physician. You may also be given an antibiotic prior to your surgery to help prevent surgical site infections. -Eat a healthy and varied diet including proteins, fruits, and vegetables to help promote wound healing and keep blood sugars under control if you are diabetic. -Smoking slows the healing process by decreasing the amount of oxygen in your blood that is needed for tissue healing. Try to avoid or stop smoking if possible. LOOK at your incision each morning and each night to check the progress of healing. Some soreness, numbness, itching and/or mild bruising around the incision is normal. Call your doctor if you notice any of the following: -Increased redness or hardening around the incision area. -Increased pain at the incision site. -Incision feels hot to the touch. -Swelling or pulling apart of the incision edges. -Yellow or green drainage or foul odor coming from the incision. -Bleeding from the incision (apply pressure as needed). -Fever higher than 101 degrees Fahrenheit for more than 4 hours. SHOWERING: Your doctor will give you specific instructions, but remember: -Be careful getting into and out of the shower. -Showers should be quick (5 minutes or less). -Use a clean washcloth to gently wash your incision with soap and water and pat the area dry with a clean towel. -No re-using wash cloths or towels; get a fresh one to clean your incision. -Do not soak in the bathtub, go swimming or use a hot tub (Jacuzzi), or perform activities where your incision is submerged in water or exposed to any fluids or substances until instructed by your doctor. -If your have the sticky strips (steri-strips) over the incision, it is OK to shower with them. Do not remove them. Let them fall off on their own. If you have a question, call your doctor s office. Go to the follow-up appointment with your doctor. documented in this encounter [facility] 06-14-2023 History of Present illness Narrative Associated Problem(s): COVID Returning to baseline Associated Problem(s): Benign essential hypertension (CMS/HCC) Stable at this time Associated Problem(s): Primary osteoarthritis of both knees Would like referral to ortho in [place] Associated Problem(s): Edema of extremities stable Associated Problem(s): ROSSY (acute kidney injury) (CMS/HCC) Will reassess kidney function Therapy seen him today talked to him about seeing a surgeons in [place] to fix up his knees. Fell 3 times being home Feet are swollen Pt is asking for a powered wheelchair and hospital bed Images from the original note were not included. Carlos Persaud is a 68 y.o. male presents with chief complaint of No chief complaint on file. HPI: Here for a hospital fu: covid and ROSSY, See [facility] ER notes for HPI, I have [...] Oral, Daily, Do not crush or chew. Wbmnlknyfgc-Mqwlyrfcp-Ymjgxk (Trelegy Ellipta) 100-62.5-25 MCG/ACT aerosol powder 1 [...] musculoskeletal pain COPD (chronic obstructive pulmonary disease) ([facility]/HCC) COPD with exacerbation (CMS/HCC) DDD (degenerative disc disease), lumbar Dyslipidemia (CMS/HCC) Edema of extremities GERD without esophagitis Head mass ? Glioma Hypertension (CMS/HCC) Hypocalcemia Influenza vaccination declined Insomnia Morbid obesity with BMI of 45.0-49.9, adult (CMS/HCC) Neoplasm of uncertain behavior of skin Non-compliant patient Nonspecific abnormal electrocardiogram (ECG) (EKG) 04/13/2023 Other emphysema (CMS/HCC) 04/07/2023 Otitis externa, left Pain and swelling of elbow, left Pilonidal cyst Pre-operative clearance 04/07/2023 Primary osteoarthritis of both knees Restless leg Rising PSA level Screening for prostate cancer Stasis edema of both lower extremities Thrombocytopenia (CMS/HCC) Tobacco user Type 2 diabetes mellitus with peripheral neuropathy (CMS/HCC) Urine discoloration Past Surgical History: Procedure Laterality [...] knees Would like referral to ortho in [place] ROSSY (acute kidney injury) (CMS/HCC) Will reassess kidney function Relevant Orders Basic metabolic panel COVID Returning to baseline documented in this encounter [facility] 06-14-2023 Miscellaneous Notes The patient is still [...] that under control. documented in this encounter [facility] 06-14-2023 Telephone encounter Note The patient is [...] re-schedule once they get that under control. [facility] 05-27-2023 Miscellaneous Notes Preoperative Education Checklist- General Surgery date: 05/31/23 Surgery time: 1215 Arrival time: 1015 1. Bring a photo ID and your insurance card with you the day of surgery. You will check in at the main lobby of the [facility]- registration desk is straight ahead as soon as you walk in. Tell them you are here for surgery. 2. If you have a Living Will/Durable Power of Marketing Executive for Health Care that is not on [...] after you have bathed. 5. NO nail namibian/acrylic on at least one finger. If you are having a hand, wrist or foot surgery then all nail namibian and artificial/acrylic nails must be removed from [...] please call the Preadmission Testing office at [phone], Mon.-Fri. 7 a.m.-3 p.m. Leave a voicemail [...] prior to procedure documented in this encounter [facility] 05-27-2023 Nurse Note Preoperative Education Checklist- General Surgery date: 05/31/23 Surgery time: 1215 Arrival time: 1015 1. Bring a photo ID and your insurance card with you the day of surgery. You will check in at the main lobby of the [facility]- registration desk is straight ahead as soon as you walk in. Tell them you are here for surgery. 2. If you have a Living Will/Durable Power of Marketing Executive for Health Care that is not on [...] after you have bathed. 5. NO nail namibian/acrylic on at least one finger. If you are having a hand, wrist or foot surgery then all nail namibian and artificial/acrylic nails must be removed from [...] please call the Preadmission Testing office at [phone], Mon.-Fri. 7 a.m.-3 p.m. Leave a voicemail [...] Stop taking 0 days prior to procedure [facility] 05-05-2023 History of Present illness Narrative Images from the original note were not included. Wound Care Progress Note Patient: Carlos Persaud Date of : 1955 Chief Compliant: Buttock wounds, pilonidal cyst disease SUBJECTIVE/HPI: Carlos is a 68 y.o. male who presents to [facility] for evaluation of 2 [...] resolved. States surgery was done outside of [place], unable to recall name of surgeon. Measurable [...] 03/12/23 1 Coccyx Superior (Active) Wound Image 05/05/231043 Site Assessment Red;[place] 05/05/234 Juliet-wound Assessment Blanchable erythema;[place] 05/05/23 1044 Wound Length (cm) 1 cm 05/05/23 1044 Wound Width (cm) 0.5 cm 05/05/23 1044 Wound Surface Area (cm^2) 0.5 cm^2 05/05/23 1044 Wound Depth (cm) 0.4 cm 05/05/23 1044 Wound Volume (cm^3) 0.2 cm^3 05/05/23 1044 Change in Wound Size % -38.89 05/05/23 104 Drainage Description Serosanguineous;Yellow;Phan;Odor Foul 05/05/231043 Drainage Amount Large Copious 05/05/231043 Treatments Cleansed with;Wound cleanser 05/05/23 1044 Debridement Performed? N 05/05/231043 Wound Bed Granulation (%) 100% 05/05/23 1044 Wound 03/12/23 2 Coccyx Inferior (Active) Site Assessment Red 05/05/23 1044 Juliet-wound Assessment Blanchable erythema;[place] 05/05/23 1044 Wound Length (cm) 1.5 cm 05/05/23 1044 Wound Width (cm) 1 cm 05/05/23 1044 Wound Surface Area (cm^2) 1.5 cm^2 05/05/23 1044 Wound Depth (cm) 0.5 cm 05/05/23 1044 Wound Volume (cm^3) 0.75 cm^3 05/05/23 1044 Change in Wound Size % -167.86 05/05/23 1044 Drainage Description Serosanguineous;Phan;Yellow;Odor Foul 05/05/231043 Drainage Amount Large Copious 05/05/231043 Treatments Cleansed with;Wound cleanser;Moisturizing cream 05/05/231043 Debridement Performed? N 05/05/231043 Wound Bed Granulation (%) 100% 05/05/231043 Assessment/Plan/Education: [...] to coccyx. Short term goal: medical compliance terminal superintendent goal: wound closure Patient verbalize understanding of [...] procedures Referring and communicating with other health field care advocate (not separately reported) Documenting clinical information in the electronic or other health record Sybil Tobin APRN, JUDY, MONIQUE, RUFINA [facility]: [phone] KANG Whiting 05/05/23 1139 documented in this encounter [facility] 05-05-2023 Instructions So Angela RN - [...] serosang Phan, yellow documented in this encounter [facility] 04-13-2023 Note [place] Cardiology - [facility] Subjective Carlos Persaud is a [...] Other emphysema (CMS/HCC) Palpitations Pilonidal cyst Thrombocytopenia ([facility]) Stasis edema of both lower extremities Rising PSA level Restless legs Primary osteoarthritis of both knees Pressure injury of skin of buttock Pre-operative clearance Tobacco dependence syndrome Tobacco user Type 2 diabetes mellitus without complication, without long-term current use of insulin ([facility]) No family history on file. Social History [...] mg by mout (more content not included)... [facility] Evaluation note Diagnosis Chronic recurrent pilonidal cyst- Primary Abscess of multiple sites of buttock [facility] Diagnosis Restless legs- Primary Restless legs syndrome (RLS) documented in this encounter [facility]* Diagnosis Dyslipidemia (CMS/HCC)- Primary Other and unspecified hyperlipidemia [facility]* Diagnosis ROSSY (acute kidney injury) (CMS/HCC)- Primary Pilonidal cyst Edema of extremities Edema Primary osteoarthritis of both knees Benign essential hypertension (CMS/HCC) Essential hypertension, benign COVID documented in this encounter [facility] HealthcareInstructionsNot on filedocumented in this encounterPro[facility] SystemInstructionsNot on filedocumented in this encounterProOhiohealth SystemReason for referral (narrative)* Consultation (Routine) - Pending Review Specialty Diagnoses / Procedures Referred By Sushma t Referred To Contact Orthopaedic Surgery Diagnoses Primary osteoarthritis of both knees Irina Mcleod, KARI [address] [place] [address] Referral ID Status Reason Start Date Expiration Date Visits Requested Visits Authorized [id number] Pending Review Specialty Services Required 06/14/2023 12/11/2023 [address] Juan Alberto Collazo [facility] Healthcare Summary Purpose Family History No Family [...] sites of buttock Procedures [facility] Sybil Tobin, SACK CLEANING HAND-COMMODITY MANAGEMENT SPECIALIST [address] [place] [address] Referral ID Status Reason Start Date Expiration Date V isits Requested Visits Authorized [id number] Pending Review 05/05/2023 05/04/2024 1 1 Specialty Diagnoses / Procedures Referred By Contac t Referred To Contact Diagnoses Abscess of multiple sites of buttock Procedures [employer] [facility] Sybil Tobin, SACK CLEANING HAND-COMMODITY MANAGEMENT SPECIALIST [address] [place] [address] Referral ID Status Reason Start Date Expiration Date V isits Requested Visits Authorized [id number] Pending Review 05/05/2023 05/04/2024 1 1 Additional Source Comments (unrecognized sect ion and content) No Status Records FoundNo Status Records FoundNo Status Records FoundNo Status Records FoundNo Status Records FoundNo Status Records FoundNo Status Records Found INFORMATION SOURCE (unrecogn ized section and content) DATE CREATED AUTHOR 12/03/2021 William [facility] DATE CREATED AUTHOR AUTHOR'S ORGANIZ ATION 08/07/2022 [facility] DATE CREATED AUTHOR AUTHOR'S ORGANIZ ATION 10/24/2022 [facility] DATE CREATED AUTHOR AUTHOR'S ORGANIZ ATION 04/15/2023 [facility] DATE CREATED AUTHOR AUTHOR'S ORGANIZ ATION 06/16/2023 [facility] EPIC DATE CREATED AUTHOR AUTHOR'S ORGANIZ ATION 08/18/2023 [facility] DATE CREATED AUTHOR AUTHOR'S ORGANIZ ATION 08/26/2023 [facility] Reason for Visit (unrecogniz ed section and content) Reason Comments Wound Check Reason Comments Med Refill Care Teams (unrecognized sec tion and content) Hand Iii Cutter Relationship Specialty Start Date End Date Irina Mcleod APRN-COMMODITY MANAGEMENT SPECIALIST [address] [place] [phone] PCP - General Nurse Practitioner 09/24/16 Hand Iii Cutter Relationship Specialty Start Date End Date Irina Mcleod SACK CLEANING HAND-COMMODITY MANAGEMENT SPECIALIST [address] [place] [address] PCP - General Nurse Practitioner 09/24/16 Hand Iii Cutter Relationship Specialty Start Date End Date Zachary Melton MD [address] [place] [address] PCP - General Family Medicine 04/06/23 Irina Mcleod NP [address] [place] [phone] Nurse Practitioner Family Medicine 05/03/22 Hand Iii Cutter Relationship Specialty Start Date End Date Zachary Melton MD [address] [place] [phone] PCP - General Family Medicine 04/06/23 Irina Mcleod NP [address] [place] [phone] Nurse Practitioner Family Medicine 05/03/22 Hand Iii Cutter Relationship Specialty Start Date End Date Zachary Melton MD [address] [place] [phone] PCP - General Family Medicine 04/06/23 Irina Mcleod NP [address] [place] [phone] Nurse Practitioner Family Medicine 05/03/22 Hand Iii Cutter Relationship Specialty Start Date End Date Zachary Melton MD [address] [place] [phone] PCP - General Family Medicine 06/14/23 Irina Mcleod NP [address] [place] [address] Nurse Practitioner Family Medicine 05/03/22 Hand Iii Cutter Relationship Specialty Start Date End Date Zachary Melton MD [address] [place] [address] PCP - General Family Medicine 06/14/23 Irina Mcleod NP [address] [place] [phone] Nurse Practitioner Family Medicine 05/03/22 Hand Iii Cutter Relationship Specialty Start Date End Date Irina Mcleod SACK CLEANING HAND-COMMODITY MANAGEMENT SPECIALIST [address] [place] [address] PCP - General Nurse Practitioner 09/24/16 FOR [...] BE BASED ON THE PRIMARY CLINICAL RECORDS. [employer] [facility]. provides no warranty or guarantee of the accuracy or completeness of information in this document.
--- NOTE | 2023-08-27 09:37 | PC.NURSE ---
pt brought in by [facility]- pt alert per his normal per his - confused to his time and location of the hospital- after glc of 142 and bladder scan 722ml residual urine pt iv 22g to left hand per nannette nieto rn- pt then becomes angry and states he wants to leave and requests no more testing to be done that he wants to go home- arrives and states this is his normal dr gardiner talks with patient and and states the ama form and understands the repercussion of leaving ama pt again gets agitated and requesting to leave ama pt wheeled to car and ambulated per his normal is okay with taking him home
== END 2023-08-27 09:35 | disposition left against medical advice (07) ==
PROVIDERS: Emergency Provider Emergency Medicine; PCP Nurse Practitioner
DX: I95.9 Hypotension, unspecified (principal); F17.210 Nicotine dependence, cigarettes, uncomplicated; G25.81 Restless legs syndrome; E11.40 Type 2 diabetes mellitus with diabetic neuropathy, unspecified; E78.5 Hyperlipidemia, unspecified; I10 Essential (primary) hypertension; E66.9 Obesity, unspecified; Z53.29 Procedure and treatment not carried out because of patient's decision for other reasons; Z68.37 Body mass index [BMI] 37.0-37.9, adult; Z79.899 Other long term (current) drug therapy; Z79.82 Long term (current) use of aspirin; Z79.84 Long term (current) use of oral hypoglycemic drugs; Z86.16 Personal history of COVID-19
CPT/HCPCS: 36415; 80053; 82800; 83605; 83735; 83880; 84145; 84484; 85610; 87040; 93005; 99281

== ENCOUNTER 2023-08-28 07:36 | Emergency (ER) | payer OTHER, SELFPAY ==
[2023-08-28] VITALS (23 sets, daily range): BP systolic 81–128; BP diastolic 51–84; PULSE 80–90; TEMP 36.4; O2SAT 96–98; BMI 42.2
--- OUTSIDE RECORDS SUMMARY | 2023-08-28 07:50 | XMS_ITS | CCD ---
Author Organization [facility] Care Team Providers Care Head Operator Name Role Phone AICHHOLZ, PARATRANSIT DRIVER IRINA Admitting Unavailable AICHHOLZ, PARATRANSIT DRIVER IRINA Primary Care Unavailable AICHHOLZ, PARATRANSIT DRIVER IRINA Consulting Unavailable AICHHOLZ, PARATRANSIT DRIVER IRINA Attending Unavailable AICHHOLZ, PARATRANSIT DRIVER IRINA Admitting Unavailable AICHHOLZ, PARATRANSIT DRIVER IRINA Primary Care Unavailable AICHHOLZ, PARATRANSIT DRIVER IRINA Consulting Unavailable AICHHOLZ, PARATRANSIT DRIVER IRINA Attending Unavailable AICHHOLZ, PARATRANSIT DRIVER IRINA Admitting Unavailable AICHHOLZ, PARATRANSIT DRIVER IRINA Primary Care Unavailable AICHHOLZ, PARATRANSIT DRIVER IRINA Consulting Unavailable AICHHOLZ, PARATRANSIT DRIVER IRINA Attending Unavailable JOS EELIAS DAI Admitting Unavailable JOSE ELIAS DAI Consulting Unavailable JOSE ELIAS DAI Attending Unavailable AICHHOLZ, PARATRANSIT DRIVER IRINA Primary Care Unavailable Jose PARKER, Arlen Duncan Attending Unavai jesseele Aichholz LABOR DELIVERY SPECIALIST-PARATRANSIT DRIVER, Irina Jo Referring Kristineva Too Manriquez MD Attending Unavaila JAYLIN Flynn Attending Unavailable Aichholz [facility], Irina J Primary Care Provider Aichholz HOME HEALTH REGISTERED NURSE, Irina Unavailable Zachary Melton MD Primary Care [...] Facility (1 source) Cephalexin Drug Allergy [facility] (1 source) Clindamycin Drug Allergy [facility] (1 source) levoFLOXacin Drug Allergy [facility] (5 sources) Cephalosporins (Antibiotic); Translations: [CEPHALOSPORINS] [...] Drug Class(es) Dates Sig (Normalized) Sig (Original) [id number] 200 actuat albuterol 0.09 mg/actuat metered dose [...] evening. Take with meals. 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) drug therapy; Translations: [OTH [facility] CURRENT DRUG THERAPY] Onset: 3 Episodic Other aftercare (1 source) care home (current) use of oral hypoglycemic drugs; Translations: [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 #:[id number]: #[id number] Final Pathologic Diagnosis Soft tissue, buttocks, excision: Pilonidal cyst/sinus, lined by keratinized squamous epithelium with reactive changes, and surrounded by chronic inflammatory infiltrates with dermal fibrosis. Report Electronically Signed Out /08/25/2023hermila Egan MD Interpretation performed at [facility], [address] [place] [address], License number: [id number]. Clinical History Pilonidal cyst. Gross Description Received [...] cut surfaces are lobulated and fibrous. A compliance representative dealer cross-section is submitted in a single cassette. (1, ss, [id number]) . /08/23/2023GP Specimen(s) Received Pilonidal cyst Fee Codes(s): 1; 21367 BASIC METABOLIC PANLon 07-29 Anion gap [Moles/Vol] 8 mmol/L Normal 5-15 [facility] Comment on above: Performed By: #### B MP #### [facility] ([id number]) [address] [place] [address], [address] [place] [address] Calcium [Mass/Vol] 8.6 mg/dL Normal 8.5-10.5 [facility] Comment on above: Performed By: #### B MP #### [facility] ([id number]) [address], [address] [place] [address] Chloride [Moles/Vol] 100 mmol/L Normal 98-109 [facility] Comment on above: Performed By: #### B MP #### [facility] ([id number]) [address], [address] [place] [address] CO2 [Moles/Vol] 32 mmol/L Normal 22-32 [facility] Comment on above: Performed By: #### B MP #### [facility] ([id number]) [address], [address] [place] [address] Creatinine [Mass/Vol] 1.40 mg/dL High 0.60-1.30 [facility] Comment on above: Result Comment: METH OD TRACEABLE TO IDMS STANDARD Performed By: #### B MP #### [facility] ([id number]) [address], [address] [place] [address] GFR/1.73 sq M.predicted among non-blacks MDRD (S/P/Bld) [Vol rate/Area] 55 mL/min/{1.73_m2} Low >59 [facility] Comment on above: Result Comment: Reported eGFR is based on the CKD-EPI 2020 equation that does not use a race coefficient. Performed By: #### B MP #### [facility] ([id number]) [address], [address] [place] [address] Glucose [Mass/Vol] 86 mg/dL Normal 65-99 [facility] Comment on above: Performed By: #### B MP #### [facility] ([id number]) [address], [address] [place] [address] Potassium [Moles/Vol] 3.8 mmol/L Normal 3.5-5.0 [facility] Comment on above: Performed By: #### B MP #### [facility] ([id number]) [address], [address] [place] [address] Sodium [Moles/Vol] 140 mmol/L Normal 134-146 [facility] Comment on above: Performed By: #### B MP #### [facility] ([id number]) [address], [address] [place] [address] Urea nitrogen [Mass/Vol] 16 mg/dL Normal 5-27 [facility] Comment on above: Performed By: #### B MP #### [facility] ([id number]) [address], [address] [place] [address] XR CHEST 2 VWSon 07-30-2023 XR CHEST [...] Cm MD on 07/30/2023 10:12 AM Normal [facility] No Panel Informationon 05-05 Applied in clinic today MANUALLY TRANSCRIBED RESULTS No Panel InformationOrdered By: So Angela on 05-05-2023 [facility] Office Visiton 04-13-2023 Follow-up visit [id number] Carlos Persaud Louise 1955 M Date Provider Department Center 04/13/2023 JAYLIN HUGHES [facility] No family history on file Level of Service:[address] AR OFFICE/OUTPATIENT NEW MODERATE MDM 45-59 MINUTES Normal [facility] UA RANDOM W/MICROSCOPICon BACTERIA NONE SEEN Normal NONE SEEN [facility] Comment on above: Performed By: #### U AMIC #### [facility] [address] [place] [address] Dr. Gloria Ayala Bilirubin Ql (U) Negative Normal NEGATIVE [facility] Comment on above: Performed By: #### U AMIC #### [facility] [address] [address] [address] Gloria Ayala CAST NONE SEEN Normal NONE SEEN [facility] [place] [facility] Comment on above: Performed By: #### U AMIC #### [facility] [address] [place] [address] Dr. Gloria Ayala Clarity (U) CLEAR Normal CLEAR [facility] Comment on above: Performed By: #### U AMIC #### [facility] [address] [place] [address] Dr. Gloria Ayala Color (U) YELLOW Normal YELLOW [facility] Comment on above: Performed By: #### U AMIC #### [facility] [address] [place] [address] Dr. Gloria Ayala Crystals LM Nom (Urine sed) NONE SEEN Normal NONE SEEN [facility] [place] [facility] Comment on above: Performed By: #### U AMIC #### [facility] [address] [place] [address] Dr. Gloria Ayala Epithelial cells LM Ql (Urine sed) NONE SEEN Normal NONE SEEN /RARE [facility] Comment on above: Performed By: #### U AMIC #### [facility] [address] [place] [address] Dr. Gloria Ayala Glucose Ql (U) Negative Normal NEGATIVE [facility] Comment on above: Performed By: #### U AMIC #### [facility] [address] [place] [address] Dr. Gloria Ayala Hemoglobin Ql (U) Negative Normal NEGATIVE [facility] Comment on above: Performed By: #### U AMIC #### [facility] [address] [place] [address] Dr. Gloria Ayala Ketones Ql (U) TRACE Abnormal NEGATIVE [facility] Comment on above: Performed By: #### U AMIC #### [facility] [address] [place] [address] Dr. Gloria Ayala LEUKOCYTES Negative Normal NEGATIVE [facility] Comment on above: Performed By: #### U AMIC #### [facility] [address] [place] [address] Dr. Gloria Ayala MUCOUS NONE SEEN Normal NONE SEEN [facility] [place] [facility] Comment on above: Performed By: #### U AMIC #### [facility] [address] [address] [address] Gloria Ayala Nitrite Ql (U) Negative Normal NEGATIVE [facility] Comment on above: Performed By: #### U AMIC #### [facility] [address] [place] [address] Dr. Gloria Ayala pH (U) 5.5 [pH] Normal 5-9 [facility] [place] [facility] Comment on above: Performed By: #### U AMIC #### [facility] [address] [place] [address] Dr. Gloria Ayala RBC 0-2 Normal 0-2 [facility] [place] [facility] Comment on above: Performed By: #### U AMIC #### [facility] [address] [place] [address] Dr. Gloria Ayala SPEC GRAVITY 1.020 Normal 1.005-<=1.025 [facility] Comment on above: Performed By: #### U AMIC #### [facility] [address] [place] [address] Dr. Gloria Ayala UA PROTEIN Negative Normal NEGATIVE/ TRACE [facility] Comment on above: Performed By: #### U AMIC #### [facility] [address] [place] [address] Dr. Gloria Ayala Urobilinogen Qn (U) 2.0 {Joanthan'U}/dL Abnormal 0.2 - 1. 0 [facility] [place] [facility] Comment on above: Performed By: #### U AMIC #### [facility] [address] [place] [address] Dr. Gloria Ayala WBC NONE SEEN Normal NONE SEEN [facility] Comment on above: Performed By: #### U AMIC #### [facility] [address] [place] [address] Dr. Gloria Ayala CBC AUTO DIFFon 07-09-2022 BASO # 0.1 103/ul Normal 0.0-0.1 [facility] [place] [facility] Comment on above: Performed By: #### C BC #### [facility] [address] [place] [address] Dr. Gloria Ayala Basophils/100 WBC (Bld) 0.6 % Normal 0.2-2.0 [facility] Comment on above: Performed By: #### C BC #### [facility] [address] [place] [address] Dr. Gloria Ayala EO # 0.1 103/ul Normal 0.0-0.7 [facility] [place] [facility] Comment on above: Performed By: #### C BC #### [facility] [address] [place] [address] Dr. Gloria Ayala Eosinophils/100 WBC (Bld) 1.6 % Normal 0.9-7.0 [facility] [place] [facility] Comment on above: Performed By: #### C BC #### [facility] [address] [place] [address] Dr. Gloria Ayala Erythrocyte distribution width (RBC) [Ratio] 13.6 % Normal 11.0-15.0 [facility] [place] [facility] Comment on above: Performed By: #### C BC #### [facility] [address] [place] [address] Dr. Gloria Ayala Hematocrit (Bld) [Volume fraction] 49.8 % Normal 42.0-54.0 [facility] [place] [facility] Comment on above: Performed By: #### C BC #### [facility] [address] [place] [address] Dr. Gloria Ayala Hemoglobin (Bld) [Mass/Vol] 15.7 g/dL Normal 14.0-18.0 [facility] [place] [facility] Comment on above: Performed By: #### C BC #### [facility] [address] [place] [address] Dr. Gloria Ayala IG # 0.04 10e3/ul Critically high 0.00-0.03 [facility] Comment on above: Performed By: #### C BC #### [facility] [address] [place] [address] Dr. Gloria Ayala IG % 0.5 % Normal 0.0-0.5 [facility] [place] [facility] Comment on above: Performed By: #### C BC #### [facility] [address] [place] [address] Dr. Gloria Ayala LYMPH # 1.1 103/ul Critically low 1.2-3.8 [facility] Comment on above: Performed By: #### C BC #### [facility] [address] [place] [address] Dr. Gloria Ayala Lymphocytes/100 WBC (Bld) 13.8 % Critically low 20.5-60.0 [facility] [place] [facility] Comment on above: Performed By: #### C BC #### [facility] [address] [place] [address] Dr. Gloria Ayala MANUAL DIFF REQ NO Normal [facility] Comment on above: Performed By: #### C BC #### [facility] [address] [place] [address] Dr. Gloria Ayala MCH (RBC) [Entitic mass] 26.6 pg Normal 25.9-34.0 [facility] [place] [facility] Comment on above: Performed By: #### C BC #### [facility] [address] [place] [address] Dr. Gloria Ayala MCHC (RBC) [Mass/Vol] 31.5 g/dL Normal 29.9-35.2 [facility] [place] [facility] Comment on above: Performed By: #### C BC #### [facility] [address] [place] [address] Dr. Gloria Ayala MCV (RBC) [Entitic vol] 84.4 fL Normal 80.0-94.0 [facility] Comment on above: Performed By: #### C BC #### [facility] [address] [place] [address] Dr. Gloria Ayala MONO # 0.4 103/ul Normal 0.3-0.8 [facility] [place] [facility] Comment on above: Performed By: #### C BC #### [facility] [address] [place] [address] Dr. Gloria Ayala Monocytes/100 WBC (Bld) 5.0 % Normal 1.7-12.0 [facility] Comment on above: Performed By: #### C BC #### [facility] [address] [place] [address] Dr. Gloria Ayala NEUT # 6.3 103/ul Normal 1.4-6.5 [facility] [place] [facility] Comment on above: Performed By: #### C BC #### [facility] [address] [address] [address] Gloria Ayala Neutrophils/100 WBC (Bld) 78.5 % Critically high 43.0-75.0 [facility] [place] [facility] Comment on above: Performed By: #### C BC #### [facility] [address] [place] [address] Dr. Gloria Ayala Platelet mean volume (Bld) [Entitic vol] 10.5 fL Normal 9.5-13.5 [facility] [place] [facility] Comment on above: Performed By: #### C BC #### [facility] [address] [place] [address] Dr. Gloria Ayala PLT 151 103/ul Normal 150-450 [facility] [place] [facility] Comment on above: Performed By: #### C BC #### [facility] [address] [place] [address] Dr. Gloria Ayala RBC 5.90 106/ul Normal 4.70-6.10 [facility] [place] [facility] Comment on above: Performed By: #### C BC #### [facility] [address] [place] [address] Dr. Gloria Ayala WBC 8.0 103/ul Normal 4.0-11.0 [facility] [place] [facility] Comment on above: Performed By: #### C BC #### [facility] [address] [place] [address] Dr. Gloria Ayala GLYCOHEMOGLOBIN A1Con 2022 ADA RECOMMENDATION SEE BELOW Normal [facility] Comment on above: Result Comment: ADA RECOMMENDED LIMIT 4.0 - 6.0 ADA THERAPEUTIC TARGET < 7.0 ACTION SUGGESTED > 7.0 Performed By: #### A 1C #### [facility] [address] [place] [address] Dr. Gloria Ayala Glucose [Mass/Vol] 123 mg/dL Normal [facility] Comment on above: Performed By: #### A 1C #### [facility] [address] [place] [address] Dr. Gloria Ayala HbA1c (Bld) [Mass fraction] 5.9 % Normal 4.5-6.2 [facility] [place] [facility] Comment on above: Performed By: #### A 1C #### [facility] [address] [place], [place] [address] Dr. Gloria Ayala LIPID PROFILEon 07-09-2022 CHOL-HDL RATIO NORM SEE BELOW Normal [facility] Comment on above: Result Comment: 3.3 - 4.4 LOW RISK 4.4 - 7.1 AVERAGE RISK 7.1 - 11.0 MODERATE RISK >11.0 HIGH RISK Performed By: #### L IPID, CMP #### [facility] [address] [place], [place] [address] Dr. Gloria Ayala Cholesterol [Mass/Vol] 182 mg/dL Normal <=200 [facility] Comment on above: Performed By: #### L IPID, CMP #### [facility] [address] [address] [address] Gloria Ayala Cholesterol in HDL [Mass/Vol] 29 mg/dL Critically low 40-60 [facility] [place] [facility] Comment on above: Performed By: #### L IPID, CMP #### [facility] [address] [address] [address] Gloria Ayala Cholesterol in LDL [Mass/Vol] 136.6 mg/dL Normal [facility] [place] [facility] Comment on above: Performed By: #### L IPID, CMP #### [facility] [address] [place], [place] [address] Dr. Gloria Ayala Cholesterol.total/Mamta sterol in HDL [Mass ratio] 6.3 {ratio} Normal [facility] [place] [facility] Comment on above: Performed By: #### L IPID, CMP #### [facility] [address] [place], [place] [address] Dr. Gloria Ayala HDL NORMAL > or = 60 mg/dl - LOW CARDIOVASCULAR RISK <40 mg/dl - HIGH CARDIOVASCULAR RISK Normal [facility] [place] [facility] Comment on above: Performed By: #### L IPID, CMP #### [facility] [address] [place], [place] [address] Dr. Gloria Ayala LDL CALC NORMAL SEE BELOW Normal [facility] Comment on above: Result Comment: <100 mg/dl OPTIMAL 100 - 129 mg/dl NEAR OR ABOVE OPTIMAL 130 - 159 mg/dl BORDERLINE HIGH 160 - 189 mg/dl HIGH >190 mg/dl VERY HIGH Performed By: #### L IPID, CMP #### [facility] [address] [place] [address] Dr. Gloria Aylaa Triglyceride [Mass/Vol] 82 mg/dL Normal <=150 T [facility] Comment on above: Performed By: #### L IPID, CMP #### [facility] [address] [address] [address] Gloria Ayala VLDL CALC 16.4 mg/dL Normal [facility] [place] [facility] Comment on above: Performed By: #### L IPID, CMP #### [facility] [address] [place] [address] Dr. Gloria Ayala MICROALBUMIN, RAND URon 03-0 mALB 1.9 mg/L Normal <=30.0 [facility] [place] [facility] Comment on above: Performed By: #### M ALBR #### [facility] [address] [place] [address] Dr. Gloria Ayala PROF 14(COMP METB)on 023 Albumin [Mass/Vol] 3.2 g/dL Critically low 3.4-5.0 [facility] Comment on above: Performed By: #### L IPID, CMP #### [facility] [address] [place] [address] Dr. Gloria Ayala Albumin/Globulin [Mass ratio] 0.8 {ratio} Normal [facility] [place] [facility] Comment on above: Performed By: #### L IPID, CMP #### [facility] [address] [place] [address] Dr. Gloria Ayala ALP [Catalytic activity/Vol] 85 U/L Normal 46-116 [facility] [place] [facility] Comment on above: Performed By: #### L IPID, CMP #### [facility] [address] [place] [address] Dr. Gloria Ayala ALT [Catalytic activity/Vol] 15 U/L Critically low 16-63 [facility] [place] [facility] Comment on above: Performed By: #### L IPID, CMP #### [facility] [address] [address] [address] Gloria Ayala Anion gap [Moles/Vol] 9.5 mmol/L Normal [facility] [place] [facility] Comment on above: Performed By: #### L IPID, CMP #### [facility] [address] [address] [address] Gloria Ayala AST [Catalytic activity/Vol] 13 U/L Critically low 15-37 [facility] [place] [facility] Comment on above: Performed By: #### L IPID, CMP #### [facility] [address] [place] [address] Dr. Gloria Ayala Bilirubin [Mass/Vol] 0.6 mg/dL Normal 0.2-1.0 [facility] [place] [facility] Comment on above: Performed By: #### L IPID, CMP #### [facility] [address] [place] [address] Dr. Gloria Ayala Calcium [Mass/Vol] 8.4 mg/dL Critically low 8.5-10.1 [facility] Comment on above: Performed By: #### L IPID, CMP #### [facility] [address] [address] [address] Gloria Ayala Chloride [Moles/Vol] 102 mmol/L Normal 98-107 [facility] [place] [facility] Comment on above: Performed By: #### L IPID, CMP #### [facility] [address] [place] [address] Dr. Gloria Ayala CO2 [Moles/Vol] 34.6 mmol/L Critically high 21.0-32.0 [facility] [place] [facility] Comment on above: Performed By: #### L IPID, CMP #### [facility] [address] [place] [address] Dr. Gloria Ayala Creatinine [Mass/Vol] 0.97 mg/dL Normal 0.70-1.30 [facility] [place] [facility] Comment on above: Performed By: #### L IPID, CMP #### [facility] [address] [place] [address] Dr. Gloria Ayala EGFR-AF NEPALESE >60 Normal >=60 [facility] Comment on above: Performed By: #### L IPID, CMP #### [facility] [address] [address] [address] Gloria Ayala EGFR-NON AF NEPALESE >60 Normal >=60 [facility] [place] [facility] Comment on above: Performed By: #### L IPID, CMP #### [facility] [address] [address] [address] Gloria Ayala Globulin (S) [Mass/Vol] 4.1 g/dL Normal [facility] Comment on above: Performed By: #### L IPID, CMP #### [facility] [address] [address] [address] Gloria Ayala Glucose [Mass/Vol] 154 mg/dL Critically high 74-106 [facility] Comment on above: Performed By: #### L IPID, CMP #### [facility] [address] [place] [address] Dr. Gloria Ayala Potassium [Moles/Vol] 4.1 mmol/L Normal 3.5-5.1 [facility] [place] [facility] Comment on above: Performed By: #### L IPID, CMP #### [facility] [address] [address] [address] Gloria Ayala Protein [Mass/Vol] 7.3 g/dL Normal 6.4-8.2 [facility] Comment on above: Performed By: #### L IPID, CMP #### [facility] [address] [place] [address] Dr. Gloria Ayala Sodium [Moles/Vol] 142 mmol/L Normal 136-145 [facility] Comment on above: Performed By: #### L IPID, CMP #### [facility] [address] [address] [address] Gloria Ayala Urea nitrogen [Mass/Vol] 10.0 mg/dL Normal 7.0-18.0 [facility] [place] [facility] Comment on above: Performed By: #### L IPID, CMP #### [facility] [address] [place] [address] Dr. Gloria Ayala Urea nitrogen/Creatinine [Mass ratio] 10.3 mg/mg Normal [facility] [place] [facility] Comment on above: Performed By: #### L IPID, CMP #### [facility] [address] [address] [address] Gloria Ayala UA RANDOM W/MICROSCOPICon BACTERIA NONE SEEN Normal NONE SEEN [facility] Comment on above: Performed By: #### U AMIC #### [facility] [address] [address] [address] Gloria Ayala Bilirubin Ql (U) Negative Normal NEGATIVE The [facility] Comment on above: Performed By: #### U AMIC #### [facility] [address] [address] [address] Gloria Ayala CAST SEEN Abnormal NONE SEEN [facility] [place] [facility] Comment on above: Performed By: #### U AMIC #### [facility] [address] [address] [address] Gloria Ayala Clarity (U) CLEAR Normal CLEAR The [facility] Comment on above: Performed By: #### U AMIC #### [facility] [address] [address] [address] Gloria Ayala Color (U) YELLOW Normal YELLOW The [facility] Comment on above: Performed By: #### U AMIC #### [facility] [address] [address] [address] Gloria Ayala Crystals LM Nom (Urine sed) NONE SEEN Normal NONE SEEN [facility] [place] [facility] Comment on above: Performed By: #### U AMIC #### [facility] [address] [address] [address] Gloria Ayala Epithelial cells LM Ql (Urine sed) RARE Normal NONE SEEN /RARE The [facility] Comment on above: Performed By: #### U AMIC #### [facility] [address] [address] [address] Gloria Ayala Glucose Ql (U) Negative Normal NEGATIVE The [facility] Comment on above: Performed By: #### U AMIC #### [facility] [address] [address] [address] Gloria Ayala Hemoglobin Ql (U) Negative Normal NEGATIVE The [facility] Comment on above: Performed By: #### U AMIC #### [facility] [address] [address] [address] Gloria Ayala HYALINE CAST RARE Normal The [facility] Comment on above: Performed By: #### U AMIC #### [facility] [address] [address] [address] Gloria Ayala Ketones Ql (U) Negative Normal NEGATIVE The [facility] Comment on above: Performed By: #### U AMIC #### [facility] [address] [address] [address] Gloria Ayala LEUKOCYTES Negative Normal NEGATIVE [facility] Comment on above: Performed By: #### U AMIC #### [facility] [address] [address] [address] Gloria Ayala MUCOUS NONE SEEN Normal NONE SEEN [facility] Comment on above: Performed By: #### U AMIC #### [facility] [address] [place] [address] Dr. Gloria Ayala Nitrite Ql (U) Negative Normal NEGATIVE The [facility] Comment on above: Performed By: #### U AMIC #### [facility] [address] [address] [address] Gloria Ayala pH (U) 7.0 [pH] Normal 5-9 [facility] Comment on above: Performed By: #### U AMIC #### [facility] [address] [address] [address] Gloria Ayala RBC NONE SEEN Abnormal 0-2 The [facility] Comment on above: Performed By: #### U AMIC #### [facility] [address] [address] [address] Gloria Ayala SPEC GRAVITY 1.015 Normal 1.005-<=1.025 The [facility] Comment on above: Performed By: #### U AMIC #### [facility] [address] [address] [address] Gloria Ayala UA PROTEIN Negative Normal NEGATIVE/ TRACE The [facility] Comment on above: Performed By: #### U AMIC #### [facility] [address] [address] [address] Gloria Ayala Urobilinogen Qn (U) 8 {Jonathan'U}/dL Abnormal 0.2 - 1.0 [facility] Comment on above: Performed By: #### U AMIC #### [facility] [address] [address] [address] Gloria Ayala WBC NONE SEEN Normal NONE SEEN [facility] Comment on above: Performed By: #### U AMIC #### [facility] [address] [address] [address] Gloria Ayala Physician Referralon 022 Physician Referral [phone] [id number] Normal [facility] GLYCOHEMOGLOBIN A1Con 2021 ADA RECOMMENDATION SEE BELOW Normal [facility] Comment on above: Result Comment: ADA RECOMMENDED LIMIT 4.0 - 6.0 ADA THERAPEUTIC TARGET < 7.0 ACTION SUGGESTED > 7.0 Performed By: #### A 1C #### [facility] [address] [place] [address] Dr. Gloria Ayala Glucose [Mass/Vol] 128 mg/dL Normal [facility] Comment on above: Performed By: #### A 1C #### [facility] [address] [place] [address] Dr. Gloria Ayala HbA1c (Bld) [Mass fraction] 6.1 % Normal 4.5-6.2 [facility] Comment on above: Performed By: #### A 1C #### [facility] [address] [place] [address] Dr. Gloria Ayala PROF CHEM 8 (BAS METB)on Anion gap [Moles/Vol] 8.5 mmol/L Normal [facility] Comment on above: Performed By: #### B MP #### [facility] [address] [place] [address] Dr. Gloria Ayala Calcium [Mass/Vol] 8.5 mg/dL Normal 8.5-10.1 [facility] Comment on above: Performed By: #### B MP #### [facility] [address] [place] [address] Dr. Gloria Ayala Chloride [Moles/Vol] 99 mmol/L Normal 98-107 [facility] Comment on above: Performed By: #### B MP #### [facility] [address] [address] [address] Gloria Ayala CO2 [Moles/Vol] 34.5 mmol/L Critically high 21.0-32.0 [facility] Comment on above: Performed By: #### B MP #### [facility] [address] [address] [address] Gloria Ayala Creatinine [Mass/Vol] 1.02 mg/dL Normal 0.70-1.30 [facility] Comment on above: Performed By: #### B MP #### [facility] [address] [place] [address] Dr. Gloria Ayala EGFR-AF NEPALESE >60 Normal >=60 [facility] Comment on above: Performed By: #### B MP #### [facility] [address] [place] [address] Dr. Gloria Ayala EGFR-NON AF NEPALESE >60 Normal >=60 [facility] Comment on above: Performed By: #### B MP #### [facility] [address] [address] [address] Gloria Ayala Glucose [Mass/Vol] 116 mg/dL Critically high 74-106 [facility] Comment on above: Performed By: #### B MP #### [facility] [address] [place] [address] Dr. Gloria Ayala Potassium [Moles/Vol] 4.0 mmol/L Normal 3.5-5.1 [facility] Comment on above: Performed By: #### B MP #### [facility] [address] [place] [address] Dr. Gloria Ayala Sodium [Moles/Vol] 138 mmol/L Normal 136-145 [facility] Comment on above: Performed By: #### B MP #### [facility] [address] [address] [address] Gloria Ayala Urea nitrogen [Mass/Vol] 11.0 mg/dL Normal 7.0-18.0 [facility] Comment on above: Performed By: #### B MP #### [facility] [address] [place], [place] [address] Dr. Gloria Ayala Urea nitrogen/Creatinine [Mass ratio] 10.8 mg/mg Normal [facility] Comment on above: Performed By: #### B MP #### [facility] [address] [address] [address] Gloria Ayala Vital Signs Date Time Vital Sign Value Performing Clinician Facility 07-30-2023 08:37-0400 Body height 176.5 cm Pmh 1 [facility] 06-14-2023 17:39-0500 Body height 175.3 cm Irina Mcleod HOME HEALTH REGISTERED NURSE Work Phone: [facility] 06-14-2023 17:39-0500 Body mass index (BMI) [Ratio] 40.61 kg/m2 Irinalouise Mcleod HOME HEALTH REGISTERED NURSE Work Phone: [facility] 06-14-2023 17:39-0500 Body temperature 97.5 [degF] Irina Shani HOME HEALTH REGISTERED NURSE Work Phone: [facility] 06-14-2023 17:39-0500 Body weight 124.74 kg Irina Derichlani HOME HEALTH REGISTERED NURSE Work Phone: [facility] Comment on above: hospital bed weighed him at the hospital 06-14-2023 17:39-0500 Diastolic blood pressure 58 mm[Hg] Irina Shani HOME HEALTH REGISTERED NURSE Work Phone: [facility] 06-14-2023 17:39-0500 Heart rate 84 /min Irina Aichsallyz HOME HEALTH REGISTERED NURSE Work Phone: [facility] 06-14-2023 17:39-0500 Respiratory rate 19 /min Irina Shani HOME HEALTH REGISTERED NURSE Work Phone: [facility] 06-14-2023 17:39-0500 SaO2% (BldA) [Mass fraction] 99 % Irina Shani HOME HEALTH REGISTERED NURSE Work Phone: [facility] 06-14-2023 17:39-0500 Systolic blood pressure 110 mm[Hg] Irina Derichlani HOME HEALTH REGISTERED NURSE Work Phone: [facility] 05-27-2023 13:23-0500 Body height 176.5 cm Pmh 1 [facility] 05-27-2023 13:23-0500 Body mass index (BMI) [Ratio] 45.12 kg/m2 P[facility] 1 [facility] 05-27-2023 13:23-0500 Body weight 140.62 kg Pmh 1 [facility] 05-05-2023 10:43-0500 Body temperature 97 [degF] Sybil Tobin LABOR DELIVERY SPECIALIST-PARATRANSIT DRIVER Work Phone: [facility] 05-05-2023 10:43-0500 Diastolic blood pressure 66 mm[Hg] Sybil Tobin LABOR DELIVERY SPECIALIST-PARATRANSIT DRIVER Work Phone: [facility] 05-05-2023 10:43-0500 Heart rate 80 /min Sybil Tobin LABOR DELIVERY SPECIALIST-PARATRANSIT DRIVER Work Phone: [facility] 05-05-2023 10:43-0500 Respiratory rate 16 /min Sybil Tobin LABOR DELIVERY SPECIALIST-PARATRANSIT DRIVER Work Phone: [facility] 05-05-2023 10:43-0500 Systolic blood pressure 116 mm[Hg] Sybil Tobin LABOR DELIVERY SPECIALIST-PARATRANSIT DRIVER Work Phone: [facility] Encounters Encounter Date Encounter Type Care Provider Facility Start: 08-25-2023 End: 08-25-[address] [facility] Start: 08-23-2023 End: 08-23-2023 Evaluation and management of inpatient AYALA Diop [facility] Start: 08-23-2023 End: 08-23-2023 Evaluation and management of inpatient [facility] Start: 08-17-2023 End: 08-17-2023 ambulatory [facility] Start: 07-30-2023 Encounter for other preprocedural examination IRINA MCLEOD [facility] Start: 07-30-2023 End: 07-31-2023 ambulatory AYALA Jadon [facility] Start: 07-30-2023 End: 07-30-2023 Patient encounter procedure [facility] Pre-Admission Testing 1 [facility] - Pre Admit Start: 06-14-2023 End: 06-14-2023 ambulatory IRINA MCLEOD Not Available Start: 06-14-2023 End: 06-14-2023 Office outpatient visit 25 minutes Irina Mcleod HOME HEALTH REGISTERED NURSE Work Phone: [facility] Comment on above: ROSSY (acute kidney in jury) (CMS/HCC) (Primary Dx); Pilonidal cyst; Edema of extremities; Primary osteoarthritis of both knees; Benign essential hypertension (CMS/HCC); COVID Start: 06-14-2023 Bamboo flowsheet Irina Mcleod HOME HEALTH REGISTERED NURSE Work Phone: [facility] Start: 06-14-2023 Bamboo flowsheet Irina Mcleod HOME HEALTH REGISTERED NURSE Work Phone: [facility] Start: 06-14-2023 Telephone encounter Jessie Avila CMA [facility] Start: 06-09-2023 Refill Irina Justinz HOME HEALTH REGISTERED NURSE Work Phone: [facility] Comment on above: Dyslipidemia (CMS/HC C) (Primary Dx) Start: 06-08-2023 Refill Irina Aichholz HOME HEALTH REGISTERED NURSE Work Phone: [facility] Comment on above: Restless legs (Prima ry Dx) Start: 06-02-2023 Clinisync Result Encounter Generic External Data Provider [facility] External Department Unsolicited Start: 06-02-2023 Clinisync Result Encounter Generic External Data Provider [facility] External Department Unsolicited Start: 05-31-2023 End: 05-31-2023 Evaluation and management of inpatient FRANKIE BISHOP [facility] Start: 05-27-2023 End: 05-27-2023 ambulatory IRINA MCLEOD [facility] Start: 05-27-2023 End: 05-27-2023 ambulatory [facility] Pat Phone Call Provider 1 [facility] - Pre Admit Start: 05-21-2023 End: 06-03-2023 ambulatory SYBIL TOBIN [facility] Start: 05-19-2023 End: 05-19-2023 ambulatory IRINA MCLEOD Not Available Start: 05-11-2023 End: 05-11-2023 ambulatory [facility] Jadon [facility] Start: 05-05-2023 End: 05-05-2023 ambulatory SYBIL TOBIN [facility] Start: 05-05-2023 End: 05-05-2023 Office outpatient visit 10 minutes Sybil Tobin LABOR DELIVERY SPECIALIST-PARATRANSIT DRIVER Work Phone: [facility] Comment on above: Chronic recurrent pi lonidal cyst (Primary Dx); Abscess of multiple sites of buttock Start: 04-13-2023 End: 04-13-2023 ambulatory [facility] Start: 04-13-2023 End: 04-13-2023 Encounter for preprocedural cardiovascular examination [facility] Start: 04-07-2023 Preoperative state Generic Provider [facility] Start: 04-07-2023 End: 04-07-2023 ambulatory IRINA MCLEOD Not Available Start: 10-26-2022 ambulatory Arlen castillo PA-C Facility[facility] Start: 09-21-2022 End: 09-22-2022 ambulatory Irina Mcleod LABOR DELIVERY SPECIALIST-PARATRANSIT DRIVER Facility:[facility] Start: 08-04-2022 End: 08-04-2022 ambulatory JOSE ELIAS DAI Facility:[facility] Start: 07-23-2022 End: 07-24-2022 ambulatory PARATRANSIT DRIVER IRINA DERICHLANI Facility:[facility] Start: 07-09-2022 End: 07-10-2022 ambulatory PARATRANSIT DRIVER IRINA DERICHSALLYZ Facility:[facility] Start: 09-15-2021 End: 09-16-2021 ambulatory PARATRANSIT DRIVER IRINA DERICHSALLYZ Facility:[facility] Procedures Date Procedure Procedure Detail Performing Clinician Start: 06-02-2023 BLOOD CULTURE 2 Generic External Data Provider Start: 06-02-2023 BLOOD CULTURE 1 Generic External Data Provider Start: 05-11-2023 Follow-up visit Follow-up CARMEN VALDOVINOS Start: 05-05-2023 NURSING COMMUNICATION Jadon Tobin APRN-PARATRANSIT DRIVER Work Phone: Start: 07-09-2022 PSA screening JUDY MCLEOD Comment on above: Performed By: #### P [facility] #### [facility] [address] [place] [address] Dr. Gloria Ayala Plan of Treatment Date Care Activity Detail Author Start: 04-07-2025 Glaucoma screening Diabetes: R etinopathy Screening [facility] Start: 05-31-2024 Adult BMI Screening Adult BMI Screen ing [facility] Start: 05-31-2024 Tobacco Screening Tobacco Screening [facility] Start: 05-28-2024 Tobacco Screening Tobacco Screening [facility] Start: 05-27-2024 Adult BMI Screening Adult BMI Screen ing [facility] Start: 04-19-2024 Adult BMI Screening Adult BMI Screen ing [facility] Start: 04-07-2024 Pneumococcal Vaccine : 65+ Years (1 - PCV) Pneumococcal Vaccine: 65+ Years (1 - PCV) [facility] Comment on above: Postponed from 03/25 (Patient Refused) Start: 04-05-2024 Tobacco Screening Tobacco Screening [facility] Start: 10-31-2023 Influenza vaccination Influenza Vacc ine (#1) [facility] Comment on above: Postponed from 01/01 (Patient Refused) Start: 09-06-2023 Screening for malign ant neoplasm of colon [facility] Start: 08-23-2023 End: 08-23-2023 Patient encounter procedure 08/23/2023 2:15 PM EDT Office Visit [facility] [address] [place] [address] Arlen Estrada APRN-PARATRANSIT DRIVER [address] [place] [address] [facility] Start: 08-18-2023 End: 08-18-2023 Patient encounter procedure 08/18/2023 9:40 AM EDT Office Visit [facility] [address] [place] [address] Irina Mcleod, KARI [address] [place] [id number] [facility] Start: 08-09-2023 End: 08-09-2023 Admission to same day surgery center 08/09/2023 1:30 PM EDT - 08/09/2023 2:45 PM EDT Surgery [facility] Surgery [address] [place] [address] Amber Valdovinos MD [address] [place] [address] EXCISION CYST PILONIDAL [41771 (CPT )] [facility] Comment on above: EXCISION CYST PILONI SHAYAN [03969 (CPT )] Start: 08-09-2023 End: 08-09-2023 Excision pilonidal cyst/sinus simple EXCISION CYST PILONIDAL pilonidal cyst 08/09/2023 1:30 PM EDT [facility] Start: 08-09-2023 Subsequent hospital visit by physician 08/09/2023 1:30 PM EDT Hospital Encounter [facility] [address] [place] [phone] Amber Valdovinos MD [address] [facility] [place] [phone] [facility] Start: 07-10-2023 Urine screening for protein Diabetes: Urine Protein Screening [facility] Start: 07-06-2023 End: 07-06-2023 Patient encounter procedure 07/06/2023 11:00 AM EST Office Visit [facility] [address] [place] [address] Irina Mcleod, KARI [address] [place] [address] [facility] Start: 06-15-2023 End: 06-15-2023 Patient encounter procedure 06/15/2023 3:30 PM EST Office Visit [facility] General Surgery [address] [place] [phone] Arlen Estrada, LABOR DELIVERY SPECIALIST-PARATRANSIT DRIVER [address] [place], [place] [id number] [facility] General Surgery Start: 06-14-2023 End: 06-14-2023 Patient encounter procedure [facility] Comment on above: Arrived Start: 06-14-2023 End: 06-14-2024 Basic metabolic 1998 panel - Serum or Plasma Basic metabolic panel Lab Routine ROSSY (acute kidney injury) (CMS/HCC) Expected: 06/14/2023 (Approximate), Expires: 06/14/2024 [facility] Work Phone: Comment on above: Expected: 06/14/2023 (Approximate), Expires: 06/14/2024 Start: 05-31-2023 End: 05-31-2023 Admission to same day surgery center 05/31/2023 12:15 PM EST - 05/31/2023 1:15 PM EST Surgery [facility] - Surgery [address] [place] [address] Amber Valdovinos MD [address] [place] [address] EXCISION CYST PILONIDAL [79746 (CPT )] [facility] - Surgery Comment on above: EXCISION CYST PILONI SHAYAN [66819 (CPT )] Start: 05-31-2023 End: 05-31-2023 Anesthesia consultation 05/31/2023 12:15 PM EST Anesthesia Event [facility] - Surgery [address] [place] [address] Frankie Bishop MD [address] [place] [address] [facility] Start: 05-31-2023 End: 05-31-2023 Excision pilonidal cyst/sinus simple EXCISION CYST PILONIDAL pilonidal cyst 05/31/2023 12:15 PM EST [facility] Start: 05-31-2023 Subsequent hospital visit by physician 05/31/2023 12:15 PM EST Hospital Encounter [facility] Surgery [address] [place] [address] Amber Valdovinos MD [address] [place] [address] [facility] Start: 05-21-2023 End: 05-21-2023 Patient encounter procedure 05/21/2023 11:00 AM EST Office Visit [facility] [address] [place] [phone] Sybil Tobin, LABOR DELIVERY SPECIALIST-[facility] [address] [place] [address] [facility] Start: 05-11-2023 End: 05-11-2023 Patient encounter procedure 05/11/2023 2:00 PM EST Office Visit [facility] Surgery [address] [place] [address] Amber Valdovinos MD [address] [place] [address] [facility] Start: 01-01-2023 COVID-19 Vaccine ( season) COVID-19 Vaccine () [facility] Start: 01-01-2023 Influenza vaccination Influenza Vacc ine [facility] Start: 10-09-2022 Hemoglobin A1c measurement Diabetes: Hemoglobin A1C [facility] Start: 2022 Fall Risk Screening Fall Risk Screen ing [facility] Start: 2007 Administration of varicella zoster vaccine Zoster (Shingles) Vaccine (1 of 2) [facility] Start: 1976 DTaP,Tdap and Td Vac cines (1 - Tdap) DTaP,Tdap and Td Vaccines (1 - Tdap) [facility] Start: 1975 Adult BMI Follow Up Plan Adult BMI Follow Up Plan [facility] Start: 1969 Depression Screening Depression Scre ening [facility] Start: 1957 Medicare Annual Well ness Visit Medicare Annual Wellness Visit [facility] Start: 1955 Screening for malign ant neoplasm of colon [facility] BLOOD CULTURE 1 BLOOD CULTURE 1 Lab Routine 06/02/2023 10:53 AM EST [facility] Healthcare BLOOD CULTURE 2 BLOOD CULTURE 2 Lab Routine 06/02/2023 10:58 AM EST [facility] Immunizations Immunization Date Immunization Notes Care Provider Fa andrez 08-02-2020 Pfizer Purple Cap SARS-CoV-2 Vaccination Irina Mcleod HOME HEALTH REGISTERED NURSE Work Phone: [facility] Payers Date Payer Category Payer Self-pay 2003 Medicaid [id number] 1959 Unknown [id number] 1957 Unknown [id number] 2.16.84 0.1.125179.3.579.2.593 1957 Unknown [id number] 2.16.84 0.1.190559.3.579.2.593 1957 Unknown [id number] 2.16.84 0.1.094516.3.579.2.593 1957 Unknown [id number] 2.16.84 0.1.831503.3.579.2.593 1957 Unknown [id number] 2.16. 840.1.858319.3.579.2.196 1957 Unknown [id number] 2.16.84 0.1.679461.3.579.2.1259 1957 Unknown [id number] 2.16.84 0.1.944654.3.579.2.1259 1957 Unknown [id number] 2.16.840 .1.232871.3.579.2.1259 1957 Unknown [id number] 2.16.8 40.1.436297.3.579.2.1286 1957 Unknown [id number] 2.16.84 0.1.878729.3.579.2.6 1957 Unknown [id number] 2.16.8 40.1.329022.3.579.2.1285 1957 Unknown [id number] 2.16.8 40.1.190889.3.579.2.6 1957 Unknown [id number] 2.16.8 40.1.576192.3.579.2.1285 1957 Unknown [id number] 2.16.8 40.1.509714.3.579.2.6 1957 Unknown [id number] 2.16.8 40.1.382175.3.579.2.128 1957 Unknown [id number] 2.16.8 40.1.472587.3.579.2.1286 1957 Unknown [id number] 2.16.8 40.1.889310.3.579.2.1285 1957 Unknown [id number] 2.16.8 40.1.019229.3.579.2.1285 1957 Unknown [id number] 2.16.8 40.1.461392.3.579.2.1285 1957 Unknown [id number] 2.16.8 40.1.964397.3.579.2.128 1957 Unknown [id number] 2.16.8 40.1.086580.3.579.2.1286 1957 Unknown [id number] 2.16.8 40.1.214674.3.579.2.1286 1957 Unknown [id number] 2.16.84 0.1.097874.3.579.2.1286 Social History Date Type Detail Facility Start: 03-30-2023 End: 05-31-2023 Tobacco smoking status NHIS Ex-smoker [facility] End: 05-03-2023 History of tobacco use Current smoker [facility] End: 05-03-2023 History of tobacco use Cigarette Smoker [facility] Start: 05-05-2023 End: 06-14-2023 Alcohol intake Lifetime non-drinker (finding) [facility] Start: 06-13-2020 End: 05-05-2023 History of Social function [facility] Start: 06-13-2020 End: 05-05-2023 Tobacco use panel [facility] Housing Instability Unknown [facility] Start: 1955 Sex Assigned At Not on file P [facility] Start: 05-11-2023 End: 07-30-2023 Alcohol intake Ex-drinker (finding) [facility] Start: 04-10-2023 End: 05-31-2023 Tobacco use and exposure Smokeless tobacco non-user [facility] Start: 04-10-2023 Tobacco Comment 1-9 cigarettes/day N [facility] [place] [place] Healthcare Clinical Notes 04-13-2023 to 07-30-2023 Perioperative [...] yes she was. documented in this encounter [facility] 07-30-2023 Nurse Note Pts states that the cyst area appears to be opening up a bit. I asked her if Dr. Valdovinos was aware and she stated yes she was. [facility] 07-30-2023 Instructions Shanita Rollins RN - 07/30/2023 8:15 AM EDT Preoperative Education Checklist- General Surgery date: 08/09/23 Surgery time: 130p Arrival time: 1130a 1. Bring a photo ID and your insurance card with you the day of surgery. You will check in at the main lobby of the [facility]- registration desk is straight ahead as soon as you walk in. Tell them you are here for surgery. 2. If you have a Living Will/Durable Power of Personal Carer for Health Care that is not on [...] after you have bathed. 5. NO nail greenlandic/acrylic on at least one finger. If you are having a hand, wrist or foot surgery then all nail greenlandic and artificial/acrylic nails must be removed from [...] please call the Preadmission Testing office at [phone], Mon.-Fri. 7 a.m.-3 p.m. Leave a voicemail [...] with your doctor. documented in this encounter [facility] 06-14-2023 History of Present illness Narrative Associated Problem(s): COVID Returning to baseline Associated Problem(s): Benign essential hypertension (CMS/HCC) Stable at this time Associated Problem(s): Primary osteoarthritis of both knees Would like referral to ortho in [place] Associated Problem(s): Edema of extremities stable Associated Problem(s): ROSSY (acute kidney injury) (CMS/HCC) Will reassess kidney function Therapy seen him today talked to him about seeing a surgeons in [place] to fix up his knees. Fell 3 times being home Feet are swollen Pt is asking for a powered wheelchair and hospital bed Images from the original note were not included. Carlos Persaud is a 68 y.o. male presents with chief complaint of No chief complaint on file. HPI: Here for a hospital fu: covid and ROSSY, See [facility] ER notes for HPI, I have reviewed [...] Oral, Daily, Do not crush or chew. Zaruzofuwwu-Odnfaptih-Lqnnyb (Trelegy Ellipta) 100-62.5-25 MCG/ACT aerosol powder 1 [...] musculoskeletal pain COPD (chronic obstructive pulmonary disease) ([facility]/HCC) COPD with exacerbation (CMS/HCC) DDD (degenerative disc [...] knees Would like referral to ortho in [place] ROSSY (acute kidney injury) (CMS/HCC) Will reassess kidney function Relevant Orders Basic metabolic panel COVID Returning to baseline documented in this encounter [facility] 06-14-2023 Miscellaneous Notes The patient is still [...] that under control. documented in this encounter [facility] [employer] 06-14-2023 Telephone encounter Note The patient is [...] re-schedule once they get that under control. [facility] 05-27-2023 Miscellaneous Notes Preoperative Education Checklist- General Surgery date: 05/31/23 Surgery time: 1215 Arrival time: 1015 1. Bring a photo ID and your insurance card with you the day of surgery. You will check in at the main lobby of the [facility]- registration desk is straight ahead as soon as you walk in. Tell them you are here for surgery. 2. If you have a Living Will/Durable Power of Personal Carer for Health Care that is not on [...] after you have bathed. 5. NO nail greenlandic/acrylic on at least one finger. If you are having a hand, wrist or foot surgery then all nail greenlandic and artificial/acrylic nails must be removed from [...] please call the Preadmission Testing office at [phone], Mon.-Fri. 7 a.m.-3 p.m. Leave a voicemail [...] to procedure documented in this encounter [facility] 05-27-2023 Nurse Note Preoperative Education Checklist- General Surgery date: 05/31/23 Surgery time: 1215 Arrival time: 1015 1. Bring a photo ID and your insurance card with you the day of surgery. You will check in at the main lobby of the [facility]- registration desk is straight ahead as soon as you walk in. Tell them you are here for surgery. 2. If you have a Living Will/Durable Power of Personal Carer for Health Care that is not on [...] after you have bathed. 5. NO nail greenlandic/acrylic on at least one finger. If you are having a hand, wrist or foot surgery then all nail greenlandic and artificial/acrylic nails must be removed from [...] please call the Preadmission Testing office at [phone], Mon.-Fri. 7 a.m.-3 p.m. Leave a voicemail [...] Stop taking 0 days prior to procedure [facility] 05-05-2023 History of Present illness Narrative Images from the original note were not included. Wound Care Progress Note Patient: Carlos Persaud Date of : 1955 Chief Compliant: Buttock wounds, pilonidal cyst disease SUBJECTIVE/HPI: Carlos is a 68 y.o. male who presents to [facility] for evaluation of 2 [...] resolved. States surgery was done outside of [place], unable to recall name of surgeon. Measurable [...] [place] (Active) Wound Image 05/05/231043 Site Assessment Red;[place] 05/05/234 Juliet-wound Assessment Blanchable erythema;[place] 05/05/23 1044 Wound Length (cm) 1 cm [...] Assessment Red 05/05/23 1044 Juliet-wound Assessment Blanchable erythema;[place] 05/05/23 1044 Wound Length (cm) 1.5 cm [...] to coccyx. 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 Patient verbalize [...] procedures Referring and communicating with other health insurance healthcare representative (not separately reported) Documenting clinical information in the electronic or other health record Sybil Tobin APRN, JUDY, MONIQUE, RUFINA [facility]: [phone] KANG Whiting 05/05/23 1136 documented in this encounter [facility] 05-05-2023 Instructions So Angela RN - 05/05/2023 [...] serosang Phan, yellow documented in this encounter [facility] 04-13-2023 Note [facility] Subjective Carlos Persaud is a 68 [...] Other emphysema (CMS/HCC) Palpitations Pilonidal cyst Thrombocytopenia ([facility]) Stasis edema of both lower extremities Rising PSA level Restless legs Primary osteoarthritis of both knees Pressure injury of skin of buttock Pre-operative clearance Tobacco dependence syndrome Tobacco user Type 2 diabetes mellitus without complication, without long-term current use of insulin ([facility]) No family history on file. Social [...] mg by mout (more content not included)... [facility] Evaluation note Diagnosis Chronic recurrent pilonidal cyst- Primary Abscess of multiple sites of buttock documented in this encounter [facility]* Diagnosis Restless legs- Primary Restless legs syndrome (RLS) documented in this encounter [facility]* Diagnosis Dyslipidemia (CMS/HCC)- Primary Other and unspecified hyperlipidemia documented [facility]* Diagnosis ROSSY (acute kidney injury) (CMS/HCC)- Primary Pilonidal cyst Edema of extremities Edema Primary osteoarthritis of both knees Benign essential hypertension (CMS/HCC) Essential hypertension, benign COVID documented in this encounter [facility] HealthcareInstructionsNot on filedocumented in this encounterPro[facility] SystemInstructionsNot on filedocumented in this encounterProGrant Hospital SystemReason for referral (narrative)* Consultation (Routine) - Pending Review Specialty Diagnoses / Procedures Referred By Sushma t Referred To Contact Orthopaedic Surgery Diagnoses Primary osteoarthritis of both knees Irina Mcleod, KARI [address] [place] [address] Referral ID Status Reason Start Date Expiration Date Visits Requested Visits Authorized [id number] Pending Review Specialty Services Required 06/14/2023 12/11/2023 [address] Juan Alberto Collazo [facility] Healthcare Summary Purpose Family History No Family [...] sites of buttock Procedures [facility] Sybil Tobin, LABOR DELIVERY SPECIALIST-PARATRANSIT DRIVER [address] [place] [address] Referral ID Status Reason Start Date Expiration Date V isits Requested Visits Authorized [id number] Pending Review 05/05/2023 05/04/2024 1 1 Specialty Diagnoses / Procedures Referred By Contac t Referred To Contact Diagnoses Abscess of multiple sites of buttock Procedures [employer] Sybil Tobin, LABOR DELIVERY SPECIALIST-PARATRANSIT DRIVER [address] [place] [address] Referral ID Status Reason Start Date Expiration Date V isits Requested Visits Authorized [id number] Pending Review 05/05/2023 05/04/2024 1 1 Additional Source Comments (unrecognized sect ion and content) No Status Records FoundNo Status Records FoundNo Status Records FoundNo Status Records FoundNo Status Records FoundNo Status Records FoundNo Status Records Found INFORMATION SOURCE (unrecogn ized section and content) DATE CREATED AUTHOR 12/03/2021 [facility] DATE CREATED AUTHOR AUTHOR'S ORGANIZ ATION 08/07/2022 [facility] DATE CREATED AUTHOR AUTHOR'S ORGANIZ ATION 10/24/2022 [facility] DATE CREATED AUTHOR AUTHOR'S ORGANIZ ATION 04/15/2023 [facility] DATE CREATED AUTHOR AUTHOR'S ORGANIZ ATION 06/16/2023 [facility] DATE CREATED AUTHOR AUTHOR'S ORGANIZ ATION 08/18/2023 [facility] DATE CREATED AUTHOR AUTHOR'S ORGANIZ ATION 08/26/2023 [facility] Reason for Visit (unrecogniz ed section and content) Reason Comments Wound Check Reason Comments Med Refill Care Teams (unrecognized sec tion and content) Head Operator Relationship Specialty Start Date End Date Irina Mcleod APRN-PARATRANSIT DRIVER [address] [place] [phone] PCP - General Nurse Practitioner 09/24/16 Head Operator Relationship Specialty Start Date End Date Irina Mcleod LABOR DELIVERY SPECIALIST-PARATRANSIT DRIVER [address] [place] [address] PCP - General Nurse Practitioner 09/24/16 Head Operator Relationship Specialty Start Date End Date Zachary Melton MD [address] [place] [address] PCP - General Family Medicine 04/06/23 Irina Mcleod NP [address] [place] [address] Nurse Practitioner Family Medicine 05/03/22 Head Operator Relationship Specialty Start Date End Date Zachary Melton MD [address] [place] [phone] PCP - General Family Medicine 04/06/23 Irina Mcleod NP [address] [place] [address] Nurse Practitioner Family Medicine 05/03/22 Head Operator Relationship Specialty Start Date End Date Zachary Melton MD [address] [place] [phone] PCP - General Family Medicine 04/06/23 Irina Mcleod NP [address] [place] [phone] Nurse Practitioner Family Medicine 05/03/22 Head Operator Relationship Specialty Start Date End Date Zachary Melton MD [address] [place] [phone] PCP - General Family Medicine 06/14/23 Irina Mcleod NP [address] [place] [address] Nurse Practitioner Family Medicine 05/03/22 Head Operator Relationship Specialty Start Date End Date Zachary Melton MD [address] [place] [address] PCP - General Family Medicine 06/14/23 Irina Mcleod NP [address] [place] [phone] Nurse Practitioner Family Medicine 05/03/22 Head Operator Relationship Specialty Start Date End Date Irina Mcleod LABOR DELIVERY SPECIALIST-PARATRANSIT DRIVER [address] [place] [address] PCP - General Nurse Practitioner 09/24/16 [...] BE BASED ON THE PRIMARY CLINICAL RECORDS. [employer] [facility]. provides no warranty or guarantee of the accuracy or completeness of information in this document.
--- NOTE | 2023-08-28 07:52 | XR_ITS ---
[address] [address] Patient Name: CARLOS DUQUE MRN: [id number] date: 1955 Sex: M Assigned Patient Location: ER Current Patient Location: ER Accession/Order Number: [id number] Exam Date: 08/28/2023 08:50 Report Date: 08/28/2023 10:57 At the request of: BANDAR CARBAJAL Procedure: XR chest 1V EXAM: XR chest 1V INDICATION: fall. COMPARISON: Chest radiograph 06/02/2023. TECHNIQUE: Single frontal view of the chest FINDINGS: Normal cardiomediastinal contours. No acute infiltrative process. No pleural effusion or pneumothorax. No acute osseous abnormality. XR/XR chest 1V IMPRESSION: No acute cardiopulmonary process. Electronically authenticated by: SCARLET GUERRERO Date: 08/28/2023 10:57
--- NOTE | 2023-08-28 07:52 | ECG_ITS ---
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
[2023-08-28] MEDS: LACTATED RINGER'S SOLUTION 1,000 ML 2000 ML IV (08:13)
[2023-08-28 08:35] LABS: Basophils Absolute Auto 0.1 10^3/uL (0.0-0.1); Basophils Percent Auto 0.5 % (0.2-2.0); Eosinophils Absolute Auto 0.3 10^3/uL (0.0-0.7); Eosinophils Percent Auto 2.5 % (0.9-7.0); Hematocrit 35.6 % (42.0-54.0); Hemoglobin 11.3 g/dL (14.0-18.0); Immature Granulocytes Abs Auto 0.06 10^3/uL (0.00-0.03); Immature Granulocytes Pct Auto 0.5 % (0.0-0.5); Lymphocytes Absolute Auto 1.4 10^3/uL (1.2-3.8); Lymphocytes Percent Auto 11.3 % (20.5-60.0); Mean Corpuscular HGB Conc 31.7 g/dL (29.9-35.2); Mean Corpuscular Hemoglobin 26.9 pg (25.9-34.0); Mean Corpuscular Volume 84.8 fL (80.0-94.0); Mean Platelet Volume 11.4 fL (9.5-13.5); Monocytes Absolute Auto 0.6 10^3/uL (0.3-0.8); Neutrophils Absolute Auto 10.2 10^3/uL (1.4-6.5); Neutrophils Percent Auto 80.2 % (43.0-75.0); Platelet Count 173 10^3/uL (150-450); White Blood Count 12.7 10^3/uL (4.0-11.0)
[2023-08-28 08:36] LABS: PCO2 VBG 57.8 mmHg (40.0-52.0); pH VBG 7.363 (7.330-7.430)
[2023-08-28 08:55] LABS: Alanine Aminotransferase 15 U/L (16-63); Albumin Globulin Ratio 0.5; Albumin Level 2.3 g/dL (3.4-5.0); Alkaline Phosphatase 67 U/L (46-116); Anion Gap 14.4; Aspartate Amino Transferase 18 U/L (15-37); BUN Creatinine Ratio 11.3; Bilirubin Total 0.4 mg/dL (0.2-1.0); Calcium 8.5 mg/dL (8.5-10.1); Chloride 95 mmol/L (98-107); Estimated GFR (African America 25 (>=60); Estimated GFR (Non-African Ame 20 (>=60); Globulin 4.5 g/dL; Glucose 102 mg/dL (74-106); Potassium 3.4 mmol/L (3.5-5.1); Sodium 137 mmol/L (136-145); Total Protein 6.8 g/dL (6.4-8.2)
[2023-08-28 09:00] LABS: Magnesium 1.6 mg/dL (1.8-2.4); Troponin I High Sensitivity 4.2 pg/mL (4.0-76.1)
[2023-08-28 09:13] LABS: PROCALCITONIN 0.16 ng/mL (0.00-0.50)
[2023-08-28 09:17] LABS: INR 1.03; Prothrombin Time 10.9 sec (9.0-11.6)
[2023-08-28] MEDS: MORPHINE SULFATE 4 MG/ML VIAL IV (09:46)
--- NOTE | 2023-08-28 09:46 | ED.GENADUL1 ---
HPI HPI - General Adult General Chief complaint: Skin/Abscess/Foreign Body Stated complaint: BACK PAIN Time Seen by Provider: 08/28/23 07:52 Source: patient Mode of arrival: ambulance Limitations: no limitations History of Present Illness HPI narrative: Patient is a 68-year-old male who is presenting to the ER by EMS secondary to weakness, fatigue, low blood pressure, and pain to his sacrum. Patient just had a surgical procedure done on Wednesday by Dr. Valdovinos, general surgeon at [facility]. Chart review was done from this tried on August 17, 2023. Patient was referred to Dr. 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 Patient had pilonidal disease since the . He has had incision and drainage at that time, but over the last 5 to 6 years, he has been having complications with his intergluteal cleft. Patient been having intermittent wounds and drainage. Over the last 2 months it has been getting worse, patient was at [facility] in March 01 and at that time was sent home with oral antibiotics. Patient has been at wound care at that time. Patient is morbidly obese, he is an everyday smoker, lives at home with his . He is diabetic. According to Dr. Valdovinos's note from August 16 patient was in the office for a follow-up visit, he was scheduled for surgery 3 different times, first time he was anxious and surgery was canceled. Second time he was hypotensive it was canceled. Third time patient canceled the procedure as well. In August 16 office visit, he did want to have his surgery scheduled. I did review the operation note from August 22. 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 An elliptical incision was made around the disease area. All diseased tissue was removed, including skin and subcutaneous tissue. Total area debrided was was 8 x 12 x 5 cm. Debridement was performed to level muscle. Wound was irrigated. Wet-to-dry dressing applied. Patient left buttock wound is to continue with 0.125% DAC and solution moist to moist dressings twice a day. Wound care is coming to the home to help with this, along with doing this as well. I saw and evaluated this patient yesterday, he left AGAINST MEDICAL ADVICE. Patient did not want any lab work done, EKG, urine, IV fluids or any other acute concerns or complaints. Patient signed out AGAINST MEDICAL ADVICE, allowed and agreed that he was not that confused and could sign out AGAINST MEDICAL ADVICE yesterday. Patient is agreeing to care today. All systems are negative except as noted/marked. All systems reviewed and otherwise negative. Nurses note and vital signs reviewed and patient is not hypoxic. Patient is hypotensive. General: The patient appears well and in no apparent distress. Patient is resting uncomfortably on cart. Patient is not toxic, lethargic, or listless Skin: Warm, dry, no pallor noted. There is no rash noted. No petechiae, purpura. Patient has a large open wound Stage 3/4 decubitus ulceration that was just debrided on Wednesday by Dr. Valdovinos at [facility]. See [facility] for more detail. Patient had stool noted in the wound as well, please see nursing notes, this was cleaned thoroughly, irrigated and cleaned, by MO RN and DONOVAN RN. No bleeding. Head: Normocephalic, atraumatic; tobacco stains to gusman, fingers, clubbing of fingers and fingernails. Eye: Normal conjunctiva, no drainage, EOMI. PERRL Ears, Nose, Mouth, and Throat: oral mucosa is moist. Nares patent. Mouth without vesicles. Cardiovascular: Regular Rate and Rhythm, no murmur, gallop, rub Respiratory: Patient is in no distress, no accessory muscle use, lungs are clear to auscultation, no wheezing, rales or rhonchi Back: non-tender, no CVA tenderness bilaterally to percussion. No CT LS midline pain GI: no tenderness to palpation, no masses appreciated. No rebound, guarding, or rigidity noted. No distention Musculoskeletal: Patient has full range of motion of all of the extremities, no motor, sensory, or focal neurological deficits Neurological: A&O x2, confused to time as well as he was yesterday, no acute changes today, he is more compliant, not as agitated, willing to do testing, more pleasant to take care of today,, normal speech Psychiatric: Cooperative Related Data Home Medications ?Medication ?Instructions ?Recorded ?Confirmed aspirin 81 mg tablet,delayed 81 mg PO DAILY 06/02/23 08/28/23 release carvedilol 3.125 mg tablet 3.125 mg PO Q12H 06/02/23 08/28/23 duloxetine 30 mg capsule,delayed 30 mg PO DAILY 06/02/23 08/28/23 release gabapentin 300 mg capsule 300 mg PO .COMPLEX 06/02/23 08/28/23 lisinopril 10 mg tablet 10 mg PO DAILY 06/02/23 08/28/23 metformin 500 mg tablet 500 mg PO BID 06/02/23 08/28/23 omeprazole 20 mg capsule,delayed 20 mg PO DAILY 06/02/23 08/28/23 release ropinirole 2 mg tablet 2 mg PO .qhs 06/02/23 08/28/23 rosuvastatin 20 mg tablet 20 mg PO QDAY 06/02/23 08/28/23 tamsulosin 0.4 mg capsule 0.8 mg PO Q24H 06/02/23 08/28/23 Previous Rx's ?Medication ?Instructions ?Recorded azithromycin 500 mg tablet 500 mg PO DAILY 3 days #3 tabs 06/05/23 benzonatate 100 mg capsule 200 mg (2 x 100 mg) PO Q8H PRN 06/05/23 Cough #20 caps prednisone 10 mg tablet 40 mg (4 x 10 mg) PO DAILY #32 tabs 06/05/23 Allergies Allergy/AdvReac Type Severity Reaction Status Date / Time No Known Drug Allergies Allergy Verified 02/22/23 12:49 Opioid HPI Opioid Management Most Recent Opioid Data: Last Pain Scale 0 06/05/23 09:56 Last Pain Intensity 0 06/05/23 09:56 PFSH PFSH Medical History (Updated 08/28/23 @ 11:10 by Sang Hart MD) Hypomagnesemia ?E83.42 - Hypomagnesemia (ICD-10) Hypokalemia ?E87.6 - Hypokalemia (ICD-10) COVID-19 ?U07.1 - COVID-19 (ICD-10) Abscess of sacrum ?M46.28 - Osteomyelitis of vertebra, sacral and sacrococcygeal region (ICD-10) Dehydration ?E86.0 - Dehydration (ICD-10) Acute viral syndrome ?B34.9 - Viral infection, unspecified (ICD-10) Acute kidney failure ?N17.9 - Acute kidney failure, unspecified (ICD-10) Cellulitis of sacral region ?L03.319 - Cellulitis of trunk, unspecified (ICD-10) Restless leg syndrome ?G25.81 - Restless legs syndrome (ICD-10) Diabetic neuropathy ?E11.40 - Type 2 diabetes mellitus with diabetic neuropathy, unspecified (ICD-10) Dyslipidemia ?E78.5 - Hyperlipidemia, unspecified (ICD-10) Non-insulin dependent diabetes mellitus Hypertension ?I10 - Essential (primary) hypertension (ICD-10) Family History Sister Family history of diabetes mellitus Social History Within the past year, how often did you have a drink containing alcohol: never Score interpretation: A score less than 4 is consistent with normal alcohol consumption. Smoking status: Former smoker Non-prescribed substance use: denies use Highest level of school completed/degree received: high school graduate Gender Identity: male Exam Constitutional Vital Signs, click to edit/add: Last Vital Signs Temp 97.6 F 08/28/23 07:43 Pulse 86 08/28/23 10:40 Resp 16 08/28/23 10:40 BP 100/69 08/28/23 10:31 Pulse Ox 96 08/28/23 09:57 O2 Del Method Room Air 08/28/23 08:15 Course Vital Signs Vital signs: Vital Signs Temperature 97.6 F 08/28/23 07:43 Pulse Rate 81 08/28/23 07:43 Respiratory Rate 15 08/28/23 07:43 Blood Pressure 81/51 L 08/28/23 07:43 Pulse Oximetry 98 08/28/23 07:43 Oxygen Delivery Method Room Air 08/28/23 07:43 Temperature 97.6 F 08/28/23 07:43 Pulse Rate 86 08/28/23 10:40 Respiratory Rate 16 08/28/23 10:40 Blood Pressure 100/69 08/28/23 10:31 Pulse Oximetry 96 08/28/23 09:57 Oxygen Delivery Method Room Air 08/28/23 08:15 Medical Decision Making MDM Narrative Medical decision making narrative: Emergency Department sepsis order set was initiated. Patient received 2 L of IV fluid resuscitation. Patient blood pressure has responded. Patient was given 2 L of IV fluid. Patient no longer hypotensive. Bladder scan that showed approximately 570 mL in his urine. Patient does not wish to provide a urine sample. Patient is refusing my recommendation of admission to the hospital for observation secondary to hypotension and possible infection. Patient had a sepsis workup in progress. Patient is refusing admission. Patient will follow-up with PCP, no questions at discharge. Patient again is leaving against medical his, patient's agrees to take him home again despite coming to the Emergency Room twice with 2 ambulance Transfers to the Emergency Room. Patient's is taking him home. The patient is oriented to person, place, and time, demonstrating all ramon elements of capacity to make decisions regarding the medical care offered. The patient speaks coherently and exhibits no evidence of having an altered level of consciousness or alcohol or drug intoxication to a point that would impair ability to delineate a choice. He/she is able to ambulate without difficulty. The patient demonstrates understanding and appreciation of the relevant information of the nature their medical condition, as well as the risks, benefits, and treatment alternatives (including nontreatment), Consequences of refusing care, and can appropriately communicative rational reasoning about their choice of care options. Patient is aware of a suspected diagnosis suggested by history and exam. The risks of refusing recommended care that were disclosed and acknowledged by the patient including , unforeseen complications, neurological dysfunction, permanent mental impairment, loss of limb, loss of sexual function, loss of current lifestyle, worsening chronic condition, long-term disability were disclosed. The patient understands they are welcome to return to the hospital anytime to receive the recommended care or any other care at any time, regardless of their ability to pay for such care. Discharge instructions were provided to the patient along with necessary prescriptions if indicated. Lab Data Labs: Lab Results 08/28/23 Range/Units 08:10 WBC 12.7 H (4.0-11.0) 10^3/uL RBC 4.20 L (4.70-6.10) 10^6/uL Hgb 11.3 L (14.0-18.0) g/dL Hct 35.6 L (42.0-54.0) % MCV 84.8 (80.0-94.0) fL MCH 26.9 (25.9-34.0) pg MCHC 31.7 (29.9-35.2) g/dL RDW 14.0 (11.0-15.0) % Plt Count 173 (150-450) 10^3/uL MPV 11.4 (9.5-13.5) fL Neut % (Auto) 80.2 H (43.0-75.0) % Lymph % (Auto) 11.3 L (20.5-60.0) % Elk % (Auto) 5.0 (1.7-12.0) % Eos % (Auto) 2.5 (0.9-7.0) % Baso % (Auto) 0.5 (0.2-2.0) % Neut # (Auto) 10.2 H (1.4-6.5) 10^3/uL Lymph # (Auto) 1.4 (1.2-3.8) 10^3/uL Elk # (Auto) 0.6 (0.3-0.8) 10^3/uL Eos # (Auto) 0.3 (0.0-0.7) 10^3/uL Baso # (Auto) 0.1 (0.0-0.1) 10^3/uL Abs Immat Gran (auto) 0.06 H (0.00-0.03) 10^3/uL Imm/Tot Granulo (auto) 0.5 (0.0-0.5) % PT 10.9 (9.0-11.6) sec INR 1.03 VBG pH 7.363 (7.330-7.430) VBG pCO2 57.8 H (40.0-52.0) mmHg Sodium 137 (136-145) mmol/L Potassium 3.4 L (3.5-5.1) mmol/L Chloride 95 L (98-107) mmol/L Carbon Dioxide 31.0 (21.0-32.0) mmol/L Anion Gap 14.4 BUN 35.0 H (7.0-18.0) mg/dL Creatinine 3.11 H (0.70-1.30) mg/dL Est GFR ( Amer) 25 L (>=60) Est GFR (Non-Af Amer) 20 L (>=60) BUN/Creatinine Ratio 11.3 Glucose 102 (74-106) mg/dL Lactate 2.0 (0.4-2.0) mmol/L Calcium 8.5 (8.5-10.1) mg/dL Magnesium 1.6 L (1.8-2.4) mg/dL Total Bilirubin 0.4 (0.2-1.0) mg/dL AST 18 (15-37) U/L ALT 15 L (16-63) U/L Alkaline Phosphatase 67 (46-116) U/L Troponin I High Sens 4.2 (4.0-76.1) pg/mL NT-Pro-B Natriuret Pep 620.0 (<=900.0) pg/mL Total Protein 6.8 (6.4-8.2) g/dL Albumin 2.3 L (3.4-5.0) g/dL Globulin 4.5 g/dL Albumin/Globulin Ratio 0.5 Procalcitonin 0.16 (0.00-0.50) ng/mL ECG Data Attestation: I personally reviewed and interpreted this ECG as follows: (EKG interpretation. Normal sinus rhythm 81 beats a minute. Left axis deviation. No acute ST elevation, no acute ectopy. QTc of 457. EKG reading right bundle branch block, no acute changes from yesterday's EKG. LVH noted.) Discharge Plan Discharge Stand Alone Forms: Portal Instructions Chief Complaint: Skin/Abscess/Foreign Body Clinical Impression: Left against medical advice, Hypotension, Dehydration, Encounter for evaluation of wound Patient Disposition: Home, Self-Care Time of Disposition Decision: 11:07 Condition: Fair Prescriptions / Home Meds: No Action aspirin 81 mg tablet,delayed release (DR/EC) 81 mg PO DAILY carvedilol 3.125 mg tablet 3.125 mg PO Q12H duloxetine 30 mg capsule,delayed release(DR/EC) 30 mg PO DAILY gabapentin 300 mg capsule 300 mg PO .COMPLEX Rx Instructions: 300 mg orally 1 tablet in the morning and 2 tablets before bed; lisinopril 10 mg tablet 10 mg PO DAILY metformin 500 mg tablet 500 mg PO BID omeprazole 20 mg capsule,delayed release(DR/EC) 20 mg PO DAILY ropinirole 2 mg tablet 2 mg PO .qhs rosuvastatin 20 mg tablet 20 mg PO QDAY tamsulosin 0.4 mg capsule 0.8 mg PO Q24H benzonatate 100 mg Capsule 200 mg PO Q8H PRN (Reason: Cough) Qty: 20 0RF azithromycin 500 mg tablet 500 mg PO DAILY 3 Days Qty: 3 0RF prednisone 10 mg tablet 40 mg PO DAILY Qty: 32 0RF Rx Instructions: 4/day for 3 days, 3/day for 3 days, 2/day for 3 days, 1/day for 3 days, 1/2 /day for 4 days Print Language: Hebrew Instructions: Dehydration (ED), Wound Infection (ED), Hypotension (ED), Against Medical Advice (ED) Additional Instructions: Increase fluids at home. He did not want to wait to give a urine sample, or allow us to collect urine. He did allow us to give you 2 L of fluid, thank you. Follow-up with PCP, call Irina Alexis CNP on Wednesday to follow-up with wound care team. Also ask Irina to help order you a home health assessment to help with additional toilet chairs, hospital beds, bars, and any other additional care that you would need at home. Referrals: Irina Mcleod NP [Primary Care Provider] - 1 week Discharge Date/Time: 08/28/23 11:27
[2023-08-28] MEDS: SODIUM CHLORIDE 0.9% IRRIG SOLUTION 1,000 ML BOTTLE 1000 ML IRR (11:24)
== END 2023-08-28 11:27 | disposition left against medical advice (07) ==
PROVIDERS: Emergency Provider Emergency Medicine; PCP Nurse Practitioner
DX: E86.0 Dehydration (principal); I95.9 Hypotension, unspecified; Z53.29 Procedure and treatment not carried out because of patient's decision for other reasons; G25.81 Restless legs syndrome; E11.40 Type 2 diabetes mellitus with diabetic neuropathy, unspecified; L89.894 Pressure ulcer of other site, stage 4; E78.5 Hyperlipidemia, unspecified; I10 Essential (primary) hypertension; F17.210 Nicotine dependence, cigarettes, uncomplicated; Z79.82 Long term (current) use of aspirin; Z79.84 Long term (current) use of oral hypoglycemic drugs; Z79.899 Other long term (current) drug therapy; Z86.16 Personal history of COVID-19; E66.01 Morbid (severe) obesity due to excess calories; Z68.41 Body mass index [BMI] 40.0-44.9, adult
CPT/HCPCS: 36415; 71045; 80053; 81001; 82800; 83605; 83735; 83880; 84145; 84484; 85025; 85610; 87040; 93005; 96361; 96374; 99285

== ENCOUNTER 2023-11-11 10:32 | Outpatient (OUT) | payer OTHER, SELFPAY ==
[2023-11-11 10:54] LABS: Basophils Percent Auto 0.6 % (0.2-2.0); Eosinophils Absolute Auto 0.1 10^3/uL (0.0-0.7); Hemoglobin 10.1 g/dL (14.0-18.0); Immature Granulocytes Abs Auto 0.03 10^3/uL (0.00-0.03); Immature Granulocytes Pct Auto 0.4 % (0.0-0.5); Lymphocytes Absolute Auto 1.3 10^3/uL (1.2-3.8); Lymphocytes Percent Auto 18.7 % (20.5-60.0); Mean Corpuscular HGB Conc 31.6 g/dL (29.9-35.2); Mean Corpuscular Hemoglobin 26.7 pg (25.9-34.0); Mean Corpuscular Volume 84.7 fL (80.0-94.0); Mean Platelet Volume 10.4 fL (9.5-13.5); Monocytes Absolute Auto 0.4 10^3/uL (0.3-0.8); Monocytes Percent Auto 5.5 % (1.7-12.0); Neutrophils Absolute Auto 5.1 10^3/uL (1.4-6.5); Neutrophils Percent Auto 72.8 % (43.0-75.0); Platelet Count 178 10^3/uL (150-450); Red Blood Count 3.78 10^6/uL (4.70-6.10); Red Cell Distribution Width 15.3 % (11.0-15.0)
[2023-11-11 11:03] LABS: Bilirubin Urine NEGATIVE (NEGATIVE); Blood Urine SMALL (NEGATIVE); Clarity Urine CLEAR (CLEAR); Color Urine LT. YELLOW (YELLOW); Glucose Urine UA NEGATIVE (NEGATIVE); Ketones Urine NEGATIVE (NEGATIVE); Leukocyte Esterase Urine TRACE (NEGATIVE); Nitrite Urine NEGATIVE (NEGATIVE); Protein Urine NEGATIVE (NEG/TRACE); Specific Gravity Urine <=1.005 (1.005-1.025); Urobilinogen Urine 0.2 EU/dL (0.2-1.0)
[2023-11-11 11:04] LABS: Urine Microscopic Indicated YES
[2023-11-11 11:16] LABS: Ammonia 36 umol/L (11-32)
[2023-11-11 11:20] LABS: Estimated Average Glucose 100 mg/dL; Glycohemoglobin A1C 5.1 % (4.5-6.2)
[2023-11-11 11:27] LABS: Creatinine Urine Random 19.39 mg/dL (20.00-300.00); Microalbumin Urine Random <1.3 mg/dL (<=30.0)
[2023-11-11 11:28] LABS: Bacteria Urine SMALL #/HPF (NONE SEEN); Mucus Urine TRACE (NONE SEEN); WBC Urine 0-2 #/HPF (NONE SEEN)
[2023-11-11 11:29] LABS: Cast Seen? SEEN #/LPF (NONE SEEN); Crystals Seen? None Seen #/HPF (None Seen); Hyaline Casts Urine RARE; Squamous Epithelial Cell Urine RARE #/LPF (NONE/RARE); Urine Culture Indicated NO
[2023-11-11 11:43] LABS: Alanine Aminotransferase 7 U/L (16-63); Albumin Globulin Ratio 0.5; Albumin Level 2.4 g/dL (3.4-5.0); Alkaline Phosphatase 75 U/L (46-116); Anion Gap 7.5; Aspartate Amino Transferase 10 U/L (15-37); BUN Creatinine Ratio 13.2; Bilirubin Total 0.4 mg/dL (0.2-1.0); Calcium 8.4 mg/dL (8.5-10.1); Carbon Dioxide 31.4 mmol/L (21.0-32.0); Chloride 102 mmol/L (98-107); Cholesterol 144 mg/dL (<=200); Estimated GFR (African America 60 (>=60); Estimated GFR (Non-African Ame 49 (>=60); Globulin 4.8 g/dL; Glucose 93 mg/dL (74-106); HDL Cholesterol 29 mg/dL (40-60); Potassium 3.9 mmol/L (3.5-5.1); Prealbumin 14.6 mg/dL (20.9-45.5); Sodium 137 mmol/L (136-145); Total Protein 7.2 g/dL (6.4-8.2); Triglycerides 73 mg/dL (<=150); VLDL CHOLESTEROL 14.6 mg/dL
[2023-11-11 12:44] LABS: Prostate Specific Antigen Scrn 1.81 ng/mL (<=4.00)
== END 2023-11-11 10:33 | disposition home or self-care (01) ==
LOC: LAB 10:34
PROVIDERS: PCP Nurse Practitioner; Visit Provider Nurse Practitioner
DX: Z12.5 Encounter for screening for malignant neoplasm of prostate (principal); K21.9 Gastro-esophageal reflux disease without esophagitis; I10 Essential (primary) hypertension; E11.9 Type 2 diabetes mellitus without complications; E78.5 Hyperlipidemia, unspecified; R41.0 Disorientation, unspecified; E46 Unspecified protein-calorie malnutrition
CPT/HCPCS: 36415; 80053; 80061; 81001; 82043; 82140; 82570; 83036; 84134; 85025; G0103

== ENCOUNTER 2023-12-01 10:32 | Emergency (ER) | payer OTHER, SELFPAY ==
[2023-12-01] VITALS (11 sets, daily range): BP systolic 77–86; BP diastolic 46–51; PULSE 84–111; O2SAT 92–96; BMI 31.7
--- NOTE | 2023-12-01 10:42 | ECG_ITS ---
The 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
--- NOTE | 2023-12-01 10:42 | XR_ITS ---
The [address] [address] Patient Name: CARLOS DUQUE MRN: [id number] date: 1955 Sex: M Assigned Patient Location: ER Current Patient Location: ER Accession/Order Number: [id number] Exam Date: 12/01/2023 10:58 Report Date: 12/01/2023 11:40 At the request of: DEJA BRANCH Procedure: XR chest 1V EXAMINATION: XR chest 1V HISTORY: Altered mental status COMPARISON: No relevant comparison available. TECHNIQUE: 08/28/2023 FINDINGS: LUNGS: No significant pulmonary parenchymal abnormalities. VASCULATURE: No increased pulmonary vasculature. PLEURA: No pneumothorax, effusion, or pleural thickening. CARDIAC: No cardiomegaly or cardiac silhouette abnormality. MEDIASTINUM: No visible mass or adenopathy. BONES: No fracture or visible bone lesion. OTHER: Negative. XR/XR chest 1V IMPRESSION: No acute cardiopulmonary process Electronically authenticated by: AYALA BURDEN Date: 12/01/2023 11:40
--- NOTE | 2023-12-01 10:42 | CT_ITS ---
[address] [address] Patient Name: CARLOS DUQUE MRN: [id number] date: 1955 Sex: M Assigned Patient Location: ER Current Patient Location: ER Accession/Order Number: [id number] Exam Date: 12/01/2023 10:58 Report Date: 12/01/2023 11:43 At the request of: DEJA BRANCH Procedure: CT abdomen pelvis w con EXAM: CT abdomen pelvis w con HISTORY: wounds to groin/ sacrum COMPARISON: None. TECHNIQUE: Axial CT imaging was performed through the abdomen and pelvis with intravenous contrast. Multiplanar reformats were performed. Dose reduction techniques were achieved by using automated exposure control and/or adjustment of mA and/or kV according to patient size and/or use of iterative reconstruction technique. FINDINGS: Lung bases: Lung bases are clear. No pleural effusion. GI upper: Unremarkable. Liver: Normal size and contour. Gallbladder: No significant abnormality. No cholelithiasis. Biliary system: No intra or extrahepatic biliary ductal dilatation. Spleen: Normal size. Pancreas: Unremarkable. Adrenal glands: Normal adrenal glands. Kidneys/ureters: Normal contours. No hydronephrosis. No nephrolithiasis or ureterolithiasis. Vessels: No aneurysm. Lymph Nodes: No lymphadenopathy. Small bowel: No wall thickening or dilatation. Colon: No wall thickening or dilatation. Appendix: No findings of appendicitis. Peritoneal cavity: No free fluid or pneumoperitoneum. Lower : Prostatomegaly. Correlation with PSA is recommended. Bones: No acute bony abnormality. Soft tissues: There is a rim-enhancing fluid collection along the left medial gluteal fold measuring 10.1 x 7 cm, from 12:00 Trendelenburg position of the anus (series 3, image 171), extending caudally into the left medial gluteal fold. There appears the abscess extending to the left intersphincteric space. Anal fistula is also suspicious. MR fistulogram is recommended for better evaluation. Additional findings: None. CT/CT abdomen pelvis w con IMPRESSION: 10.1 x 7 cm abscess, from 12:00 Trendelenburg position of the anus, extending caudally into the left medial gluteal fold. There appears the abscess extending to the left intersphincteric space. Anal fistula is also suspicious. MR fistulogram is recommended for better evaluation. Electronically authenticated by: ARTIE COTTRELL Date: 12/01/2023 11:43
--- NOTE | 2023-12-01 10:44 | CT_ITS ---
[address] [address] Patient Name: CARLOS DUQUE MRN: [id number] date: 1955 Sex: M Assigned Patient Location: ER Current Patient Location: ER Accession/Order Number: [id number] Exam Date: 12/01/2023 10:58 Report Date: 12/01/2023 11:14 At the request of: DEJA BRANCH Procedure: CT stroke head/brain wo con NONCONTRAST HEAD CT COMPARISON: Head CT 10/13/2017. CLINICAL HISTORY: Altered mental status. TECHNIQUE: Routine noncontrast images of the brain obtained. CT examination of the head without IV contrast. Dose reduction techniques were achieved by using: automated exposure control and/or adjustment of mA and /or kV according to patient size and/or use of iterative reconstruction technique. FINDINGS: Paranasal sinuses and mastoid air cells are clear. Intraorbital contents are unremarkable. No acute bony abnormality. Intracranially, there is no evidence of hemorrhage, mass effect, or midline shift. Ventricles and cisternal spaces are age appropriate. CT/CT stroke head/brain wo con IMPRESSION: No acute intracranial abnormality. Brain atrophy has worsened since 2018. Electronically authenticated by: NAVEED JONES Date: 12/01/2023 11:14
--- OUTSIDE RECORDS SUMMARY | 2023-12-01 10:45 | XMS_ITS | CCD ---
Author Organization [facility] Care Team Providers Care Director Of Adult Epilepsy Name Role Phone AICHHOLZ, PROP CUTTER IRINA Admitting Unavailable AICHHOLZ, PROP CUTTER IRINA Primary Care Unavailable AICHHOLZ, PROP CUTTER IRINA Consulting Unavailable AICHHOLZ, PROP CUTTER IRINA Attending Unavailable AICHHOLZ, PROP CUTTER IRINA Admitting Unavailable AICHHOLZ, PROP CUTTER IRINA Primary Care Unavailable AICHHOLZ, PROP CUTTER IRINA Consulting Unavailable AICHHOLZ, PROP CUTTER IRINA Attending Unavailable AICHHOLZ, PROP CUTTER IRINA Admitting Unavailable AICHHOLZ, PROP CUTTER IRINA Primary Care Unavailable AICHHOLZ, PROP CUTTER IRINA Consulting Unavailable AICHHOLZ, PROP CUTTER IRINA Attending Unavailable JOSE ELIAS DAI Admitting Unavailable JOSE ELIAS DAI Consulting Unavailable JOSE ELIAS DAI Attending Unavailable AICHHOLZ, PROP CUTTER IRINA Primary Care Unavailable Jose PARKER, Arlen Duncan Attending Unavageorgia hooksle Aichholz [employer]EL[employer], Irina Biswas Referring Kristineva Too Manriquez MD Attending Unavaila JAYLIN Flynn Attending Unavailable Aichholz [facility], Irina Lokesh Primary Care Provider Aichholz CHLORINATOR, Irina Unavailable Zachary Melton MD Primary Care Provider [phone] Zachary Melton MD Primary Care Provider AMBER VALDOVINOS Attending Unavailable AICHHOLDary IRINA J Referring Unavailable AICHHOLZ, IRINA J Primary Care Unavailable AMBER VALDOVINOS Attending Unavailable AICHHOLDary, IRINA J Referring Unavailable AICHHOLZ, IRINA J Primary Care Unavailable AICHHOLZ, IRINA J Referring Unavailable AICHHOLZ, IRINA J Primary Care Unavailable TRUDY, AYALA M Referring Unavailable AICHHOLZ, IRINA J Primary Care Unavailable AYALA YATES Attending Unavailable AYALA YATES Referring Unavailable AICHHOLZ, IRINA J Primary Care Unavailable JOELLE, MENNATALLAH M Admitting Unavailable JOELLE, MENNATALLAH M Attending Unavailable AICHHOLZ, IRINA J Primary Care Unavailable AYALA YATES Attending Unavailable AICHHOLZ, IRINA J Primary Care Unavailable SYBIL TOBIN P Attending Unavailable AICHHOLZ, IRINA J Referring Unavailable AICHHOLZ, IRINA J Primary Care Unavailable AICHHOLZ, IRINA J Referring Unavailable AICHHOLZ, IRINA J Primary Care Unavailable SYBIL TOBIN P Attending Unavailable AICHHOLZ, IRINA J Referring Unavailable AICHHOLZ, IRINA J Primary Care Unavailable SYBIL TOBIN P Attending Unavailable AICHHOLZ, IRINA J Referring Unavailable AICHHOLZ, IRINA J Primary Care Unavailable SYBIL TOBIN P Attending Unavailable AICHHOLZ, IRINA J Referring Unavailable AICHHOLZ, IRINA J Primary Care Unavailable SYBIL TOBIN P Attending Unavailable AICHHOLZ, IRINA J Referring Unavailable AICHHOLZ, IRINA J Primary Care Unavailable SYBIL TOBIN P Attending Unavailable AICHHOLZ, IRINA J Referring Unavailable AICHHOLZ, IRINA J Primary Care Unavailable SYBIL TOBIN P Attending Unavailable AICHHOLZ, IRINA J Referring Unavailable AICHHOLZ, IRINA J Primary Care Unavailable JOELLE, MENNATALLAH M Admitting Unavailable JOELLE, MENNATALLAH M Attending Unavailable AICHHOLZ, IRINA J Primary Care Unavailable FRANKIE BISHOP Attending Unavailable AICHHOLZ, IRINA J Primary Care Unavailable MAHAD SYBIL P Attending Unavailable AICHHOLZ, IRINA J Referring Unavailable AICHHOLZ, IRINA J Primary Care Unavailable AICHHOLZ, IRINA Attending Unavailable AICHHOLZ, IRINA Attending Unavailable AICHHOLZ, IRINA Attending Unavailable AICHHOLZ, IRINA Attending Unavailable AICHHOLZ, IRINA Attending Unavailable AICHHOLZ, IRINA Attending Unavailable Allergies Allergy Classification Reported Allergen(s) Allergy Type Date of Onset Reaction(s) Facility (1 source) Cephalexin Drug Allergy [facility] (1 source) Clindamycin Drug Allergy [facility] (1 source) levoFLOXacin Drug Allergy The Rep[facility] (5 sources) Cephalosporins (Antibiotic); Translations: [CEPHALOSPORINS] Propensity to adverse reactions to drug 04-06-20 Rash [facility] (11 sources) Clindamycin; Translations: [CLINDAMYCIN] Drug Allergy 04-06-20 Rash, Unknown [facility] (11 sources) levoFLOXacin; Translations: [LEVOFLOXACIN] Drug Allergy 04-06-20 Rash, Unknown [facility] (6 sources) Cephalosporins (Antibiotic) Drug Allergy 04-06-20 Unknown [facility] Medications Current Medications Medication Drug Class(es) Dates Sig (Normalized) Sig (Original) [id number] 200 actuat albuterol 0.09 mg/actuat metered dose [...] evening. Take with meals. 0 Active nystatin [id number] unt/ml topical cream (6 sources) Polyene Antifungal [...] daily 0 Active take 1 capsule by [facility] every twenty-four hours in the morning tamsulosin [...] 3 04-07-2023 Chronic Chronic ulcer of skin (5 sources) Pressure ulcer of buttock; Translations: [Pressure ulcer of unspecified buttock, unspecified stage] Onset: 3 03-12-2023 Chronic Coagulation and hemorrhagic disorders (6 sources) Thrombocytopenic disorder; Translations: [Thrombocytopenia, unspecified] Onset: 3 04-07-2023 Chronic Complications of surgical procedures or medical care (1 source) Other complications of procedures, not elsewhere classified, subsequent encounter; Translations: [Other complications of procedures, not elsewhere classified, subsequent encounter] Onset: 4 Episodic Coronary atherosclerosis and other heart disease (2 sources) Atherosclerotic heart disease of [place] coronary artery without angina pectoris; Translations: [Atherosclerotic heart disease of [place] coronary artery without angina pectoris] Onset: 3 [...] 3 04-07-2023 Chronic Other aftercare (1 source) 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; 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] Onset: 3 Episodic Other aftercare (1 source) Other shelter (current) drug therapy; Translations: [OTH [facility] CURRENT DRUG THERAPY] Onset: 3 Episodic Other aftercare (1 source) 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; Translations: [[facility] USE ORAL HYPOGLYCEMIC DX] Onset: 3 Episodic [...] Translations: [Tobacco use] Onset: 3 04-07-2023 Episodic Residual codes; unclassified (1 source) Other specified postprocedural states; Translations: [Other specified postprocedural states] Onset: 4 Episodic Skin and subcutaneous tissue infections (20 [...] Value Interpretation Reference Range Facility Surgical Pathologyon 024 Surgical Pathology Normal [facility] Comment on above: Result Comment: [facility] [address] [place] [address] Surgical Pathology Consultation Patient Name:CARLOS PERSAUD:1955 (Age: 68)Gender:MTaken:4Reported:4Physician(s):Luisa Valdovinos MD ([phone])Copy To: Rec. #:[id number]: #[id number] Final Pathologic Diagnosis Soft tissue, buttocks, excision: Pilonidal cyst/sinus, lined by keratinized squamous epithelium with reactive changes, and surrounded by chronic inflammatory infiltrates with dermal fibrosis. Report Electronically Signed Out ao/4Ahermila Egan MD Interpretation performed at [facility], [address] [place] [address], License number: [id number]. Clinical History Pilonidal cyst. Gross Description Received in formalin is labeled DUNIA, buttocks is a lightly pigmented ellipse of skin with underlying subcutaneous tissue, 9 x 3.5 x 2.4 cm. The skin surface is smooth and glistening with areas of hairbearing skin. The specimen sectioned to reveal a linear cavity filled with friable material and hair. Remaining cut surfaces are lobulated and fibrous. A bilingual inside sales representative cross-section is submitted in a single cassette. (1, ss, [id number]) . /08/23/2023 Specimen(s) Received Pilonidal cyst Fee Codes(s): 1; 40565 BASIC METABOLIC PANLon 07-29 Anion gap [Moles/Vol] 8 mmol/L Normal 5-15 [facility] Comment on above: Performed By: #### B MP #### [facility] ([id number]) [address] [place] [address] Calcium [Mass/Vol] 8.6 mg/dL Normal 8.5-10.5 [facility] Comment on above: Performed By: #### B MP #### [facility] ([id number]) [address] [place] [address] Chloride [Moles/Vol] 100 mmol/L Normal 98-109 [facility] Comment on above: Performed By: #### B MP #### [facility] ([id number]) [address] [address] CO2 [Moles/Vol] 32 mmol/L Normal 22-32 [facility] Comment on above: Performed By: #### B MP #### [facility] ([id number]) [address] [facility] [place] [address] Creatinine [Mass/Vol] 1.40 mg/dL High 0.60-1.30 [facility] Comment on above: Result Comment: METH OD TRACEABLE TO IDMS STANDARD Performed By: #### B MP #### [facility] ([id number]) [address] [place] [address] GFR/1.73 sq M.predicted among non-blacks MDRD (S/P/Bld) [Vol rate/Area] 55 mL/min/{1.73_m2} Low >59 [facility] Comment on above: Result Comment: Reported eGFR is based on the CKD-EPI 2020 equation that does not use a race coefficient. Performed By: #### B MP #### [facility] ([id number]) [address] [address] Glucose [Mass/Vol] 86 mg/dL Normal 65-99 [facility] Comment on above: Performed By: #### B MP #### [facility] ([id number]) [address] [address] Potassium [Moles/Vol] 3.8 mmol/L Normal 3.5-5.0 [facility] Comment on above: Performed By: #### B MP #### [facility] ([id number]) [address] [address] Sodium [Moles/Vol] 140 mmol/L Normal 134-146 [facility] Comment on above: Performed By: #### B MP #### [facility] ([id number]) [address] [address] Urea nitrogen [Mass/Vol] 16 mg/dL Normal 5-27 [facility] Comment on above: Performed By: #### B MP #### [facility] ([id number]) [address] [address] XR CHEST 2 VWSon 07-30-2023 XR CHEST [...] Cm MD on 07/30/2023 10:12 AM Normal [facility] No Panel Informationon 05-05 Applied in clinic today MANUALLY TRANSCRIBED RESULTS No Panel InformationOrdered By: So Angela on 05-05-2023 [facility] Office Visiton 04-13-2023 Follow-up visit [id number] Carlos Persaud 1955 M Date Provider Department Center 04/13/2023 JAYLIN HUGHES CARD [facility] No family history on file Level of Service:67147 [place] OFFICE/OUTPATIENT NEW MODERATE MDM 45-59 MINUTES Normal [facility] UA RANDOM W/MICROSCOPICon BACTERIA NONE SEEN Normal NONE SEEN [facility] Comment on above: Performed By: #### U AMIC #### Laboratory [address] [place] [address] Dr. Gloria Ayala Bilirubin Ql (U) Negative Normal NEGATIVE [facility] Comment on above: Performed By: #### U AMIC #### Laboratory [address] [address] [address] Gloria Ayala CAST NONE SEEN Normal NONE SEEN [facility] Comment on above: Performed By: #### U AMIC #### Laboratory [address] [address] [address] Gloria Ayala Clarity (U) CLEAR Normal CLEAR [facility] Comment on above: Performed By: #### U AMIC #### Laboratory [address] [address] [address] Gloria Ayala Color (U) YELLOW Normal YELLOW The Comment on above: Performed By: #### U AMIC #### Laboratory [address] [address] [address] Gloria Ayala Crystals LM Nom (Urine sed) NONE SEEN Normal NONE SEEN [facility] Comment on above: Performed By: #### U AMIC #### Laboratory [address] [place] [address] Dr. Gloria Ayala Epithelial cells LM Ql (Urine sed) NONE SEEN Normal NONE SEEN /RARE The Comment on above: Performed By: #### U AMIC #### Laboratory [address] [address] [address] Gloria Ayala Glucose Ql (U) Negative Normal NEGATIVE [facility] Comment on above: Performed By: #### U AMIC #### Laboratory [address] [address] [address] Gloria Ayala Hemoglobin Ql (U) Negative Normal NEGATIVE The [facility] Comment on above: Performed By: #### U AMIC #### Laboratory [address] [address] [address] Gloria Ayala Ketones Ql (U) TRACE Abnormal NEGATIVE [facility] Comment on above: Performed By: #### U AMIC #### Laboratory [address] [place] [address] Dr. Gloria Ayala LEUKOCYTES Negative Normal NEGATIVE [facility] Comment on above: Performed By: #### U AMIC #### Laboratory [address] [place] [address] Dr. Gloria Ayala MUCOUS NONE SEEN Normal NONE SEEN [facility] Comment on above: Performed By: #### U AMIC #### Laboratory [address] [address] [address] Gloria Ayala Nitrite Ql (U) Negative Normal NEGATIVE [facility] Comment on above: Performed By: #### U AMIC #### Laboratory [address] [place] [address] Dr. Gloria Ayala pH (U) 5.5 [pH] Normal 5-9 [facility] Comment on above: Performed By: #### U AMIC #### Laboratory [address] [place] [address] Dr. Gloria Ayala RBC 0-2 Normal 0-2 [facility] Comment on above: Performed By: #### U AMIC #### Laboratory [address] [place] [address] Dr. Gloria Ayala SPEC GRAVITY 1.020 Normal 1.005-<=1.025 [facility] Comment on above: Performed By: #### U AMIC #### Laboratory [address] [place] [address] Dr. Gloria Ayala UA PROTEIN Negative Normal NEGATIVE/ TRACE The Comment on above: Performed By: #### U AMIC #### Laboratory [address] [place] [address] Dr. Gloria Ayala Urobilinogen Qn (U) 2.0 {Jonathan'U}/dL Abnormal 0.2 - 1. 0 [facility] Comment on above: Performed By: #### U AMIC #### Laboratory [address] [place] [address] Dr. Gloria Ayala WBC NONE SEEN Normal NONE SEEN The Comment on above: Performed By: #### U AMIC #### Laboratory [address] [place] [address] Dr. Gloria Ayala CBC AUTO DIFFon 07-09-2022 BASO # 0.1 103/ul Normal 0.0-0.1 [facility] Comment on above: Performed By: #### C BC #### Laboratory [address] [place] [address] Dr. Gloria yAala Basophils/100 WBC (Bld) 0.6 % Normal 0.2-2.0 [facility] Comment on above: Performed By: #### C BC #### Laboratory [address] [place] [address] Dr. Gloria Ayala EO # 0.1 103/ul Normal 0.0-0.7 [facility] Comment on above: Performed By: #### C BC #### Laboratory [address] [place] [address] Dr. Gloria Ayala Eosinophils/100 WBC (Bld) 1.6 % Normal 0.9-7.0 [facility] Comment on above: Performed By: #### C BC #### Laboratory [address] [place] [address] Dr. Gloria Ayala Erythrocyte distribution width (RBC) [Ratio] 13.6 % Normal 11.0-15.0 [facility] Comment on above: Performed By: #### C BC #### Laboratory [address] [place] [address] Dr. Gloria Ayala Hematocrit (Bld) [Volume fraction] 49.8 % Normal 42.0-54.0 [facility] Comment on above: Performed By: #### C BC #### Laboratory [address] [place] [address] Dr. Gloria Ayala Hemoglobin (Bld) [Mass/Vol] 15.7 g/dL Normal 14.0-18.0 [facility] Comment on above: Performed By: #### C BC #### Laboratory [address] [place] [address] Dr. Gloria Ayala IG # 0.04 10e3/ul Critically high 0.00-0.03 [facility] Comment on above: Performed By: #### C BC #### Laboratory [address] [place] [address] Dr. Gloria Ayala IG % 0.5 % Normal 0.0-0.5 [facility] Comment on above: Performed By: #### C BC #### Laboratory [address] [place] [address] Dr. Gloria Ayala LYMPH # 1.1 103/ul Critically low 1.2-3.8 [facility] Comment on above: Performed By: #### C BC #### Laboratory [address] [place] [address] Dr. Gloria Ayala Lymphocytes/100 WBC (Bld) 13.8 % Critically low 20.5-60.0 [facility] Comment on above: Performed By: #### C BC #### Laboratory [address] [place] [address] Dr. Gloria Ayala MANUAL DIFF REQ NO Normal [facility] Comment on above: Performed By: #### C BC #### Laboratory [address] [place] [address] Dr. Gloria Ayala MCH (RBC) [Entitic mass] 26.6 pg Normal 25.9-34.0 [facility] Comment on above: Performed By: #### C BC #### Laboratory [address] [place] [address] Dr. Gloria Ayala MCHC (RBC) [Mass/Vol] 31.5 g/dL Normal 29.9-35.2 [facility] Comment on above: Performed By: #### C BC #### Laboratory [address] [address] [address] Gloria Ayala MCV (RBC) [Entitic vol] 84.4 fL Normal 80.0-94.0 [facility] Comment on above: Performed By: #### C BC #### Laboratory [address] [place] [address] Dr. Gloria Ayala MONO # 0.4 103/ul Normal 0.3-0.8 [facility] Comment on above: Performed By: #### C BC #### Laboratory [address] [place] [address] Dr. Gloria Ayala Monocytes/100 WBC (Bld) 5.0 % Normal 1.7-12.0 [facility] Comment on above: Performed By: #### C BC #### Laboratory [address] [place] [address] Dr. Gloria Ayala NEUT # 6.3 103/ul Normal 1.4-6.5 [facility] Comment on above: Performed By: #### C BC #### Laboratory [address] [place] [address] Dr. Gloria Ayala Neutrophils/100 WBC (Bld) 78.5 % Critically high 43.0-75.0 [facility] Comment on above: Performed By: #### C BC #### Laboratory [address] [place] [address] Dr. Gloria Ayala Platelet mean volume (Bld) [Entitic vol] 10.5 fL Normal 9.5-13.5 [facility] Comment on above: Performed By: #### C BC #### Laboratory [address] [place] [address] Dr. Gloria Ayala PLT 151 103/ul Normal 150-450 [facility] Comment on above: Performed By: #### C BC #### Laboratory [address] [place] [address] Dr. Gloria Ayala RBC 5.90 106/ul Normal 4.70-6.10 [facility] Comment on above: Performed By: #### C BC #### Laboratory [address] [address] [address] Gloria Ayala WBC 8.0 103/ul Normal 4.0-11.0 [facility] Comment on above: Performed By: #### C BC #### Laboratory [address] [place] [address] Dr. Gloria Ayala GLYCOHEMOGLOBIN A1Con 2022 ADA RECOMMENDATION SEE BELOW Normal [facility] Comment on above: Result Comment: ADA RECOMMENDED LIMIT 4.0 - 6.0 ADA THERAPEUTIC TARGET < 7.0 ACTION SUGGESTED > 7.0 Performed By: #### A 1C #### Laboratory [address] [place] [address] Dr. Gloria Ayala Glucose [Mass/Vol] 123 mg/dL Normal [facility] Comment on above: Performed By: #### A 1C #### Laboratory [address] [place] [address] Dr. Gloria Ayala HbA1c (Bld) [Mass fraction] 5.9 % Normal 4.5-6.2 [facility] Comment on above: Performed By: #### A 1C #### Laboratory [address] [place] [address] Dr. Gloria Ayala LIPID PROFILEon 07-09-2022 CHOL-HDL RATIO NORM SEE BELOW Normal [facility] Comment on above: Result Comment: 3.3 - 4.4 LOW RISK 4.4 - 7.1 AVERAGE RISK 7.1 - 11.0 MODERATE RISK >11.0 HIGH RISK Performed By: #### L IPID, CMP #### Laboratory [address] [place] [address] Dr. Gloria Ayala Cholesterol [Mass/Vol] 182 mg/dL Normal <=200 Th [facility] Comment on above: Performed By: #### L IPID, CMP #### Laboratory [address] [place] [address] Dr. Gloria Ayala Cholesterol in HDL [Mass/Vol] 29 mg/dL Critically low 40-60 [facility] Comment on above: Performed By: #### L IPID, CMP #### Laboratory [address] [address] [address] Gloria Ayala Cholesterol in LDL [Mass/Vol] 136.6 mg/dL Normal [facility] Comment on above: Performed By: #### L IPID, CMP #### Laboratory [address] [address] [address] Gloria Ayala Cholesterol.total/Mamta sterol in HDL [Mass ratio] 6.3 {ratio} Normal [facility] Comment on above: Performed By: #### L IPID, CMP #### Laboratory [address] [address] [address] Gloria Ayala HDL NORMAL > or = 60 mg/dl - LOW CARDIOVASCULAR RISK <40 mg/dl - HIGH CARDIOVASCULAR RISK Normal [facility] Comment on above: Performed By: #### L IPID, CMP #### Laboratory [address] [place] [address] Dr. Gloria Ayala LDL CALC NORMAL SEE BELOW Normal [facility] Comment on above: Result Comment: <100 mg/dl OPTIMAL 100 - 129 mg/dl NEAR OR ABOVE OPTIMAL 130 - 159 mg/dl BORDERLINE HIGH 160 - 189 mg/dl HIGH >190 mg/dl VERY HIGH Performed By: #### L IPID, CMP #### Laboratory [address] [place] [address] Dr. Gloria Ayala Triglyceride [Mass/Vol] 82 mg/dL Normal <=150 T [facility] Comment on above: Performed By: #### L IPID, CMP #### Laboratory [address] [address] [address] Gloria Ayala VLDL CALC 16.4 mg/dL Normal [facility] Comment on above: Performed By: #### L IPID, CMP #### Laboratory [address] [address] [address] Gloria Ayala MICROALBUMIN, RAND URon 03-0 mALB 1.9 mg/L Normal <=30.0 [facility] Comment on above: Performed By: #### M ALBR #### Laboratory [address] [place] [address] Dr. Gloria Ayala PROF 14(COMP METB)on 023 Albumin [Mass/Vol] 3.2 g/dL Critically low 3.4-5.0 [facility] Comment on above: Performed By: #### L IPID, CMP #### Laboratory [address] [address] [address] Gloria Ayala Albumin/Globulin [Mass ratio] 0.8 {ratio} Normal [facility] Comment on above: Performed By: #### L IPID, CMP #### Laboratory [address] [address] [address] Gloria Ayala ALP [Catalytic activity/Vol] 85 U/L Normal 46-116 [facility] Comment on above: Performed By: #### L IPID, CMP #### Laboratory [address] [address] [address] Gloria Ayala ALT [Catalytic activity/Vol] 15 U/L Critically low 16-63 [facility] Comment on above: Performed By: #### L IPID, CMP #### Laboratory [address] [address] [address] Gloria Ayala Anion gap [Moles/Vol] 9.5 mmol/L Normal [facility] Comment on above: Performed By: #### L IPID, CMP #### Laboratory [address] [address] [address] Gloria Ayala AST [Catalytic activity/Vol] 13 U/L Critically low 15-37 [facility] Comment on above: Performed By: #### L IPID, CMP #### Laboratory [address] [address] [address] Gloria Ayala Bilirubin [Mass/Vol] 0.6 mg/dL Normal 0.2-1.0 [facility] Comment on above: Performed By: #### L IPID, CMP #### Laboratory [address] [address] [address] Gloria Ayala Calcium [Mass/Vol] 8.4 mg/dL Critically low 8.5-10.1 [facility] Comment on above: Performed By: #### L IPID, CMP #### Laboratory [address] [address] [address] Gloria Ayala Chloride [Moles/Vol] 102 mmol/L Normal 98-107 [facility] Comment on above: Performed By: #### L IPID, CMP #### Laboratory [address] [address] [address] Gloria Ayala CO2 [Moles/Vol] 34.6 mmol/L Critically high 21.0-32.0 [facility] Comment on above: Performed By: #### L IPID, CMP #### Laboratory [address] [address] [address] Gloria Ayala Creatinine [Mass/Vol] 0.97 mg/dL Normal 0.70-1.30 [facility] Comment on above: Performed By: #### L IPID, CMP #### Laboratory [address] [place] [address] Dr. Gloria Ayala EGFR-AF LITHUANIAN >60 Normal >=60 [facility] Comment on above: Performed By: #### L IPID, CMP #### Laboratory [address] [place] [address] Dr. Gloria Ayala EGFR-NON AF LITHUANIAN >60 Normal >=60 [facility] Comment on above: Performed By: #### L IPID, CMP #### Laboratory [address] [address] [address] Gloria Ayala Globulin (S) [Mass/Vol] 4.1 g/dL Normal [facility] Comment on above: Performed By: #### L IPID, CMP #### Laboratory [address] [address] [address] Gloria Ayala Glucose [Mass/Vol] 154 mg/dL Critically high 74-106 [facility] Comment on above: Performed By: #### L IPID, CMP #### Laboratory [address] [address] [address] Gloria Ayala Potassium [Moles/Vol] 4.1 mmol/L Normal 3.5-5.1 [facility] Comment on above: Performed By: #### L IPID, CMP #### Laboratory [address] [place] [address] Dr. Gloria Ayala Protein [Mass/Vol] 7.3 g/dL Normal 6.4-8.2 [facility] Comment on above: Performed By: #### L IPID, CMP #### Laboratory [address] [place] [address] Dr. Gloria Ayala Sodium [Moles/Vol] 142 mmol/L Normal 136-145 [facility] Comment on above: Performed By: #### L IPID, CMP #### Laboratory [address] [place] [address] Dr. Gloria Ayala Urea nitrogen [Mass/Vol] 10.0 mg/dL Normal 7.0-18.0 [facility] Comment on above: Performed By: #### L IPID, CMP #### Laboratory [address] [place] [address] Dr. Gloria Ayala Urea nitrogen/Creatinine [Mass ratio] 10.3 mg/mg Normal [facility] Comment on above: Performed By: #### L IPID, CMP #### Laboratory [address] [place] [address] Dr. Gloria Ayala UA RANDOM W/MICROSCOPICon BACTERIA NONE SEEN Normal NONE SEEN [facility] Comment on above: Performed By: #### U AMIC #### Laboratory [address] [place] [address] Dr. Gloria Ayala Bilirubin Ql (U) Negative Normal NEGATIVE The [facility] Comment on above: Performed By: #### U AMIC #### Laboratory [address] [place] [address] Dr. Gloria Ayala CAST SEEN Abnormal NONE SEEN [facility] Comment on above: Performed By: #### U AMIC #### Laboratory [address] [place] [address] Dr. Gloria Ayala Clarity (U) CLEAR Normal CLEAR [facility] Comment on above: Performed By: #### U AMIC #### Laboratory [address] [place] [address] Dr. Gloria Ayala Color (U) YELLOW Normal YELLOW The Comment on above: Performed By: #### U AMIC #### Laboratory [address] [address] [address] Gloria Ayala Crystals LM Nom (Urine sed) NONE SEEN Normal NONE SEEN [facility] Comment on above: Performed By: #### U AMIC #### Laboratory [address] [address] [address] Gloria Ayala Epithelial cells LM Ql (Urine sed) RARE Normal NONE SEEN /RARE [facility] Comment on above: Performed By: #### U AMIC #### Laboratory [address] [address] [address] Gloria Ayala Glucose Ql (U) Negative Normal NEGATIVE The [facility] Comment on above: Performed By: #### U AMIC #### Laboratory [address] [address] [address] Gloria Ayala Hemoglobin Ql (U) Negative Normal NEGATIVE The [facility] Comment on above: Performed By: #### U AMIC #### Laboratory [address] [address] [address] Gloria Ayala HYALINE CAST RARE Normal [facility] Comment on above: Performed By: #### U AMIC #### Laboratory [address] [address] [address] Gloria Ayala Ketones Ql (U) Negative Normal NEGATIVE The [facility] Comment on above: Performed By: #### U AMIC #### Laboratory [address] [address] [address] Gloria Ayala LEUKOCYTES Negative Normal NEGATIVE [facility] Comment on above: Performed By: #### U AMIC #### Laboratory [address] [address] [address] Gloria Ayala MUCOUS NONE SEEN Normal NONE SEEN [facility] Comment on above: Performed By: #### U AMIC #### Laboratory [address] [address] [address] Gloria Ayala Nitrite Ql (U) Negative Normal NEGATIVE The [facility] Comment on above: Performed By: #### U AMIC #### Laboratory [address] [address] [address] Gloria Ayala pH (U) 7.0 [pH] Normal 5-9 The Comment on above: Performed By: #### U AMIC #### Laboratory [address] [address] [address] Gloria Ayala RBC NONE SEEN Abnormal 0-2 The Comment on above: Performed By: #### U AMIC #### Laboratory [address] [address] [address] Gloria Ayala SPEC GRAVITY 1.015 Normal 1.005-<=1.025 The [facility] Comment on above: Performed By: #### U AMIC #### Laboratory [address] [address] [address] Gloria Ayala UA PROTEIN Negative Normal NEGATIVE/ TRACE The Comment on above: Performed By: #### U AMIC #### Laboratory [address] [address] [address] Gloria Ayala Urobilinogen Qn (U) 8 {Jonathan'U}/dL Abnormal 0.2 - 1.0 The Comment on above: Performed By: #### U AMIC #### Laboratory [address] [address] [address] Gloria Ayala WBC NONE SEEN Normal NONE SEEN The Comment on above: Performed By: #### U AMIC #### Laboratory [address] [address] [address] Gloria Ayala Physician Referralon 022 Physician Referral [phone] [id number] Normal [facility] GLYCOHEMOGLOBIN A1Con 2021 ADA RECOMMENDATION SEE BELOW Normal [facility] Comment on above: Result Comment: ADA RECOMMENDED LIMIT 4.0 - 6.0 ADA THERAPEUTIC TARGET < 7.0 ACTION SUGGESTED > 7.0 Performed By: #### A 1C #### Laboratory [address] [address] [address] Gloria Ayala Glucose [Mass/Vol] 128 mg/dL Normal [facility] Comment on above: Performed By: #### A 1C #### Laboratory [address] [address] [address] Gloria Ayala HbA1c (Bld) [Mass fraction] 6.1 % Normal 4.5-6.2 [facility] Comment on above: Performed By: #### A 1C #### Laboratory [address] [place] [address] Dr. Gloria Ayala PROF CHEM 8 (BAS METB)on Anion gap [Moles/Vol] 8.5 mmol/L Normal [facility] Comment on above: Performed By: #### B MP #### Laboratory [address] [place] [address] Dr. Gloria Ayala Calcium [Mass/Vol] 8.5 mg/dL Normal 8.5-10.1 [facility] Comment on above: Performed By: #### B MP #### Laboratory [address] [place] [address] Dr. Gloria Ayala Chloride [Moles/Vol] 99 mmol/L Normal 98-107 [facility] Comment on above: Performed By: #### B MP #### Laboratory [address] [place] [address] Dr. Gloria Ayala CO2 [Moles/Vol] 34.5 mmol/L Critically high 21.0-32.0 [facility] Comment on above: Performed By: #### B MP #### Laboratory [address] [place] [address] Dr. Gloria Ayala Creatinine [Mass/Vol] 1.02 mg/dL Normal 0.70-1.30 The Comment on above: Performed By: #### B MP #### Laboratory [address] [place] [address] Dr. Gloria Ayala EGFR-AF LITHUANIAN >60 Normal >=60 The [facility] Comment on above: Performed By: #### B MP #### Laboratory [address] [place] [address] Dr. Gloria Ayala EGFR-NON AF LITHUANIAN >60 Normal >=60 [facility] Comment on above: Performed By: #### B MP #### Laboratory [address] [address] [address] Gloria Ayala Glucose [Mass/Vol] 116 mg/dL Critically high 74-106 [facility] Comment on above: Performed By: #### B MP #### Laboratory [address] [place], [place] [address] Dr. Gloria Ayala Potassium [Moles/Vol] 4.0 mmol/L Normal 3.5-5.1 [facility] Comment on above: Performed By: #### B MP #### Laboratory [address] [address] [address] Gloria Ayala Sodium [Moles/Vol] 138 mmol/L Normal 136-145 [facility] Comment on above: Performed By: #### B MP #### Laboratory [address] [address] [address] Gloria Ayala Urea nitrogen [Mass/Vol] 11.0 mg/dL Normal 7.0-18.0 [facility] Comment on above: Performed By: #### B MP #### Laboratory [address] [address] [address] Gloria Ayala Urea nitrogen/Creatinine [Mass ratio] 10.8 mg/mg Normal [facility] Comment on above: Performed By: #### B MP #### Laboratory [address] [address] [address] Gloria Ayala Vital Signs Date Time Vital Sign Value Performing Clinician Facility 07-30-2023 08:37-0400 Body height 176.5 cm [facility] 1 [facility] 06-14-2023 17:39-0500 Body height 175.3 cm Irina Mcleod CHLORINATOR Work Phone: [facility] 06-14-2023 17:39-0500 Body mass index (BMI) [Ratio] 40.61 kg/m2 Irina Mcleod CHLORINATOR Work Phone: [facility] 06-14-2023 17:39-0500 Body temperature 97.5 [degF] Irina Mcleod CHLORINATOR Work Phone: [facility] 06-14-2023 17:39-0500 Body weight 124.74 kg Irina Osborneholz CHLORINATOR Work Phone: [facility] Comment on above: hospital bed weighed him at the hospital 06-14-2023 17:39-0500 Diastolic blood pressure 58 mm[Hg] Irina Aichholz CHLORINATOR Work Phone: [facility] 06-14-2023 17:39-0500 Heart rate 84 /min Irina Aichholz CHLORINATOR Work Phone: [facility] 06-14-2023 17:39-0500 Respiratory rate 19 /min Irina Aichholz CHLORINATOR Work Phone: [facility] 06-14-2023 17:39-0500 SaO2% (BldA) [Mass fraction] 99 % Irina Derichholz CHLORINATOR Work Phone: [facility] 06-14-2023 17:39-0500 Systolic blood pressure 110 mm[Hg] Irina Derichholz CHLORINATOR Work Phone: [facility] 05-27-2023 13:23-0500 Body height 176.5 cm [facility] 1 [facility] 05-27-2023 13:23-0500 Body mass index (BMI) [Ratio] 45.12 kg/m2 [facility] 1 [facility] 05-27-2023 13:23-0500 Body weight 140.62 kg [facility] 1 [facility] 05-05-2023 10:43-0500 Body temperature 97 [degF] Sybil KAPADIA Work Phone: [facility] 05-05-2023 10:43-0500 Diastolic blood pressure 66 mm[Hg] Sybil Tobin APRN-JUDY Work Phone: [facility] 05-05-2023 10:43-0500 Heart rate 80 /min Sybil Tobin APRN-JUDY Work Phone: [facility] 05-05-2023 10:43-0500 Respiratory rate 16 /min Sybil Tobin APRN-JUDY Work Phone: [facility] 05-05-2023 10:47-3570 Systolic blood pressure 116 mm[Hg] Sybil Tobin SAP CRM DEVELOPER-PROP CUTTER Work Phone: [facility] Encounters Encounter Date Encounter Type Care Provider Facility Start: 11-11-2023 End: 11-11-2023 ambulatory IRINA CHANGZ Not Available Start: 09-17-2023 End: 10-02-2023 ambulatory SYBIL English [facility] Start: 09-15-2023 End: 10-02-2023 ambulatory SYBIL Amador [facility] Start: 09-08-2023 End: 09-08-2023 ambulatory SYBIL Amador MA[facility] Start: 09-01-2023 End: 09-01-2023 ambulatory [facility] Amador [facility] Start: 09-01-2023 End: 10-02-2023 ambulatory [facility] Amador [facility] Start: 08-25-2023 End: 08-25-2023 ambulatory [facility] Amador [facility] Start: 08-23-2023 End: 08-23-2023 Evaluation and management of inpatient [facility] Start: 08-23-2023 End: 08-23-2023 Evaluation and management of inpatient [facility] Start: 08-17-2023 End: 08-17-2023 ambulatory [facility] Start: 07-30-2023 Encounter for other preprocedural examination IRINA MCLEOD [facility] Start: 07-30-2023 End: 07-30-2023 ambulatory [place] [facility] Start: 07-30-2023 End: 07-30-2023 Patient encounter procedure [facility] Pre-Admission Testing 1 [facility] - Pre Ad[facility] Start: 07-29-2023 End: 07-29-2023 ambulatory IRINA DERICHKEONZ Not Available Start: 07-06-2023 End: 07-06-2023 ambulatory IRINA AICHHOLZ Not Available Start: 06-14-2023 End: 06-14-2023 Office outpatient visit 25 minutes Irina Aichholz CHLORINATOR Work Phone: [facility] Comment on above: ROSSY (acute kidney in jury) (CMS/HCC) (Primary Dx); Pilonidal cyst; Edema of extremities; Primary osteoarthritis of both knees; Benign essential hypertension (CMS/HCC); COVID Start: 06-14-2023 End: 06-14-2023 ambulatory IRINA AICHHOLZ Not Available Start: 06-14-2023 Bamboo flowsheet Irina Aichholz CHLORINATOR Work Phone: [facility] Start: 06-14-2023 Bamboo flowsheet Irina Aichholz CHLORINATOR Work Phone: [facility] Start: 06-14-2023 Telephone encounter Jessie Gill [facility] Start: 06-09-2023 Refill Irina Aichholz CHLORINATOR Work Phone: [facility] Comment on above: Dyslipidemia (CMS/HC C) (Primary Dx) Start: 06-08-2023 Refill Irina Aichholz CHLORINATOR Work Phone: [facility] Comment on above: Restless legs (Prima ry Dx) Start: 06-02-2023 Clinisync Result Encounter Generic External Data Provider [facility] External Department Unsolicited Start: 06-02-2023 Clinisync Result Encounter Generic External Data Provider [facility] External Department Unsolicited Start: 05-31-2023 End: 05-31-2023 Evaluation and management of inpatient FRANKIE BISHOP [facility] Start: 05-27-2023 End: 05-27-2023 ambulatory [facility] Pat Phone Call Provider 1 [facility] - Pre Admit Start: 05-21-2023 End: 06-03-2023 ambulatory SYBIL English [facility] Start: 05-19-2023 End: 05-19-2023 ambulatory IRINA AICHHOLZ Not Available Start: 05-11-2023 End: 05-11-2023 ambulatory AMBER Diop JOELLE [facility] Start: 05-05-2023 End: 05-05-2023 Office outpatient visit 10 minutes Sybil Salmoney SAP CRM DEVELOPER-PROP CUTTER Work Phone: [facility] Comment on above: Chronic recurrent pi lonidal cyst (Primary Dx); Abscess of multiple sites of buttock Start: 05-05-2023 End: 05-05-2023 ambulatory SYBIL TOBIN [facility] Start: 04-13-2023 End: 04-13-2023 ambulatory [facility] Start: 04-13-2023 End: 04-13-2023 Encounter for preprocedural cardiovascular examination [facility] Start: 04-07-2023 Preoperative state Generic Provider [facility] Start: 04-07-2023 End: 04-07-2023 ambulatory IRINA MCLEOD Not Available Start: 10-26-2022 ambulatory Arlen castillo PA-C Facility[facility] Start: 09-21-2022 End: 09-22-2022 ambulatory Irina Mcleod SAP CRM DEVELOPER-PROP CUTTER Facility:[facility] Start: 08-04-2022 End: 08-04-2022 ambulatory JOSE ELIAS DAI Facility:[facility] Start: 07-23-2022 End: 07-24-2022 ambulatory PROP CUTTER IRINA MCLEOD Facility:[facility] Start: 07-09-2022 End: 07-10-2022 ambulatory PROP CUTTER IRINA DERICHBESS Facility:[facility] Start: 09-15-2021 End: 09-16-2021 ambulatory PROP CUTTER IRINA AICHHOLZ Facility:[facility] Procedures Date Procedure Procedure Detail Performing Clinician Start: 06-02-2023 BLOOD CULTURE 2 Generic External Data Provider Start: 06-02-2023 BLOOD CULTURE 1 Generic External Data Provider Start: 05-11-2023 Follow-up visit Follow-up CARMEN VALDOVINOS Start: 05-05-2023 NURSING COMMUNICATION M iman Tobin SAP CRM DEVELOPER-PROP CUTTER Work Phone: Start: 07-09-2022 PSA screening JUDY MCLEOD Comment on above: Performed By: #### P [facility] #### Laboratory [address] [place] [address] Dr. Gloria Ayala Plan of Treatment Date Care Activity Detail Author Start: 04-07-2025 Glaucoma screening Diabetes: R etinopathy Screening [facility] Healthcare Start: 05-31-2024 Adult BMI Screening Adult BMI Screen ing [facility] Start: 05-31-2024 Tobacco Screening Tobacco Screening [facility] Start: 05-28-2024 Tobacco Screening Tobacco Screening [facility] Start: 05-27-2024 Adult BMI Screening Adult BMI Screen ing [facility] Start: 04-19-2024 Adult BMI Screening Adult BMI Screen ing [facility] Start: 04-07-2024 Pneumococcal Vaccine : 65+ Years (1 - PCV) Pneumococcal Vaccine: 65+ Years (1 - PCV) [facility] Comment on above: Postponed from 03/25 (Patient Refused) Start: 04-05-2024 Tobacco Screening Tobacco Screening [facility] Start: 10-31-2023 Influenza vaccination Influenza Vacc ine (#1) [facility] Comment on above: Postponed from 01/01 (Patient Refused) Start: 09-06-2023 Screening for malign ant neoplasm of colon [facility] Start: 08-23-2023 End: 08-23-2023 Patient encounter procedure 08/23/2023 2:15 PM EDT Office Visit [facility] [address] [place] [address] Arlen Estrada, SAP CRM DEVELOPER-[facility] [address] [place] [address] [facility] Start: 08-18-2023 End: 08-18-2023 Patient encounter procedure 08/18/2023 9:40 AM EDT Office Visit [facility] [address] [place] [address] Irina Mcleod, KARI [address] [place] [address] [facility] Start: 08-09-2023 End: 08-09-2023 Admission to same day surgery center 08/09/2023 1:30 PM EDT - 08/09/2023 2:45 PM EDT Surgery [facility] [address] [place] [phone] Amber Valdovinos MD [address] [place] [address] EXCISION CYST PILONIDAL [74005 (CPT )] [facility] Comment on above: EXCISION CYST PILONI SHAYAN [43880 (CPT )] Start: 08-09-2023 End: 08-09-2023 Excision pilonidal cyst/sinus simple EXCISION CYST PILONIDAL pilonidal cyst 08/09/2023 1:30 PM EDT [facility] Start: 08-09-2023 Subsequent hospital visit by physician 08/09/2023 1:30 PM EDT Hospital Encounter [facility] [address] [place] [phone] Amber Valdovinos MD [address] [place] [address] [facility] Start: 07-10-2023 Urine screening for protein Diabetes: Urine Protein Screening [facility] Start: 07-06-2023 End: 07-06-2023 Patient encounter procedure 07/06/2023 11:00 AM EST Office Visit [facility] [address] [place] [address] Irina Mcleod NP [address] [place] [address] [facility] Start: 06-15-2023 End: 06-15-2023 Patient encounter procedure 06/15/2023 3:30 PM EST Office Visit [facility] [address] [place] [address] Arlen Estrada, SAP CRM DEVELOPER-PROP CUTTER [address] [place], [place] [id number] [facility] Start: 06-14-2023 End: 06-14-2023 Patient encounter procedure [facility] Comment on above: Arrived Start: 06-14-2023 End: 06-14-2024 Basic metabolic 1998 panel - Serum or Plasma Basic metabolic panel Lab Routine ROSSY (acute kidney injury) (CMS/HCC) Expected: 06/14/2023 (Approximate), Expires: 06/14/2024 [facility] Work Phone: Comment on above: Expected: 06/14/2023 (Approximate), Expires: 06/14/2024 Start: 05-31-2023 End: 05-31-2023 Admission to same day surgery center 05/31/2023 12:15 PM EST - 05/31/2023 1:15 PM EST Surgery [facility] [address] [place] [address] Amber Valdovinos MD [address] [place] [address] EXCISION CYST PILONIDAL [23603 (CPT )] [facility] Comment on above: EXCISION CYST PILONI SHAYAN [83304 (CPT )] Start: 05-31-2023 End: 05-31-2023 Anesthesia consultation 05/31/2023 12:15 PM EST Anesthesia Event [facility] [address] [place] [address] Frankie Bishop MD [address] [place] [address] [facility] Start: 05-31-2023 End: 05-31-2023 Excision pilonidal cyst/sinus simple EXCISION CYST PILONIDAL pilonidal cyst 05/31/2023 12:15 PM [facility] Start: 05-31-2023 Subsequent hospital visit by physician 05/31/2023 12:15 PM EST Hospital Encounter [facility] [address] [place] [address] Amber Valdovinos MD [address] [place] [address] [facility] Start: 05-21-2023 End: 05-21-2023 Patient encounter procedure 05/21/2023 11:00 AM EST Office Visit [facility] [address] [place] [address] Sybil Tobin, SAP CRM DEVELOPER-[facility] [address] [place] [address] [facility] Start: 05-11-2023 End: 05-11-2023 Patient encounter procedure 05/11/2023 2:00 PM EST Office Visit [facility] [address] [place] [address] Amber Valdovinos MD [address] [place] [address] [facility] Start: 01-01-2023 COVID-19 Vaccine ( season) COVID-19 Vaccine ( season) [facility] Start: 01-01-2023 Influenza vaccination Influenza Vacc ine [facility] Start: 10-09-2022 Hemoglobin A1c measurement Diabetes: Hemoglobin A1C [facility] Start: 2022 Fall Risk Screening Fall Risk Screen ing [facility] Start: 2007 Administration of varicella zoster vaccine Zoster (Shingles) Vaccine (1 of 2) [facility] Start: 1976 DTaP,Tdap and Td Vac cines (1 - Tdap) DTaP,Tdap and Td Vaccines (1 - Tdap) [facility] Start: 1975 Adult BMI Follow Up Plan Adult BMI Follow Up Plan [facility] Start: 1969 Depression Screening Depression Scre ening [facility] Start: 1957 Medicare Annual Well ness Visit Medicare Annual Wellness Visit [facility] Start: 1957 Screening for malign ant neoplasm of colon [facility] BLOOD CULTURE 1 BLOOD CULTURE 1 Lab Routine 06/02/2023 10:53 AM EST [facility] BLOOD CULTURE 2 BLOOD CULTURE 2 Lab Routine 06/02/2023 10:58 AM EST [facility] Immunizations Immunization Date Immunization Notes Care Provider Satish maguire 08-02-2020 Pfizer Purple Cap SARS-CoV-2 Vaccination Irina Mcleod CHLORINATOR Work Phone: [facility] Healthcare Payers Date Payer Category Payer Self-pay 2003 Medicaid [id number] 1959 Unknown [id number] 1957 Unknown [id number] 2.16.84 0.1.205370.3.579.2.593 1957 Unknown [id number] 2.16.84 0.1.858105.3.579.2.593 1957 Unknown [id number] 2.16.84 0.1.452379.3.579.2.593 1957 Unknown [id number] 2.16.84 0.1.788414.3.579.2.593 1957 Unknown [id number] 2.16. 840.1.930679.3.579.2.196 1957 Unknown [id number] 2.16.8 40.1.682167.3.579.2.1286 1957 Unknown [id number] 2.16.84 0.1.066200.3.579.2.1285 1957 Unknown [id number] 2.16.8 40.1.480063.3.579.2.1285 1957 Unknown [id number] 2.16.8 40.1.352590.3.579.2.1285 1957 Unknown [id number] 2.16.8 40.1.965656.3.579.2.1285 1957 Unknown [id number] 2.16.8 40.1.491453.3.579.2.1285 1957 Unknown [id number] 2.16.8 40.1.558646.3.579.2.1285 1957 Unknown [id number] 2.16.8 40.1.543209.3.579.2.1285 1957 Unknown [id number] 2.16.8 40.1.822430.3.579.2.1285 1957 Unknown [id number] 2.16.8 40.1.260304.3.579.2.1285 1957 Unknown [id number] 2.16.8 40.1.761147.3.579.2.1285 1957 Unknown [id number] 2.16.8 40.1.067638.3.579.2.1285 1957 Unknown [id number] 2.16.8 40.1.168605.3.579.2.1285 1957 Unknown [id number] 2.16.8 40.1.667281.3.579.2.1285 1957 Unknown [id number] 2.16.8 40.1.306180.3.579.2.1285 1957 Unknown [id number] 2.16.8 40.1.592497.3.579.2.1285 1957 Unknown [id number] 2.16.8 40.1.233036.3.579.2.1286 1957 Unknown [id number] 2.16.8 40.1.270125.3.579.2.1286 1957 Unknown [id number] 2.16.8 40.1.211570.3.579.2.1286 1957 Unknown [id number] 2.16.84 0.1.856700.3.579.2.1286 1957 Unknown [id number] 2.16.84 0.1.076300.3.579.2.1259 1957 Unknown [id number] 2.16.84 0.1.927442.3.579.2.1259 1957 Unknown [id number] 2.16.84 0.1.014571.3.579.2.1259 1957 Unknown [id number] 2.16.84 0.1.212699.3.579.2.1259 1957 Unknown [id number] 2.16.84 0.1.948025.3.579.2.1259 1957 Unknown [id number] 2.16.840 .1.628070.3.579.2.1259 Social History Date Type Detail Facility Start: 03-30-2023 End: 05-31-2023 Tobacco smoking status NHIS Ex-smoker [facility] End: 05-03-2023 History of tobacco use Current smoker [facility] End: 05-03-2023 History of tobacco use Cigarette Smoker [facility] Start: 05-05-2023 End: 06-14-2023 Alcohol intake Lifetime non-drinker (finding) [facility] Start: 06-13-2020 End: 05-05-2023 History of Social function [facility] Start: 06-13-2020 End: 05-05-2023 Tobacco use panel [facility] Housing Instability Unknown [facility] Start: 1955 Sex Assigned At Not on file P [facility] Start: 05-11-2023 End: 07-30-2023 Alcohol intake Ex-drinker (finding) [facility] Start: 04-10-2023 End: 05-31-2023 Tobacco use and exposure Smokeless tobacco non-user [facility] Start: 04-10-2023 Tobacco Comment 1-9 cigarettes/day N [facility] Healthcare Clinical Notes 04-13-2023 to 07-30-2023 Perioperative [...] yes she was. documented in this encounter [facility] 07-30-2023 Nurse Note Pts states that the cyst area appears to be opening up a bit. I asked her if Dr. Valdovinos was aware and she stated yes she was. [facility] 07-30-2023 Instructions Shanita Rollins RN - 07/30/2023 8:15 AM EDT Preoperative Education Checklist- General Surgery date: 08/09/23 Surgery time: 130p Arrival time: 1130a 1. Bring a photo ID and your insurance card with you the day of surgery. You will check in at the main lobby of the [facility]- registration desk is straight ahead as soon as you walk in. Tell them you are here for surgery. 2. If you have a Living Will/Durable Power of Recreation Teacher for Health Care that is not on [...] after you have bathed. 5. NO nail turkish/acrylic on at least one finger. If you are having a hand, wrist or foot surgery then all nail turkish and artificial/acrylic nails must be removed from [...] please call the Preadmission Testing office at [phone], Mon.-Fri. 7 a.m.-3 p.m. Leave a voicemail [...] with your doctor. documented in this encounter [facility] [employer] 06-14-2023 History of Present illness Narrative Associated Problem(s): COVID Returning to baseline Associated Problem(s): Benign essential hypertension (CMS/HCC) Stable at this time Associated Problem(s): Primary osteoarthritis of both knees Would like referral to ortho in [place] Associated Problem(s): Edema of extremities stable Associated Problem(s): ROSSY (acute kidney injury) (CMS/HCC) Will reassess kidney function Therapy seen him today talked to him about seeing a surgeons in [place] to fix up his knees. Fell 3 times being home Feet are swollen Pt is asking for a powered wheelchair and hospital bed Images from the original note were not included. Carlos Persaud is a 68 y.o. male presents with chief complaint of No chief complaint on file. HPI: Here for a hospital fu: covid and ROSSY, See [facility] ER notes for HPI, I have reviewed [...] Oral, Daily, Do not crush or chew. Ybuwxtrihoo-Dmrpplcik-Lrltbc (Trelegy Ellipta) 100-62.5-25 MCG/ACT aerosol powder 1 [...] Morbid obesity with BMI of 45.0-49.9, adult ([facility]/HCC) Neoplasm of uncertain behavior of skin Non-compliant patient Nonspecific abnormal electrocardiogram (ECG) (EKG) 04/13/2023 Other emphysema ([facility]/HCC) 04/07/2023 Otitis externa, left Pain and swelling of elbow, left Pilonidal cyst Pre-operative clearance 04/07/2023 Primary osteoarthritis of both knees Restless leg Rising PSA level Screening for prostate cancer Stasis edema of both lower extremities Thrombocytopenia ([facility]/HCC) Tobacco user Type 2 diabetes mellitus with peripheral neuropathy ([facility]) Urine discoloration Past Surgical History: Procedure [...] knees Would like referral to ortho in [place] ROSSY (acute kidney injury) (CMS/HCC) Will reassess kidney function Relevant Orders Basic metabolic panel COVID Returning to baseline documented in this encounter [facility] 06-14-2023 Miscellaneous Notes The patient is still [...] that under control. documented in this encounter [facility] 06-14-2023 Telephone encounter Note The patient is [...] re-schedule once they get that under control. [employer] 05-27-2023 Miscellaneous Notes Preoperative Education Checklist- General Surgery date: 05/31/23 Surgery time: 1215 Arrival time: 1015 1. Bring a photo ID and your insurance card with you the day of surgery. You will check in at the main lobby of the [facility]- registration desk is straight ahead as soon as you walk in. Tell them you are here for surgery. 2. If you have a Living Will/Durable Power of Recreation Teacher for Health Care that is not on [...] after you have bathed. 5. NO nail turkish/acrylic on at least one finger. If you are having a hand, wrist or foot surgery then all nail turkish and artificial/acrylic nails must be removed from [...] please call the Preadmission Testing office at [phone], Mon.-Fri. 7 a.m.-3 p.m. Leave a voicemail [...] prior to procedure documented in this encounter [employer] 05-27-2023 Nurse Note Preoperative Education Checklist- General Surgery date: 05/31/23 Surgery time: 1215 Arrival time: 1015 1. Bring a photo ID and your insurance card with you the day of surgery. You will check in at the main lobby of the [facility]- registration desk is straight ahead as soon as you walk in. Tell them you are here for surgery. 2. If you have a Living Will/Durable Power of Recreation Teacher for Health Care that is not on [...] after you have bathed. 5. NO nail turkish/acrylic on at least one finger. If you are having a hand, wrist or foot surgery then all nail turkish and artificial/acrylic nails must be removed from [...] please call the Preadmission Testing office at [phone], Mon.-Fri. 7 a.m.-3 p.m. Leave a voicemail [...] Stop taking 0 days prior to procedure [facility] 05-05-2023 History of Present illness Narrative Images from the original note were not included. Wound Care Progress Note Patient: Carlos Persaud Date of : 1955 Chief Compliant: Buttock wounds, pilonidal cyst disease SUBJECTIVE/HPI: Carlos is a 68 y.o. male who presents to [facility] for evaluation of 2 tunneling [...] pre-op holding area. Follow up with Dr. Valdovnios 05/11/2023. Patient states wound has been present [...] (Active) Wound Image 05/05/23 1044 Site Assessment Red;[place] 05/05/23 1044 [place]-wound Assessment Blanchable erythema;[place] 05/05/23 1044 Wound Length (cm) 1 cm [...] Assessment Red 05/05/23 1044 [place]-wound Assessment Blanchable erythema;[place] 05/05/23 1044 Wound Length (cm) 1.5 cm [...] 05/05/23 1044 Wound Bed Granulation (%) 100% 05/05/234 Assessment/Plan/Education: [...] to coccyx. 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 Patient verbalize understanding of [...] procedures Referring and communicating with other health health careers instructor (not separately reported) Documenting clinical information in the electronic or other health record Sybil Tobin APRN, JUDY, CWS, RUFINA [facility]: [phone] KANG [place] 05/05/23 1133 documented in this encounter [facility] 05-05-2023 Instructions So Angela RN - 05/05/2023 [...] serosang Phan, yellow documented in this encounter [facility] 04-13-2023 Note MD Cardiology - [facility] Subjective Carlos Persaud is a 68 [...] mg by mout (more content not included)... [facility] Evaluation note Diagnosis Chronic recurrent pilonidal cyst- Primary Abscess of multiple sites of buttock [facility] Diagnosis Restless legs- Primary Restless legs syndrome (RLS) documented in this encounter [facility]* Diagnosis Dyslipidemia (CMS/[facility])- Primary Other and unspecified hyperlipidemia documented in this encounter [facility]* Diagnosis ROSSY (acute kidney injury) (CMS/HCC)- Primary Pilonidal cyst Edema of extremities Edema Primary osteoarthritis of both knees Benign essential hypertension (CMS/HCC) Essential hypertension, benign COVID documented in this encounter [facility] HealthcareInstructionsNot on filedocumented in this encounterProCorey Hospital SystemInstructionsNot on filedocumented in this encounterProCorey Hospital SystemReason for referral (narrative)* Consultation (Routine) - Pending Review Specialty Diagnoses / Procedures Referred By Sushma feliz Referred To Contact Orthopaedic Surgery Diagnoses Primary osteoarthritis of both knees Irina Mcleod NP [address] [place] [address] Referral ID Status Reason Start Date Expiration Date Visits Requested Visits Authorized [id number] Pending Review Specialty Services Required 06/14/2023 12/11/2023 [address] Juan Alberto Collazo [facility] Summary Purpose Family History [...] multiple sites of buttock Procedures [facility] Sybil Tobin Amador, [employer] CRM DEVELOPER-PROP CUTTER [address] [place] [address] Referral ID Status Reason Start Date Expiration Date V isits Requested Visits Authorized [id number] Pending Review 05/05/2023 05/04/2024 1 1 Specialty Diagnoses / Procedures Referred By Contac t Referred To Contact Diagnoses Abscess of multiple sites of buttock Procedures [employer] Sybil Tobin Amador, [employer] CRM DEVELOPER-PROP CUTTER [address] [place] [address] Referral ID Status Reason Start Date Expiration Date V isits Requested Visits Authorized [id number] Pending Review 05/05/2023 05/04/2024 1 1 Additional Source Comments (unrecognized sect ion and content) No Status Records FoundNo Status Records FoundNo Status Records FoundNo Status Records FoundNo Status Records FoundNo Status Records FoundNo Status Records Found INFORMATION SOURCE (unrecogn ized section and content) DATE CREATED AUTHOR 12/03/2021 [facility] DATE CREATED AUTHOR AUTHOR'S ORGANIZ ATION 08/07/2022 [facility] DATE CREATED AUTHOR AUTHOR'S ORGANIZ ATION 10/24/2022 [facility] DATE CREATED AUTHOR AUTHOR'S ORGANIZ ATION 04/15/2023 [facility] DATE CREATED AUTHOR AUTHOR'S ORGANIZ ATION 08/18/2023 [facility] DATE CREATED AUTHOR AUTHOR'S ORGANIZ ATION [facility]/03/2023 [facility] DATE CREATED AUTHOR AUTHOR'S ORGANIZ ATION 11/17/2023 [facility] Specialists EPIC Reason for Visit (unrecogniz ed section and content) Reason Comments Wound Check Reason Comments Med Refill Care Teams (unrecognized sec tion and content) Director Of Adult Epilepsy Relationship Specialty Start Date End Date Irina Mcleod, [employer] CRM DEVELOPER-PROP CUTTER [address] [place] [phone] PCP - General Nurse Practitioner 09/24/16 Director Of Adult Epilepsy Relationship Specialty Start Date End Date Irina Mcleod, [employer] CRM DEVELOPER-PROP CUTTER [address] [place] [address] PCP - General Nurse Practitioner 09/24/16 Director Of Adult Epilepsy Relationship Specialty Start Date End Date Zachary Melton MD [address] [place] [phone] PCP - General Family Medicine 04/06/23 Irina Mcleod NP [address] [place] [phone] Nurse Practitioner Family Medicine 05/03/22 Director Of Adult Epilepsy Relationship Specialty Start Date End Date Zachary Melton MD [address] [place] [phone] PCP - General Family Medicine 04/06/23 Irina Mcleod NP [address] [place] [address] Nurse Practitioner Family Medicine 05/03/22 Director Of Adult Epilepsy Relationship Specialty Start Date End Date Zachary Melton MD [address] [place] [phone] PCP - General Family Medicine 04/06/23 Irina Mcleod NP [address] [place] [phone] Nurse Practitioner Family Medicine 05/03/22 Director Of Adult Epilepsy Relationship Specialty Start Date End Date Zachary Melton MD [address] [place] [phone] PCP - General Family Medicine 06/14/23 Irina Mcleod NP [address] [place] [phone] Nurse Practitioner Family Medicine 05/03/22 Director Of Adult Epilepsy Relationship Specialty Start Date End Date Zachary Melton MD [address] [place] [phone] PCP - General Family Medicine 06/14/23 Irina Mcleod NP [address] [place] [phone] Nurse Practitioner Family Medicine 05/03/22 Director Of Adult Epilepsy Relationship Specialty Start Date End Date Irina Mcleod, [employer] CRM DEVELOPER-PROP CUTTER [address] [place] [phone] PCP - General Nurse Practitioner 09/24/16 FOR [...] BE BASED ON THE PRIMARY CLINICAL RECORDS. [facility] [employer] [facility]. provides no warranty or guarantee of the accuracy or completeness of information in this document.
[2023-12-01 11:05] LABS: Basophils Percent Auto 0.4 % (0.2-2.0); Eosinophils Absolute Auto 0.1 10^3/uL (0.0-0.7); Eosinophils Percent Auto 0.7 % (0.9-7.0); Hemoglobin 10.8 g/dL (14.0-18.0); Immature Granulocytes Abs Auto 0.05 10^3/uL (0.00-0.03); Immature Granulocytes Pct Auto 0.5 % (0.0-0.5); Lymphocytes Percent Auto 10.6 % (20.5-60.0); Mean Corpuscular HGB Conc 31.8 g/dL (29.9-35.2); Mean Corpuscular Hemoglobin 27.3 pg (25.9-34.0); Mean Corpuscular Volume 86.1 fL (80.0-94.0); Mean Platelet Volume 11.7 fL (9.5-13.5); Monocytes Absolute Auto 0.7 10^3/uL (0.3-0.8); Monocytes Percent Auto 6.6 % (1.7-12.0); Neutrophils Percent Auto 81.2 % (43.0-75.0); Platelet Count 123 10^3/uL (150-450); Red Blood Count 3.95 10^6/uL (4.70-6.10); Red Cell Distribution Width 14.9 % (11.0-15.0); White Blood Count 9.8 10^3/uL (4.0-11.0)
[2023-12-01] MEDS: 0.9 % SODIUM CHLORIDE 1,000 ML 999 ML IV ×2 (11:16→12:17)
[2023-12-01 11:19] LABS: INR 1.13; Prothrombin Time 11.8 sec (9.0-11.6)
[2023-12-01 11:28] LABS: Alanine Aminotransferase <6 U/L (16-63); Albumin Globulin Ratio 0.5; Albumin Level 2.2 g/dL (3.4-5.0); Alkaline Phosphatase 67 U/L (46-116); Aspartate Amino Transferase 14 U/L (15-37); BUN Creatinine Ratio 9.4; Bilirubin Total 0.7 mg/dL (0.2-1.0); Calcium 8.3 mg/dL (8.5-10.1); Carbon Dioxide 28.4 mmol/L (21.0-32.0); Chloride 97 mmol/L (98-107); Estimated GFR (African America 18 (>=60); Estimated GFR (Non-African Ame 15 (>=60); Globulin 4.2 g/dL; Glucose 81 mg/dL (74-106); Lactate/Lactic Acid 1.1 mmol/L (0.4-2.0); Potassium 4.4 mmol/L (3.5-5.1); Sodium 133 mmol/L (136-145); Total Protein 6.4 g/dL (6.4-8.2); Troponin I High Sensitivity 6.4 pg/mL (4.0-76.1)
[2023-12-01 11:37] LABS: Ethanol <3 mg/dL
[2023-12-01 12:03] LABS: Bilirubin Urine SMALL (NEGATIVE); Blood Urine NEGATIVE (NEGATIVE); Clarity Urine CLEAR (CLEAR); Color Urine DK. YELLOW (YELLOW); Glucose Urine UA NEGATIVE (NEGATIVE); Ketones Urine NEGATIVE (NEGATIVE); Leukocyte Esterase Urine NEGATIVE (NEGATIVE); Nitrite Urine NEGATIVE (NEGATIVE); Protein Urine NEGATIVE (NEG/TRACE); Specific Gravity Urine 1.025 (1.005-1.025); Urine Microscopic Indicated NO; Urobilinogen Urine 0.2 EU/dL (0.2-1.0); pH Urine 5.5 (5.0-9.0)
[2023-12-01] MEDS: CEFTRIAXONE 1,000 MG in 0.9 % SODIUM CHLORIDE 50 ML 100 MG IV (12:14)
[2023-12-01] MEDS: VANCOMYCIN HCL 1,000 MG in 0.9 % SODIUM CHLORIDE 250 ML 250 MG IV (12:44)
--- NOTE | 2023-12-01 14:39 | ED_ITS ---
HPI HPI - General Adult General Chief complaint: Altered Mental Status Stated complaint: CONFUSION Time Seen by Provider: 12/01/23 10:42 Source: patient and family Mode of arrival: ambulance Limitations: altered mental status History of Present Illness HPI narrative: 68-year-old male to the emergency department with altered mental status. provided history to EMS. Patient has been lying in bed for over 2 weeks. He has large wounds to his groin and back. Increasing confusion at home. No falls or injuries. Related Data Home Medications ?Medication ?Instructions ?Recorded ?Confirmed aspirin 81 mg tablet,delayed 81 mg PO DAILY 06/02/23 12/01/23 release carvedilol 3.125 mg tablet 3.125 mg PO Q12H 06/02/23 12/01/23 duloxetine 30 mg capsule,delayed 30 mg PO DAILY 06/02/23 12/01/23 release gabapentin 300 mg capsule 300 mg PO .COMPLEX 06/02/23 12/01/23 lisinopril 10 mg tablet 10 mg PO DAILY 06/02/23 12/01/23 metformin 500 mg tablet 500 mg PO BID 06/02/23 12/01/23 omeprazole 20 mg capsule,delayed 20 mg PO DAILY 06/02/23 12/01/23 release ropinirole 2 mg tablet 2 mg PO .qhs 06/02/23 12/01/23 rosuvastatin 20 mg tablet 20 mg PO QDAY 06/02/23 12/01/23 tamsulosin 0.4 mg capsule 0.8 mg PO Q24H 06/02/23 12/01/23 furosemide 20 mg tablet 60 mg PO DAILY 12/01/23 12/01/23 metronidazole 500 mg tablet 500 mg PO BID 12/01/23 12/01/23 Previous Rx's ?Medication ?Instructions ?Recorded cephalexin 500 mg capsule 500 mg PO Q6H 10 days #40 caps 12/01/23 cephalexin 500 mg capsule 500 mg PO Q6H 7 days #28 caps 12/01/23 oxycodone-acetaminophen 5 mg-325 1 tab PO Q6H PRN pain #12 tabs 12/01/23 mg tablet (Percocet) oxycodone-acetaminophen 5 mg-325 1 tab PO Q6H PRN pain #12 tabs 12/01/23 mg tablet (Percocet) oxycodone-acetaminophen 5 mg-325 1 tab PO Q6H PRN pain 3 days #12 12/01/23 mg tablet (Percocet) tabs Allergies Allergy/AdvReac Type Severity Reaction Status Date / Time No Known Drug Allergies Allergy Verified 02/22/23 12:49 Opioid HPI Opioid Management Most Recent Opioid Data: Last Pain Scale 7 12/01/23 11:26 Last Pain Intensity 0 06/05/23 09:56 Last ED Pain Assessment 12/01/23 11:25 Review of Systems ROS Status of ROS 10 or more systems reviewed and unremark able except as noted in history and below [facility] Medical History (Updated 12/01/23 @ 13:56 by Donald Land MD) Hypomagnesemia ?E83.42 - Hypomagnesemia (ICD-10) Hypokalemia ?E87.6 - Hypokalemia (ICD-10) COVID-19 ?U07.1 - COVID-19 (ICD-10) Abscess of sacrum ?M46.28 - Osteomyelitis of vertebra, sacral and sacrococcygeal region (ICD- 10) Dehydration ?E86.0 - Dehydration (ICD-10) Acute viral syndrome ?B34.9 - Viral infection, unspecified (ICD-10) Acute kidney failure ?N17.9 - Acute kidney failure, unspecified (ICD-10) Cellulitis of sacral region ?L03.319 - Cellulitis of trunk, unspecified (ICD-10) Restless leg syndrome ?G25.81 - Restless legs syndrome (ICD-10) Diabetic neuropathy ?E11.40 - Type 2 diabetes mellitus with diabetic neuropathy, unspecified (ICD-10) Dyslipidemia ?E78.5 - Hyperlipidemia, unspecified (ICD-10) Non-insulin dependent diabetes mellitus Hypertension ?I10 - Essential (primary) hypertension (ICD-10) Family History Sister Family history of diabetes mellitus Social History Within the past year, how often did you have a drink containing alcohol: never Score interpretation: A score less than 4 is consistent with normal alcohol consumption. Smoking status: Former smoker Non-prescribed substance use: denies use Highest level of school completed/degree received: high school graduate Gender Identity: male Exam Narrative Exam Narrative: VITALS: I have reviewed the triage vital signs. GENERAL: Morbidly obese disheveled adult male in no distress NEURO: Alert and oriented x1. Moves all extremities. Face is symmetric and expressive. EYES: PERRL. No scleral icterus or conjunctival injection. No discharge. HENT: Normocephalic, atraumatic. Hearing is grossly intact. Nares grossly patent and without discharge. Mucous membranes dry. NECK: No JVD. Patient moves neck without restriction. CARDIO: Rhythm regular. Normal rate. No murmur, rub, or gallop. Pulses equal bilaterally in the upper and lower extremity. No lower extremity edema. PULM: Lungs clear to auscultation in all tsang. No wheezes, rales, or rhonchi. No conversational dyspnea. No splinting, stridor, or accessory muscle use. GI/: Abdomen is soft and non-tender. Normoactive bowel sounds. Large sacrum coccygeal wound. Multiple small groin wound/hidradenitis. EXTREMITIES: Symmetric muscle bulk. No joint swelling. No clubbing, cyanosis, or deformity. SKIN: Warm and dry. Decreased turgor. PSYCH: Agitated Constitutional Vital Signs, click to edit/add: Last Vital Signs Pulse 87 12/01/23 11:50 Resp 20 12/01/23 11:50 BP 86/51 L 12/01/23 11:46 Pulse Ox 94 L 12/01/23 11:50 O2 Del Method Room Air 12/01/23 11:25 Course Vital Signs Vital signs: Vital Signs Pulse Rate 94 H 12/01/23 10:42 Respiratory Rate 18 12/01/23 10:42 Blood Pressure 77/47 L 12/01/23 10:42 Pulse Oximetry 93 L 12/01/23 10:42 Oxygen Delivery Method Room Air 12/01/23 10:42 Pulse Rate 87 12/01/23 11:50 Respiratory Rate 20 12/01/23 11:50 Blood Pressure 86/51 L 12/01/23 11:46 Pulse Oximetry 94 L 12/01/23 11:50 Oxygen Delivery Method Room Air 12/01/23 11:25 Medical Decision Making MDM Narrative Medical decision making narrative: 68-year-old male to the emergency department chief complaint of altered mental status. Hypotensive, otherwise stable vitals. The patient is afebrile. Does have large wounds to his groin. There are some discharge with foul odor. He is disheveled. CT head without acute findings. Chest x-ray cute findings. CTA abdomen pelvis shows a large abscess in the groin. Lab work shows acute renal failure. No major electrolyte abnormalities. I discussed the case with the on-call general surgeon Dr. Melgar. Given the patient's acute renal failure, possible anal fistula leading to the abscess he believes he is best served by tertiary care. Will likely need diverting col ostomy. Discussed referral to tertiary care with the patient and his . They do not wish to be transferred. They asked if [facility] [place] would be able to handle this case. I did discuss with the on-call hospitalist at [facility] who also agrees the patient needs tertiary care. I discussed with the patient's who accompanies him. Patient has expressed to her several times that he does not want any aggressive care or invasive surgeries. He wants to be at home. They have accepted that he is very ill and may . They would like to go home on hospice. CODE STATUS conversation was had and they decided on DNR comfort care. Paperwork was completed and signed by myself, his signed the paperwork as well. A referral was given to hospice. would like to take him home they already have a wheelchair and hospital bed at home. Pain medication antibiotics were prescribed. He was discharged to hospice care at home. Medical Records Medical records reviewed: Yes I reviewed the patient's medical records Lab Data Lab results reviewed: Yes I reviewed the patient's lab results Labs: Lab Results 12/01/23 12/01/23 Range/Units 10:49 11:49 WBC 9.8 (4.0-11.0) 10^3/uL RBC 3.95 L (4.70-6.10) 10^6/uL Hgb 10.8 L (14.0-18.0) g/dL Hct 34.0 L (42.0-54.0) % MCV 86.1 (80.0-94.0) fL MCH 27.3 (25.9-34.0) pg MCHC 31.8 (29.9-35.2) g/dL RDW 14.9 (11.0-15.0) % Plt Count 123 L (150-450) 10^3/uL MPV 11.7 (9.5-13.5) fL Neut % (Auto) 81.2 H (43.0-75.0) % Lymph % (Auto) 10.6 L (20.5-60.0) % Rooks % (Auto) 6.6 (1.7-12.0) % Eos % (Auto) 0.7 L (0.9-7.0) % Baso % (Auto) 0.4 (0.2-2.0) % Neut # (Auto) 8.0 H (1.4-6.5) 10^3/uL Lymph # (Auto) 1.0 L (1.2-3.8) 10^3/uL Rooks # (Auto) 0.7 (0.3-0.8) 10^3/uL Eos # (Auto) 0.1 (0.0-0.7) 10^3/uL Baso # (Auto) 0.0 (0.0-0.1) 10^3/uL Abs Immat Gran (auto) 0.05 H (0.00-0.03) 10^3/uL Imm/Tot Granulo (auto) 0.5 (0.0-0.5) % PT 11.8 H (9.0-11.6) sec INR 1.13 Sodium 133 L (136-145) mmol/L Potassium 4.4 (3.5-5.1) mmol/L Chloride 97 L (98-107) mmol/L Carbon Dioxide 28.4 (21.0-32.0) mmol/L Anion Gap 12.0 BUN 39.0 H (7.0-18.0) mg/dL Creatinine 4.13 H (0.70-1.30) mg/dL Est GFR ( Amer) 18 L (>=60) Est GFR (Non-Af Amer) 15 L (>=60) BUN/Creatinine Ratio 9.4 Glucose 81 (74-106) mg/dL Lactate 1.1 (0.4-2.0) mmol/L Calcium 8.3 L (8.5-10.1) mg/dL Total Bilirubin 0.7 (0.2-1.0) mg/dL AST 14 L (15-37) U/L ALT <6 L (16-63) U/L Alkaline Phosphatase 67 (46-116) U/L Troponin I High Sens 6.4 (4.0-76.1) pg/mL Total Protein 6.4 (6.4-8.2) g/dL Albumin 2.2 L (3.4-5.0) g/dL Globulin 4.2 g/dL Albumin/Globulin Ratio 0.5 Urine Color Dk. yellow (YELLOW) Urine Clarity Clear (CLEAR) Urine pH 5.5 (5.0-9.0) Ur Specific Pyatt 1.025 (1.005-1.025) Urine Protein Negative (NEG/TRACE) mg/dL Urine Glucose (UA) Negative (NEGATIVE) mg/dL Urine Ketones Negative (NEGATIVE) mg/dL Urine Occult Blood Negative (NEGATIVE) Urine Nitrite Negative (NEGATIVE) Urine Bilirubin Small A (NEGATIVE) Urine Urobilinogen 0.2 (0.2-1.0) EU/dL Ur Leukocyte Esterase Negative (NEGATIVE) Ethanol Quant <3 mg/dL Imaging Data CT scan - abdomen: Radiologist's impression: ITS Impressions Abdomen/Pelvis CT 12/01/23 10:42 IMPRESSION: 10.1 x 7 cm abscess, from 12:00 Trendelenburg position of the anus, extending caudally into the left medial gluteal fold. There appears the abscess extending to the left intersphincteric space. Anal fistula is also suspicious. MR fistulogram is recommended for better evaluation. Electronically authenticated by: ARTIE COTTRELL Date: 12/01/2023 11:43 Chest X-Ray 12/01/23 10:42 IMPRESSION: No acute cardiopulmonary process Electronically authenticated by: AYALA BURDEN Date: 12/01/2023 11:[address] 12/01/23 10:44 IMPRESSION: No acute intracranial abnormality. Brain atrophy has worsened since 2018. Electronically authenticated by: NAVEED JONES Date: 12/01/2023 11:14 ECG Data Attestation: I personally reviewed and interpreted this ECG as follows: (Sign rhythm at a rate of 95. First-degree AV block. No STEMI. Normal QTc.) Critical Care Time Critical Care Time Critical Care Time: Yes Total Critical Care Time: 35 Attestation: Critical Care Procedure Note Authorized and Performed by: Donald Land DO Total critical care time: 35 min Due to a high probability of clinically significant, life threatening deterioration, the patient required my highest level of preparedness to intervene emergently and I personally spent this critical care time directly and personally managing the patient. This critical care time included obtaining a history; examining the patient; pulse oximetry; ordering and review of studies; arranging urgent treatment with development of a management plan; evaluation of patient's response to treatment; frequent reassessment; and, discussions with other providers. This critical care time was performed to assess and manage the high probability of imminent, life-threatening deterioration that could result in multi-organ failure. It was exclusive of separately billable procedures and treating other patients and teaching time. Please see MDM section and the rest of the note for further information on patient assessment and treatment. Discharge Plan Discharge Stand Alone Forms: Portal Instructions Chief Complaint: Altered Mental Status Clinical Impression: Sepsis, Acute renal failure, Abscess, Acute hypotension, Encounter for hospice care discussion Patient Disposition: Home, Self-Care Time of Disposition Decision: 13:55 Condition: Critical Mode of Transportation: Private Vehicle Prescriptions / Home Meds: New cephalexin 500 mg capsule 500 mg PO Q6H 10 Days Qty: 40 0RF oxycodone-acetaminophen [Percocet] 5-325 mg tablet 1 tab PO Q6H PRN (Reason: pain) Qty: 12 0RF oxycodone-acetaminophen [Percocet] 5-325 mg tablet 1 tab PO Q6H PRN (Reason: pain) Qty: 12 0RF cephalexin 500 mg capsule 500 mg PO Q6H 7 Days Qty: 28 0RF oxycodone-acetaminophen [Percocet] 5-325 mg tablet 1 tab PO Q6H PRN (Reason: pain) 3 Days Qty: 12 0RF No Action aspirin 81 mg tablet,delayed release (DR/EC) 81 mg PO DAILY carvedilol 3.125 mg tablet 3.125 mg PO Q12H duloxetine 30 mg capsule,delayed release(DR/EC) 30 mg PO DAILY gabapentin 300 mg capsule 300 mg PO .COMPLEX Rx Instructions: 300 mg orally 1 tablet in the morning and 2 tablets before bed; lisinopril 10 mg tablet 10 mg PO DAILY metformin 500 mg tablet 500 mg PO BID omeprazole 20 mg capsule,delayed release(DR/EC) 20 mg PO DAILY ropinirole 2 mg tablet 2 mg PO .qhs rosuvastatin 20 mg tablet 20 mg PO QDAY tamsulosin 0.4 mg capsule 0.8 mg PO Q24H furosemide 20 mg tablet 60 mg PO DAILY metronidazole 500 mg tablet 500 mg PO BID Print Language: Indonesian Instructions: Hypotension (DC), Abscess (ED) Additional Instructions: HOME ON HOSPICE Referrals: Irina Mcleod [employer] [Primary Care Provider] - 1 week Discharge Date/Time: 12/01/23 14:30
== END 2023-12-01 14:30 | disposition home or self-care (01) ==
PROVIDERS: Emergency Provider Student in an Organized Health Care Education/Training Program; PCP Nurse Practitioner
DX: A41.9 Sepsis, unspecified organism (principal); K61.0 Anal abscess; N17.9 Acute kidney failure, unspecified; Z66 Do not resuscitate; E66.01 Morbid (severe) obesity due to excess calories; Z87.891 Personal history of nicotine dependence; L73.2 Hidradenitis suppurativa; Z68.31 Body mass index [BMI] 31.0-31.9, adult
CPT/HCPCS: 36415; 51701; 51702; 70450; 71045; 74177; 80053; 80320; 81003; 83605; 84484; 85025; 85610; 87040; 93005; 96361; 96365; 96366; 96367; 99285; J0696; J3370; Q9967

== ENCOUNTER 2023-12-12 03:04 | Emergency (ER) | payer OTHER, SELFPAY ==
[2023-12-12 03:04] VITALS: BP 100/50; PULSE 99; TEMP 36.5; O2SAT 96; BMI 33.9
--- OUTSIDE RECORDS SUMMARY | 2023-12-12 03:08 | XMS_ITS | CCD ---
Author Organization [facility] Inform ion [facility] Care Team Providers Care Twisting Operator Name Role Phone AICHHOLZ, VICE PRINCIPAL IRINA Admitting Unavailable AICHHOLZ, VICE PRINCIPAL IRINA Primary Care Unavailable AICHHOLZ, VICE PRINCIPAL IRINA Consulting Unavailable AICHHOLZ, VICE PRINCIPAL IRINA Attending Unavailable AICHHOLZ, VICE PRINCIPAL IRINA Admitting Unavailable AICHHOLZ, VICE PRINCIPAL IRINA Primary Care Unavailable AICHHOLZ, VICE PRINCIPAL IRINA Consulting Unavailable AICHHOLZ, VICE PRINCIPAL IRINA Attending Unavailable AICHHOLZ, VICE PRINCIPAL IRINA Admitting Unavailable AICHHOLZ, VICE PRINCIPAL IRINA Primary Care Unavailable AICHHOLZ, VICE PRINCIPAL IRINA Consulting Unavailable AICHHOLZ, VICE PRINCIPAL IRINA Attending Unavailable JOSE ELIAS DAI Admitting Unavailable JOSE ELIAS DAI Consulting Unavailable JOSE ELIAS DAI Attending Unavailable AICHHOLZ, VICE PRINCIPAL IRINA Primary Care Unavailable Jose PARKER, Arlen Duncan Attending Unavageorgia delvalle Aichholz [facility], Irina Biswas Referring Kristineva Too Manriquez MD Attending Unavaila JAYLIN Flynn Attending Unavailable Aichholz [facility], Irina Campa Primary Care Provider Aichlani [employer]ICE M[employer]ING SUPERVISOR, Irina Unavailable Zachary Melton MD Primary Care Provider Linh MCMANUS, Zachary Primary Care Provider IRINA MCLEOD Referring Unavailable VINODHLANI, IRINA J Primary Care Unavailable AYALA YATES Referring Unavailable IRINA MCLEOD Primary Care Unavailable AYALA YATES Attending Unavailable AYALA YATES Referring Unavailable IRINA MCLEOD Primary Care Unavailable AMBER VALDOVINOS Admitting Unavailable JOELLE, MENNATALLAH M Attending Unavailable [...] AICHHOLZ, IRINA J Primary Care Unavailable JOELLE, JIMNATALLAH M Admitting Unavailable JOELLE, JIMNATALLAH M Attending Unavailable AICHHOLZ, IRINA J Primary Care Unavailable FRANKIE BISHOP Attending Unavailable AICHHOLZ, IRINA J Primary Care Unavailable SYBIL TOBIN P Attending Unavailable AICHHOLZ, IRINA J Referring Unavailable AICHHOLZ, IRINA J Primary Care Unavailable AICHHOLZ, IRINA Attending Unavailable AICHHOLZ, IRINA Attending Unavailable AICHHOLZ, IRINA Attending Unavailable AICHHOLZ, IRINA Attending Unavailable AICHHOLZ, IRINA Attending Unavailable AICHHOLZ, IRINA Attending Unavailable JOELLE, JIMNATALLAH M Attending Unavailable AICHHOLZ, IRINA J Referring Unavailable AICHHOLZ, IRINA J Primary Care Unavailable JOELLE, JIMNATALLAH M Attending Unavailable AICHHOLZ, IRINA J Referring Unavailable AICHHOLZ, IRINA J Primary Care Unavailable AICHHOLZ, IRINA J Referring Unavailable AICHHOLZ, IRINA J Primary Care Unavailable Allergies Allergy Classification Reported Allergen(s) Allergy Type Date of Onset Reaction(s) Facility (1 source) Cephalexin Drug Allergy [facility] (1 source) Clindamycin Drug Allergy [facility] (1 source) levoFLOXacin Drug Allergy [facility] (5 sources) Cephalosporins (Antibiotic); Translations: [CEPHALOSPORINS] Propensity to adverse reactions to drug 04-06-20 Rash [facility] (11 sources) Clindamycin; Translations: [CLINDAMYCIN] Drug Allergy 04-06-20 Rash, Unknown [facility] (11 sources) levoFLOXacin; Translations: [LEVOFLOXACIN] Drug Allergy 04-06-20 Rash, Unknown [facility] (6 sources) Cephalosporins (Antibiotic) Drug Allergy 04-06-20 Unknown [facility] Medications Current Medications Medication Drug Class(es) Dates Sig (Normalized) Sig (Original) [id number] 200 actuat albuterol 0.09 mg/actuat metered dose [...] evening. Take with meals. 0 Active nystatin [id number] unt/ml topical cream (6 sources) Polyene Antifungal [...] daily 0 Active take 1 capsule by 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] Onset: 3 Episodic Other aftercare (1 source) Other penitentiary (current) drug therapy; Translations: [OTH RESIDENTIAL CURRENT DRUG THERAPY] Onset: 3 Episodic Other aftercare (1 source) halfway (current) use of oral hypoglycemic drugs; Translations: [RESIDENTIAL USE ORAL HYPOGLYCEMIC DX] Onset: 3 Episodic [...] [Other specified postprocedural states] Onset: 4 Episodic Residual codes; unclassified (1 source) Pain, unspecified; Translations: [Pain, unspecified] Onset: 4 Episodic Spondylosis; intervertebral disc disorders; other back [...] ear] Onset: 04-07-2023 Resolved: 04-07-2023 04-07-2023 Chronic Skin and subcutaneous tissue infections (20 sources) Pilonidal cyst without abscess; Translations: [Pilonidal cyst without mention of abscess] Onset: 03-12-2023 05-05-2023 Episodic Results Test Name Value Interpretation Reference Range Facility Surgical Pathologyon 024 Surgical Pathology Normal [facility] Comment on above: Result Comment: [facility] [address] [place] [address] Surgical Pathology Consultation Patient Name:CARLOS PERSAUD:1955 (Age: 68)Gender:MTaken:4Reported:4Physician(s):Luisa Valdovinos MD ([phone])Copy To: Rec. #:[id number]: #[id number] Final Pathologic Diagnosis Soft tissue, buttocks, excision: Pilonidal cyst/sinus, lined by keratinized squamous epithelium with reactive changes, and surrounded by chronic inflammatory infiltrates with dermal fibrosis. Report Electronically Signed Out ao/08/25/2023hermila Egan MD Interpretation performed at [facility], [address] [place] [id number], License number: [id number]. Clinical History Pilonidal cyst. Gross Description Received [...] cut surfaces are lobulated and fibrous. A patient support representative cross-section is submitted in a single cassette. (1, ss, [id number]) . /08/23/2023GP Specimen(s) Received Pilonidal cyst Fee Codes(s): 1; 06596 BASIC METABOLIC PANLon 07-29 Anion gap [Moles/Vol] 8 mmol/L Normal 5-15 [facility] Comment on above: Performed By: #### B MP #### [facility] ([id number]) [address] [place] [address] Calcium [Mass/Vol] 8.6 mg/dL Normal 8.5-10.5 [facility] Comment on above: Performed By: #### B MP #### [facility] ([id number]) [address] [place] [address] Chloride [Moles/Vol] 100 mmol/L Normal 98-109 [facility] Comment on above: Performed By: #### B MP #### [facility] ([id number]) [address] [place] [address] CO2 [Moles/Vol] 32 mmol/L Normal 22-32 [facility] Comment on above: Performed By: #### B MP #### [facility] ([id number]) [address] [place] [address] Creatinine [Mass/Vol] 1.40 mg/dL High 0.60-1.30 [facility] Comment on above: Result Comment: METH OD TRACEABLE TO IDMS STANDARD Performed By: #### B MP #### [facility] ([id number]) [address] [address] [place] [address] GFR/1.73 sq M.predicted among non-blacks MDRD (S/P/Bld) [Vol rate/Area] 55 mL/min/{1.73_m2} Low >59 [facility] Comment on above: Result Comment: Reported eGFR is based on the CKD-EPI 2020 equation that does not use a race coefficient. Performed By: #### B MP #### [facility] ([id number]) [address] [place] [address] Glucose [Mass/Vol] 86 mg/dL Normal 65-99 [facility] Comment on above: Performed By: #### B MP #### [facility] ([id number]) [address] [address] [place] [address] Potassium [Moles/Vol] 3.8 mmol/L Normal 3.5-5.0 [facility] Comment on above: Performed By: #### B MP #### [facility] ([id number]) [address] [place] [address] Sodium [Moles/Vol] 140 mmol/L Normal 134-146 [facility] Comment on above: Performed By: #### B MP #### [facility] ([id number]) [address] [address] [place] [address] Urea nitrogen [Mass/Vol] 16 mg/dL Normal 5-27 [facility] Comment on above: Performed By: #### B MP #### [facility] ([id number]) [address] [address] [place] [address] XR CHEST 2 VWSon 07-30-2023 XR CHEST [...] Cm MD on 07/30/2023 10:12 AM Normal [facility] No Panel Informationon 05-05 Applied in clinic today MANUALLY TRANSCRIBED RESULTS No Panel InformationOrdered By: So Angela on 05-05-2023 [facility] Office Visiton 04-13-2023 Follow-up visit [id number] Carlos Persaud 1955 M Date Provider Department Center 04/13/2023 JAYLIN HUGHES [facility] No family history on file Level of Service:08772 DE OFFICE/OUTPATIENT NEW MODERATE MDM 45-59 MINUTES Normal [facility] UA RANDOM W/MICROSCOPICon BACTERIA NONE SEEN Normal NONE SEEN [facility] Comment on above: Performed By: #### U AMIC #### [facility] [address] [place] [address] Dr. Gloria Ayala Bilirubin Ql (U) Negative Normal NEGATIVE [facility] Comment on above: Performed By: #### U AMIC #### [facility] [address] [place] [address] Dr. Gloria Ayala CAST NONE SEEN Normal NONE SEEN [facility] Comment on above: Performed By: #### U AMIC #### [facility] [address] [place] [address] Dr. Gloria Ayala Clarity (U) CLEAR Normal CLEAR [facility] Comment on above: Performed By: #### U AMIC #### [facility] [address] [place] [address] Dr. Gloria Ayala Color (U) YELLOW Normal YELLOW [facility] Comment on above: Performed By: #### U AMIC #### [facility] [address] [place] [address] Dr. Gloria Ayala Crystals LM Nom (Urine sed) NONE SEEN Normal NONE SEEN [facility] Comment on above: Performed By: #### U AMIC #### [facility] [address] [address] [address] Gloria Ayala Epithelial cells LM Ql (Urine sed) NONE SEEN Normal NONE SEEN /RARE [facility] Comment on above: Performed By: #### U AMIC #### [facility] [address] [place] [address] Dr. Gloria Ayala Glucose Ql (U) Negative Normal NEGATIVE [facility] Comment on above: Performed By: #### U AMIC #### [facility] [address] [place] [address] Dr. Gloria Ayala Hemoglobin Ql (U) Negative Normal NEGATIVE [facility] Comment on above: Performed By: #### U AMIC #### [facility] [address] [place] [address] Dr. Gloria Ayala Ketones Ql (U) TRACE Abnormal NEGATIVE [facility] Comment on above: Performed By: #### U AMIC #### [facility] [address] [place] [address] Dr. Gloria Ayala LEUKOCYTES Negative Normal NEGATIVE [facility] Comment on above: Performed By: #### U AMIC #### [facility] [address] [place] [address] Dr. Gloria Ayala MUCOUS NONE SEEN Normal NONE SEEN [facility] Comment on above: Performed By: #### U AMIC #### [facility] [address] [place] [address] Dr. Gloria Ayala Nitrite Ql (U) Negative Normal NEGATIVE [facility] Comment on above: Performed By: #### U AMIC #### [facility] [address] [place] [address] Dr. Gloria Ayala pH (U) 5.5 [pH] Normal 5-9 [facility] Comment on above: Performed By: #### U AMIC #### [facility] [address] [place] [address] Dr. Glorai Ayala RBC 0-2 Normal 0-2 [facility] Comment on above: Performed By: #### U AMIC #### [facility] [address] [place] [address] Dr. Gloria Ayala SPEC GRAVITY 1.020 Normal 1.005-<=1.025 [facility] Comment on above: Performed By: #### U AMIC #### [facility] [address] [place] [address] Dr. Gloria Ayala UA PROTEIN Negative Normal NEGATIVE/ TRACE [facility] Comment on above: Performed By: #### U AMIC #### [facility] [address] [place] [address] Dr. Gloria Ayala Urobilinogen Qn (U) 2.0 {Jonathan'U}/dL Abnormal 0.2 - 1. 0 [facility] Comment on above: Performed By: #### U AMIC #### [facility] [address] [place] [address] Dr. Gloria Ayala WBC NONE SEEN Normal NONE SEEN [facility] Comment on above: Performed By: #### U AMIC #### [facility] [address] [place] [address] Dr. Gloria Ayala CBC AUTO DIFFon 07-09-2022 BASO # 0.1 103/ul Normal 0.0-0.1 [facility] Comment on above: Performed By: #### C BC #### [facility] [address] [place] [address] Dr. Gloria Ayala Basophils/100 WBC (Bld) 0.6 % Normal 0.2-2.0 [facility] Comment on above: Performed By: #### C BC #### [facility] [address] [place] [address] Dr. Gloria Ayala EO # 0.1 103/ul Normal 0.0-0.7 [facility] Comment on above: Performed By: #### C BC #### [facility] [address] [place] [address] Dr. Gloria Ayala Eosinophils/100 WBC (Bld) 1.6 % Normal 0.9-7.0 [facility] Comment on above: Performed By: #### C BC #### [facility] [address] [place] [address] Dr. Gloria Ayala Erythrocyte distribution width (RBC) [Ratio] 13.6 % Normal 11.0-15.0 [facility] Comment on above: Performed By: #### C BC #### [facility] [address] [address] [address] Gloria Ayala Hematocrit (Bld) [Volume fraction] 49.8 % Normal 42.0-54.0 [facility] Comment on above: Performed By: #### C BC #### [facility] [address] [place] [address] Dr. Gloria Ayala Hemoglobin (Bld) [Mass/Vol] 15.7 g/dL Normal 14.0-18.0 [facility] Comment on above: Performed By: #### C BC #### [facility] [address] [place] [address] Dr. Gloria Ayala IG # 0.04 10e3/ul Critically high 0.00-0.03 [facility] Comment on above: Performed By: #### C BC #### [facility] [address] [place] [address] Dr. Gloria Ayala IG % 0.5 % Normal 0.0-0.5 [facility] Comment on above: Performed By: #### C BC #### [facility] [address] [place] [address] Dr. Gloria Ayala LYMPH # 1.1 103/ul Critically low 1.2-3.8 [facility] Comment on above: Performed By: #### C BC #### [facility] [address] [place] [address] Dr. Gloria Ayala Lymphocytes/100 WBC (Bld) 13.8 % Critically low 20.5-60.0 [facility] Comment on above: Performed By: #### C BC #### [facility] [address] [place] [address] Dr. Gloria Ayala MANUAL DIFF REQ NO Normal [facility] Comment on above: Performed By: #### C BC #### [facility] [address] [place] [address] Dr. Gloria Ayala MCH (RBC) [Entitic mass] 26.6 pg Normal 25.9-34.0 [facility] Comment on above: Performed By: #### C BC #### [facility] [address] [address] [address] Gloria Ayala MCHC (RBC) [Mass/Vol] 31.5 g/dL Normal 29.9-35.2 [facility] Comment on above: Performed By: #### C BC #### [facility] [address] [place] [address] Dr. Gloria Ayala MCV (RBC) [Entitic vol] 84.4 fL Normal 80.0-94.0 [facility] Comment on above: Performed By: #### C BC #### [facility] [address] [place] [address] Dr. Gloria Ayala MONO # 0.4 103/ul Normal 0.3-0.8 [facility] Comment on above: Performed By: #### C BC #### [facility] [address] [place] [address] Dr. Gloria Ayala Monocytes/100 WBC (Bld) 5.0 % Normal 1.7-12.0 [facility] Comment on above: Performed By: #### C BC #### [facility] [address] [place] [address] Dr. Gloria Ayala NEUT # 6.3 103/ul Normal 1.4-6.5 [facility] Comment on above: Performed By: #### C BC #### [facility] [address] [place] [address] Dr. Gloria Ayala Neutrophils/100 WBC (Bld) 78.5 % Critically high 43.0-75.0 [facility] Comment on above: Performed By: #### C BC #### [facility] [address] [place] [address] Dr. Gloria Ayala Platelet mean volume (Bld) [Entitic vol] 10.5 fL Normal 9.5-13.5 [facility] Comment on above: Performed By: #### C BC #### [facility] [address] [place] [address] Dr. Gloria Ayala PLT 151 103/ul Normal 150-450 [facility] Comment on above: Performed By: #### C BC #### [facility] [address] [place] [address] Dr. Gloria Ayala RBC 5.90 106/ul Normal 4.70-6.10 [facility] Comment on above: Performed By: #### C BC #### [facility] [address] [address] [address] Gloria Ayala WBC 8.0 103/ul Normal 4.0-11.0 [facility] Comment on above: Performed By: #### C BC #### [facility] [address] [place] [address] Dr. Gloria Ayala GLYCOHEMOGLOBIN A1Con 2022 ADA RECOMMENDATION SEE BELOW Normal [facility] Comment on above: Result Comment: ADA RECOMMENDED LIMIT 4.0 - 6.0 ADA THERAPEUTIC TARGET < 7.0 ACTION SUGGESTED > 7.0 Performed By: #### A 1C #### [facility] [address] [place] [address] Dr. Gloria Ayala Glucose [Mass/Vol] 123 mg/dL Normal [facility] Comment on above: Performed By: #### A 1C #### [facility] [address] [place] [address] Dr. Gloria Ayala HbA1c (Bld) [Mass fraction] 5.9 % Normal 4.5-6.2 [facility] Comment on above: Performed By: #### A 1C #### [facility] [address] [place] [address] Dr. Gloria Ayala LIPID PROFILEon 07-09-2022 CHOL-HDL RATIO NORM SEE BELOW Normal [facility] Comment on above: Result Comment: 3.3 - 4.4 LOW RISK 4.4 - 7.1 AVERAGE RISK 7.1 - 11.0 MODERATE RISK >11.0 HIGH RISK Performed By: #### L IPEFRAIN, CMP #### [facility] [address] [place] [address] Dr. Gloria Ayala Cholesterol [Mass/Vol] 182 mg/dL Normal <=200 Th [facility] Comment on above: Performed By: #### L IPEFRAIN, CMP #### [facility] [address] [address] [address] Gloria Ayala Cholesterol in HDL [Mass/Vol] 29 mg/dL Critically low 40-60 [facility] Comment on above: Performed By: #### L IPID, CMP #### [facility] [address] [place] [address] Dr. Gloria Ayala Cholesterol in LDL [Mass/Vol] 136.6 mg/dL Normal [facility] Comment on above: Performed By: #### L IPID, CMP #### [facility] [address] [place] [address] Dr. Gloria Ayala Cholesterol.total/Mamta sterol in HDL [Mass ratio] 6.3 {ratio} Normal [facility] Comment on above: Performed By: #### L IPID, CMP #### [facility] [address] [place] [address] Dr. Gloria Ayala HDL NORMAL > or = 60 mg/dl - LOW CARDIOVASCULAR RISK <40 mg/dl - HIGH CARDIOVASCULAR RISK Normal [facility] Comment on above: Performed By: #### L IPID, CMP #### [facility] [address] [place] [address] Dr. Gloria Ayala LDL CALC NORMAL SEE BELOW Normal [facility] Comment on above: Result Comment: <100 mg/dl OPTIMAL 100 - 129 mg/dl NEAR OR ABOVE OPTIMAL 130 - 159 mg/dl BORDERLINE HIGH 160 - 189 mg/dl HIGH >190 mg/dl VERY HIGH Performed By: #### L IPID, CMP #### [facility] [address] [place] [address] Dr. Gloria Ayala Triglyceride [Mass/Vol] 82 mg/dL Normal <=150 T [facility] Comment on above: Performed By: #### L IPID, CMP #### [facility] [address] [place] [address] Dr. Gloria Ayala VLDL CALC 16.4 mg/dL Normal [facility] Comment on above: Performed By: #### L IPID, CMP #### [facility] [address] [place] [address] Dr. Gloria Ayala MICROALBUMIN, RAND URon 03-0 mALB 1.9 mg/L Normal <=30.0 [facility] Comment on above: Performed By: #### M ALBR #### [facility] [address] [place] [address] Dr. Gloria Ayala PROF 14(COMP METB)on 023 Albumin [Mass/Vol] 3.2 g/dL Critically low 3.4-5.0 Th e [facility] Comment on above: Performed By: #### L IPID, CMP #### [facility] [address] [place] [address] Dr. Gloria Ayala Albumin/Globulin [Mass ratio] 0.8 {ratio} Normal [facility] Comment on above: Performed By: #### L IPID, CMP #### [facility] [address] [place] [address] Dr. Gloria Ayala ALP [Catalytic activity/Vol] 85 U/L Normal 46-116 [facility] Comment on above: Performed By: #### L IPID, CMP #### [facility] [address] [place] [address] Dr. Gloria Ayala ALT [Catalytic activity/Vol] 15 U/L Critically low 16-63 [facility] Comment on above: Performed By: #### L IPID, CMP #### [facility] [address] [place] [address] Dr. Gloria Ayala Anion gap [Moles/Vol] 9.5 mmol/L Normal [facility] Comment on above: Performed By: #### L IPID, CMP #### [facility] [address] [place] [address] Dr. Gloria Ayala AST [Catalytic activity/Vol] 13 U/L Critically low 15-37 [facility] Comment on above: Performed By: #### L IPID, CMP #### [facility] [address] [place] [address] Dr. Gloria Ayala Bilirubin [Mass/Vol] 0.6 mg/dL Normal 0.2-1.0 [facility] Comment on above: Performed By: #### L IPID, CMP #### [facility] [address] [place] [address] Dr. Gloria Ayala Calcium [Mass/Vol] 8.4 mg/dL Critically low 8.5-10.1 Th [facility] Comment on above: Performed By: #### L IPID, CMP #### [facility] [address] [place] [address] Dr. Gloria Ayala Chloride [Moles/Vol] 102 mmol/L Normal 98-107 [facility] Comment on above: Performed By: #### L IPID, CMP #### [facility] [address] [place] [address] Dr. Gloria Ayala CO2 [Moles/Vol] 34.6 mmol/L Critically high 21.0-32.0 [facility] Comment on above: Performed By: #### L IPID, CMP #### [facility] [address] [place] [address] Dr. Gloria Ayala Creatinine [Mass/Vol] 0.97 mg/dL Normal 0.70-1.30 [facility] Comment on above: Performed By: #### L IPID, CMP #### [facility] [address] [place] [address] Dr. Gloria Ayala EGFR-AF TURKS AND CAICOS ISLANDER >60 Normal >=60 [facility] Comment on above: Performed By: #### L IPID, CMP #### [facility] [address] [place] [address] Dr. Gloria Ayala EGFR-NON AF TURKS AND CAICOS ISLANDER >60 Normal >=60 [facility] Comment on above: Performed By: #### L IPID, CMP #### [facility] [address] [place] [address] Dr. Gloria Ayala Globulin (S) [Mass/Vol] 4.1 g/dL Normal [facility] Comment on above: Performed By: #### L IPID, CMP #### [facility] [address] [place] [address] Dr. Gloria Ayala Glucose [Mass/Vol] 154 mg/dL Critically high 74-106 [facility] Comment on above: Performed By: #### L IPID, CMP #### [facility] [address] [place] [address] Dr. Gloria Ayala Potassium [Moles/Vol] 4.1 mmol/L Normal 3.5-5.1 [facility] Comment on above: Performed By: #### L IPID, CMP #### [facility] [address] [place] [address] Dr. Gloria Ayala Protein [Mass/Vol] 7.3 g/dL Normal 6.4-8.2 [facility] Comment on above: Performed By: #### L IPID, CMP #### [facility] [address] [place] [address] Dr. Gloria Ayala Sodium [Moles/Vol] 142 mmol/L Normal 136-145 [facility] Comment on above: Performed By: #### L IPID, CMP #### [facility] [address] [place] [address] Dr. Gloria Ayala Urea nitrogen [Mass/Vol] 10.0 mg/dL Normal 7.0-18.0 [facility] Comment on above: Performed By: #### L IPID, CMP #### [facility] [address] [place] [address] Dr. Gloria Ayala Urea nitrogen/Creatinine [Mass ratio] 10.3 mg/mg Normal [facility] Comment on above: Performed By: #### L IPID, CMP #### [facility] [address] [place] [address] Dr. Gloria Ayala UA RANDOM W/MICROSCOPICon BACTERIA NONE SEEN Normal NONE SEEN [facility] Comment on above: Performed By: #### U AMIC #### [facility] [address] [place] [address] Dr. Gloria Ayala Bilirubin Ql (U) Negative Normal NEGATIVE [facility] Comment on above: Performed By: #### U AMIC #### [facility] [address] [place] [address] Dr. Gloria Ayala CAST SEEN Abnormal NONE SEEN [facility] Comment on above: Performed By: #### U AMIC #### [facility] [address] [place] [address] Dr. Gloria Ayala Clarity (U) CLEAR Normal CLEAR [facility] Comment on above: Performed By: #### U AMIC #### [facility] [address] [address] [address] Gloria Ayala Color (U) YELLOW Normal YELLOW [facility] Comment on above: Performed By: #### U AMIC #### [facility] [address] [address] [address] Gloria Aayla Crystals LM Nom (Urine sed) NONE SEEN Normal NONE SEEN [facility] Comment on above: Performed By: #### U AMIC #### [facility] [address] [address] [address] Gloria Ayala Epithelial cells LM Ql (Urine sed) RARE Normal NONE SEEN /RARE [facility] Comment on above: Performed By: #### U AMIC #### [facility] [address] [place] [address] Dr. Gloria Ayala Glucose Ql (U) Negative Normal NEGATIVE [facility] Comment on above: Performed By: #### U AMIC #### [facility] [address] [address] [address] Gloria Ayala Hemoglobin Ql (U) Negative Normal NEGATIVE [facility] Comment on above: Performed By: #### U AMIC #### [facility] [address] [address] [address] Gloria Ayala HYALINE CAST RARE Normal [facility] Comment on above: Performed By: #### U AMIC #### [facility] [address] [address] [address] Gloria Ayala Ketones Ql (U) Negative Normal NEGATIVE The [facility] Comment on above: Performed By: #### U AMIC #### [facility] [address] [address] [address] Gloria Ayala LEUKOCYTES Negative Normal NEGATIVE [facility] Comment on above: Performed By: #### U AMIC #### [facility] [address] [address] [address] Gloria Ayala MUCOUS NONE SEEN Normal NONE SEEN [facility] Comment on above: Performed By: #### U AMIC #### [facility] [address] [address] [address] Gloria Ayala Nitrite Ql (U) Negative Normal NEGATIVE [facility] Comment on above: Performed By: #### U AMIC #### [facility] [address] [place] [address] Dr. Gloria Ayala pH (U) 7.0 [pH] Normal 5-9 [facility] Comment on above: Performed By: #### U AMIC #### [facility] [address] [address] [address] Gloria Ayala RBC NONE SEEN Abnormal 0-2 [facility] Comment on above: Performed By: #### U AMIC #### [facility] [address] [place] [address] Dr. Gloria Ayala SPEC GRAVITY 1.015 Normal 1.005-<=1.025 [facility] Comment on above: Performed By: #### U AMIC #### [facility] [address] [place] [address] Dr. Gloria Ayala UA PROTEIN Negative Normal NEGATIVE/ TRACE [facility] Comment on above: Performed By: #### U AMIC #### [facility] [address] [address] [address] Gloria Ayala Urobilinogen Qn (U) 8 {Jonathan'U}/dL Abnormal 0.2 - 1.0 [facility] Comment on above: Performed By: #### U AMIC #### [facility] [address] [place] [address] Dr. Gloria Ayala WBC NONE SEEN Normal NONE SEEN [facility] Comment on above: Performed By: #### U AMIC #### [facility] [address] [place] [address] Dr. Gloria Ayala Physician Referralon 022 Physician Referral [phone] [id number]:[id number] Normal [facility] GLYCOHEMOGLOBIN A1Con 2021 ADA RECOMMENDATION SEE BELOW Normal [facility] Comment on above: Result Comment: ADA RECOMMENDED LIMIT 4.0 - 6.0 ADA THERAPEUTIC TARGET < 7.0 ACTION SUGGESTED > 7.0 Performed By: #### A 1C #### [facility] [address] [address] [address] Gloria Ayala Glucose [Mass/Vol] 128 mg/dL Normal [facility] Comment on above: Performed By: #### A 1C #### [facility] [address] [address] [address] Gloria Ayala HbA1c (Bld) [Mass fraction] 6.1 % Normal 4.5-6.2 [facility] Comment on above: Performed By: #### A 1C #### [facility] [address] [place] [address] Dr. Gloria Ayala PROF CHEM 8 (BAS METB)on Anion gap [Moles/Vol] 8.5 mmol/L Normal [facility] Comment on above: Performed By: #### B MP #### [facility] [address] [place] [address] Dr. Gloria Ayala Calcium [Mass/Vol] 8.5 mg/dL Normal 8.5-10.1 [facility] Comment on above: Performed By: #### B MP #### [facility] [address] [place] [address] Dr. Gloria Ayala Chloride [Moles/Vol] 99 mmol/L Normal 98-107 [facility] Comment on above: Performed By: #### B MP #### [facility] [address] [place] [address] Dr. Gloria Ayala CO2 [Moles/Vol] 34.5 mmol/L Critically high 21.0-32.0 [facility] Comment on above: Performed By: #### B MP #### [facility] [address] [place] [address] Dr. Gloria Ayala Creatinine [Mass/Vol] 1.02 mg/dL Normal 0.70-1.30 [facility] Comment on above: Performed By: #### B MP #### [facility] [address] [place] [address] Dr. Gloria Ayala EGFR-AF TURKS AND CAICOS ISLANDER >60 Normal >=60 [facility] Comment on above: Performed By: #### B MP #### [facility] [address] [address] [address] Gloria Ayala EGFR-NON AF TURKS AND CAICOS ISLANDER >60 Normal >=60 [facility] Comment on above: Performed By: #### B MP #### [facility] [address] [address] [address] Gloria Ayala Glucose [Mass/Vol] 116 mg/dL Critically high 74-106 [facility] Comment on above: Performed By: #### B MP #### [facility] [address] [address] [address] Gloria Ayala Potassium [Moles/Vol] 4.0 mmol/L Normal 3.5-5.1 [facility] Comment on above: Performed By: #### B MP #### [facility] [address] [address] [address] Gloria Ayala Sodium [Moles/Vol] 138 mmol/L Normal 136-145 [facility] Comment on above: Performed By: #### B MP #### [facility] [address] [address] [address] Gloria Ayala Urea nitrogen [Mass/Vol] 11.0 mg/dL Normal 7.0-18.0 [facility] Comment on above: Performed By: #### B MP #### [facility] [address] [address] [address] Gloria Ayala Urea nitrogen/Creatinine [Mass ratio] 10.8 mg/mg Normal [facility] Comment on above: Performed By: #### B MP #### [facility] [address] [address] [address] Gloria Ayala Vital Signs Date Time Vital Sign Value Performing Clinician Facility 07-30-2023 08:37-0400 Body height 176.5 cm [facility] 1 [facility] [employer] [facility] 06-14-2023 17:39-0500 Body height 175.3 cm Irnia Mcleod RICE MILLING SUPERVISOR Work Phone: [facility] 06-14-2023 17:39-0500 Body mass index (BMI) [Ratio] 40.61 kg/m2 Irina Mcleod [employer]ICE MILLING SUPERVISOR Work Phone: [facility] 06-14-2023 17:39-0500 Body temperature 97.5 [degF] Irina Mcleod RICE MILLING SUPERVISOR Work Phone: [facility] 06-14-2023 17:39-0500 Body weight 124.74 kg Irina Mcleod RICE MILLING SUPERVISOR Work Phone: [facility] Comment on above: hospital bed weighed him at the hospital 06-14-2023 17:39-0500 Diastolic blood pressure 58 mm[Hg] Irina Andersonjanis RICE MILLING SUPERVISOR Work Phone: [facility] 06-14-2023 17:39-0500 Heart rate 84 /min Irina Andersonjanis RICE MILLING SUPERVISOR Work Phone: [facility] 06-14-2023 17:39-0500 Respiratory rate 19 /min Irina Osbornelani RICE MILLING SUPERVISOR Work Phone: [facility] 06-14-2023 17:39-0500 SaO2% (BldA) [Mass fraction] 99 % Iirna Mcleod RICE MILLING SUPERVISOR Work Phone: [facility] 06-14-2023 17:39-0500 Systolic blood pressure 110 mm[Hg] Irina Mcleod RICE MILLING SUPERVISOR Work Phone: [facility] 05-27-2023 13:23-0500 Body height 176.5 cm P[facility] 1 [facility] 05-27-2023 13:23-0500 Body mass index (BMI) [Ratio] 45.12 kg/m2 [facility] 1 [facility] 05-27-2023 13:23-0500 Body weight 140.62 kg Pmh 1 [facility] 05-05-2023 10:43-0500 Body temperature 97 [degF] Sybil KAPADIA Work Phone: [facility] 05-05-2023 10:43-0500 Diastolic blood pressure 66 mm[Hg] Sybil KAPADIA Work Phone: [facility] 05-05-2023 10:43-0500 Heart rate 80 /min Sybil Tobin DERRICK BUILDER-VICE PRINCIPAL Work Phone: [facility] 05-05-2023 10:43-0500 Respiratory rate 16 /min Sybil Tobin DERRICK BUILDER-VICE PRINCIPAL Work Phone: [facility] [employer] [facility] 05-05-2023 10:43-0500 Systolic blood pressure 116 mm[Hg] Sybil Tobin DERRICK BUILDER-VICE PRINCIPAL Work Phone: [facility] Encounters Encounter Date Encounter Type Care Provider Facility Start: 12-02-2023 ambulatory IRINA MCLEOD [facility] Start: 11-11-2023 End: 11-11-2023 ambulatory IRINA RIGOBERTO Not Available Start: 09-17-2023 End: 10-02-2023 ambulatory [facility] Start: 09-15-2023 End: 10-02-2023 ambulatory [facility] Start: 09-08-2023 End: 09-08-2023 ambulatory [facility] Start: 09-01-2023 End: 09-01-2023 ambulatory [facility] Start: 09-01-2023 End: 10-02-2023 ambulatory [facility] Start: 08-25-2023 End: 08-25-2023 ambulatory [facility] Start: 08-23-2023 End: 08-23-2023 Evaluation and management of inpatient MELROSE PARK Jadon [facility] Start: 08-23-2023 End: 08-23-2023 Evaluation and management of inpatient [facility] Start: 08-17-2023 End: 08-17-2023 ambulatory [facility] Start: 07-30-2023 Encounter for other preprocedural examination IRINA MCLEOD [facility] Start: 07-30-2023 End: 07-30-2023 [facility] Start: 07-30-2023 End: 07-30-2023 Patient encounter procedure [facility] Pre-Admission Testing 1 [facility] Pre Ad[facility] Start: 07-29-2023 End: 07-29-2023 ambulatory IRINA AICHHOLZ Not Available Start: 07-06-2023 End: 07-06-2023 ambulatory IRINA AICHHOLZ Not Available Start: 06-14-2023 End: 06-14-2023 Office outpatient visit 25 minutes Irina Aichholz [employer]ICE MILLING SUPERVISOR Work Phone: [facility] Comment on above: ROSSY (acute kidney in jury) (CMS/HCC) (Primary Dx); Pilonidal cyst; Edema of extremities; Primary osteoarthritis of both knees; Benign essential hypertension (CMS/HCC); COVID Start: 06-14-2023 End: 06-14-2023 ambulatory IRINA AICHHOLZ Not Available Start: 06-14-2023 Bamboo flowsheet Irina Aichholz RICE MILLING SUPERVISOR Work Phone: [facility] Start: 06-14-2023 Bamboo flowsheet Irina Aichholz RICE MILLING SUPERVISOR Work Phone: [facility] Start: 06-14-2023 Telephone encounter Jessie Gill [facility] Start: 06-09-2023 Refill Irina Aichholz RICE MILLING SUPERVISOR Work Phone: [facility] Comment on above: Dyslipidemia (CMS/HC C) (Primary Dx) Start: 06-08-2023 Refill Irina Aichholz RICE MILLING SUPERVISOR Work Phone: [facility] Comment on above: Restless legs (Prima ry Dx) Start: 06-02-2023 Clinisync Result Encounter Generic External Data Provider [facility] External Department Unsolicited Start: 06-02-2023 Clinisync Result Encounter Generic External Data Provider [facility] External Department Unsolicited Start: 05-31-2023 End: 05-31-2023 Evaluation and management of inpatient FRANKIE BISHOP [facility] Start: 05-27-2023 End: 05-27-2023 ambulatory [facility] Pat Phone Call Provider 1 [facility] Pre Ad[facility] Start: 05-21-2023 End: 06-03-2023 ambulatory SYBIL TOBIN [facility] Start: 05-19-2023 End: 05-19-2023 ambulatory IRINA MCLEOD Not Available Start: 05-11-2023 End: 05-11-2023 ambulatory [facility] Start: 05-05-2023 End: 05-05-2023 Office outpatient visit 10 minutes Sybil Tobin DERRICK BUILDER-VICE PRINCIPAL Work Phone: [facility] Comment on above: Chronic recurrent pi lonidal cyst (Primary Dx); Abscess of multiple sites of buttock Start: 05-05-2023 End: 05-05-2023 ambulatory SYBIL TOBIN [facility] Start: 04-13-2023 End: 04-13-2023 ambulatory [facility] Start: 04-13-2023 End: 04-13-2023 Encounter for preprocedural cardiovascular examination [facility] Start: 04-07-2023 Preoperative state Generic Provider [facility] Start: 04-07-2023 End: 04-07-2023 ambulatory IRINA MCLEOD Not Available Start: 10-26-2022 ambulatory Arlen castillo PA-C Facility[facility] Start: 09-21-2022 End: 09-22-2022 ambulatory Irina Mcleod DERRICK BUILDER-VICE PRINCIPAL Facility:[facility] Start: 08-04-2022 End: 08-04-2022 ambulatory JOSE ELIAS DAI Facility:[facility] Start: 07-23-2022 End: 07-24-2022 ambulatory VICE PRINCIPAL IRINA VINODHKEONZ Facility:[facility] Start: 07-09-2022 End: 07-10-2022 ambulatory VICE PRINCIPAL IRINA VINODHKEONZ Facility:[facility] Start: 09-15-2021 End: 09-16-2021 ambulatory VICE PRINCIPAL IRINA RIGOBERTO Facility:[facility] Procedures Date Procedure Procedure Detail Performing Clinician Start: 06-02-2023 BLOOD CULTURE 2 Generic External Data Provider Start: 06-02-2023 BLOOD CULTURE 1 Generic External Data Provider Start: 05-11-2023 Follow-up visit Follow-up CARMEN VALDOVINOS Start: 05-05-2023 NURSING COMMUNICATION Jadon Tboin APRN-VICE PRINCIPAL Work Phone: Start: 07-09-2022 PSA screening JUDY IRINAMark MCLEOD Comment on above: Performed By: #### P [facility] #### [facility] [address] [place] [address] Dr. Gloria Ayala Plan of Treatment Date Care Activity Detail Author Start: 04-07-2025 Glaucoma screening Diabetes: R etinopathy Screening [facility] Start: 05-31-2024 Adult BMI Screening Adult BMI Screen ing [facility] Start: 05-31-2024 Tobacco Screening Tobacco Screening [facility] Start: 05-28-2024 Tobacco Screening Tobacco Screening [facility] Start: 05-27-2024 Adult BMI Screening Adult BMI Screen ing [facility] Start: 04-19-2024 Adult BMI Screening Adult BMI Screen ing [facility] Start: 04-07-2024 Pneumococcal Vaccine : 65+ Years (1 - PCV) Pneumococcal Vaccine: 65+ Years (1 - PCV) [facility] Comment on above: Postponed from 03/25 (Patient Refused) Start: 04-05-2024 Tobacco Screening Tobacco Screening [facility] Start: 10-31-2023 Influenza vaccination Influenza Vacc ine (#1) [facility] Comment on above: Postponed from 01/01 (Patient Refused) Start: 09-06-2023 Screening for malign ant neoplasm of colon [facility] Start: 08-23-2023 End: 08-23-2023 Patient encounter procedure 08/23/2023 2:15 PM EDT Office Visit [facility] [address] [place] [id number] Arlen Estrada APRN-JUDY [address] [place] [address] [facility] Start: 08-18-2023 End: 08-18-2023 Patient encounter procedure 08/18/2023 9:40 AM EDT Office Visit [facility] [address] [place] [address] Irina Mcleod, KARI [address] [place] [phone] [facility] Start: 08-09-2023 End: 08-09-2023 Admission to same day surgery center 08/09/2023 1:30 PM EDT - 08/09/2023 2:45 PM EDT Surgery [facility] [address] [place] [address] Amber Valdovinos MD [address] [place] [address] EXCISION CYST PILONIDAL [10179 (CPT )] [facility] Comment on above: EXCISION CYST PILONI SHAYAN [63566 (CPT )] Start: 08-09-2023 End: 08-09-2023 Excision pilonidal cyst/sinus simple EXCISION CYST PILONIDAL pilonidal cyst 08/09/2023 1:30 PM EDT [facility] Start: 08-09-2023 Subsequent hospital visit by physician 08/09/2023 1:30 PM EDT Hospital Encounter [facility] [address] [place] [phone] Amber Valdovinos MD [address] [place] [phone] [facility] Start: 07-10-2023 Urine screening for protein Diabetes: Urine Protein Screening [facility] Start: 07-06-2023 End: 07-06-2023 Patient encounter procedure 07/06/2023 11:00 AM EST Office Visit [facility] [address] [place] [phone] Irina Mcleod NP [address] [place] [address] [facility]GH[facility] KENT Start: 06-15-2023 End: 06-15-2023 Patient encounter procedure 06/15/2023 3:30 PM EST Office Visit [facility] [address] [place] [address] Arlen Estrada APRN-VICE PRINCIPAL [address] [place], [place] [id number] [facility] Start: 06-14-2023 End: 06-14-2023 [facility] encounter [facility] Comment on above: Arrived Start: 06-14-2023 End: 06-14-2024 Basic metabolic 1998 panel - Serum or Plasma Basic metabolic panel Lab Routine ROSSY (acute kidney injury) (CMS/HCC) Expected: 06/14/2023 (Approximate), Expires: 06/14/2024 [facility] Work Phone: Comment on above: Expected: 06/14/2023 (Approximate), Expires: 06/14/2024 Start: 05-31-2023 End: 05-31-2023 Admission to same day surgery center 05/31/2023 12:15 PM EST - 05/31/2023 1:[address] [facility] [address] [place] [address] Amber Valdovinos MD [address] [facility] [place] [phone] EXCISION CYST PILONIDAL [29449 (CPT )] [facility] Comment on above: EXCISION CYST PILONI SHAYAN [97942 (CPT )] Start: 05-31-2023 End: 05-31-2023 Anesthesia consultation 05/31/2023 12:15 PM EST Anesthesia Event [facility] [address] [place] [address] Frankie Bishop MD [address] [place] [address] [facility] Start: 05-31-2023 End: 05-31-2023 Excision pilonidal cyst/sinus simple EXCISION CYST PILONIDAL pilonidal cyst 05/31/2023 12:15 PM EST [facility] Start: 05-31-2023 Subsequent hospital visit by physician 05/31/2023 12:15 PM EST Hospital Encounter [facility] [address] [place] [address] Amber Valdovinos MD [address] [place] [address] [facility] Start: 05-21-2023 End: 05-21-2023 Patient encounter procedure 05/21/2023 11:00 AM EST Office Visit [facility] [address] [place] [phone] Sybil Tobin, DERRICK BUILDER-[facility] [address] [place] [address] [facility] Start: 05-11-2023 End: 05-11-2023 Patient encounter procedure 05/11/2023 2:00 PM EST Office Visit [facility] [address] [place] [address] Amber Valdovinos MD [address] [place] [address] [facility] Start: 01-01-2023 COVID-19 Vaccine () COVID-19 Vaccine () [facility] Start: 01-01-2023 Influenza vaccination Influenza Vacc ine [facility] Start: 10-09-2022 Hemoglobin A1c measurement Diabetes: Hemoglobin A1C [facility] Start: 2022 Fall Risk Screening Fall Risk Screen ing [facility] Start: 2007 Administration of varicella zoster vaccine Zoster (Shingles) Vaccine (1 of 2) [facility] Start: 1976 DTaP,Tdap and Td Vac cines (1 - Tdap) DTaP,Tdap and Td Vaccines (1 - Tdap) [facility] Start: 1975 Adult BMI Follow Up Plan Adult BMI Follow Up Plan [facility] Start: 1969 Depression Screening Depression Scre ening [facility] Start: 1957 Medicare Annual Well ness Visit Medicare Annual Wellness Visit [facility] Start: 1957 Screening for malign ant neoplasm of colon [facility] BLOOD CULTURE 1 BLOOD CULTURE 1 Lab Routine 06/02/2023 10:53 AM EST [facility] BLOOD CULTURE 2 BLOOD CULTURE 2 Lab Routine 06/02/2023 10:58 AM EST [facility] Immunizations Immunization Date Immunization Notes Care Provider Fa andrez 08-02-2020 Pfizer Purple Cap SARS-CoV-2 Vaccination Irina Mcleod NP Work Phone: [facility] Payers Date Payer Category Payer Self-pay 2003 Medicaid [id number] 1959 Unknown [id number] 1957 Unknown [id number] 2.16.84 [id number] 1957 Unknown [id number] 2.16.84 [id number] 1957 Unknown [id number] 2.16.84 0.1.315337.3.579.2.593 1957 Unknown [id number] 2.16.84 0.1.945169.3.579.2.593 1957 Unknown [id number] 2.16. [id number] 1957 Unknown [id number] 2.16.8 40.1.103288.3.579.2.1286 1957 Unknown [id number] 2.16.8 40.1.603748.3.579.2.1285 1957 Unknown [id number] 2.16.8 40.1.152389.3.579.2.1286 1957 Unknown [id number] 2.16.8 40.1.818043.3.579.2.1285 1957 Unknown [id number] 2.16.8 40.1.445621.3.579.2.1285 1957 Unknown [id number] 2.16.8 40.1.948281.3.579.2.1285 1957 Unknown [id number] 2.16.8 40.1.221862.3.579.2.1286 1957 Unknown [id number] 2.16.8 40.1.598616.3.579.2.1285 1957 Unknown [id number] 2.16.8 40.1.346617.3.579.2.6 1955 Unknown [id number] 2.16.8 40.1.994649.3.579.2.1285 1955 Unknown [id number] 2.16.8 40.1.261328.3.579.2.128 1955 Unknown [id number] 2.16.8 40.1.039512.3.579.2.1285 1955 Unknown [id number] 2.16.8 40.1.240519.3.579.2.1285 1955 Unknown [id number] 2.16.8 40.1.597951.3.579.2.1285 1955 Unknown [id number] 2.16.8 40.1.176211.3.579.2.1286 1955 Unknown [id number] 2.16.8 40.1.805066.3.579.2.1286 1955 Unknown [id number] 2.16.8 40.1.268426.3.579.2.1286 1955 Unknown [id number] 2.16.84 0.1.616944.3.579.2.1286 1955 Unknown [id number] 2.16.84 0.1.509668.3.579.2.1259 1955 Unknown [id number] 2.16.84 0.1.381849.3.579.2.1259 1955 Unknown [id number] 2.16.84 0.1.012842.3.579.2.1259 1955 Unknown [id number] 2.16.84 0.1.206127.3.579.2.1259 1955 Unknown [id number] 2.16.84 0.1.667148.3.579.2.1259 1955 Unknown [id number] 2.16.840 .1.726246.3.579.2.1259 1955 Unknown [id number] 2.16.8 40.1.116233.3.579.2.1286 1955 Unknown [id number] 2.16.8 40.1.141976.3.579.2.1286 1955 Unknown [id number] 2.16.84 0.1.781161.3.579.2.1286 Social History Date Type Detail Facility Start: 03-30-2023 End: 05-31-2023 Tobacco smoking status NHIS Ex-smoker [facility] End: 05-03-2023 History of tobacco use Current smoker [facility] End: 05-03-2023 History of tobacco use Cigarette Smoker [facility] Start: 05-05-2023 End: 06-14-2023 Alcohol intake Lifetime non-drinker (finding) [facility] Start: 06-13-2020 End: 05-05-2023 History of Social function [facility] Start: 06-13-2020 End: 05-05-2023 Tobacco use panel [facility] Housing Instability Unknown [facility] Start: 1955 Sex Assigned At Not on file [facility] Start: 05-11-2023 End: 07-30-2023 Alcohol intake Ex-drinker (finding) [facility] Start: 04-10-2023 End: 05-31-2023 Tobacco use and exposure Smokeless tobacco non-user [facility] Start: 04-10-2023 Tobacco Comment 1-9 cigarettes/day [facility] Clinical Notes 04-13-2023 to 07-30-2023 Perioperative [...] yes she was. documented in this encounter [facility] 07-30-2023 Nurse Note Pts states that the cyst area appears to be opening up a bit. I asked her if Dr. Valdovinos was aware and she stated yes she was. [facility] 07-30-2023 Instructions Shanita Rollins RN - 07/30/2023 8:15 AM EDT Preoperative Education Checklist- General Surgery date: 08/09/23 Surgery time: 130p Arrival time: 1130a 1. Bring a photo ID and your insurance card with you the day of surgery. You will check in at the main lobby of the [facility]- registration desk is straight ahead as soon as you walk in. Tell them you are here for surgery. 2. If you have a Living Will/Durable Power of Supervisor Partial Denture Department for Health Care that is not on [...] after you have bathed. 5. NO nail bruneian/acrylic on at least one finger. If you are having a hand, wrist or foot surgery then all nail bruneian and artificial/acrylic nails must be removed from [...] please call the Preadmission Testing office at [phone], Mon.-Fri. 7 a.m.-3 p.m. Leave a voicemail [...] with your doctor. documented in this encounter [facility] 06-14-2023 History of Present illness Narrative Associated Problem(s): COVID Returning to baseline Associated Problem(s): Benign essential hypertension (CMS/HCC) Stable at this time Associated Problem(s): Primary osteoarthritis of both knees Would like referral to ortho in [place] Associated Problem(s): Edema of extremities stable Associated Problem(s): ROSSY (acute kidney injury) (CMS/HCC) Will reassess kidney function Therapy seen him today talked to him about seeing a surgeons in [place] to fix up his knees. Fell 3 times being home Feet are swollen Pt is asking for a powered wheelchair and hospital bed Images from the original note were not included. Carlos Persaud is a 68 y.o. male presents with chief complaint of No chief complaint on file. HPI: Here for a hospital fu: covid and ROSSY, See [facility] ER notes for HPI, I have [...] Oral, Daily, Do not crush or chew. Oucqbenxgtu-Qqedlzzyp-Wbukbu (Trelegy Ellipta) 100-62.5-25 MCG/ACT aerosol powder 1 [...] musculoskeletal pain COPD (chronic obstructive pulmonary disease) ([facility]/HCC) COPD with exacerbation ([facility]) DDD (degenerative disc disease), lumbar Dyslipidemia (CMS/HCC) Edema of extremities GERD without esophagitis Head mass ? Glioma Hypertension (CMS/HCC) Hypocalcemia Influenza vaccination declined Insomnia Morbid obesity with BMI of 45.0-49.9, adult ([facility]) Neoplasm of uncertain behavior of skin Non-compliant patient Nonspecific abnormal electrocardiogram (ECG) (EKG) 04/13/2023 Other emphysema ([facility]/HCC) 04/07/2023 Otitis externa, left Pain and swelling of elbow, left Pilonidal cyst Pre-operative clearance 04/07/2023 Primary osteoarthritis of both knees Restless leg Rising PSA level Screening for prostate cancer Stasis edema of both lower extremities Thrombocytopenia (CMS/HCC) Tobacco user Type 2 diabetes mellitus with peripheral neuropathy (CMS/[facility]) Urine discoloration Past Surgical History: [...] knees Would like referral to ortho in [place] ROSSY (acute kidney injury) (CMS/HCC) Will reassess kidney function Relevant Orders Basic metabolic panel COVID Returning to baseline documented in this encounter [facility] 06-14-2023 Miscellaneous Notes The patient is still [...] that under control. documented in this encounter [facility] [employer] [facility] 06-14-2023 Telephone encounter Note The patient [...] re-schedule once they get that under control. [facility] 05-27-2023 Miscellaneous Notes Preoperative Education Checklist- General Surgery date: 05/31/23 Surgery time: 1215 Arrival time: 1015 1. Bring a photo ID and your insurance card with you the day of surgery. You will check in at the main lobby of the [facility]- registration desk is straight ahead as soon as you walk in. Tell them you are here for surgery. 2. If you have a Living Will/Durable Power of Supervisor Partial Denture Department for Health Care that is not on [...] after you have bathed. 5. NO nail bruneian/acrylic on at least one finger. If you are having a hand, wrist or foot surgery then all nail bruneian and artificial/acrylic nails must be removed from [...] please call the Preadmission Testing office at [phone], Mon.-Fri. 7 a.m.-3 p.m. Leave a voicemail [...] prior to procedure documented in this encounter [employer] 05-27-2023 Nurse Note Preoperative Education Checklist- General Surgery date: 05/31/23 Surgery time: 1215 Arrival time: 1015 1. Bring a photo ID and your insurance card with you the day of surgery. You will check in at the main lobby of the [facility]- registration desk is straight ahead as soon as you walk in. Tell them you are here for surgery. 2. If you have a Living Will/Durable Power of Supervisor Partial Denture Department for Health Care that is not on [...] after you have bathed. 5. NO nail bruneian/acrylic on at least one finger. If you are having a hand, wrist or foot surgery then all nail bruneian and artificial/acrylic nails must be removed from [...] please call the Preadmission Testing office at [phone], Mon.-Fri. 7 a.m.-3 p.m. Leave a voicemail [...] Stop taking 0 days prior to procedure [facility] 05-05-2023 History of Present illness Narrative Images from the original note were not included. Wound Care Progress Note Patient: Carlos Persaud Date of : 1955 Chief Compliant: Buttock wounds, pilonidal cyst disease SUBJECTIVE/HPI: Carlos is a 68 y.o. male who presents to [facility] for evaluation of 2 [...] (Active) Wound Image 05/05/23 1044 Site Assessment Red;Jagual 05/05/23 1044 Juleit-wound Assessment Blanchable erythema;Jagual 05/05/23 1044 Wound Length (cm) 1 cm [...] 05/05/231043 Wound Bed Granulation (%) 100% 05/05/231043 Wound 03/12/23 2 Coccyx Inferior (Active) Site Assessment Red 05/05/231043 Juliet-wound Assessment Blanchable erythema;Jagual 05/05/234 Wound Length (cm) 1.5 cm 05/05/23 [...] to coccyx. Short term goal: medical compliance halfway goal: wound closure Patient verbalize understanding of [...] procedures Referring and communicating with other health intensive care ambulance paramedic (not separately reported) Documenting clinical information in the electronic or other health record Sybil Tobin APRN, JUDY, MONIQUE, RUFINA [facility]: [phone] KANG Whiting 05/05/23 1133 documented in this encounter [facility] 05-05-2023 Instructions So Angela RN [...] serosang Phan, yellow documented in this encounter [facility] 04-13-2023 Note [place] [facility] Subjective Carlos Persaud is a [...] mout (more content not included)... [facility] Evaluation note Diagnosis Chronic recurrent pilonidal cyst- Primary Abscess of multiple sites of buttock [facility] Diagnosis Restless legs- Primary Restless legs syndrome (RLS) [facility] Diagnosis Dyslipidemia ([facility]/HCC)- Primary Other and unspecified hyperlipidemia [facility]* Diagnosis ROSSY (acute kidney injury) (CMS/HCC)- Primary Pilonidal cyst Edema of extremities Edema Primary osteoarthritis of both knees Benign essential hypertension (CMS/HCC) Essential hypertension, benign COVID documented in this encounter [facility] HealthcareInstructionsNot on filedocumented in this encounterPro[facility] SystemInstructionsNot on filedocumented in this encounterProMediOur [facility] SystemReason for referral (narrative)* Consultation (Routine) - Pending Review Specialty Diagnoses / Procedures Referred By Sushma feliz Referred To Contact Orthopaedic Surgery Diagnoses Primary osteoarthritis of both knees Irina Mcleod NP [address] [place] [address] Referral ID Status Reason Start Date Expiration Date Visits Requested Visits Authorized [id number] Pending Review Specialty Services Required 06/14/2023 12/11/2023 [address] Juan Alberto Young [facility] Summary Purpose Family History No [...] sites of buttock Procedures [employer] Sybil Tobin, DERRICK BUILDER-VICE PRINCIPAL [address] [place] [address] Referral ID Status Reason Start Date Expiration Date V isits Requested Visits Authorized [id number] Pending Review 05/05/2023 05/04/2024 1 1 Specialty Diagnoses / Procedures Referred By Contac t Referred To Contact Diagnoses Abscess of multiple sites of buttock Procedures [employer] Sybil Tobin, DERRICK BUILDER-VICE PRINCIPAL [address] [place] [address] Referral ID Status Reason Start Date Expiration Date V isits Requested Visits Authorized [id number] Pending Review 05/05/2023 05/04/2024 1 1 Additional Source Comments (unrecognized sect ion and content) No Status Records FoundNo Status Records FoundNo Status Records FoundNo Status Records FoundNo Status Records FoundNo Status Records FoundNo Status Records Found INFORMATION SOURCE (unrecogn ized section and content) DATE CREATED AUTHOR 12/03/2021 [facility] DATE CREATED AUTHOR AUTHOR'S ORGANIZ ATION 08/07/2022 [facility] DATE CREATED AUTHOR AUTHOR'S ORGANIZ ATION 10/24/2022 [facility] DATE CREATED AUTHOR AUTHOR'S ORGANIZ ATION 04/15/2023 [facility] DATE CREATED AUTHOR AUTHOR'S ORGANIZ ATION 10/03/2023 [facility] DATE CREATED AUTHOR AUTHOR'S ORGANIZ ATION 11/17/2023 [facility] DATE CREATED AUTHOR AUTHOR'S ORGANIZ ATION 12/08/2023 [facility] Reason for Visit (unrecogniz ed section and content) Reason Comments Wound Check Reason Comments Med Refill Care Teams (unrecognized sec tion and content) Twisting Operator Relationship Specialty Start Date End Date Irina Mcleod, DERRICK BUILDER-VICE PRINCIPAL [address] [place] [phone] PCP - General Nurse Practitioner 09/24/16 Twisting Operator Relationship Specialty Start Date End Date Irina Mcleod, DERRICK BUILDER-VICE PRINCIPAL [address] [place] [phone] PCP - General Nurse Practitioner 09/24/16 Twisting Operator Relationship Specialty Start Date End Date Zachary Melton MD [address] [place] [phone] PCP - General Family Medicine 04/06/23 Irina Mcleod NP [address] [place] [phone] Nurse Practitioner Family Medicine 05/03/22 Twisting Operator Relationship Specialty Start Date End Date Zachary Melton MD [address] [place] [phone] PCP - General Family Medicine 04/06/23 Irina Mcleod NP [address] [place] [phone] Nurse Practitioner Family Medicine 05/03/22 Twisting Operator Relationship Specialty Start Date End Date Zachary Melton MD [address] [place] [phone] PCP - General Family Medicine 04/06/23 Irina Mcleod NP [address] [place] [phone] Nurse Practitioner Family Medicine 05/03/22 Twisting Operator Relationship Specialty Start Date End Date Zachary Melton MD [address] [place] [phone] PCP - General Family Medicine 06/14/23 Irina Mcelod NP [address] [place] [phone] Nurse Practitioner Family Medicine 05/03/22 Twisting Operator Relationship Specialty Start Date End Date Zachary Melton MD [address] [place] [phone] PCP - General Family Medicine 06/14/23 Irina Mcleod NP [address] [place] [phone] Nurse Practitioner Family Medicine 05/03/22 Twisting Operator Relationship Specialty Start Date End Date Irina Mcelod, DERRICK BUILDER-VICE PRINCIPAL [address] [place] [phone] PCP - General Nurse Practitioner 09/24/16 FOR [...] BE BASED ON THE PRIMARY CLINICAL RECORDS. [facility]. provides no warranty or guarantee of the accuracy or completeness of information in this document.
--- NOTE | 2023-12-12 03:15 | CT_ITS ---
The [address] [address] Patient Name: CARLOS DUQUE MRN: [id number] date: 1955 Sex: M Assigned Patient Location: ER Current Patient Location: ER Accession/Order Number: [id number] Exam Date: 12/12/2023 03:38 Report Date: 12/12/2023 05:01 At the request of: BAILEE RILEY Procedure: CT cervical spine wo con EXAM: CT cervical spine wo con HISTORY: head injury COMPARISON: None. TECHNIQUE: Axial images of the cervical spine were obtained without contrast enhancement. Sagittal and coronal reformations were provided. Dose reduction techniques were achieved by using automated exposure control and/or adjustment of mA and/or kV according to patient size and/or use of iterative reconstruction technique . COMMENT: The lack of intradural contrast and streak artifact from bone about the vertebral column limit evaluation for disc protrusion, bulge and the spinal canal in general. FINDINGS: There is loss of the normal lordosis with straightening of the cervical vertebral column. No CT evidence of an acute fracture, subluxation or loss of vertebral body height. Loss of disc space and endplate osteophytes are seen at several levels. 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 No malalignment at the craniocervical junction. While assessment is again suboptimal on this noncontrast CT, there is canal narrowing at several levels due to disc bulging, endplate osteophyte formation and ossification of the posterior longitudinal ligament. Uncovertebral spurring and facet degenerative change also results in areas of foraminal stenosis. Pleural fluid is present on the right. CT/CT cervical spine wo con IMPRESSION: 1. 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 No CT evidence of an acute fracture. 3. If there is further clinical indication to evaluate the spinal canal, cord or for ligamentous injury consider MRI as it would be more sensitive. Electronically authenticated by: BANDAR RODRIGEZ Date: 12/12/2023 05:01
--- NOTE | 2023-12-12 03:15 | ED_ITS ---
HPI HPI - Head Injury General Chief complaint: Fall Stated complaint: fall Time Seen by Provider: 12/12/23 03:11 Source: patient Mode of arrival: ambulance Limitations: no limitations History of Present Illness HPI Narrative: intermediate patient. States he loss his balance and fell. [facility] personnel found him on the floor. He states he feels well. Denies headache, neck pain or extremity pain or weakness. no nausea or vomiting Related Data Home Medications ?Medication ?Instructions ?Recorded ?Confirmed aspirin 81 mg tablet,delayed 81 mg PO DAILY 06/02/23 12/01/23 release carvedilol 3.125 mg tablet 3.125 mg PO Q12H 06/02/23 12/01/23 duloxetine 30 mg capsule,delayed 30 mg PO DAILY 06/02/23 12/01/23 release gabapentin 300 mg capsule 300 mg PO .COMPLEX 06/02/23 12/01/23 lisinopril 10 mg tablet 10 mg PO DAILY 06/02/23 12/01/23 metformin 500 mg tablet 500 mg PO BID 06/02/23 12/01/23 omeprazole 20 mg capsule,delayed 20 mg PO DAILY 06/02/23 12/01/23 release ropinirole 2 mg tablet 2 mg PO .qhs 06/02/23 12/01/23 rosuvastatin 20 mg tablet 20 mg PO QDAY 06/02/23 12/01/23 tamsulosin 0.4 mg capsule 0.8 mg PO Q24H 06/02/23 12/01/23 furosemide 20 mg tablet 60 mg PO DAILY 12/01/23 12/01/23 metronidazole 500 mg tablet 500 mg PO BID 12/01/23 12/01/23 Previous Rx's ?Medication ?Instructions ?Recorded cephalexin 500 mg capsule 500 mg PO Q6H 10 days #40 caps 12/01/23 cephalexin 500 mg capsule 500 mg PO Q6H 7 days #28 caps 12/01/23 oxycodone-acetaminophen 5 mg-325 1 tab PO Q6H PRN pain #12 tabs 12/01/23 mg tablet (Percocet) oxycodone-acetaminophen 5 mg-325 1 tab PO Q6H PRN pain #12 tabs 12/01/23 mg tablet (Percocet) oxycodone-acetaminophen 5 mg-325 1 tab PO Q6H PRN pain 3 days #12 12/01/23 mg tablet (Percocet) tabs Allergies Allergy/AdvReac Type Severity Reaction Status Date / Time No Known Drug Allergies Allergy Verified 02/22/23 12:49 Opioid HPI Opioid Management Most Recent Pain and Opioid Data: Last Pain Scale 7 12/01/23 11:26 Last Pain Intensity 0 06/05/23 09:56 Review of Systems ROS Status of ROS 10 or more systems reviewed and unremark able except as noted in history and below [facility] Medical History (Updated 12/12/23 @ 05:14 by Cesar Hassan MD) Hypomagnesemia ?E83.42 - Hypomagnesemia (ICD-10) Hypokalemia ?E87.6 - Hypokalemia (ICD-10) COVID-19 ?U07.1 - COVID-19 (ICD-10) Abscess of sacrum ?M46.28 - Osteomyelitis of vertebra, sacral and sacrococcygeal region (ICD- 10) Dehydration ?E86.0 - Dehydration (ICD-10) Acute viral syndrome ?B34.9 - Viral infection, unspecified (ICD-10) Acute kidney failure ?N17.9 - Acute kidney failure, unspecified (ICD-10) Cellulitis of sacral region ?L03.319 - Cellulitis of trunk, unspecified (ICD-10) Restless leg syndrome ?G25.81 - Restless legs syndrome (ICD-10) Diabetic neuropathy ?E11.40 - Type 2 diabetes mellitus with diabetic neuropathy, unspecified (ICD-10) Dyslipidemia ?E78.5 - Hyperlipidemia, unspecified (ICD-10) Non-insulin dependent diabetes mellitus Hypertension ?I10 - Essential (primary) hypertension (ICD-10) Family History Sister Family history of diabetes mellitus Social History Within the past year, how often did you have a drink containing alcohol: never Score interpretation: A score less than 4 is consistent with normal alcohol consumption. Smoking status: Former smoker Non-prescribed substance use: denies use Highest level of school completed/degree received: high school graduate Gender Identity: male Exam Constitutional Vital Signs, click to edit/add: Last Vital Signs Temp 97.7 F 12/12/23 03:04 Pulse 99 H 12/12/23 03:04 Resp 24 H 12/12/23 03:04 BP 100/50 12/12/23 03:04 Pulse Ox 96 12/12/23 03:04 O2 Del Method Room Air 12/12/23 03:04 Common normals: oriented x3, healthy appearing, alert and well nourished HENMT Other: small superficial forehead lac Eye Common normals: EOMs intact bilaterally and conjunctivae normal Chest Common normals: inspection of chest normal and palpation of chest normal Respiratory Common normals: normal respiratory effort, no retractions, no use of accessory muscles and clear to auscultation bilaterally Cardio Common normals: regular rate, regular rhythm, S1 normal heart sound and S2 normal heart sound GI Common normals: Normal to inspection, nondistended, normoactive bowel sounds present, soft to palpation and non-tender Extremity Common normals: normal to inspection Neuro Common normals: oriented x3, CN's II-XII intact bilaterally, moves all extremities and no focal motor deficits Psych Appearance: grossly normal Course Vital Signs Vital signs: Vital Signs Temperature 97.7 F 12/12/23 03:04 Pulse Rate 99 H 12/12/23 03:04 Respiratory Rate 24 H 12/12/23 03:04 Blood Pressure 100/50 12/12/23 03:04 Pulse Oximetry 96 12/12/23 03:04 Oxygen Delivery Method Room Air 12/12/23 03:04 Temperature 97.7 F 12/12/23 03:04 Pulse Rate 99 H 12/12/23 03:04 Respiratory Rate 24 H 12/12/23 03:04 Blood Pressure 100/50 12/12/23 03:04 Pulse Oximetry 96 12/12/23 03:04 Oxygen Delivery Method Room Air 12/12/23 03:04 MDM - Head Injury MDM Narrative Medical decision making narrative: intermediate patient fell at the home striking his forehead. No LOC. sustained minor forehead lac repaired with steri strip. patient is under the care of hospice. Hospice nurse called and requested we do as little as possible . diagnostic studies placed but lab orders d/blessing. CT brain and C-spine without acute findings. Patient has no complaint and states he is not sure why he is here. Discharged back to [place] Discharge Plan Discharge Stand Alone Forms: Portal Instructions Chief Complaint: Fall Clinical Impression: Minor head injury, Laceration of face Patient Disposition: Home, Self-Care Prescriptions / Home Meds: No Action aspirin 81 mg tablet,delayed release (DR/EC) 81 mg PO DAILY carvedilol 3.125 mg tablet 3.125 mg PO Q12H duloxetine 30 mg capsule,delayed release(DR/EC) 30 mg PO DAILY gabapentin 300 mg capsule 300 mg PO .COMPLEX Rx Instructions: 300 mg orally 1 tablet in the morning and 2 tablets before bed; lisinopril 10 mg tablet 10 mg PO DAILY metformin 500 mg tablet 500 mg PO BID omeprazole 20 mg capsule,delayed release(DR/EC) 20 mg PO DAILY ropinirole 2 mg tablet 2 mg PO .qhs rosuvastatin 20 mg tablet 20 mg PO QDAY tamsulosin 0.4 mg capsule 0.8 mg PO Q24H furosemide 20 mg tablet 60 mg PO DAILY metronidazole 500 mg tablet 500 mg PO BID cephalexin 500 mg capsule 500 mg PO Q6H 10 Days Qty: 40 0RF oxycodone-acetaminophen [Percocet] 5-325 mg tablet 1 tab PO Q6H PRN (Reason: pain) Qty: 12 0RF oxycodone-acetaminophen [Percocet] 5-325 mg tablet 1 tab PO Q6H PRN (Reason: pain) Qty: 12 0RF cephalexin 500 mg capsule 500 mg PO Q6H 7 Days Qty: 28 0RF oxycodone-acetaminophen [Percocet] 5-325 mg tablet 1 tab PO Q6H PRN (Reason: pain) 3 Days Qty: 12 0RF Print Language: British Instructions: Head Injury (ED), Steristrips (ED) Referrals: Irina Mcleod NP [Primary Care Provider] - 1 week
--- NOTE | 2023-12-12 03:15 | CT_ITS ---
The [address] [address] Patient Name: CARLOS DUQUE MRN: [id number] date: 1955 Sex: M Assigned Patient Location: ER Current Patient Location: ER Accession/Order Number: [id number] Exam Date: 12/12/2023 03:38 Report Date: 12/12/2023 04:56 At the request of: BAILEE RILEY Procedure: CT head/brain wo con EXAM: CT head/brain wo con HISTORY: head injury COMPARISON: CT head from 12/01/2023. TECHNIQUE: Axial images of the brain were obtained from the skull base to the vertex without contrast enhancement. Sagittal and coronal reformations were provided. FINDINGS: No acute intracranial hemorrhage, extra-axial fluid collection, midline shift shift or mass effect is seen. No space-occupying lesion is demonstrated. Sulcal and ventricular prominence is compatible with intracranial volume loss. No CT evidence of an acute ischemic event. Vascular calcification is seen along the course of the carotid siphon. Only a small amount of mucosal thickening is seen within the visualized paranasal sinuses. The mastoids are well-aerated. CT/CT head/brain wo con IMPRESSION: No CT evidence of an acute intracranial hemorrhage or acute calvarial fracture. Electronically authenticated by: BANDAR RODRIGEZ Date: 12/12/2023 04:56
[2023-12-12 05:49] VITALS: BP 92/55; PULSE 86; O2SAT 97
[2023-12-12 07:13] VITALS: BP 90/54; PULSE 83; O2SAT 91
[2023-12-12 07:40] LABS: Glucometer 99 mg/dL (74-106)
== END 2023-12-12 07:47 | disposition home or self-care (01) ==
PROVIDERS: Emergency Provider Internal Medicine; PCP Nurse Practitioner
DX: S01.81XA Laceration without foreign body of other part of head, initial encounter (principal); S09.90XA Unspecified injury of head, initial encounter; W19.XXXA Unspecified fall, initial encounter; Z87.891 Personal history of nicotine dependence
CPT/HCPCS: 36415; 70450; 72125; 80048; 99284

== ENCOUNTER 2023-12-22 15:36 | Emergency (ER) | payer OTHER, SELFPAY ==
--- NOTE | 2023-12-22 15:46 | ED.GENADUL1 ---
HPI HPI - General Adult General Chief complaint: Fall Stated complaint: Suicidal, Frequent Falls Time Seen by Provider: 12/22/23 15:44 History of Present Illness HPI narrative: Patient is a 68-year-old male who is presenting to the ER today with chief complaint of suicidal ideation. Patient is at [facility] sent the patient to the ER for evaluation. Patient was making specific claims that he is in a hanging himself with a rope from the chandelier in his room. Patient said this several times. The nursing facility policy is that they cannot hold suicidal patients, he was sent to the ER to be evaluated. Initially Elise from [facility], the nurse who is helping this patient, called and gave report. Patient was brought to the ER by EMS. The initial report the patient is alert and oriented x 1. When I evaluated the patient with Ruby KAUR at bedside, patient is alert and orient x 2, he is always confused at time. Patient has baseline of MRDD. Additional history was given from 2 sisters at bedside as well. Patient adamantly states that he would never hang himself with a rope, however he does not remember making the statements. Patient also had 3 falls in the last 24 hours. Patient currently has no headache, no neck pain. No chest pain or shortness of breath. No abdominal pain, nausea, vomiting, or any other acute complaints. 2 sisters are at bedside, they are helpful with information. 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 She is not able to offer much information, 2 sisters at bedside states that she is overwhelmed as well. All systems are negative except as noted/marked. All systems reviewed and otherwise negative. Nurses note and vital signs reviewed and patient is not hypoxic. General: The patient appears well and in no apparent distress. Patient is resting comfortably on cart. Patient is not toxic, lethargic, or listless Skin: Warm, dry, no pallor noted. There is no rash noted. No petechiae, purpura. Patient has a deep stage II ulceration, muscle is not seen above his anus, midline. Patient also has a minimal stage II ulceration to the left buttock. There is no signs of cellulitis or any other acute infection, no signs of abscess. Head: Normocephalic, atraumatic Eye: Normal conjunctiva, no drainage, EOMI. PERRL Ears, Nose, Mouth, and Throat: oral mucosa is moist. Nares patent. Mouth without vesicles. Cardiovascular: Regular Rate and Rhythm, no murmur, gallop, rub Respiratory: Patient is in no distress, no accessory muscle use, lungs are clear to auscultation, no wheezing, rales or rhonchi Back: non-tender, no CVA tenderness bilaterally to percussion. No CT LS midline pain GI: Obese, no tenderness to palpation, no masses appreciated. No rebound, guarding, or rigidity noted. No distention Musculoskeletal: Patient has full range of motion of all of the extremities, no motor, sensory, or focal neurological deficits Neurological: A&O x2, baseline is normally confused about time, normal speech Psychiatric: Cooperative Related Data Home Medications ?Medication ?Instructions ?Recorded ?Confirmed aspirin 81 mg tablet,delayed 81 mg PO DAILY 06/02/23 12/01/23 release carvedilol 3.125 mg tablet 3.125 mg PO Q12H 06/02/23 12/01/23 duloxetine 30 mg capsule,delayed 30 mg PO DAILY 06/02/23 12/01/23 release gabapentin 300 mg capsule 300 mg PO .COMPLEX 06/02/23 12/01/23 lisinopril 10 mg tablet 10 mg PO DAILY 06/02/23 12/01/23 metformin 500 mg tablet 500 mg PO BID 06/02/23 12/01/23 omeprazole 20 mg capsule,delayed 20 mg PO DAILY 06/02/23 12/01/23 release ropinirole 2 mg tablet 2 mg PO .qhs 06/02/23 12/01/23 rosuvastatin 20 mg tablet 20 mg PO QDAY 06/02/23 12/01/23 tamsulosin 0.4 mg capsule 0.8 mg PO Q24H 06/02/23 12/01/23 furosemide 20 mg tablet 60 mg PO DAILY 12/01/23 12/01/23 metronidazole 500 mg tablet 500 mg PO BID 12/01/23 12/01/23 Previous Rx's ?Medication ?Instructions ?Recorded cephalexin 500 mg capsule 500 mg PO Q6H 10 days #40 caps 12/01/23 cephalexin 500 mg capsule 500 mg PO Q6H 7 days #28 caps 12/01/23 oxycodone-acetaminophen 5 mg-325 1 tab PO Q6H PRN pain #12 tabs 12/01/23 mg tablet (Percocet) oxycodone-acetaminophen 5 mg-325 1 tab PO Q6H PRN pain #12 tabs 12/01/23 mg tablet (Percocet) oxycodone-acetaminophen 5 mg-325 1 tab PO Q6H PRN pain 3 days #12 12/01/23 mg tablet (Percocet) tabs Allergies Allergy/AdvReac Type Severity Reaction Status Date / Time No Known Drug Allergies Allergy Verified 02/22/23 12:49 Opioid HPI Opioid Management Most Recent Opioid Data: Last Pain Scale 7 12/01/23 11:26 Last Pain Intensity 0 06/05/23 09:56 Ur Phencyclidine Scrn Negative (NEGATIVE) 12/22/23 17:15 PFSH PFSH Medical History (Updated 12/22/23 @ 19:39 by Sang Hart MD) Hypomagnesemia ?E83.42 - Hypomagnesemia (ICD-10) Hypokalemia ?E87.6 - Hypokalemia (ICD-10) COVID-19 ?U07.1 - COVID-19 (ICD-10) Abscess of sacrum ?M46.28 - Osteomyelitis of vertebra, sacral and sacrococcygeal region (ICD-10) Dehydration ?E86.0 - Dehydration (ICD-10) Acute viral syndrome ?B34.9 - Viral infection, unspecified (ICD-10) Acute kidney failure ?N17.9 - Acute kidney failure, unspecified (ICD-10) Cellulitis of sacral region ?L03.319 - Cellulitis of trunk, unspecified (ICD-10) Restless leg syndrome ?G25.81 - Restless legs syndrome (ICD-10) Diabetic neuropathy ?E11.40 - Type 2 diabetes mellitus with diabetic neuropathy, unspecified (ICD-10) Dyslipidemia ?E78.5 - Hyperlipidemia, unspecified (ICD-10) Non-insulin dependent diabetes mellitus Hypertension ?I10 - Essential (primary) hypertension (ICD-10) Family History Sister Family history of diabetes mellitus Social History Within the past year, how often did you have a drink containing alcohol: never Score interpretation: A score less than 4 is consistent with normal alcohol consumption. Smoking status: Former smoker Non-prescribed substance use: denies use Highest level of school completed/degree received: high school graduate Gender Identity: male Exam Constitutional Vital Signs, click to edit/add: Last Vital Signs Temp 98.0 F 12/22/23 15:48 Pulse 91 H 12/22/23 15:48 Resp 16 12/22/23 15:48 BP 95/62 12/22/23 15:48 Pulse Ox 95 12/22/23 15:48 O2 Del Method Room Air 12/22/23 15:48 Course Vital Signs Vital signs: Vital Signs Temperature 98.0 F 12/22/23 15:48 Pulse Rate 91 H 12/22/23 15:48 Respiratory Rate 16 12/22/23 15:48 Blood Pressure 95/62 12/22/23 15:48 Pulse Oximetry 95 12/22/23 15:48 Oxygen Delivery Method Room Air 12/22/23 15:48 Temperature 98.0 F 12/22/23 15:48 Pulse Rate 91 H 12/22/23 15:48 Respiratory Rate 16 12/22/23 15:48 Blood Pressure 95/62 12/22/23 15:48 Pulse Oximetry 95 12/22/23 15:48 Oxygen Delivery Method Room Air 12/22/23 15:48 Medical Decision Making MDM Narrative Medical decision making narrative: Several phone calls were made to and who is a nursing directorexecutive chairman of the board at [facility]. I also then spoke to Arlen who is the records assistant at [facility], Arlen stated this patient is not able to go back to their facility until he is cleared by mental health providers to see if he needs psychiatric clearance or if he is able to return back to the nursing facility. 1640 psych clearance and medical clearance has been initiated at this time, there is delays secondary to me trying to obtain accurate history. 1750 Pt is medically cleared 1900 patient was given a potassium tablet and 1 L of IV fluid. [facility] and [facility], they are speaking to the directors of the nursing facility to come up with a safety plan so that patient may be sent back to [facility]. Patient's case will be transition to Dr. Hassan for final disposition. Patient discharge has been refilled by myself and likelihood that patient will be going back to the nursing facility. Critical care time 35 minutes exclusive from separate billable procedures that were performed. The following was considered in the determination of critical care but not limited to the level of medical decision making, intensive cardiac and/or respiratory monitoring, frequent vital sign monitoring, evaluation of laboratory studies, evaluation of radiographic studies, oxygen monitoring, and constant monitoring and speaking to family at bedside Lab Data Labs: Lab Results 12/22/23 12/22/23 Range/Units 16:45 17:15 WBC 6.8 (4.0-11.0) 10^3/uL RBC 3.94 L (4.70-6.10) 10^6/uL Hgb 10.9 L (14.0-18.0) g/dL Hct 34.0 L (42.0-54.0) % MCV 86.3 (80.0-94.0) fL MCH 27.7 (25.9-34.0) pg MCHC 32.1 (29.9-35.2) g/dL RDW 14.9 (11.0-15.0) % Plt Count 114 L (150-450) 10^3/uL MPV 12.4 (9.5-13.5) fL Neut % (Auto) 71.2 (43.0-75.0) % Lymph % (Auto) 19.2 L (20.5-60.0) % Jackson % (Auto) 7.4 (1.7-12.0) % Eos % (Auto) 1.3 (0.9-7.0) % Baso % (Auto) 0.6 (0.2-2.0) % Neut # (Auto) 4.8 (1.4-6.5) 10^3/uL Lymph # (Auto) 1.3 (1.2-3.8) 10^3/uL Jackson # (Auto) 0.5 (0.3-0.8) 10^3/uL Eos # (Auto) 0.1 (0.0-0.7) 10^3/uL Baso # (Auto) 0.0 (0.0-0.1) 10^3/uL Abs Immat Gran (auto) 0.02 (0.00-0.03) 10^3/uL Imm/Tot Granulo (auto) 0.3 (0.0-0.5) % Sodium 139 (136-145) mmol/L Potassium 3.4 L (3.5-5.1) mmol/L Chloride 100 (98-107) mmol/L Carbon Dioxide 34.6 H (21.0-32.0) mmol/L Anion Gap 7.8 BUN 17.0 (7.0-18.0) mg/dL Creatinine 1.61 H (0.70-1.30) mg/dL Est GFR ( Amer) 52 L (>=60) Est GFR (Non-Af Amer) 43 L (>=60) BUN/Creatinine Ratio 10.6 Glucose 97 (74-106) mg/dL Calcium 7.8 L (8.5-10.1) mg/dL Total Bilirubin 0.4 (0.2-1.0) mg/dL AST 17 (15-37) U/L ALT 7 L (16-63) U/L Alkaline Phosphatase 67 (46-116) U/L Total Creatine Kinase 41 (39-308) U/L Total Protein 6.2 L (6.4-8.2) g/dL Albumin 2.2 L (3.4-5.0) g/dL Globulin 4.0 g/dL Albumin/Globulin Ratio 0.6 Urine Color Yellow (YELLOW) Urine Clarity Clear (CLEAR) Urine pH 6.5 (5.0-9.0) Ur Specific [place] 1.010 (1.005-1.025) Urine Protein Negative (NEG/TRACE) mg/dL Urine Glucose (UA) Negative (NEGATIVE) mg/dL Urine Ketones Negative (NEGATIVE) mg/dL Urine Occult Blood Negative (NEGATIVE) Urine Nitrite Negative (NEGATIVE) Urine Bilirubin Negative (NEGATIVE) Urine Urobilinogen 4.0 A (0.2-1.0) EU/dL Ur Leukocyte Esterase Negative (NEGATIVE) Salicylates 9.3 (<=19.9) mg/dL Urine Opiates Screen Negative (NEGATIVE) Ur Buprenorphine Scrn Negative (NEGATIVE) Ur Oxycodone Screen Negative (NEGATIVE) Urine Methadone Screen Negative (NEGATIVE) Acetaminophen <2.0 L (10.0-30.0) ug/mL Ur Barbiturates Screen Negative (NEGATIVE) U Tricyclic Antidepress Negative (NEGATIVE) Ur Phencyclidine Scrn Negative (NEGATIVE) Ur Amphetamines Screen Negative (NEGATIVE) U Methamphetamines Scrn Negative (NEGATIVE) U Benzodiazepines Scrn Positive A (NEGATIVE) Urine Cocaine Screen Negative (NEGATIVE) U Cannabinoids Screen Negative (NEGATIVE) Ethanol Quant <3 mg/dL ECG Data Attestation: I personally reviewed and interpreted this ECG as follows: (EKG interpretation. Normal sinus rhythm at 90 beats a minute. Left axis deviation. No acute ST elevation, no acute ectopy. QTc of 448. IN interval of 220, first-degree AV block. Right bundle branch block noted, chronic) Discharge Plan Discharge Stand Alone Forms: Work/School Release, Portal Instructions Chief Complaint: Fall Clinical Impression: Suicidal ideation, Hypokalemia, Dehydration, mild Patient Disposition: Home, Self-Care Condition: Fair Prescriptions / Home Meds: No Action aspirin 81 mg tablet,delayed release (DR/EC) 81 mg PO DAILY carvedilol 3.125 mg tablet 3.125 mg PO Q12H duloxetine 30 mg capsule,delayed release(DR/EC) 30 mg PO DAILY gabapentin 300 mg capsule 300 mg PO .COMPLEX Rx Instructions: 300 mg orally 1 tablet in the morning and 2 tablets before bed; lisinopril 10 mg tablet 10 mg PO DAILY metformin 500 mg tablet 500 mg PO BID omeprazole 20 mg capsule,delayed release(DR/EC) 20 mg PO DAILY ropinirole 2 mg tablet 2 mg PO .qhs rosuvastatin 20 mg tablet 20 mg PO QDAY tamsulosin 0.4 mg capsule 0.8 mg PO Q24H furosemide 20 mg tablet 60 mg PO DAILY metronidazole 500 mg tablet 500 mg PO BID cephalexin 500 mg capsule 500 mg PO Q6H 10 Days Qty: 40 0RF oxycodone-acetaminophen [Percocet] 5-325 mg tablet 1 tab PO Q6H PRN (Reason: pain) Qty: 12 0RF oxycodone-acetaminophen [Percocet] 5-325 mg tablet 1 tab PO Q6H PRN (Reason: pain) Qty: 12 0RF cephalexin 500 mg capsule 500 mg PO Q6H 7 Days Qty: 28 0RF oxycodone-acetaminophen [Percocet] 5-325 mg tablet 1 tab PO Q6H PRN (Reason: pain) 3 Days Qty: 12 0RF Print Language: Canadian Instructions: Dehydration (ED), Potassium Content of Foods List (ED), Hypokalemia (ED), Help Prevent Suicide in Older Adults (ED) Additional Instructions: Patient was given a tablet of potassium in the ER. Patient has had evaluation from [facility]'s counseling. Safety plan has been signed. Follow-up with physician from nursing facility along with [facility]. Referrals: Irina Mcleod NP [Nurse Practitioner] - 1 week
[2023-12-22 15:48] VITALS: BP 95/62; PULSE 91; TEMP 36.7; O2SAT 95; BMI 34.2
--- NOTE | 2023-12-22 16:36 | ECG_ITS ---
The [facility] Test Date: 2023-12-22 Pat Name: CARLOS DUQUE Department: Room: - Gender: Male [employer] Representative: : 1955 Requested By: JIMBO COLBY Order Number: [id number] Reading MD: STACEY CHU Measurements Intervals [place] Rate: 90 P: 70 MA: 220 QRS: -71 QRSD: 120 T: 80 QT: 400 QTc: 448 Interpretive Statements 1100 Sinus rhythm 2231 First degree AV block 2450 Right bundle branch block 3634 Inferior myocardial infarction, age undetermined 9150 abnormal ECG Electronically Signed On 12-22-2023 18:13:06 EDT by STACEY CHU
[2023-12-22 17:04] LABS: Basophils Percent Auto 0.6 % (0.2-2.0); Eosinophils Absolute Auto 0.1 10^3/uL (0.0-0.7); Eosinophils Percent Auto 1.3 % (0.9-7.0); Hemoglobin 10.9 g/dL (14.0-18.0); Immature Granulocytes Abs Auto 0.02 10^3/uL (0.00-0.03); Immature Granulocytes Pct Auto 0.3 % (0.0-0.5); Lymphocytes Absolute Auto 1.3 10^3/uL (1.2-3.8); Lymphocytes Percent Auto 19.2 % (20.5-60.0); Mean Corpuscular HGB Conc 32.1 g/dL (29.9-35.2); Mean Corpuscular Hemoglobin 27.7 pg (25.9-34.0); Mean Corpuscular Volume 86.3 fL (80.0-94.0); Mean Platelet Volume 12.4 fL (9.5-13.5); Monocytes Absolute Auto 0.5 10^3/uL (0.3-0.8); Monocytes Percent Auto 7.4 % (1.7-12.0); Neutrophils Absolute Auto 4.8 10^3/uL (1.4-6.5); Neutrophils Percent Auto 71.2 % (43.0-75.0); Platelet Count 114 10^3/uL (150-450); Red Blood Count 3.94 10^6/uL (4.70-6.10); Red Cell Distribution Width 14.9 % (11.0-15.0); White Blood Count 6.8 10^3/uL (4.0-11.0)
[2023-12-22 17:18] LABS: Alanine Aminotransferase 7 U/L (16-63); Albumin Globulin Ratio 0.6; Albumin Level 2.2 g/dL (3.4-5.0); Alkaline Phosphatase 67 U/L (46-116); Anion Gap 7.8; Aspartate Amino Transferase 17 U/L (15-37); BUN Creatinine Ratio 10.6; Bilirubin Total 0.4 mg/dL (0.2-1.0); Calcium 7.8 mg/dL (8.5-10.1); Carbon Dioxide 34.6 mmol/L (21.0-32.0); Chloride 100 mmol/L (98-107); Creatine Kinase 41 U/L (39-308); Estimated GFR (African America 52 (>=60); Estimated GFR (Non-African Ame 43 (>=60); Glucose 97 mg/dL (74-106); Potassium 3.4 mmol/L (3.5-5.1); Salicylate 9.3 mg/dL (<=19.9); Sodium 139 mmol/L (136-145); Total Protein 6.2 g/dL (6.4-8.2)
[2023-12-22 17:20] LABS: Acetaminophen <2.0 ug/mL (10.0-30.0); Ethanol <3 mg/dL
[2023-12-22] MEDS: 0.9 % SODIUM CHLORIDE 1,000 ML 1000 ML IV (17:26)
[2023-12-22 17:28] LABS: Bilirubin Urine NEGATIVE (NEGATIVE); Blood Urine NEGATIVE (NEGATIVE); Clarity Urine CLEAR (CLEAR); Color Urine YELLOW (YELLOW); Glucose Urine UA NEGATIVE (NEGATIVE); Ketones Urine NEGATIVE (NEGATIVE); Leukocyte Esterase Urine NEGATIVE (NEGATIVE); Nitrite Urine NEGATIVE (NEGATIVE); Protein Urine NEGATIVE (NEG/TRACE); pH Urine 6.5 (5.0-9.0)
[2023-12-22 17:35] LABS: Urine Microscopic Indicated NO
[2023-12-22 17:37] LABS: Amphetamine Screen Urine NEGATIVE (NEGATIVE); Barbiturates Screen Urine NEGATIVE (NEGATIVE); Benzodiazepines Screen Urine POSITIVE (NEGATIVE); Buprenorphine Screen Urine NEGATIVE (NEGATIVE); Cannabinoid Screen Urine NEGATIVE (NEGATIVE); Cocaine Screen Urine NEGATIVE (NEGATIVE); Methadone Screen Urine NEGATIVE (NEGATIVE); Methamphetamines Screen Urine NEGATIVE (NEGATIVE); Opiate Screen Urine NEGATIVE (NEGATIVE); Oxycodone Screen Urine NEGATIVE (NEGATIVE); Phencyclidine Screen Urine NEGATIVE (NEGATIVE); Tricyclic Antidepressant Urine NEGATIVE (NEGATIVE)
[2023-12-22] MEDS: POTASSIUM CHLORIDE 10 MEQ ER TABLET 40 MEQ PO (18:33)
[2023-12-22] MEDS: LORAZEPAM 2 MG/ML VIAL 1 MG IV (21:27)
[2023-12-22 22:53] VITALS: BP 98/61; PULSE 84; O2SAT 99
== END 2023-12-22 22:50 | disposition home or self-care (01) ==
PROVIDERS: Emergency Medicine; Emergency Provider Internal Medicine; PCP Family Medicine
DX: R45.851 Suicidal ideations (principal); E87.6 Hypokalemia; E86.0 Dehydration; Z91.81 History of falling; F79 Unspecified intellectual disabilities; Z87.891 Personal history of nicotine dependence
CPT/HCPCS: 36415; 80053; 80179; 80307; 80320; 80329; 81003; 82550; 85025; 93005; 96361; 96374; 99285; J2060